=== PATIENT | female | born 1955 | race Caucasian/White ===

== ENCOUNTER 2023-08-09 21:08 | Observation (INO) | payer OTHER ==
--- OUTSIDE RECORDS SUMMARY | 2023-08-09 21:21 | XMS REPORT | Continuity of Care Document ---
:1955 Author Organization [facility] t Address [address] [place] [address] [place] [id number] Care Team Providers Name Role Phone Christopher Bridges MD Primary Care Physician Naga Marcial Attending Clinician Unavailable Isael Brito Attending Clinician Unavailable Pob, Ad[facility] Lab Main Attending Clinician Unavailable Veda Chavez MD Attending Clinician VEDA CHAVEZ Attending Clinician Unavailable Christopher Bridges MD Attending Clinician CHRISTOPHER BRIDGES Attending Clinician Unavailable Doctor Unassigned, [place] Attending Clinician Unavailable Michelle Reed Attending Clinician Unavailable Lab, Ang - Db Attending Clinician Unavailable NATI ALVARADO Attending Clinician Unavailable Nati Alvarado MD Attending Clinician Steven KEITH, Dylan Attending Clinician SAMSON MARES Attending Clinician Unavailable Ebjong MARTINEZP, Samson Attending Clinician JAY JUDD Attending Clinician Unavailable Jay Jones Attending Clinician Therapy, Adc Covid Infusion Attending Clinician Unavailable Jamie Ahn MD Attending Clinician JAMIE AHN Attending Clinician Unavailable David MARTINEZP, Jony Attending Clinician PITO RENEE Attending Clinician Unavailable JONY GRIGGS Attending Clinician Unavailable Frantz Fuller DO Attending Clinician MARCELLE MCLEOD Attending Clinician Unavailable Lab, Adc Fam Pob I Attending Clinician Unavailable Harsha JOSE, Marcelle Doyle Attending Clinician Tariq Harman MD Attending Clinician Isela Alba MD Attending Clinician [phone] KNOW, DOES_NOT Admitting Clinician Unavailable Michelle Reed Admitting Clinician Unavailable Physician, No Primary or Family Admitting Clinician Unavaila ble Payers Payer Name Policy Type Policy Number Effective Date Expiration Date Janis VERMA [id number] 2019 PLUS CHOICE 00:00:00 [employer] GOLD PLS [id number] 2021 HMO 00:00:00 [facility] SNP [id number] 2021 00:00:00 Problems Condition Condition Condition Status Onset Resolution Last Treating Co mments Source Name Details Category Date Date Treatment Clinician Date Cough, Cough, 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 7-15 it y of 00:00: [place] 00 Medical Branch Essential Essential Disease Active Uni vers hypertensi hypertensi 1-24 it y of on on 00:00: [place] 00 Medical Branch Gastroesop Gastroesop Disease Active 2016- U nivers hageal hageal 2-28 ity of reflux reflux 00:00: [place] disease disease 00 Medical without without Branch esophagiti esophagiti s s Arthritis Arthritis Disease Active 2014-11 Uni vers 1-18 ity of 00:00: [place] 00 [facility] Branch Chronic Chronic Disease Active 2014-11 Univers back pain back pain 1-18 ity of greater greater 00:00: [place] than 3 than 3 00 Medical months months Branch duration duration Allergies, Adverse Reactions, Alerts Allergy Allergy Status Severity Reaction(s) Onset Inactive Treating Comm ents Source Name Type Date Date Clinician No Known DA Active [facility] 7[facility] Clear s 00:[facility]: [place] [facility] No Known DA Active [facility] Allergie 8-21 Clear s 00:00: [place] 00 [facility] No Known DA Active [facility] Allergie 8-21 Clear s 00:00: [place] 00 [facility] NO KNOWN Drug Active Univers ALLERGIE Class ity of [facility] Social History Social Habit Start Date Stop Date Quantity Comments Source Gender identity [facility] y [facility] Sexual orientation Univer [facility] Alcohol intake 2023-07-06 2023-07-06 Current University of 00:00:00 00:00:00 non-drinker of [facility] alcohol Branch (finding) Exposure to 2023-04-03 2023-04-13 Not sure [facility] SARS-CoV-2 (event) 00:00:00 11:50:00 [facility] History of Social 2023-01-24 2023-01-24 Univers ity of function 00:00:00 00:00:00 [facility] Tobacco use and 2015-10-15 2015-10-15 Smokeless Universit y of exposure 00:00:00 00:00:00 tobacco non-user [facility] Sex [birth year] Universit y of 00:00:00 00:00:00 [facility] Smoking Status Start Date Stop Date Source Tobacco smoking consumption Univ [facility] Branch Never smoked tobacco [facility] Medications Ordered Filled Start Stop Current Ordering Indication Dosage Frequency Signature Comments Components Source Medication Medication Date Date Medication? Clinician (SIG) Name Name HYDROcodone Yes 2745 1{tbl} Take 1 Un sharda -acetaminop 8-23 tablet by ity of hen 10-325 00:00: mouth [place] mg tablet 00 every 6 Medical (six) Branch hours as needed for Pain (scale 7-10). Indication s: chronic pain HYDROcodone 2023-0 Yes [id number] 1{tbl} Take 1 Un sharda -acetaminop 8-23 tablet by ity of hen 10-325 00:00: mouth [place] mg tablet 00 every 6 Medical (six) Branch hours as needed for Pain (scale 7-10). Indication s: chronic pain HYDROcodone 2023-0 Yes [id number] 1{tbl} Take 1 Un sharda -acetaminop 8-23 tablet by ity of hen 10-325 00:00: mouth [place] mg tablet 00 every 6 Medical (six) Branch hours as needed for Pain (scale 7-10). Indication s: chronic pain HYDROcodone 2023-0 Yes 2745 1{tbl} Take 1 Un sharda -acetaminop 8-23 tablet by ity of hen 10-325 00:00: mouth [place] mg tablet 00 every 6 Medical (six) Branch hours as needed for Pain (scale 7-10). Indication s: chronic pain HYDROcodone 2023-0 Yes [id number] 1{tbl} Take 1 Un sharda -acetaminop 8-23 tablet by ity of hen 10-325 00:00: mouth [place] mg tablet 00 every 6 Medical (six) Branch hours as needed for Pain (scale 7-10). Indication s: chronic pain HYDROcodone 2023-0 Yes 2745 1{tbl} Take 1 Un sharda -acetaminop 8-23 tablet by ity of hen 10-325 00:00: mouth [place] mg tablet 00 every 6 Medical (six) Branch hours as needed for Pain (scale 7-10). Indication s: chronic pain tiZANidine 2023-0 Yes [id number] TAKE 1 U nivers 4 mg tablet 8-17 TABLET BY ity of 00:00: MOUTH [place] 00 THREE Medical TIMES Branch DAILY NEEDED FOR MUSCLE SPASMS tiZANidine 2023-0 Yes [id number] TAKE 1 U nivers 4 mg tablet 8-17 TABLET BY ity of 00:00: MOUTH [place] 00 THREE Medical TIMES Branch DAILY NEEDED FOR MUSCLE SPASMS tiZANidine 2023-0 Yes [id number] TAKE 1 U nivers 4 mg tablet 8-17 TABLET BY ity of 00:00: MOUTH [place] 00 THREE Medical TIMES Branch DAILY NEEDED FOR MUSCLE SPASMS tiZANidine 2023-0 Yes [id number] TAKE 1 U nivers 4 mg tablet 8-17 TABLET BY ity of 00:00: MOUTH [place] 00 THREE Medical TIMES Branch DAILY NEEDED FOR MUSCLE SPASMS tiZANidine 2023-0 Yes [id number] TAKE 1 U nivers 4 mg tablet 8-17 TABLET BY ity of 00:00: MOUTH [place] 00 THREE Medical TIMES Branch DAILY NEEDED FOR MUSCLE SPASMS tiZANidine 2023-0 Yes [id number] TAKE 1 U nivers 4 mg tablet 8-17 TABLET BY ity of 00:00: MOUTH [place] 00 THREE Medical TIMES Branch DAILY NEEDED FOR MUSCLE SPASMS tiZANidine 2023-0 Yes [id number] TAKE 1 U nivers 4 mg tablet 8-17 TABLET BY ity of 00:00: MOUTH [place] 00 THREE Medical TIMES Branch DAILY NEEDED FOR MUSCLE SPASMS HYDROcodone 2023-0 Yes [id number] 1{tbl} Take 1 Un sharda -acetaminop 7-24 tablet by ity of hen 10-325 00:00: mouth [place] mg tablet 00 every 6 Medical (six) Branch hours as needed for Pain (scale 7-10). Indication s: chronic pain ciprofloxac 2023-0 Yes [id number] 500mg Take 1 Univers in HCl 7-24 tablet by ity of (CIPRO) 500 00:00: mouth [place] mg tablet 00 every 12 Medica l (twelve) Branch hours. HYDROcodone 2023-0 Yes [id number] 1{tbl} Take 1 Un sharda -acetaminop 7-24 tablet by ity of hen 10-325 00:00: mouth [place] mg tablet 00 every 6 Medical (six) Branch hours as needed for Pain (scale 7-10). Indication s: chronic pain ciprofloxac 2023-0 Yes [id number] 500mg Take 1 Univers in HCl 7-24 tablet by ity of (CIPRO) 500 00:00: mouth [place] mg tablet 00 every 12 Medica l (twelve) Branch hours. HYDROcodone 2023-0 Yes [id number] 1{tbl} Take 1 Un sharda -acetaminop 7-24 tablet by ity of hen 10-325 00:00: mouth [place] mg tablet 00 every 6 Medical (six) Branch hours as needed for Pain (scale 7-10). Indication s: chronic pain ciprofloxac 2023-0 Yes [id number] 500mg Take 1 Univers in HCl 7-24 tablet by ity of (CIPRO) 500 00:00: mouth [place] mg tablet 00 every 12 Medica l (twelve) Branch hours. HYDROcodone 2023-0 Yes [id number] 1{tbl} Take 1 Un sharda -acetaminop 7-24 tablet by ity of hen 10-325 00:00: mouth [place] mg tablet 00 every 6 Medical (six) Branch hours as needed for Pain (scale 7-10). Indication s: chronic pain ciprofloxac 2023-0 Yes [id number] 500mg Take 1 Univers in HCl 7-24 tablet by ity of (CIPRO) 500 00:00: mouth [place] mg tablet 00 every 12 Medica l (twelve) Branch hours. HYDROcodone 2023-0 Yes [id number] 1{tbl} Take 1 Un sharda -acetaminop 7-24 tablet by ity of hen 10-325 00:00: mouth [place] mg tablet 00 every 6 Medical (six) Branch hours as needed for Pain (scale 7-10). Indication s: chronic pain ciprofloxac 2023-0 Yes [id number] 500mg Take 1 Univers in HCl 7-24 tablet by ity of (CIPRO) 500 00:00: mouth [place] mg tablet 00 every 12 Medica l (twelve) Branch hours. HYDROcodone 2023-0 Yes [id number] 1{tbl} Take 1 Un sharda -acetaminop 7-24 tablet by ity of hen 10-325 00:00: mouth [place] mg tablet 00 every 6 Medical (six) Branch hours as needed for Pain (scale 7-10). Indication s: chronic pain ciprofloxac 2023-0 Yes [id number] 500mg Take 1 Univers in HCl 7-24 tablet by ity of (CIPRO) 500 00:00: mouth [place] mg tablet 00 every 12 Medica l (twelve) Branch hours. ciprofloxac 2023-0 Yes [id number] 500mg Take 1 Univers in HCl 7-24 tablet by ity of (CIPRO) 500 00:00: mouth [place] mg tablet 00 every 12 Medica l (twelve) Branch hours. ciprofloxac 2023-0 Yes [id number] 500mg Take 1 Univers in HCl 7-24 tablet by ity of (CIPRO) 500 00:00: mouth [place] mg tablet 00 every 12 Medica l (twelve) Branch hours. ciprofloxac 2023-0 Yes [id number] 500mg Take 1 Univers in HCl 7-24 tablet by ity of (CIPRO) 500 00:00: mouth [place] mg tablet 00 every 12 Medica l (twelve) Branch hours. ciprofloxac 2023-0 Yes [id number] 500mg Take 1 Univers in HCl 7-24 tablet by ity of (CIPRO) 500 00:00: mouth [place] mg tablet 00 every 12 Medica l (twelve) Branch hours. ciprofloxac 2023-0 Yes [id number] 500mg Take 1 Univers in HCl 7-24 tablet by ity of (CIPRO) 500 00:00: mouth [place] mg tablet 00 every 12 Medica l (twelve) Branch hours. ciprofloxac 2023-0 Yes [id number] 500mg Take 1 Univers in HCl 7-24 tablet by ity of (CIPRO) 500 00:00: mouth [place] mg tablet 00 every 12 Medica l (twelve) Branch hours. HYDROcodone 2022-0 2022- No [id number] 1{tbl} Take 1 U nivers -acetaminop 7-24 08-23 tablet by it y of hen 10-325 00:00: 00:00 mouth [place] mg tablet 00 :00 every 6 Medical (six) Branch hours as needed for Pain (scale 7-10). Indication s: chronic pain HYDROcodone 2022-0 Yes [id number] 1{tbl} Take 1 Un sharda -acetaminop 6-25 tablet by ity of hen 10-325 00:00: mouth [place] mg tablet 00 every 6 Medical (six) Branch hours as needed for Pain (scale 7-10). Indication s: chronic pain HYDROcodone 2022-0 2022- No 2745 1{tbl} Take 1 U nivers -acetaminop 6-25 07-24 tablet by it y of hen 10-325 00:00: 00:00 mouth [place] mg tablet 00 :00 every 6 Medical (six) Branch hours as needed for Pain (scale 7-10). Indication s: chronic pain HYDROcodone 2022-0 2022- No 2745 1{tbl} Take 1 U nivers -acetaminop 6-25 07-24 tablet by it y of hen 10-325 00:00: 00:00 mouth [place] mg tablet 00 :00 every 6 Medical (six) Branch hours as needed for Pain (scale 7-10). Indication s: chronic pain HYDROcodone 2023-0 2023- No 2745 1{tbl} Take 1 U nivers -acetaminop 6-25 07-24 tablet by it y of hen 10-325 00:00: 00:00 mouth [place] mg tablet 00 :00 every 6 Medical (six) Branch hours as needed for Pain (scale 7-10). Indication s: chronic pain TIZANIDINE 2023-0 Yes [id number] TAKE 1 U nivers 4 mg tablet 6-16 TABLET BY ity of 00:00: MOUTH [place] 00 THREE Medical TIMES Branch DAILY NEEDED FOR MUSCLE SPASMS TIZANIDINE 2023-0 Yes [id number] TAKE 1 U nivers 4 mg tablet 6-16 TABLET BY ity of 00:00: MOUTH [place] 00 THREE Medical TIMES Branch DAILY NEEDED FOR MUSCLE SPASMS TIZANIDINE 2023-0 Yes [id number] TAKE 1 U nivers 4 mg tablet 6-16 TABLET BY ity of 00:00: MOUTH [place] 00 THREE Medical TIMES Branch DAILY NEEDED FOR MUSCLE SPASMS TIZANIDINE 2023-0 Yes [id number] TAKE 1 U nivers 4 mg tablet 6-16 TABLET BY ity of 00:00: MOUTH [place] 00 THREE Medical TIMES Branch DAILY NEEDED FOR MUSCLE SPASMS TIZANIDINE 2023-0 Yes [id number] TAKE 1 U nivers 4 mg tablet 6-16 TABLET BY ity of 00:00: MOUTH [place] 00 THREE Medical TIMES Branch DAILY NEEDED FOR MUSCLE SPASMS TIZANIDINE 2023-0 Yes [id number] TAKE 1 U nivers 4 mg tablet 6-16 TABLET BY ity of 00:00: MOUTH [place] 00 THREE Medical TIMES Branch DAILY NEEDED FOR MUSCLE SPASMS TIZANIDINE 2023-0 Yes [id number] TAKE 1 U nivers 4 mg tablet 6-16 TABLET BY ity of 00:00: MOUTH [place] 00 THREE Medical TIMES Branch DAILY NEEDED FOR MUSCLE SPASMS TIZANIDINE 2023-0 2023- No [id number] TAKE 1 Univers 4 mg tablet 6-16 08-17 TABLET BY it y of 00:00: 00:00 MOUTH [place] 00 :00 THREE Medical TIMES Branch DAILY NEEDED FOR MUSCLE SPASMS HYDROcodone 2023-0 Yes [id number] 1{tbl} Take 1 Un sharda -acetaminop 5-24 tablet by ity of hen 10-325 00:00: mouth [place] mg tablet 00 every 6 Medical (six) Branch hours as needed for Pain (scale 7-10). Indication s: chronic pain HYDROcodone 3-0 Yes 2745 1{tbl} Take 1 Un sharda -acetaminop 5-24 tablet by ity of hen 10-325 00:00: mouth [place] mg tablet 00 every 6 Medical (six) Branch hours as needed for Pain (scale 7-10). Indication s: chronic pain HYDROcodone 3-0 Yes [id number] 1{tbl} Take 1 Un sharda -acetaminop 5-24 tablet by ity of hen 10-325 00:00: mouth [place] mg tablet 00 every 6 Medical (six) Branch hours as needed for Pain (scale 7-10). Indication s: chronic pain HYDROcodone 2022-0 Yes 2745 1{tbl} Take 1 Un sharda -acetaminop 5-24 tablet by ity of hen 10-325 00:00: mouth [place] mg tablet 00 every 6 Medical (six) Branch hours as needed for Pain (scale 7-10). Indication s: chronic pain HYDROcodone 2022-0 Yes [id number] 1{tbl} Take 1 Un sharda -acetaminop 5-24 tablet by ity of hen 10-325 00:00: mouth [place] mg tablet 00 every 6 Medical (six) Branch hours as needed for Pain (scale 7-10). Indication s: chronic pain HYDROcodone 3-0 Yes 2745 1{tbl} Take 1 Un sharda -acetaminop 5-24 tablet by ity of hen 10-325 00:00: mouth [place] mg tablet 00 every 6 Medical (six) Branch hours as needed for Pain (scale 7-10). Indication s: chronic pain HYDROcodone 3-0 Yes 2745 1{tbl} Take 1 Un sharda -acetaminop 5-24 tablet by ity of hen 10-325 00:00: mouth [place] mg tablet 00 every 6 Medical (six) Branch hours as needed for Pain (scale 7-10). Indication s: chronic pain HYDROcodone 3-0 3- No 2745 1{tbl} Take 1 U nivers -acetaminop 5-24 06-25 tablet by it y of hen 10-325 00:00: 00:00 mouth [place] mg tablet 00 :00 every 6 Medical (six) Branch hours as needed for Pain (scale 7-10). Indication s: chronic pain iopamidol 0 2022- No [id number] 80mL 80 mL, Univers (ISOVUE - 05-17 Intravenou ity o f 370-500 mL) 20:00: 20:06 s, ONCE, 1 [place] injection 00 :00 dose, On Medica l 80 mL [facility] Branch 04/13/23 at 1515, Routine OMEPRAZOLE 2022-0 Yes Take by [facility] ers (PRILOSEC 5-17 mouth. ity of ORAL) 12:08: [address] OMEPRAZOLE 2022-0 Yes Take by [facility] ers (PRILOSEC 5-17 mouth. ity of ORAL) 12:08: [address] OMEPRAZOLE 2022-0 Yes Take by Univ ers (PRILOSEC 5-17 mouth. ity of ORAL) 12:08: [address] OMEPRAZOLE 3-0 Yes Take by [facility] ers (PRILOSEC 5-17 mouth. ity of ORAL) 12:08: [address] OMEPRAZOLE 3-0 Yes Take by [facility] ers (PRILOSEC 5-17 mouth. ity of ORAL) 12:08: [address] OMEPRAZOLE 3-0 Yes Take by Univ ers (PRILOSEC 5-17 mouth. ity of ORAL) 12:08: [address] OMEPRAZOLE 3-0 Yes Take by Univ ers (PRILOSEC 5-17 mouth. ity of ORAL) 12:08: [address] OMEPRAZOLE 3-0 Yes Take by Univ ers (PRILOSEC 5-17 mouth. ity of ORAL) 12:08: [address] OMEPRAZOLE 3-0 Yes Take by Univ ers (PRILOSEC 5-17 mouth. ity of ORAL) 12:08: [address] OMEPRAZOLE 3-0 Yes Take by Univ ers (PRILOSEC 5-17 mouth. ity of ORAL) 12:08: [address] OMEPRAZOLE 2023-0 Yes Take by Univ ers (PRILOSEC 5-17 mouth. ity of ORAL) 12:08: [address] OMEPRAZOLE 3-0 Yes Take by Univ ers (PRILOSEC 5-17 mouth. ity of ORAL) 12:08: [place] [address] Medical Branch OMEPRAZOLE 2023-0 Yes Take by Univ ers (PRILOSEC 5-17 mouth. ity of ORAL) 12:08: [place] [address] Medical Branch OMEPRAZOLE 2023-0 Yes Take by Univ ers (PRILOSEC 5-17 mouth. ity of ORAL) 12:08: [place] [address] Medical Branch OMEPRAZOLE 2023-0 Yes Take by Univ ers (PRILOSEC 5-17 mouth. ity of ORAL) 12:08: [place] [address] Medical Branch OMEPRAZOLE 2023-0 Yes Take by Univ ers (PRILOSEC 5-17 mouth. ity of ORAL) 12:08: [place] [address] Medical Branch OMEPRAZOLE 3-0 Yes Take by Univ ers (PRILOSEC 5-17 mouth. ity of ORAL) 12:08: [place] [address] Medical Branch OMEPRAZOLE 2023-0 Yes Take by Univ ers (PRILOSEC 5-17 mouth. ity of ORAL) 12:08: [place] [address] Medical Branch OMEPRAZOLE 3-0 Yes Take by Univ ers (PRILOSEC 5-17 mouth. ity of ORAL) 12:08: [place] [address] Medical Branch OMEPRAZOLE 3-0 Yes Take by Univ ers (PRILOSEC 5-17 mouth. ity of ORAL) 12:08: [place] [address] Medical Branch OMEPRAZOLE 3-0 Yes Take by Univ ers (PRILOSEC 5-17 mouth. ity of ORAL) 12:08: [place] [address] Medical Branch OMEPRAZOLE 2023-0 Yes Take by Univ ers (PRILOSEC 5-17 mouth. ity of ORAL) 12:08: [place] [address] Medical Branch OMEPRAZOLE 2023-0 Yes Take by Univ ers (PRILOSEC 5-17 mouth. ity of ORAL) 12:08: [place] [address] Medical Branch OMEPRAZOLE 2023-0 Yes Take by Univ ers (PRILOSEC 5-17 mouth. ity of ORAL) 12:08: [place] [address] Medical Branch OMEPRAZOLE 2023-0 Yes Take by Univ ers (PRILOSEC 5-17 mouth. ity of ORAL) 12:08: [place] [address] Medical Branch OMEPRAZOLE 2023-0 Yes Take by Univ ers (PRILOSEC 5-17 mouth. ity of ORAL) 12:08: [place] [address] Medical Branch OMEPRAZOLE 2023-0 Yes Take by Univ ers (PRILOSEC 5-17 mouth. ity of ORAL) 12:08: [address] OMEPRAZOLE 2023-0 Yes Take by [facility] ers (PRILOSEC 5-17 mouth. ity of ORAL) 12:08: [address] OMEPRAZOLE 2023-0 Yes Take by [facility] ers (PRILOSEC 5-17 mouth. ity of ORAL) 12:08: [address] OMEPRAZOLE 2023-0 Yes Take by [facility] ers (PRILOSEC 5-17 mouth. ity of ORAL) 12:08: [address] OMEPRAZOLE 2023-0 Yes Take by [facility] ers (PRILOSEC 5-17 mouth. ity of ORAL) 12:08: [address] ciprofloxac 2023-0 Yes 500mg Take 1 Uni vers in HCl 5-17 tablet by ity of (CIPRO) 500 00:00: mouth [place] mg tablet 00 every 12 Medica l (twelve) Branch hours. ciprofloxac 2023-0 Yes 500mg Take 1 Uni vers in HCl 5-17 tablet by ity of (CIPRO) 500 00:00: mouth [place] mg tablet 00 every 12 Medica l (twelve) Branch hours. ciprofloxac 2023-0 Yes 500mg Take 1 Uni vers in HCl 5-17 tablet by ity of (CIPRO) 500 00:00: mouth [place] mg tablet 00 every 12 Medica l (twelve) Branch hours. ciprofloxac 2023-0 Yes 500mg Take 1 Uni vers in HCl 5-17 tablet by ity of (CIPRO) 500 00:00: mouth [place] mg tablet 00 every 12 Medica l (twelve) Branch hours. ciprofloxac 2023-0 Yes 500mg Take 1 Uni vers in HCl 5-17 tablet by ity of (CIPRO) 500 00:00: mouth [place] mg tablet 00 every 12 Medica l (twelve) Branch hours. ciprofloxac 2023-0 Yes 500mg Take 1 Uni vers in HCl 5-17 tablet by ity of (CIPRO) 500 00:00: mouth [place] mg tablet 00 every 12 Medica l (twelve) Branch hours. ciprofloxac 2023-0 Yes 500mg Take 1 Uni vers in HCl 5-17 tablet by ity of (CIPRO) 500 00:00: mouth [place] mg tablet 00 every 12 Medica l (twelve) Branch hours. ciprofloxac 2023-0 Yes 500mg Take 1 Uni vers in HCl 5-17 tablet by ity of (CIPRO) 500 00:00: mouth [place] mg tablet 00 every 12 Medica l (twelve) Branch hours. ciprofloxac 2023-0 Yes 500mg Take 1 Uni vers in HCl 5-17 tablet by ity of (CIPRO) 500 00:00: mouth [place] mg tablet 00 every 12 Medica l (twelve) Branch hours. ciprofloxac 2023-0 Yes 500mg Take 1 Uni vers in HCl 5-17 tablet by ity of (CIPRO) 500 00:00: mouth [place] mg tablet 00 every 12 Medica l (twelve) Branch hours. ciprofloxac 2023-0 Yes 500mg Take 1 Uni vers in HCl 5-17 tablet by ity of (CIPRO) 500 00:00: mouth [place] mg tablet 00 every 12 Medica l (twelve) Branch hours. ciprofloxac 2023-0 Yes 500mg Take 1 Uni vers in HCl 5-17 tablet by ity of (CIPRO) 500 00:00: mouth [place] mg tablet 00 every 12 Medica l (twelve) Branch hours. ciprofloxac 2023-0 Yes 500mg Take 1 Uni vers in HCl 5-17 tablet by ity of (CIPRO) 500 00:00: mouth [place] mg tablet 00 every 12 Medica l (twelve) Branch hours. ciprofloxac 2023-0 Yes 500mg Take 1 Uni vers in HCl 5-17 tablet by ity of (CIPRO) 500 00:00: mouth [place] mg tablet 00 every 12 Medica l (twelve) Branch hours. ciprofloxac 2023-0 2023- No 500mg Take 1 Un sharda in HCl 5-17 07-24 tablet by ity of (CIPRO) 500 00:00: 00:00 [place] tablet 00 :00 every 12 Medica l (twelve) Branch hours. ciprofloxac 2023-0 2023- No 500mg Take 1 Un [place] in HCl 5-17 07-24 tablet by ity of (CIPRO) 500 00:00: 00:00 [place] tablet 00 :00 every 12 Medica l (twelve) Branch hours. ciprofloxac 2022-0 2022- No 500mg Take 1 Un [facility]arda in HCl 5-17 07-24 tablet by ity of (CIPRO) 500 00:00: 00:00 [place] tablet 00 :00 every 12 Medica l (twelve) Branch hours. lisinopriL- 3-0 Yes [id number] 1{tbl} Take 1 Univers hydrochloro 5-08 tablet by ity of thiazide 00:00: mouth in [place] 20-12.5 mg 00 the Medical per tablet morning. [facility] h lisinopriL- 3-0 Yes [id number] 1{tbl} Take 1 Univers hydrochloro 5-08 tablet by ity of thiazide 00:00: mouth in [place] 20-12.5 mg 00 the Medical per tablet morning. Bran h lisinopriL- 3-0 Yes [id number] 1{tbl} Take 1 Univers hydrochloro 5-08 tablet by ity of thiazide 00:00: mouth in [place] 20-12.5 mg 00 the Medical per tablet morning. [facility] h lisinopriL- 3-0 Yes [id number] 1{tbl} Take 1 Univers hydrochloro 5-08 tablet by ity of thiazide 00:00: mouth in [place] 20-12.5 mg 00 the Medical per tablet morning. [facility] lisinopriL- 3-0 Yes [id number] 1{tbl} Take 1 Univers hydrochloro 5-08 tablet by ity of thiazide 00:00: mouth in [place] 20-12.5 mg 00 the Medical per tablet morning. [facility] lisinopriL- 3-0 Yes [id number] 1{tbl} Take 1 Univers hydrochloro 5-08 tablet by ity of thiazide 00:00: mouth in [place] 20-12.5 mg 00 the Medical per tablet morning. [facility] h lisinopriL- 2023-0 Yes [id number] 1{tbl} Take 1 Univers hydrochloro 5-08 tablet by ity of thiazide 00:00: mouth in [place] 20-12.5 mg 00 the Medical per tablet morning. Bran h lisinopriL- 3-0 Yes [id number] 1{tbl} Take 1 Univers hydrochloro 5-08 tablet by ity of thiazide 00:00: mouth in [place] 20-12.5 mg 00 the Medical per tablet morning. Bran h lisinopriL- 2023-0 Yes [id number] 1{tbl} Take 1 Univers hydrochloro 5-08 tablet by ity of thiazide 00:00: mouth in [place] 20-12.5 mg 00 the Medical per tablet morning. Branc h lisinopriL- 2023-0 Yes [id number] 1{tbl} Take 1 Univers hydrochloro 5-08 tablet by ity of thiazide 00:00: mouth in [place] 20-12.5 mg 00 the Medical per tablet morning. Branc h lisinopriL- 3-0 Yes [id number] 1{tbl} Take 1 Univers hydrochloro 5-08 tablet by ity of thiazide 00:00: mouth in [place] 20-12.5 mg 00 the Medical per tablet morning. Branc h lisinopriL- 3-0 Yes [id number] 1{tbl} Take 1 Univers hydrochloro 5-08 tablet by ity of thiazide 00:00: mouth in [place] 20-12.5 mg 00 the Medical per tablet morning. Bran h lisinopriL- 3-0 Yes [id number] 1{tbl} Take 1 Univers hydrochloro 5-08 tablet by ity of thiazide 00:00: mouth in [place] 20-12.5 mg 00 the Medical per tablet morning. Bran h lisinopriL- 3-0 Yes [id number] 1{tbl} Take 1 Univers hydrochloro 5-08 tablet by ity of thiazide 00:00: mouth in [place] 20-12.5 mg 00 the Medical per tablet morning. Bran h lisinopriL- 3-0 Yes [id number] 1{tbl} Take 1 Univers hydrochloro 5-08 tablet by ity of thiazide 00:00: mouth in [place] 20-12.5 mg 00 the Medical per tablet morning. Branc h lisinopriL- 2023-0 Yes [id number] 1{tbl} Take 1 Univers hydrochloro 5-08 tablet by ity of thiazide 00:00: mouth in [place] 20-12.5 mg 00 the Medical per tablet morning. Branc h lisinopriL- 2023-0 Yes [id number] 1{tbl} Take 1 [facility] hydrochloro 5-08 tablet by ity of thiazide 00:00: mouth in [place] 20-12.5 mg 00 the Medical per tablet morning. Bran h lisinopriL- 2023-0 Yes [id number] 1{tbl} Take 1 [facility] hydrochloro 5-08 tablet by ity of thiazide 00:00: mouth in [place] 20-12.5 mg 00 the Medical per tablet morning. Branc h lisinopriL- 2023-0 Yes [id number] 1{tbl} Take 1 [facility] hydrochloro 5-08 tablet by ity of thiazide 00:00: mouth in [place] 20-12.5 mg 00 the Medical per tablet morning. Branc h lisinopriL- 2023-0 Yes [id number] 1{tbl} Take 1 [facility] hydrochloro 5-08 tablet by ity of thiazide 00:00: mouth in [place] 20-12.5 mg 00 the Medical per tablet morning. Branc h lisinopriL- 3-0 Yes [id number] 1{tbl} Take 1 [facility] hydrochloro 5-08 tablet by ity of thiazide 00:00: mouth in [place] 20-12.5 mg 00 the Medical per tablet morning. Bran h lisinopriL- 3-0 Yes [id number] 1{tbl} Take 1 [facility] hydrochloro 5-08 tablet by ity of thiazide 00:00: mouth in [place] 20-12.5 mg 00 the Medical per tablet morning. Bran h lisinopriL- 3-0 Yes [id number] 1{tbl} Take 1 [facility] hydrochloro 5-08 tablet by ity of thiazide 00:00: mouth in [place] 20-12.5 mg 00 the Medical per tablet morning. Bran h lisinopriL- 2023-0 Yes [id number] 1{tbl} Take 1 [facility] hydrochloro 5-08 tablet by ity of thiazide 00:00: mouth in [place] 20-12.5 mg 00 the Medical per tablet morning. Branc h lisinopriL- 2023-0 Yes [id number] 1{tbl} Take 1 [facility] hydrochloro 5-08 tablet by ity of thiazide 00:00: mouth in [place] 20-12.5 mg 00 the Medical per tablet morning. Branc h lisinopriL- 2023-0 Yes [id number] 1{tbl} Take 1 [facility] hydrochloro 5-08 tablet by ity of thiazide 00:00: mouth in [place] 20-12.5 mg 00 the Medical per tablet morning. [facility] lisinopriL- 2022-0 Yes [id number] 1{tbl} Take 1 [facility] hydrochloro 5-08 tablet by ity of thiazide 00:00: mouth in [place] 20-12.5 mg 00 the Medical per tablet morning. [facility] lisinopriL- 2022-0 Yes [id number] 1{tbl} Take 1 [facility] hydrochloro 5-08 tablet by ity of thiazide 00:00: mouth in [place] 20-12.5 mg 00 the Medical per tablet morning. [facility] lisinopriL- 2022-0 Yes [id number] 1{tbl} Take 1 [facility] hydrochloro 5-08 tablet by ity of thiazide 00:00: mouth in [place] 20-12.5 mg 00 the Medical per tablet morning. [facility] lisinopriL- 2022-0 Yes [id number] 1{tbl} Take 1 [facility] hydrochloro 5-08 tablet by ity of thiazide 00:00: mouth in [place] 20-12.5 mg 00 the Medical per tablet morning. [facility] lisinopriL- 2022-0 Yes [id number] 1{tbl} Take 1 [facility] hydrochloro 5-08 tablet by ity of thiazide 00:00: mouth in [place] 20-12.5 mg 00 the Medical per tablet morning. [facility] lisinopriL- 2022-0 Yes [id number] 1{tbl} Take 1 [facility] hydrochloro 5-08 tablet by ity of thiazide 00:00: mouth in [place] 20-12.5 mg 00 the Medical per tablet morning. [facility] lisinopriL- 2022-0 Yes [id number] 1{tbl} Take 1 [facility] hydrochloro 5-08 tablet by ity of thiazide 00:00: mouth in [place] 20-12.5 mg 00 the Medical per tablet morning. [facility] h cyanocobala 2022- No [id number] 1000ug Univers min (DODEX) 03-24 ity of injection 21:15: 20:17 [place] 1,000 mcg 00 :00 Medical Branch cyanocobala 2022- No [id number] 1000ug 1,000 mcg, [facility] min (DODEX) 03-24 Intramuscu i ty of injection 21:15: 20:17 [place], [place]CE, [place] 1,000 mcg 00 :00 1 dose, On [facility] 03/24/23 at 1615, Routine cyanocobala 2022- No [id number] 1000ug Univers min (DODEX) 03-24 ity of injection 21:15: 20:17 [place] 1,000 mcg 00 :00 Medical Branch cyanocobala 2022- No [id number] 1000ug 1,000 mcg, [facility] min (DODEX) 03-24 Intramuscu i ty of injection 21:15: 20:17 [place], [place]CE, [place] 1,000 mcg 00 :00 1 dose, On [facility] 03/24/23 at 1615, Routine HYDROcodone Yes [id number] 1{tbl} Take 1 Un sharda -acetaminop 4-27 tablet by ity of hen 10-325 00:00: mouth [place] mg tablet 00 every 6 Medical (six) Branch hours as needed for Pain (scale 7-10). Indication s: chronic pain escitalopra Yes [id number] 20mg Take 1 [facility] m oxalate 4-27 tablet by ity o f 20 mg 00:00: mouth in [place] tablet 00 the Medical morning. Branch lisinopriL- Yes [id number] 1{tbl} Take 1 [facility] hydrochloro 4-27 tablet by ity of thiazide 00:00: mouth in [place] 20-12.5 mg 00 the Medical per tablet morning. Bran h HYDROcodone 2022-0 Yes [id number] 1{tbl} Take 1 Un sharda -acetaminop 4-27 tablet by ity of hen 10-325 00:00: mouth [place] mg tablet 00 every 6 Medical (six) Branch hours as needed for Pain (scale 7-10). Indication s: chronic pain escitalopra 2022-0 Yes [id number] 20mg Take 1 [facility] m oxalate 4-27 tablet by ity o f 20 mg 00:00: mouth in [place] tablet 00 the Medical morning. Branch lisinopriL- 2022-0 Yes [id number] 1{tbl} Take 1 [facility] hydrochloro 4-27 tablet by ity of thiazide 00:00: mouth in [place] 20-12.5 mg 00 the Medical per tablet morning. Branc h HYDROcodone 3-0 Yes [id number] 1{tbl} Take 1 Un sharda -acetaminop 4-27 tablet by ity of hen 10-325 00:00: mouth [place] mg tablet 00 every 6 Medical (six) Branch hours as needed for Pain (scale 7-10). Indication s: chronic pain escitalopra 3-0 Yes [id number] 20mg Take 1 [facility] m oxalate 4-27 tablet by ity o f 20 mg 00:00: mouth in [place] tablet 00 the Medical morning. Branch lisinopriL- 3-0 Yes [id number] 1{tbl} Take 1 [facility] hydrochloro 4-27 tablet by ity of thiazide 00:00: mouth in [place] 20-12.5 mg 00 the Medical per tablet morning. Branc h HYDROcodone 2022-0 Yes [id number] 1{tbl} Take 1 Un sharda -acetaminop 4-27 tablet by ity of hen 10-325 00:00: mouth [place] mg tablet 00 every 6 Medical (six) Branch hours as needed for Pain (scale 7-10). Indication s: chronic pain escitalopra 3-0 Yes [id number] 20mg Take 1 [facility] m oxalate 4-27 tablet by ity o f 20 mg 00:00: mouth in [place] tablet 00 the Medical morning. Branch lisinopriL- 3-0 Yes [id number] 1{tbl} Take 1 [facility] hydrochloro 4-27 tablet by ity of thiazide 00:00: mouth in [place] 20-12.5 mg 00 the Medical per tablet morning. Branc h HYDROcodone 3-0 Yes [id number] 1{tbl} Take 1 Un sharda -acetaminop 4-27 tablet by ity of hen 10-325 00:00: mouth [place] mg tablet 00 every 6 Medical (six) Branch hours as needed for Pain (scale 7-10). Indication s: chronic pain escitalopra 2023-0 Yes [id number] 20mg Take 1 [facility] m oxalate 4-27 tablet by ity o f 20 mg 00:00: mouth in [place] tablet 00 the Medical morning. Branch HYDROcodone 3-0 Yes [id number] 1{tbl} Take 1 Un sharda -acetaminop 4-27 tablet by ity of hen 10-325 00:00: mouth [place] mg tablet 00 every 6 Medical (six) Branch hours as needed for Pain (scale 7-10). Indication s: chronic pain escitalopra 2023-0 Yes [id number] 20mg Take 1 [facility] m oxalate 4-27 tablet by ity o f 20 mg 00:00: mouth in [place] tablet 00 the Medical morning. Branch HYDROcodone 2023-0 Yes [id number] 1{tbl} Take 1 Un sharda -acetaminop 4-27 tablet by ity of hen 10-325 00:00: mouth [place] mg tablet 00 every 6 Medical (six) Branch hours as needed for Pain (scale 7-10). Indication s: chronic pain escitalopra 2023-0 Yes [id number] 20mg Take 1 [facility] m oxalate 4-27 tablet by ity o f 20 mg 00:00: mouth in [place] tablet 00 the Medical morning. Branch HYDROcodone 2023-0 Yes [id number] 1{tbl} Take 1 Un sharda -acetaminop 4-27 tablet by ity of hen 10-325 00:00: mouth [place] mg tablet 00 every 6 Medical (six) Branch hours as needed for Pain (scale 7-10). Indication s: chronic pain escitalopra 2023-0 Yes [id number] 20mg Take 1 [facility] m oxalate 4-27 tablet by ity o f 20 mg 00:00: mouth in [place] tablet 00 the Medical morning. Branch HYDROcodone 2023-0 Yes [id number] 1{tbl} Take 1 Un sharda -acetaminop 4-27 tablet by ity of hen 10-325 00:00: mouth [place] mg tablet 00 every 6 Medical (six) Branch hours as needed for Pain (scale 7-10). Indication s: chronic pain escitalopra 2023-0 Yes [id number] 20mg Take 1 [facility] m oxalate 4-27 tablet by ity o f 20 mg 00:00: mouth in [place] tablet 00 the Medical morning. Branch HYDROcodone 2023-0 Yes [id number] 1{tbl} Take 1 Un sharda -acetaminop 4-27 tablet by ity of hen 10-325 00:00: mouth [place] mg tablet 00 every 6 Medical (six) Branch hours as needed for Pain (scale 7-10). Indication s: chronic pain escitalopra 2023-0 Yes [id number] 20mg Take 1 [facility] m oxalate 4-27 tablet by ity o f 20 mg 00:00: mouth in [place] tablet 00 the Medical morning. Branch HYDROcodone 3-0 Yes [id number] 1{tbl} Take 1 Un sharda -acetaminop 4-27 tablet by ity of hen 10-325 00:00: mouth [place] mg tablet 00 every 6 Medical (six) Branch hours as needed for Pain (scale 7-10). Indication s: chronic pain escitalopra 2022-0 Yes [id number] 20mg Take 1 [facility] m oxalate 4-27 tablet by ity o f 20 mg 00:00: mouth in [place] tablet 00 the Medical morning. Branch HYDROcodone 2022-0 Yes [id number] 1{tbl} Take 1 Un sharda -acetaminop 4-27 tablet by ity of hen 10-325 00:00: mouth [place] mg tablet 00 every 6 Medical (six) Branch hours as needed for Pain (scale 7-10). Indication s: chronic pain escitalopra 2022-0 Yes [id number] 20mg Take 1 [facility] m oxalate 4-27 tablet by ity o f 20 mg 00:00: mouth in [place] tablet 00 the Medical morning. Branch HYDROcodone 2022-0 Yes 2745 1{tbl} Take 1 Un sharda -acetaminop 4-27 tablet by ity of hen 10-325 00:00: mouth [place] mg tablet 00 every 6 Medical (six) Branch hours as needed for Pain (scale 7-10). Indication s: chronic pain escitalopra 3-0 Yes [id number] 20mg Take 1 [facility] m oxalate 4-27 tablet by ity o f 20 mg 00:00: mouth in [place] tablet 00 the Medical morning. Branch HYDROcodone 3-0 Yes [id number] 1{tbl} Take 1 Un sharda -acetaminop 4-27 tablet by ity of hen 10-325 00:00: mouth [place] mg tablet 00 every 6 Medical (six) Branch hours as needed for Pain (scale 7-10). Indication s: chronic pain escitalopra 3-0 Yes [id number] 20mg Take 1 [facility] m oxalate 4-27 tablet by ity o f 20 mg 00:00: mouth in [place] tablet 00 the Medical morning. Branch escitalopra 3-0 Yes [id number] 20mg Take 1 [facility] m oxalate 4-27 tablet by ity o f 20 mg 00:00: mouth in [place] tablet 00 the Medical morning. Branch escitalopra 2022-0 Yes [id number] 20mg Take 1 [facility] m oxalate 4-27 tablet by ity o f 20 mg 00:00: mouth in [place] tablet 00 the Medical morning. Branch escitalopra 2022-0 Yes [id number] 20mg Take 1 [facility] m oxalate 4-27 tablet by ity o f 20 mg 00:00: mouth in [place] tablet 00 the Medical morning. Branch escitalopra 2022-0 Yes [id number] 20mg Take 1 [facility] m oxalate 4-27 tablet by ity o f 20 mg 00:00: mouth in [place] tablet 00 the Medical morning. Branch escitalopra 2022-0 Yes [id number] 20mg Take 1 [facility] m oxalate 4-27 tablet by ity o f 20 mg 00:00: mouth in [place] tablet 00 the Medical morning. Branch escitalopra 2022-0 Yes [id number] 20mg Take 1 [facility] m oxalate 4-27 tablet by ity o f 20 mg 00:00: mouth in [place] tablet 00 the Medical morning. Branch escitalopra 2022-0 Yes [id number] 20mg Take 1 [facility] m oxalate 4-27 tablet by ity o f 20 mg 00:00: mouth in [place] tablet 00 the Medical morning. Branch escitalopra 2022-0 Yes [id number] 20mg Take 1 [facility] m oxalate 4-27 tablet by ity o f 20 mg 00:00: mouth in [place] tablet 00 the Medical morning. Branch escitalopra 2022-0 Yes [id number] 20mg Take 1 [facility] m oxalate 4-27 tablet by ity o f 20 mg 00:00: mouth in [place] tablet 00 the Medical morning. Branch escitalopra 2022-0 Yes [id number] 20mg Take 1 [facility] m oxalate 4-27 tablet by ity o f 20 mg 00:00: mouth in [place] tablet 00 the Medical morning. Branch escitalopra 2022-0 Yes [id number] 20mg Take 1 [facility] m oxalate 4-27 tablet by ity o f 20 mg 00:00: mouth in [place] tablet 00 the Medical morning. Branch escitalopra 2022-0 Yes [id number] 20mg Take 1 [facility] m oxalate 4-27 tablet by ity o f 20 mg 00:00: mouth in [place] tablet 00 the Medical morning. Branch escitalopra 2022-0 Yes [id number] 20mg Take 1 [facility] m oxalate 4-27 tablet by ity o f 20 mg 00:00: mouth in [place] tablet 00 the Medical morning. Branch escitalopra 2022-0 Yes [id number] 20mg Take 1 [facility] m oxalate 4-27 tablet by ity o f 20 mg 00:00: mouth in [place] tablet 00 the Medical morning. Branch escitalopra 2022-0 Yes [id number] 20mg Take 1 [facility] m oxalate 4-27 tablet by ity o f 20 mg 00:00: mouth in [place] tablet 00 the Medical morning. Branch escitalopra 2022-0 Yes [id number] 20mg Take 1 [facility] m oxalate 4-27 tablet by ity o f 20 mg 00:00: mouth in [place] tablet 00 the Medical morning. Branch escitalopra 2022-0 Yes [id number] 20mg Take 1 [facility] m oxalate 4-27 tablet by ity o f 20 mg 00:00: mouth in [place] tablet 00 the Medical morning. Branch escitalopra 2022-0 Yes [id number] 20mg Take 1 [facility] m oxalate 4-27 tablet by ity o f 20 mg 00:00: mouth in [place] tablet 00 the Medical morning. Branch escitalopra 2022-0 Yes [id number] 20mg Take 1 [facility] m oxalate 4-27 tablet by ity o f 20 mg 00:00: mouth in [place] tablet 00 the Medical morning. Branch escitalopra 0 Yes [id number] 20mg Take 1 [facility] m oxalate 4-27 tablet by ity o f 20 mg 00:00: mouth in [place] tablet 00 the Medical morning. Branch escitalopra 2022-0 Yes [id number] 20mg Take 1 [facility] m oxalate 4-27 tablet by ity o f 20 mg 00:00: mouth in [place] tablet 00 the Medical morning. Branch escitalopra 2022-0 Yes [id number] 20mg Take 1 [facility] m oxalate 4-27 tablet by ity o f 20 mg 00:00: mouth in [place] tablet 00 the Medical morning. Branch escitalopra 2022-0 Yes [id number] 20mg Take 1 [facility] m oxalate 4-27 tablet by ity o f 20 mg 00:00: mouth in [place] tablet 00 the Medical morning. Branch HYDROcodone 0 2022- No 2745 1{tbl} Take 1 U nivers -acetaminop 4-27 05-24 tablet by it y of hen 10-325 00:00: 00:00 mouth [place] mg tablet 00 :00 every 6 Medical (six) Branch hours as needed for Pain (scale 7-10). Indication s: chronic pain HYDROcodone 2022-2022- No 2745 1{tbl} Take 1 U nivers -acetaminop 4-27 05-24 tablet by it y of hen 10-325 00:00: 00:00 mouth [place] mg tablet 00 :00 every 6 Medical (six) Branch hours as needed for Pain (scale 7-10). Indication s: chronic pain HYDROcodone 2022-2022- No 2745 1{tbl} Take 1 U nivers -acetaminop 4-27 05-24 tablet by it y of hen 10-325 00:00: 00:00 mouth [place] mg tablet 00 :00 every 6 Medical (six) Branch hours as needed for Pain (scale 7-10). Indication s: chronic pain HYDROcodone 2022-2022- No 2745 1{tbl} Take 1 U nivers -acetaminop 4-27 05-24 tablet by it y of hen 10-325 00:00: 00:00 mouth [place] mg tablet 00 :00 every 6 Medical (six) Branch hours as needed for Pain (scale 7-10). Indication s: chronic pain lisinopriL- 2022- No [id number] 1{tbl} Take 1 [facility] hydrochloro 4-27 05-08 tablet by it y of thiazide 00:00: 00:00 [place] 20-12.5 mg 00 :00 the Medical per tablet morning. Bran h TIZANIDINE 2022-0 Yes [id number] TAKE 1 U nivers 4 mg tablet 4-17 TABLET BY ity of 00:00: MOUTH [place] 00 THREE Medical TIMES Branch DAILY NEEDED FOR MUSCLE SPASMS TIZANIDINE 2022-0 Yes [id number] TAKE 1 U nivers 4 mg tablet 4-17 TABLET BY ity of 00:00: MOUTH [place] 00 THREE Medical TIMES Branch DAILY NEEDED FOR MUSCLE SPASMS TIZANIDINE 2022-0 Yes [id number] TAKE 1 U nivers 4 mg tablet 4-17 TABLET BY ity of 00:00: MOUTH [place] 00 THREE Medical TIMES Branch DAILY NEEDED FOR MUSCLE SPASMS TIZANIDINE 2023-0 Yes [id number] TAKE 1 U nivers 4 mg tablet 4-17 TABLET BY ity of 00:00: MOUTH [place] THREE Medical TIMES Branch DAILY NEEDED FOR MUSCLE SPASMS TIZANIDINE 2023-0 Yes [id number] TAKE 1 U nivers 4 mg tablet 4-17 TABLET BY ity of 00:00: MOUTH [place] THREE Medical TIMES Branch DAILY NEEDED FOR MUSCLE SPASMS TIZANIDINE 2023-0 Yes [id number] TAKE 1 U nivers 4 mg tablet 4-17 TABLET BY ity of 00:00: MOUTH THREE Medical TIMES Branch DAILY NEEDED FOR MUSCLE SPASMS TIZANIDINE 2023-0 Yes [id number] TAKE 1 U nivers 4 mg tablet 4-17 TABLET BY ity of 00:00: [facility] THREE Medical TIMES Branch DAILY NEEDED FOR MUSCLE SPASMS TIZANIDINE 2023-0 Yes [id number] TAKE 1 U nivers 4 mg tablet 4-17 TABLET BY ity of 00:00: [facility] THREE Medical TIMES Branch DAILY NEEDED FOR MUSCLE SPASMS TIZANIDINE 2023-0 Yes [id number] TAKE 1 U nivers 4 mg tablet 4-17 TABLET BY ity of 00:00: [facility] THREE Medical TIMES Branch DAILY NEEDED FOR MUSCLE SPASMS TIZANIDINE 2023-0 Yes [id number] TAKE 1 U nivers 4 mg tablet 4-17 TABLET BY ity of 00:00: [facility] THREE Medical TIMES Branch DAILY NEEDED FOR MUSCLE SPASMS TIZANIDINE 2023-0 Yes [id number] TAKE 1 U nivers 4 mg tablet 4-17 TABLET BY ity of 00:00: [facility] THREE Medical TIMES Branch DAILY NEEDED FOR MUSCLE SPASMS TIZANIDINE 2023-0 Yes [id number] TAKE 1 U nivers 4 mg tablet 4-17 TABLET BY ity of 00:00: [facility] THREE Medical TIMES Branch DAILY NEEDED FOR MUSCLE SPASMS TIZANIDINE 2023-0 Yes [id number] TAKE 1 U nivers 4 mg tablet 4-17 TABLET BY ity of 00:00: [facility] THREE Medical TIMES Branch DAILY NEEDED FOR MUSCLE SPASMS TIZANIDINE 2023-0 Yes [id number] TAKE 1 U nivers 4 mg tablet 4-17 TABLET BY ity of 00:00: MOUTH THREE Medical TIMES Branch DAILY NEEDED FOR MUSCLE SPASMS TIZANIDINE 2023-0 Yes [id number] TAKE 1 U nivers 4 mg tablet 4-17 TABLET BY ity of 00:00: MOUTH THREE Medical TIMES Branch DAILY NEEDED FOR MUSCLE SPASMS TIZANIDINE 2023-0 Yes [id number] TAKE 1 U nivers 4 mg tablet 4-17 TABLET BY ity of 00:00: MOUTH THREE Medical TIMES Branch DAILY NEEDED FOR MUSCLE SPASMS TIZANIDINE 2023-0 Yes [id number] TAKE 1 U nivers 4 mg tablet 4-17 TABLET BY ity of 00:00: MOUTH [place] THREE Medical TIMES Branch DAILY NEEDED FOR MUSCLE SPASMS TIZANIDINE 2023-0 Yes [id number] TAKE 1 U nivers 4 mg tablet 4-17 TABLET BY ity of 00:00: [facility] THREE Medical TIMES Branch DAILY NEEDED FOR MUSCLE SPASMS TIZANIDINE 2023-0 Yes [id number] TAKE 1 U nivers 4 mg tablet 4-17 TABLET BY ity of 00:00: [facility] THREE Medical TIMES Branch DAILY NEEDED FOR MUSCLE SPASMS TIZANIDINE 2023-0 Yes [id number] TAKE 1 U nivers 4 mg tablet 4-17 TABLET BY ity of 00:00: [facility] THREE Medical TIMES Branch DAILY NEEDED FOR MUSCLE SPASMS TIZANIDINE 2023-0 Yes [id number] TAKE 1 U nivers 4 mg tablet 4-17 TABLET BY ity of 00:00: [facility] THREE Medical TIMES Branch DAILY NEEDED FOR MUSCLE SPASMS TIZANIDINE 2023-0 Yes [id number] TAKE 1 U nivers 4 mg tablet 4-17 TABLET BY ity of 00:00: [facility] THREE Medical TIMES Branch DAILY NEEDED FOR MUSCLE SPASMS TIZANIDINE 2023-0 Yes [id number] TAKE 1 U nivers 4 mg tablet 4-17 TABLET BY ity of 00:00: [facility] THREE Medical TIMES Branch DAILY NEEDED FOR MUSCLE SPASMS TIZANIDINE 2023-0 Yes [id number] TAKE 1 U nivers 4 mg tablet 4-17 TABLET BY ity of 00:00: [facility] THREE Medical TIMES Branch DAILY NEEDED FOR MUSCLE SPASMS TIZANIDINE 2023-0 2023- No [id number] TAKE 1 Univers 4 mg tablet 4-17 06-16 TABLET BY it y of 00:00: 00:00 MOUTH [place] 00 :00 THREE Medical TIMES Branch DAILY NEEDED FOR MUSCLE SPASMS LISINOPRIL 2022-0 Yes [id number] 10mg TAKE 1 U nivers 10 mg 4-14 TABLET BY ity of tablet 00:00: MOUTH IN [place] 00 THE Medical MORNING Branch LISINOPRIL 2022-0 Yes [id number] 10mg TAKE 1 U nivers 10 mg 4-14 TABLET BY ity of tablet 00:00: MOUTH IN [place] 00 THE Medical MORNING Branch LISINOPRIL 2022-0 2022- No [id number] 10mg TAKE 1 [facility] 10 mg 4-14 04-27 TABLET BY ity of tablet 00:00: 00:00 MOUTH IN [place] 00 :00 THE Medical MORNING Branch LISINOPRIL 2022-0 2022- No [id number] 10mg TAKE 1 [facility] 10 mg 4-14 04-27 TABLET BY ity of tablet 00:00: 00:00 MOUTH IN [place] 00 :00 THE Medical MORNING Branch HYDROcodone 2022-0 Yes 2745 1{tbl} Take 1 Un sharda -acetaminop 3-28 tablet by ity of hen 10-325 00:00: mouth [place] mg tablet 00 every 6 Medical (six) Branch hours as needed for Pain (scale 7-10). Indication s: chronic pain HYDROcodone 2022-0 Yes 2745 1{tbl} Take 1 Un sharda -acetaminop 3-28 tablet by ity of hen 10-325 00:00: mouth [place] mg tablet 00 every 6 Medical (six) Branch hours as needed for Pain (scale 7-10). Indication s: chronic pain HYDROcodone 2022-0 Yes 2745 1{tbl} Take 1 Un sharda -acetaminop 3-28 tablet by ity of hen 10-325 00:00: mouth [place] mg tablet 00 every 6 Medical (six) Branch hours as needed for Pain (scale 7-10). Indication s: chronic pain HYDROcodone 2022-0 2022- No 2745 1{tbl} Take 1 U nivers -acetaminop 3-28 04-27 tablet by it y of hen 10-325 00:00: 00:00 mouth [place] mg tablet 00 :00 every 6 Medical (six) Branch hours as needed for Pain (scale 7-10). Indication s: chronic pain HYDROcodone 2022- No 2745 1{tbl} Take 1 U nivers -acetaminop 3-28 03-24 tablet by it y of hen 10-325 00:00: 00:00 mouth [place] mg tablet 00 :00 every 6 Medical (six) Branch hours as needed for Pain (scale 7-10). Indication s: chronic pain triamcinolo 2022- No [id number] 80mg [facility] ne 01-24 ity of acetonide 23:00: 21:51 [place] (KENALOG) 00 :00 Medical injection Branch 80 mg triamcinolo 2022- No [id number] 80mg 80 mg, Univers ne 01-24 Intramuscu ity of acetonide 23:00: 21:51 [place], [place]CE, [place] (KENALOG) 00 :00 1 dose, On [facility] philip injection Mon Branch 80 mg 01/24/23 at 1700, Routine triamcinolo 2022- No [id number] 80mg Univers ne 01-24 ity of acetonide 23:00: 21:51 [place] (KENALOG) 00 :00 Medical injection Branch 80 mg triamcinolo 2022- No [id number] 80mg 80 mg, Univers ne 01-24 Intramuscu ity of acetonide 23:00: 21:51 [place], [place], [place] (KENALOG) 00 :00 1 dose, On [facility] hpilip injection Mon Branch 80 mg 01/24/23 at 1700, Routine cyanocobala 2022- No [id number] 1000ug 1,000 mcg, [facility] min (DODEX) 01-24 Intramuscu i ty of injection 22:00: 21:10 [place], [place]CE, [place] 1,000 mcg 00 :00 1 dose, On Medi philip Mon Branch 01/24/23 at 1600, Routine cyanocobala 2022- No [id number] 1000ug [facility] min (DODEX) 01-24 ity of injection 22:00: 21:10 [place] 1,000 mcg 00 :00 Medical Branch cyanocobala 2022- No [id number] 1000ug 1,000 mcg, [facility] min (DODEX) 01-24 Intramuscu i ty of injection 22:00: 21:10 [place], [place], [place] 1,000 mcg 00 :00 1 dose, On Medi [facility] Branch 01/24/23 at 1600, Routine cyanocobala 2022- No [id number] 1000ug Univers min (DODEX) 01-24 ity of injection 22:00: 21:10 [place] 1,000 mcg 00 :00 Medical Branch traMADoL 50 Yes [id number] 50mg Take 1 Univ ers mg tablet 2-27 tablet by ity o f 00:00: mouth [place] 00 every 6 Medical (six) Branch hours as needed for Pain (scale 4-6). Take 1 tablet by mouth every 6 (six) hours as needed for Pain (scale 4-6). Indication s: acute pain Indication s: chronic pain HYDROcodone Yes 2745 1{tbl} Take 1 Un sharda -acetaminop 2-27 tablet by ity of hen 10-325 00:00: mouth [place] mg tablet 00 every 6 Medical (six) Branch hours as needed for Pain (scale 7-10). Indication s: chronic pain traMADoL 50 0 Yes 2745 50mg Take 1 Univ ers mg tablet 2-27 tablet by ity o f 00:00: mouth [place] 00 every 6 Medical (six) Branch hours as needed for Pain (scale 4-6). Take 1 tablet by mouth every 6 (six) hours as needed for Pain (scale 4-6). Indication s: acute pain Indication s: chronic pain HYDROcodone 2022- Yes 2745 1{tbl} Take 1 Un sharda -acetaminop 2-27 tablet by ity of hen 10-325 00:00: mouth [place] mg tablet 00 every 6 Medical (six) Branch hours as needed for Pain (scale 7-10). Indication s: chronic pain traMADoL 50 2022-0 Yes 2745 50mg Take 1 Univ ers mg tablet 2-27 tablet by ity o f 00:00: mouth [place] 00 every 6 Medical (six) Branch hours as needed for Pain (scale 4-6). Take 1 tablet by mouth every 6 (six) hours as needed for Pain (scale 4-6). Indication s: acute pain Indication s: chronic pain HYDROcodone 2022-0 Yes 2745 1{tbl} Take 1 Un sharda -acetaminop 2-27 tablet by ity of hen 10-325 00:00: mouth [place] mg tablet 00 every 6 Medical (six) Branch hours as needed for Pain (scale 7-10). Indication s: chronic pain traMADoL 50 2022-0 Yes 2745 50mg Take 1 Univ ers mg tablet 2-27 tablet by ity o f 00:00: mouth [place] 00 every 6 Medical (six) Branch hours as needed for Pain (scale 4-6). Take 1 tablet by mouth every 6 (six) hours as needed for Pain (scale 4-6). Indication s: acute pain Indication s: chronic pain HYDROcodone 2022-0 Yes 2745 1{tbl} Take 1 Un sharda -acetaminop 2-27 tablet by ity of hen 10-325 00:00: mouth [place] mg tablet 00 every 6 Medical (six) Branch hours as needed for Pain (scale 7-10). Indication s: chronic pain traMADoL 50 2022-0 Yes 2745 50mg Take 1 Univ ers mg tablet 2-27 tablet by ity o f 00:00: mouth [place] 00 every 6 Medical (six) Branch hours as needed for Pain (scale 4-6). Take 1 tablet by mouth every 6 (six) hours as needed for Pain (scale 4-6). Indication s: acute pain Indication s: chronic pain traMADoL 50 2022-0 Yes 2745 50mg Take 1 [facility] tablet 2-27 tablet by [facility] f 00:00: mouth [place] 00 every 6 Medical (six) Branch hours as needed for Pain (scale 4-6). Take 1 tablet by mouth every 6 (six) hours as needed for Pain (scale 4-6). Indication s: acute pain Indication s: chronic pain traMADoL 50 3-0 Yes 2745 50mg Take 1 [facility] mg tablet 2-27 tablet by [facility] o f 00:00: mouth [place] 00 every 6 Medical (six) Branch hours as needed for Pain (scale 4-6). Take 1 tablet by mouth every 6 (six) hours as needed for Pain (scale 4-6). Indication s: acute pain Indication s: chronic pain traMADoL 50 3-0 Yes 2745 50mg Take 1 [facility] mg tablet 2-27 tablet by [facility] o f 00:00: mouth [place] 00 every 6 Medical (six) Branch hours as needed for Pain (scale 4-6). Take 1 tablet by mouth every 6 (six) hours as needed for Pain (scale 4-6). Indication s: acute pain Indication s: chronic pain traMADoL 50 2023-0 Yes 2745 50mg Take 1 [facility] mg tablet 2-27 tablet by [facility] o f 00:00: mouth [place] 00 every 6 Medical (six) Branch hours as needed for Pain (scale 4-6). Take 1 tablet by mouth every 6 (six) hours as needed for Pain (scale 4-6). Indication s: acute pain Indication s: chronic pain traMADoL 50 2023-0 Yes 2745 50mg Take 1 [facility] mg tablet 2-27 tablet by [facility] o f 00:00: mouth [place] 00 every 6 Medical (six) Branch hours as needed for Pain (scale 4-6). Take 1 tablet by mouth every 6 (six) hours as needed for Pain (scale 4-6). Indication s: acute pain Indication s: chronic pain traMADoL 50 3-0 Yes 2745 50mg Take 1 [facility] mg tablet 2-27 tablet by [facility] o f 00:00: mouth [place] 00 every 6 Medical (six) Branch hours as needed for Pain (scale 4-6). Take 1 tablet by mouth every 6 (six) hours as needed for Pain (scale 4-6). Indication s: acute pain Indication s: chronic pain traMADoL 50 2023-0 Yes 2745 50mg Take 1 [facility] mg tablet 2-27 tablet by [facility] o f 00:00: mouth [place] 00 every 6 Medical (six) Branch hours as needed for Pain (scale 4-6). Take 1 tablet by mouth every 6 (six) hours as needed for Pain (scale 4-6). Indication s: acute pain Indication s: chronic pain traMADoL 50 2023-0 Yes 2745 50mg Take 1 [facility] mg tablet 2-27 tablet by [facility] o f 00:00: mouth [place] 00 every 6 Medical (six) Branch hours as needed for Pain (scale 4-6). Take 1 tablet by mouth every 6 (six) hours as needed for Pain (scale 4-6). Indication s: acute pain Indication s: chronic pain traMADoL 50 2023-0 Yes 2745 50mg Take 1 [facility] mg tablet 2-27 tablet by [facility] o f 00:00: mouth [place] 00 every 6 Medical (six) Branch hours as needed for Pain (scale 4-6). Take 1 tablet by mouth every 6 (six) hours as needed for Pain (scale 4-6). Indication s: acute pain Indication s: chronic pain traMADoL 50 2023-0 Yes 2745 50mg Take 1 [facility] mg tablet 2-27 tablet by [facility] o f 00:00: mouth [place] 00 every 6 Medical (six) Branch hours as needed for Pain (scale 4-6). Take 1 tablet by mouth every 6 (six) hours as needed for Pain (scale 4-6). Indication s: acute pain Indication s: chronic pain traMADoL 50 2023-0 Yes 2745 50mg Take 1 [facility] mg tablet 2-27 tablet by [facility] o f 00:00: mouth [place] 00 every 6 Medical (six) Branch hours as needed for Pain (scale 4-6). Take 1 tablet by mouth every 6 (six) hours as needed for Pain (scale 4-6). Indication s: acute pain Indication s: chronic pain traMADoL 50 2023-0 Yes 2745 50mg Take 1 [facility] mg tablet 2-27 tablet by [facility] o f 00:00: mouth [place] 00 every 6 Medical (six) Branch hours as needed for Pain (scale 4-6). Take 1 tablet by mouth every 6 (six) hours as needed for Pain (scale 4-6). Indication s: acute pain Indication s: chronic pain traMADoL 50 2023-0 Yes 2745 50mg Take 1 [facility] mg tablet 2-27 tablet by [facility] o f 00:00: mouth [place] 00 every 6 Medical (six) Branch hours as needed for Pain (scale 4-6). Take 1 tablet by mouth every 6 (six) hours as needed for Pain (scale 4-6). Indication s: acute pain Indication s: chronic pain traMADoL 50 2023-0 Yes 2745 50mg Take 1 [facility] mg tablet 2-27 tablet by [facility] o f 00:00: mouth [place] 00 every 6 Medical (six) Branch hours as needed for Pain (scale 4-6). Take 1 tablet by mouth every 6 (six) hours as needed for Pain (scale 4-6). Indication s: acute pain Indication s: chronic pain traMADoL 50 2023-0 Yes 2745 50mg Take 1 [facility] mg tablet 2-27 tablet by [facility] o f 00:00: mouth [place] 00 every 6 Medical (six) Branch hours as needed for Pain (scale 4-6). Take 1 tablet by mouth every 6 (six) hours as needed for Pain (scale 4-6). Indication s: acute pain Indication s: chronic pain traMADoL 50 2023-0 Yes 2745 50mg Take 1 [facility] mg tablet 2-27 tablet by [facility] o f 00:00: mouth [place] 00 every 6 Medical (six) Branch hours as needed for Pain (scale 4-6). Take 1 tablet by mouth every 6 (six) hours as needed for Pain (scale 4-6). Indication s: acute pain Indication s: chronic pain traMADoL 50 3-0 2023- No 2745 50mg Take 1 [facility] tablet 2-27 05-24 tablet by [facility] of 00:00: 00:00 mouth [place] 00 :00 every 6 Medical (six) Branch hours as needed for Pain (scale 4-6). Take 1 tablet by mouth every 6 (six) hours as needed for Pain (scale 4-6). Indication s: acute pain Indication s: chronic pain traMADoL 50 3-0 2023- No 2745 50mg Take 1 [facility] mg tablet 2-27 05-24 tablet by [facility] of 00:00: 00:00 mouth [place] 00 :00 every 6 Medical (six) Branch hours as needed for Pain (scale 4-6). Take 1 tablet by mouth every 6 (six) hours as needed for Pain (scale 4-6). Indication s: acute pain Indication s: chronic pain traMADoL 50 3-0 2023- No 2745 50mg Take 1 [facility] mg tablet 2-27 05-24 tablet by [facility] of 00:00: 00:00 mouth [place] 00 :00 every 6 Medical (six) Branch hours as needed for Pain (scale 4-6). Take 1 tablet by mouth every 6 (six) hours as needed for Pain (scale 4-6). Indication s: acute pain Indication s: chronic pain traMADoL 50 2023-0 2023- No 2745 50mg Take 1 [facility] tablet 2-27 05-24 tablet by [facility] of 00:00: 00:00 mouth [place] 00 :00 every 6 Medical (six) Branch hours as needed for Pain (scale 4-6). Take 1 tablet by mouth every 6 (six) hours as needed for Pain (scale 4-6). Indication s: acute pain Indication s: chronic pain HYDROcodone 3-0 2022- No 2745 1{tbl} Take 1 [facility] -acetaminop 2-27 03-28 tablet by [facility] of hen 10-325 00:00: 00:00 mouth [place] mg tablet 00 :00 every 6 Medical (six) Branch hours as needed for Pain (scale 7-10). Indication s: chronic pain HYDROcodone 3-0 2022- No 2745 1{tbl} Take 1 [facility] -acetaminop 2-27 02-27 tablet by it y of hen 10-325 00:00: 00:00 mouth [place] mg tablet 00 :00 every 6 Medical (six) Branch hours as needed for Pain (scale 7-10). Indication s: chronic pain HYDROcodone 2022-0 2022- No 2745 1{tbl} Take 1 [facility] -acetaminop 2-27 -27 tablet by it y of hen 10-325 00:00: 00:00 mouth [place] mg tablet 00 :00 every 6 Medical (six) Branch hours as needed for Pain (scale 7-10). Indication s: chronic pain TIZANIDINE 2023-0 Yes [id number] TAKE 1 [facility] 4 mg tablet 2-16 TABLET BY [facility] of 00:00: MOUTH [place] 00 THREE Medical TIMES Branch DAILY NEEDED FOR MUSCLE SPASMS TIZANIDINE 2023-0 Yes [id number] TAKE 1 [facility] 4 mg tablet 2-16 TABLET BY [facility] of 00:00: MOUTH [place] 00 THREE Medical TIMES Branch DAILY NEEDED FOR MUSCLE SPASMS TIZANIDINE 2023-0 Yes [id number] TAKE 1 [facility] 4 mg tablet 2-16 TABLET BY [facility] of 00:00: MOUTH [place] 00 THREE Medical TIMES Branch DAILY NEEDED FOR MUSCLE SPASMS TIZANIDINE 2023-0 Yes [id number] TAKE 1 [facility] 4 mg tablet 2-16 TABLET BY [facility] of 00:00: MOUTH [place] 00 THREE Medical TIMES Branch DAILY NEEDED FOR MUSCLE SPASMS TIZANIDINE 2023-0 Yes [id number] TAKE 1 [facility] 4 mg tablet 2-16 TABLET BY [facility] of 00:00: MOUTH [place] 00 THREE Medical TIMES Branch DAILY NEEDED FOR MUSCLE SPASMS TIZANIDINE 2023-0 Yes [id number] TAKE 1 [facility] 4 mg tablet 2-16 TABLET BY [facility] of 00:00: MOUTH [place] 00 THREE Medical TIMES Branch DAILY NEEDED FOR MUSCLE SPASMS TIZANIDINE 2023-0 Yes [id number] TAKE 1 [facility] 4 mg tablet 2-16 TABLET BY [facility] of 00:00: MOUTH [place] 00 THREE Medical TIMES Branch DAILY NEEDED FOR MUSCLE SPASMS TIZANIDINE 2023-0 Yes [id number] TAKE 1 [facility] 4 mg tablet 2-16 TABLET BY [facility] of 00:00: MOUTH [place] 00 THREE Medical TIMES Branch DAILY NEEDED FOR MUSCLE SPASMS TIZANIDINE 2023-0 Yes [id number] TAKE 1 [facility] 4 mg tablet 2-16 TABLET BY [facility] of 00:00: MOUTH [place] 00 THREE Medical TIMES Branch DAILY NEEDED FOR MUSCLE SPASMS TIZANIDINE 2023-0 Yes [id number] TAKE 1 [facility] 4 mg tablet 2-16 TABLET BY [facility] of 00:00: MOUTH [place] 00 THREE Medical TIMES Branch DAILY NEEDED FOR MUSCLE SPASMS TIZANIDINE 2023-0 Yes [id number] TAKE 1 [facility] 4 mg tablet 2-16 TABLET BY [facility] of 00:00: MOUTH [place] 00 THREE Medical TIMES Branch DAILY NEEDED FOR MUSCLE SPASMS TIZANIDINE 2023-0 2023- No [id number] TAKE 1 [facility] mg tablet 2-16 04-17 TABLET BY it y of 00:00: 00:00 MOUTH [place] 00 :00 THREE Medical TIMES Branch DAILY NEEDED FOR MUSCLE SPASMS HYDROcodone 3-0 Yes 2745 1{tbl} Take 1 [facility] -acetaminop 1-30 tablet by [facility] hen 10-325 00:00: mouth [place] mg tablet 00 every 6 Medical (six) Branch hours as needed for Pain (scale 7-10). Indication s: chronic pain HYDROcodone 3-0 Yes 2745 1{tbl} Take 1 [facility] -acetaminop 1-30 tablet by [facility] hen 10-325 00:00: mouth [place] mg tablet 00 every 6 Medical (six) Branch hours as needed for Pain (scale 7-10). Indication s: chronic pain HYDROcodone 3-0 Yes 2745 1{tbl} Take 1 [facility] -acetaminop 1-30 tablet by [facility] of hen 10-325 00:00: mouth [place] mg tablet 00 every 6 Medical (six) Branch hours as needed for Pain (scale 7-10). Indication s: chronic pain HYDROcodone Yes 2745 1{tbl} Take 1 [facility] -acetaminop 1-30 tablet by [facility] of hen 10-325 00:00: mouth [place] mg tablet 00 every 6 Medical (six) Branch hours as needed for Pain (scale 7-10). Indication s: chronic pain HYDROcodone 2022- No 2745 1{tbl} Take 1 [facility] -acetaminop 1-30 02-27 tablet by it y of hen 10-325 00:00: 00:00 mouth [place] mg tablet 00 :00 every 6 Medical (six) Branch hours as needed for Pain (scale 7-10). Indication s: chronic pain HYDROcodone 2022- No 2745 1{tbl} Take 1 [facility] -acetaminop 1-30 02-27 tablet by it y of hen 10-325 00:00: 00:00 mouth [place] mg tablet 00 :00 every 6 Medical (six) Branch hours as needed for Pain (scale 7-10). Indication s: chronic pain HYDROcodone 2022- No 2745 1{tbl} Take 1 [facility] -acetaminop 1-30 02-27 tablet by it y of hen 10-325 00:00: 00:00 mouth [place] mg tablet 00 :00 every 6 Medical (six) Branch hours as needed for Pain (scale 7-10). Indication s: chronic pain traMADoL 50 2021-11 Yes 2745 50mg Take 1 [facility] mg tablet 2-27 tablet by [facility] o f 00:00: mouth [place] 00 every 6 Medical (six) Branch hours as needed for Pain (scale 4-6). Take 1 tablet by mouth every 6 (six) hours as needed for Pain (scale 4-6). Indication s: acute pain Indication s: chronic pain HYDROcodone 2021-11 Yes 2745 1{tbl} Take 1 [facility] -acetaminop 2-27 tablet by [facility] hen 10-325 00:00: mouth [place] mg tablet 00 every 6 Medical (six) Branch hours as needed for Pain (scale 7-10). Indication s: chronic pain traMADoL 50 2021-11 Yes 2745 50mg Take 1 [facility] mg tablet 2-27 tablet by it[facility] o f 00:00: mouth [place] 00 every 6 Medical (six) Branch hours as needed for Pain (scale 4-6). Take 1 tablet by mouth every 6 (six) hours as needed for Pain (scale 4-6). Indication s: acute pain Indication s: chronic pain HYDROcodone 2021-11 Yes 2745 1{tbl} Take 1 [facility] -acetaminop 2-27 tablet by [facility] hen 10-325 00:00: mouth [place] mg tablet 00 every 6 Medical (six) Branch hours as needed for Pain (scale 7-10). Indication s: chronic pain escitalopra 2021-11 Yes [id number] 20mg Take 1 [facility] oxalate 2-27 tablet by ity o f 20 mg 00:00: mouth in [place] tablet 00 the Medical morning. Branch escitalopra 2021-11 Yes [id number] 20mg Take 1 [facility] oxalate 2-27 tablet by ity o f 20 mg 00:00: mouth in [place] tablet 00 the Medical morning. Branch traMADoL 50 2021-11 Yes [id number] 50mg Take 1 [facility] mg tablet 2-27 tablet by it[facility] o f 00:00: mouth [place] 00 every 6 Medical (six) Branch hours as needed for Pain (scale 4-6). Take 1 tablet by mouth every 6 (six) hours as needed for Pain (scale 4-6). Indication s: acute pain Indication s: chronic pain escitalopra 2021-11 Yes [id number] 20mg Take 1 [facility] oxalate 2-27 tablet by ity o f 20 mg 00:00: mouth in [place] tablet 00 the Medical morning. Branch traMADoL 50 2021-11 Yes [id number] 50mg Take 1 [facility] mg tablet 2-27 tablet by ity o f 00:00: mouth [place] 00 every 6 Medical (six) Branch hours as needed for Pain (scale 4-6). Take 1 tablet by mouth every 6 (six) hours as needed for Pain (scale 4-6). Indication s: acute pain Indication s: chronic pain escitalopra 2021-11 Yes [id number] 20mg Take 1 [facility] oxalate 2-27 tablet by ity o f 20 mg 00:00: mouth in [place] tablet 00 the Medical morning. Branch traMADoL 50 2021-11 Yes [id number] 50mg Take 1 [facility] mg tablet 2-27 tablet by ity o f 00:00: mouth [place] 00 every 6 Medical (six) Branch hours as needed for Pain (scale 4-6). Take 1 tablet by mouth every 6 (six) hours as needed for Pain (scale 4-6). Indication s: acute pain Indication s: chronic pain escitalopra 2021-11 Yes [id number] 20mg Take 1 [facility] oxalate 2-27 tablet by ity o f 20 mg 00:00: mouth in [place] tablet 00 the Medical morning. [facility] traMADoL 50 2021-11 Yes [id number] 50mg Take 1 [facility] mg tablet 2-27 tablet by ity o f 00:00: mouth [place] 00 every 6 Medical (six) Branch hours as needed for Pain (scale 4-6). Take 1 tablet by mouth every 6 (six) hours as needed for Pain (scale 4-6). Indication s: acute pain Indication s: chronic pain escitalopra 2021-11 Yes [id number] 20mg Take 1 [facility] oxalate 2-27 tablet by ity o f 20 mg 00:00: mouth in [place] tablet 00 the Medical morning. [facility] escitalopra 2021-11 Yes [id number] 20mg Take 1 [facility] oxalate 2-27 tablet by ity o f 20 mg 00:00: mouth in [place] tablet 00 the Medical morning. [facility] escitalopra 2021-11 Yes [id number] 20mg Take 1 [facility] oxalate 2-27 tablet by ity o f 20 mg 00:00: mouth in [place] tablet 00 the Medical morning. [facility] escitalopra 2021-11 Yes [id number] 20mg Take 1 [facility] oxalate 2-27 tablet by ity o f 20 mg 00:00: mouth in [place] tablet 00 the Medical morning. [facility] escitalopra 2021-11 Yes [id number] 20mg Take 1 [facility] oxalate 2-27 tablet by ity o f 20 mg 00:00: mouth in [place] tablet 00 the Medical morning. [facility] escitalopra 2021-11 Yes [id number] 20mg Take 1 [facility] oxalate 2-27 tablet by ity o f 20 mg 00:00: mouth in [place] tablet 00 the Medical morning. [facility] escitalopra 2021-11 Yes [id number] 20mg Take 1 [facility] oxalate 2-27 tablet by ity o f 20 mg 00:00: mouth in [place] tablet 00 [facility] [id number] 20mg Take 1 [facility] oxalate 2-27 tablet by ity o f 20 mg 00:00: mouth in [place] tablet 00 the Medical morning. Branch escitalopra 2021-11 Yes [id number] 20mg Take 1 [facility] oxalate 2-27 tablet by ity o f 20 mg 00:00: mouth in [place] tablet 00 the Medical morning. Branch escitalopra 2021-11- No [id number] 20mg Take 1 [facility] oxalate 2-27 -27 tablet by [facility] of 20 mg 00:00: 00:00 mouth in [place] tablet 00 :00 the Medical morning. Branch escitalopra 2021-11- No [id number] 20mg Take 1 [facility] oxalate 2-27 -27 tablet by [facility] of 20 mg 00:00: 00:00 mouth in [place] tablet 00 :00 the Medical morning. [facility] traMADoL 50 2021-11- No [id number] 50mg Take 1 [facility] mg tablet 01-24- tablet by [facility] of 00:00: 00:00 mouth [place] 00 :00 every 6 Medical (six) Branch hours as needed for Pain (scale 4-6). Take 1 tablet by mouth every 6 (six) hours as needed for Pain (scale 4-6). Indication s: acute pain Indication s: chronic pain traMADoL 50 2021-11- No 2745 50mg Take 1 [facility] mg tablet 01-24 tablet by [facility] of 00:00: 00:00 mouth [place] 00 :00 every 6 Medical (six) Branch hours as needed for Pain (scale 4-6). Take 1 tablet by mouth every 6 (six) hours as needed for Pain (scale 4-6). Indication s: acute pain Indication s: chronic pain traMADoL 50 2021-11- No 2745 50mg Take 1 [facility] mg tablet 01-24- tablet by [facility] of 00:00: 00:00 mouth [place] 00 :00 every 6 Medical (six) Branch hours as needed for Pain (scale 4-6). Take 1 tablet by mouth every 6 (six) hours as needed for Pain (scale 4-6). Indication s: acute pain Indication s: chronic pain HYDROcodone 2021-11- No 2745 1{tbl} Take 1 [facility] -acetaminop 2-27 01-30 tablet by it y of hen 10-325 00:00: 00:00 mouth [place] mg tablet 00 :00 every 6 Medical (six) Branch hours as needed for Pain (scale 7-10). Indication s: chronic pain TIZANIDINE 2021-11 Yes [id number] TAKE 1 [facility] 4 mg tablet 2-19 TABLET BY [facility] of 00:00: MOUTH [place] 00 THREE Medical TIMES Branch DAILY NEEDED FOR MUSCLE SPASMS TIZANIDINE 2021-11 Yes [id number] TAKE 1 [facility] 4 mg tablet 2-19 TABLET BY [facility] of 00:00: MOUTH [place] 00 THREE Medical TIMES Branch DAILY NEEDED FOR MUSCLE SPASMS TIZANIDINE 2021-11 Yes [id number] TAKE 1 [facility] 4 mg tablet 2-19 TABLET BY [facility] of 00:00: MOUTH [place] 00 THREE Medical TIMES Branch DAILY NEEDED FOR MUSCLE SPASMS TIZANIDINE 2021-11 Yes [id number] TAKE 1 [facility] 4 mg tablet 2-19 TABLET BY [facility] of 00:00: MOUTH [place] 00 THREE Medical TIMES Branch DAILY NEEDED FOR MUSCLE SPASMS TIZANIDINE 2021-11 Yes [id number] TAKE 1 [facility] 4 mg tablet 2-19 TABLET BY [facility] of 00:00: MOUTH [place] 00 THREE Medical TIMES Branch DAILY NEEDED FOR MUSCLE SPASMS TIZANIDINE 2021-11 Yes [id number] TAKE 1 [facility] 4 mg tablet 2-19 TABLET BY [facility] of 00:00: MOUTH [place] 00 THREE Medical TIMES Branch DAILY NEEDED FOR MUSCLE SPASMS TIZANIDINE 2021-11- No [id number] TAKE 1 [facility] 4 mg tablet 2-19 02-16 TABLET BY it y of 00:00: 00:00 MOUTH [place] 00 :00 THREE Medical TIMES Branch DAILY NEEDED FOR MUSCLE SPASMS HYDROcodone 2021-11 Yes 2745 1{tbl} Take 1 [facility] -acetaminop 1-28 tablet by [facility] hen 10-325 00:00: mouth [place] mg tablet 00 every 6 Medical (six) Branch hours as needed for Pain (scale 7-10). Indication s: chronic pain HYDROcodone 2021-11 Yes 2745 1{tbl} Take 1 [facility] -acetaminop 1-28 tablet by [facility] hen 10-325 00:00: mouth [place] mg tablet 00 every 6 Medical (six) Branch hours as needed for Pain (scale 7-10). Indication s: chronic pain HYDROcodone 2021-11 Yes 2745 1{tbl} Take 1 [facility] -acetaminop 1-28 tablet by [facility] of hen 10-325 00:00: mouth [place] mg tablet 00 every 6 Medical (six) Branch hours as needed for Pain (scale 7-10). Indication s: chronic pain HYDROcodone 2021-11- No 2745 1{tbl} Take 1 [facility] -acetaminop 1-28 12-27 tablet by [facility] of hen 10-325 00:00: 00:00 mouth [place] mg tablet 00 :00 every 6 Medical (six) Branch hours as needed for Pain (scale 7-10). Indication s: chronic pain HYDROcodone 2021-11 No 2745 1{tbl} Take 1 [facility] -acetaminop 1-28 12-27 tablet by [facility] of hen 10-325 00:00: 00:00 mouth [place] mg tablet 00 :00 every 6 Medical (six) Branch hours as needed for Pain (scale 7-10). Indication s: chronic pain azithromyci 2021-11 Yes [id number] 250mg Take 1 [facility] 250 mg 1-15 tablet by [facility] of tablet 00:00: mouth in [place] 00 the Medical morning. Branch Take 500 mg day 1, then 250 mg days 2 to 5. azithromyci 2021-11 Yes [id number] 250mg Take 1 [facility] 250 mg 1-15 tablet by [facility] of tablet 00:00: mouth in [place] 00 the Medical morning. Branch Take 500 mg day 1, then 250 mg days 2 to 5. azithromyci 2021-11 Yes [id number] 250mg Take 1 [facility] 250 mg 1-15 tablet by [facility] of tablet 00:00: mouth in [place] 00 the Medical morning. Branch Take 500 mg day 1, then 250 mg days 2 to 5. azithromyci 2021-11 Yes [id number] 250mg Take 1 [facility] 250 mg 1-15 tablet by [facility] of tablet 00:00: mouth in [place] 00 the Medical morning. Branch Take 500 mg day 1, then 250 mg days 2 to 5. azithromyci 2021-11 Yes [id number] 250mg Take 1 [facility] 250 mg 1-15 tablet by [facility] of tablet 00:00: mouth in [place] 00 the Medical morning. Branch Take 500 mg day 1, then 250 mg days 2 to 5. azithromyci 2021- Yes [id number] 250mg Take 1 [facility] 250 mg 1-15 tablet by [facility] of tablet 00:00: mouth in [place] 00 the Medical morning. Branch Take 500 mg day 1, then 250 mg days 2 to 5. azithromyci 2021- Yes [id number] 250mg Take 1 [facility] 250 mg 1-15 tablet by [facility] of tablet 00:00: mouth in [place] 00 the Medical morning. Branch Take 500 mg day 1, then 250 mg days 2 to 5. azithromyci 2021- Yes [id number] 250mg Take 1 [facility] 250 mg 1-15 tablet by [facility] of tablet 00:00: mouth in [place] 00 the Medical morning. Branch Take 500 mg day 1, then 250 mg days 2 to 5. azithromyci 2021- Yes [id number] 250mg Take 1 [facility] 250 mg 1-15 tablet by [facility] of tablet 00:00: mouth in [place] the Medical morning. Branch Take 500 mg day 1, then 250 mg days 2 to 5. azithromyci 2021- Yes [id number] 250mg Take 1 [facility] 250 mg 1-15 tablet by [facility] of tablet 00:00: mouth in [place] 00 the Medical morning. Branch Take 500 mg day 1, then 250 mg days 2 to 5. azithromyci 2021- Yes [id number] 250mg Take 1 [facility] 250 mg 1-15 tablet by [facility] of tablet 00:00: mouth in [place] 00 the Medical morning. Branch Take 500 mg day 1, then 250 mg days 2 to 5. azithromyci 2021- Yes [id number] 250mg Take 1 [facility] 250 mg 1-15 tablet by [facility] of tablet 00:00: mouth in [place] 00 the Medical morning. Branch Take 500 mg day 1, then 250 mg days 2 to 5. azithromyci 2021- Yes [id number] 250mg Take 1 [facility] 250 mg 1-15 tablet by [facility] of tablet 00:00: mouth in [place] 00 the Medical morning. Branch Take 500 mg day 1, then 250 mg days 2 to 5. azithromyci 2021- Yes [id number] 250mg Take 1 [facility] 250 mg 1-15 tablet by [facility] of tablet 00:00: mouth in [place] 00 the Medical morning. Branch Take 500 mg day 1, then 250 mg days 2 to 5. azithromyci 2021- Yes [id number] 250mg Take 1 [facility] 250 mg 1-15 tablet by [facility] of tablet 00:00: mouth in [place] 00 the Medical morning. Branch Take 500 mg day 1, then 250 mg days 2 to 5. azithromyci 2021- Yes [id number] 250mg Take 1 [facility] 250 mg 1-15 tablet by [facility] of tablet 00:00: mouth in [place] 00 the Medical morning. Branch Take 500 mg day 1, then 250 mg days 2 to 5. azithromyci 2021- Yes [id number] 250mg Take 1 [facility] 250 mg 1-15 tablet by [facility] of tablet 00:00: mouth in [place] 00 the Medical morning. Branch Take 500 mg day 1, then 250 mg days 2 to 5. azithromyci 2021- Yes [id number] 250mg Take 1 [facility] 250 mg 1-15 tablet by [facility] of tablet 00:00: mouth in [place] 00 the Medical morning. Branch Take 500 mg day 1, then 250 mg days 2 to 5. azithromyci 2021- Yes [id number] 250mg Take 1 [facility] 250 mg 1-15 tablet by [facility] of tablet 00:00: mouth in [place] 00 the Medical morning. Branch Take 500 mg day 1, then 250 mg days 2 to 5. azithromyci 2021- Yes [id number] 250mg Take 1 [facility] 250 mg 1-15 tablet by [facility] of tablet 00:00: mouth in [place] 00 the Medical morning. Branch Take 500 mg day 1, then 250 mg days 2 to 5. azithromyci 2021- Yes [id number] 250mg Take 1 [facility] 250 mg 1-15 tablet by [facility] of tablet 00:00: mouth in [place] 00 the Medical morning. Branch Take 500 mg day 1, then 250 mg days 2 to 5. azithromyci 2021- Yes [id number] 250mg Take 1 [facility] 250 mg 1-15 tablet by [facility] of tablet 00:00: mouth in [place] 00 the Medical morning. Branch Take 500 mg day 1, then 250 mg days 2 to 5. azithromyci 2021-11 Yes [id number] 250mg Take 1 [facility] 250 mg 1-15 tablet by [facility] of tablet 00:00: mouth in [place] 00 the Medical morning. Branch Take 500 mg day 1, then 250 mg days 2 to 5. azithromyci 2021-11 Yes [id number] 250mg Take 1 [facility] 250 mg 1-15 tablet by [facility] of tablet 00:00: mouth in [place] 00 the Medical morning. Branch Take 500 mg day 1, then 250 mg days 2 to 5. azithromyci 2021-11 Yes [id number] 250mg Take 1 [facility] 250 mg 1-15 tablet by [facility] of tablet 00:00: mouth in [place] 00 the Medical morning. Branch Take 500 mg day 1, then 250 mg days 2 to 5. azithromyci 2021-11 Yes [id number] 250mg Take 1 [facility] 250 mg 1-15 tablet by [facility] of tablet 00:00: mouth in [place] 00 the Medical morning. Branch Take 500 mg day 1, then 250 mg days 2 to 5. azithromyci 2021-11 Yes [id number] 250mg Take 1 [facility] 250 mg 1-15 tablet by [facility] of tablet 00:00: mouth in [place] 00 the Medical morning. Branch Take 500 mg day 1, then 250 mg days 2 to 5. azithromyci 2021-11- No [id number] 250mg Take 1 [facility] 250 mg 1-15 05-17 tablet by [facility] o f tablet 00:00: 00:00 mouth in [place] 00 :00 the Medical morning. Branch Take 500 mg day 1, then 250 mg days 2 to 5. azithromyci 2021-11- No [id number] 250mg Take 1 [facility] 250 mg 1-15 05-17 tablet by ity o f tablet 00:00: 00:00 mouth in [place] 00 :00 the Medical morning. Branch Take 500 mg day 1, then 250 mg days 2 to 5. azithromyci 2021-11- No [id number] 250mg Take 1 [facility] n 250 mg 1-15 05-17 tablet by ity o f tablet 00:00: 00:00 mouth in [place] 00 :00 the Medical morning. Branch Take 500 mg day 1, then 250 mg days 2 to 5. azithromyci 2021-113- No [id number] 250mg Take 1 [facility] n 250 mg 1-15 05-17 tablet by ity o f tablet 00:00: 00:00 mouth in [place] 00 :00 the Medical morning. Branch Take 500 mg day 1, then 250 mg days 2 to 5. HYDROcodone 2021-11 Yes [id number] 1{tbl} Take 1 Un sharda -acetaminop 0-27 tablet by ity of hen 10-325 00:00: mouth [place] mg tablet 00 every 6 Medical (six) Branch hours as needed for Pain (scale 7-10). Indication s: chronic pain lisinopriL 2021-11 Yes [id number] 10mg Take 1 U nivers 10 mg 0-27 tablet by ity of tablet 00:00: mouth in [place] 00 the Medical morning. Branch HYDROcodone 2021-11 Yes [id number] 1{tbl} Take 1 Un sharda -acetaminop 0-27 tablet by ity of hen 10-325 00:00: mouth [place] mg tablet 00 every 6 Medical (six) Branch hours as needed for Pain (scale 7-10). Indication s: chronic pain lisinopriL 2021-11 Yes [id number] 10mg Take 1 U nivers 10 mg 0-27 tablet by ity of tablet 00:00: mouth in [place] 00 the Medical morning. Branch HYDROcodone 2021-11 Yes [id number] 1{tbl} Take 1 Un sharda -acetaminop 0-27 tablet by ity of hen 10-325 00:00: mouth [place] mg tablet 00 every 6 Medical (six) Branch hours as needed for Pain (scale 7-10). Indication s: chronic pain lisinopriL 2021-11 Yes [id number] 10mg Take 1 U nivers 10 mg 0-27 tablet by ity of tablet 00:00: mouth in [place] 00 the Medical morning. Branch HYDROcodone 2021-11 Yes [id number] 1{tbl} Take 1 Un sharda -acetaminop 0-27 tablet by ity of hen 10-325 00:00: mouth [place] mg tablet 00 every 6 Medical (six) Branch hours as needed for Pain (scale 7-10). Indication s: chronic pain lisinopriL 2021-11 Yes [id number] 10mg Take 1 U nivers 10 mg 0-27 tablet by ity of tablet 00:00: mouth in [place] 00 the Medical morning. Branch HYDROcodone 2021-11 Yes [id number] 1{tbl} Take 1 Un sharda -acetaminop 0-27 tablet by ity of hen 10-325 00:00: mouth [place] mg tablet 00 every 6 Medical (six) Branch hours as needed for Pain (scale 7-10). Indication s: chronic pain lisinopriL 2021-11 Yes [id number] 10mg Take 1 U nivers 10 mg 0-27 tablet by ity of tablet 00:00: mouth in [place] 00 the Medical morning. Branch HYDROcodone 2021-11 Yes 2745 1{tbl} Take 1 Un sharda -acetaminop 0-27 tablet by ity of hen 10-325 00:00: mouth [place] mg tablet 00 every 6 Medical (six) Branch hours as needed for Pain (scale 7-10). Indication s: chronic pain lisinopriL 2021-11 Yes [id number] 10mg Take 1 U nivers 10 mg 0-27 tablet by ity of tablet 00:00: mouth in [place] 00 the Medical morning. Branch HYDROcodone 2021- Yes [id number] 1{tbl} Take 1 Un sharda -acetaminop 0-27 tablet by ity of hen 10-325 00:00: mouth [place] mg tablet 00 every 6 Medical (six) Branch hours as needed for Pain (scale 7-10). Indication s: chronic pain lisinopriL 2021- Yes [id number] 10mg Take 1 U nivers 10 mg 0-27 tablet by ity of tablet 00:00: mouth in [place] 00 the Medical morning. Branch HYDROcodone 2021- Yes 2745 1{tbl} Take 1 Un sharda -acetaminop 0-27 tablet by ity of hen 10-325 00:00: mouth [place] mg tablet 00 every 6 Medical (six) Branch hours as needed for Pain (scale 7-10). Indication s: chronic pain lisinopriL 2021- Yes [id number] 10mg Take 1 U nivers 10 mg 0-27 tablet by ity of tablet 00:00: mouth in [place] 00 the Medical morning. Branch lisinopriL 2021- Yes [id number] 10mg Take 1 [facility] nivers 10 mg 0-27 tablet by ity of tablet 00:00: mouth in [place] 00 the Medical morning. Branch lisinopriL 2021-11 Yes [id number] 10mg Take 1 U nivers 10 mg 0-27 tablet by ity of tablet 00:00: mouth in [place] 00 the Medical morning. Branch lisinopriL 2021-11 Yes [id number] 10mg Take 1 U nivers 10 mg 0-27 tablet by ity of tablet 00:00: mouth in [place] 00 the Medical morning. Branch lisinopriL 2021-11 Yes [id number] 10mg Take 1 [facility] nivers 10 mg 0-27 tablet by ity of tablet 00:00: mouth in [place] 00 the Medical morning. Branch lisinopriL 2021-11 Yes [id number] 10mg Take 1 [facility] nivers 10 mg 0-27 tablet by ity of tablet 00:00: mouth in [place] 00 the Medical morning. Branch lisinopriL 2021-11 Yes [id number] 10mg Take 1 U nivers 10 mg 0-27 tablet by ity of tablet 00:00: mouth in [place] 00 the Medical morning. Branch lisinopriL 2021-11 Yes [id number] 10mg Take 1 U nivers 10 mg 0-27 tablet by ity of tablet 00:00: mouth in [place] 00 the Medical morning. Branch lisinopriL 2021-11 Yes [id number] 10mg Take 1 U nivers 10 mg 0-27 tablet by ity of tablet 00:00: mouth in [place] 00 the Medical morning. Branch lisinopriL 2021-11 Yes [id number] 10mg Take 1 U nivers 10 mg 0-27 tablet by ity of tablet 00:00: mouth in [place] 00 the Medical morning. Branch lisinopriL 2021-11 Yes [id number] 10mg Take 1 U nivers 10 mg 0-27 tablet by ity of tablet 00:00: mouth in [place] 00 the Medical morning. Branch lisinopriL 2021-11 Yes [id number] 10mg Take 1 U nivers 10 mg 0-27 tablet by ity of tablet 00:00: mouth in [place] 00 the Medical morning. Branch lisinopriL 2021-11 Yes [id number] 10mg Take 1 U nivers 10 mg 0-27 tablet by ity of tablet 00:00: mouth in [place] 00 the Medical morning. Branch lisinopriL 2021-11 Yes [id number] 10mg Take 1 U nivers 10 mg 0-27 tablet by ity of tablet 00:00: mouth in [place] 00 the Medical morning. Branch lisinopriL 2021-11 Yes [id number] 10mg Take 1 U nivers 10 mg 0-27 tablet by ity of tablet 00:00: mouth in [place] 00 the Medical morning. Branch lisinopriL 2021-11 Yes [id number] 10mg Take 1 U nivers 10 mg 0-27 tablet by ity of tablet 00:00: mouth in [place] 00 the Medical morning. Branch lisinopriL 2021-11 Yes [id number] 10mg Take 1 U nivers 10 mg 0-27 tablet by ity of tablet 00:00: mouth in [place] 00 the Medical morning. Branch lisinopriL 2021-11 Yes [id number] 10mg Take 1 U nivers 10 mg 0-27 tablet by ity of tablet 00:00: mouth in [place] 00 the Medical morning. Branch lisinopriL 2021-11- No [id number] 10mg Take 1 [facility] 10 mg 0-27 04-14 tablet by ity of tablet 00:00: 00:00 mouth in [place] 00 :00 the Medical morning. Branch HYDROcodone 2021-11- No [id number] 1{tbl} Take 1 U nivers -acetaminop 0-27 11-28 tablet by it y of hen 10-325 00:00: 00:00 mouth [place] mg tablet 00 :00 every 6 Medical (six) Branch hours as needed for Pain (scale 7-10). Indication s: chronic pain TIZANIDINE 2021-11 Yes [id number] TAKE 1 U nivers 4 mg tablet 0-24 TABLET BY ity of 00:00: MOUTH [place] 00 THREE Medical TIMES Branch DAILY NEEDED FOR MUSCLE SPASMS TIZANIDINE 2021-11 Yes [id number] TAKE 1 U nivers 4 mg tablet 0-24 TABLET BY ity of 00:00: MOUTH [place] 00 THREE Medical TIMES Branch DAILY NEEDED FOR MUSCLE SPASMS TIZANIDINE 2021-11 Yes [id number] TAKE 1 U nivers 4 mg tablet 0-24 TABLET BY ity of 00:00: MOUTH [place] 00 THREE Medical TIMES Branch DAILY NEEDED FOR MUSCLE SPASMS TIZANIDINE 2021-11 Yes [id number] TAKE 1 U nivers 4 mg tablet 0-24 TABLET BY ity of 00:00: MOUTH [place] 00 THREE Medical TIMES Branch DAILY NEEDED FOR MUSCLE SPASMS TIZANIDINE 2021- Yes [id number] TAKE 1 U nivers 4 mg tablet 0-24 TABLET BY ity of 00:00: [facility] THREE Medical TIMES Branch DAILY NEEDED FOR MUSCLE SPASMS TIZANIDINE 2021- Yes [id number] TAKE 1 U nivers 4 mg tablet 0-24 TABLET BY ity of 00:00: [facility] THREE Medical TIMES Branch DAILY NEEDED FOR MUSCLE SPASMS TIZANIDINE 2021- Yes [id number] TAKE 1 U nivers 4 mg tablet 0-24 TABLET BY ity of 00:00: [facility] THREE Medical TIMES Branch DAILY NEEDED FOR MUSCLE SPASMS omeprazole 2021-11 Yes 40mg Take 40 mg U nivers 40 mg 0-24 by mouth ity of capsule 00:00: in the [place] morning Medical and 40 mg Branch in the evening. TIZANIDINE 2021-11 Yes [id number] TAKE 1 U nivers 4 mg tablet 0-24 TABLET BY ity of 00:00: [facility] THREE Medical TIMES Branch DAILY NEEDED FOR MUSCLE SPASMS omeprazole 2021- Yes 40mg Take 40 mg U nivers 40 mg 0-24 by mouth ity of capsule 00:00: in the [place] morning Medical and 40 mg Branch in the evening. TIZANIDINE 2021- Yes [id number] TAKE 1 U nivers 4 mg tablet 0-24 TABLET BY ity of 00:00: [place] [address] THREE Medical TIMES Branch DAILY NEEDED FOR MUSCLE SPASMS TIZANIDINE 2021- Yes [id number] TAKE 1 U nivers 4 mg tablet 0-24 TABLET BY ity of 00:00: [facility] THREE Medical TIMES Branch DAILY NEEDED FOR MUSCLE SPASMS omeprazole 2021-1 Yes 40mg Take 40 mg U nivers 40 mg 0-24 by mouth ity of capsule 00:00: in the [place] morning Medical and 40 mg Branch in the evening. omeprazole 2-1 Yes 40mg Take 40 mg U nivers 40 mg 0-24 by mouth ity of capsule 00:00: in the [place] morning Medical and 40 mg Branch in the evening. omeprazole 2-1 Yes 40mg Take 40 mg U nivers 40 mg 0-24 by mouth ity of capsule 00:00: in the [place] morning Medical and 40 mg Branch in the evening. omeprazole 2022-1 Yes 40mg Take 40 mg U nivers 40 mg 0-24 by mouth ity of capsule 00:00: in the [place] 00 morning Medical and 40 mg Branch in the evening. omeprazole 2022-1 Yes 40mg Take 40 mg U nivers 40 mg 0-24 by mouth ity of capsule 00:00: in the [place] 00 morning Medical and 40 mg Branch in the evening. omeprazole 2022-1 Yes 40mg Take 40 mg U nivers 40 mg 0-24 by mouth ity of capsule 00:00: in the [place] 00 morning Medical and 40 mg Branch in the evening. omeprazole 2022-1 Yes 40mg Take 40 mg U nivers 40 mg 0-24 by mouth ity of capsule 00:00: in the [place] 00 morning Medical and 40 mg Branch in the evening. omeprazole 2022-1 Yes 40mg Take 40 mg U nivers 40 mg 0-24 by mouth ity of capsule 00:00: in the [place] morning Medical and 40 mg Branch in the evening. omeprazole 2-1 Yes 40mg Take 40 mg U nivers 40 mg 0-24 by mouth ity of capsule 00:00: in the [place] morning Medical and 40 mg Branch in the evening. omeprazole 2022-1 Yes 40mg Take 40 mg U nivers 40 mg 0-24 by mouth ity of capsule 00:00: in the [place] morning Medical and 40 mg Branch in the evening. omeprazole 2-1 Yes 40mg Take 1 Unive rs 40 mg 0-24 capsule by ity of capsule 00:00: mouth in [place] the Medical morning Branch and 1 capsule in the evening. omeprazole 2022-1 Yes 40mg Take 1 Unive rs 40 mg 0-24 capsule by ity of capsule 00:00: mouth in [place] [address] the Medical morning Branch and 1 capsule in the evening. omeprazole 2022-1 Yes 40mg Take 1 Unive rs 40 mg 0-24 capsule by ity of capsule 00:00: mouth in [place] [address] the Medical morning Branch and 1 capsule in the evening. omeprazole 2022-1 Yes 40mg Take 1 Unive rs 40 mg 0-24 capsule by ity of capsule 00:00: mouth in [place] 00 the Medical morning Branch and 1 capsule in the evening. omeprazole 2022-1 Yes 40mg Take 1 Unive rs 40 mg 0-24 capsule by ity of capsule 00:00: mouth in [place] 00 the Medical morning Branch and 1 capsule in the evening. omeprazole 2022-1 Yes 40mg Take 1 Unive rs 40 mg 0-24 capsule by ity of capsule 00:00: mouth in [place] [address] the Medical morning Branch and 1 capsule in the evening. omeprazole 2022-1 Yes 40mg Take 1 Unive rs 40 mg 0-24 capsule by ity of capsule 00:00: mouth in [place] [address] the Medical morning Branch and 1 capsule in the evening. omeprazole 2022-1 Yes 40mg Take 1 Unive rs 40 mg 0-24 capsule by ity of capsule 00:00: mouth in [place] [address] the Medical morning Branch and 1 capsule in the evening. omeprazole 2022-1 Yes 40mg Take 1 Unive rs 40 mg 0-24 capsule by ity of capsule 00:00: mouth in [place] [address] the Medical morning Branch and 1 capsule in the evening. omeprazole 2022-1 Yes 40mg Take 1 Unive rs 40 mg 0-24 capsule by ity of capsule 00:00: mouth in [place] [address] the Medical morning Branch and 1 capsule in the evening. omeprazole 2022-1 Yes 40mg Take 1 Unive rs 40 mg 0-24 capsule by ity of capsule 00:00: mouth in [place] [address] the Medical morning Branch and 1 capsule in the evening. omeprazole 2022-1 Yes 40mg Take 1 Unive rs 40 mg 0-24 capsule by ity of capsule 00:00: mouth in [place] [address] the Medical morning Branch and 1 capsule in the evening. omeprazole 2022-1 Yes 40mg Take 1 Unive rs 40 mg 0-24 capsule by ity of capsule 00:00: mouth in [place] [address] the Medical morning Branch and 1 capsule in the evening. omeprazole 2022-1 Yes 40mg Take 1 Unive rs 40 mg 0-24 capsule by ity of capsule 00:00: mouth in [place] [address] the Medical morning Branch and 1 capsule in the evening. omeprazole 2022-1 Yes 40mg Take 1 Unive rs 40 mg 0-24 capsule by ity of capsule 00:00: mouth in [place] [address] the Medical morning Branch and 1 capsule in the evening. omeprazole 2022-1 Yes 40mg Take 1 Unive rs 40 mg 0-24 capsule by ity of capsule 00:00: mouth in [place] 00 the Medical morning Branch and 1 capsule in the evening. omeprazole 2022-1 Yes 40mg Take 1 Unive rs 40 mg 0-24 capsule by ity of capsule 00:00: mouth in [place] [address] the Medical morning Branch and 1 capsule in the evening. omeprazole 2022-1 Yes 40mg Take 1 Unive rs 40 mg 0-24 capsule by ity of capsule 00:00: mouth in [place] [address] the Medical morning Branch and 1 capsule in the evening. omeprazole 2022-1 Yes 40mg Take 1 Unive rs 40 mg 0-24 capsule by ity of capsule 00:00: mouth in [place] [address] the Medical morning Branch and 1 capsule in the evening. omeprazole 2022-1 Yes 40mg Take 1 Unive rs 40 mg 0-24 capsule by ity of capsule 00:00: mouth in [place] [address] the Medical morning Branch and 1 capsule in the evening. omeprazole 2022-1 Yes 40mg Take 1 Unive rs 40 mg 0-24 capsule by ity of capsule 00:00: mouth in [place] [address] the Medical morning Branch and 1 capsule in the evening. omeprazole 2022-1 Yes 40mg Take 1 Unive rs 40 mg 0-24 capsule by ity of capsule 00:00: mouth in [place] [address] the Medical morning Branch and 1 capsule in the evening. omeprazole 2022-1 Yes 40mg Take 1 Unive rs 40 mg 0-24 capsule by ity of capsule 00:00: mouth in [place] [address] the Medical morning Branch and 1 capsule in the evening. omeprazole 2022-1 Yes 40mg Take 1 Unive rs 40 mg 0-24 capsule by ity of capsule 00:00: mouth in [place] [address] the Medical morning Branch and 1 capsule in the evening. omeprazole 2022-1 Yes 40mg Take 1 Unive rs 40 mg 0-24 capsule by ity of capsule 00:00: mouth in [place] [address] the Medical morning Branch and 1 capsule in the evening. omeprazole 2022-1 Yes 40mg Take 1 Unive rs 40 mg 0-24 capsule by ity of capsule 00:00: mouth in [place] [address] the Medical morning Branch and 1 capsule in the evening. omeprazole 2022-1 Yes 40mg Take 1 Unive rs 40 mg 0-24 capsule by ity of capsule 00:00: mouth in [place] [address] the Medical morning Branch and 1 capsule in the evening. omeprazole 2022-1 Yes 40mg Take 1 Unive rs 40 mg 0-24 capsule by ity of capsule 00:00: mouth in [place] 00 the Medical morning Branch and 1 capsule in the evening. omeprazole 2022-1 Yes 40mg Take 1 Unive rs 40 mg 0-24 capsule by ity of capsule 00:00: mouth in [place] 00 the Medical morning Branch and 1 capsule in the evening. omeprazole 2022-1 Yes 40mg Take 1 Unive rs 40 mg 0-24 capsule by ity of capsule 00:00: mouth in [place] 00 the Medical morning Branch and 1 capsule in the evening. omeprazole 2022-1 Yes 40mg Take 1 Unive rs 40 mg 0-24 capsule by ity of capsule 00:00: mouth in [place] 00 the Medical morning Branch and 1 capsule in the evening. omeprazole 2022-1 Yes 40mg Take 1 Unive rs 40 mg 0-24 capsule by ity of capsule 00:00: mouth in [place] [address] the Medical morning Branch and 1 capsule in the evening. omeprazole 2022-1 Yes 40mg Take 1 Unive rs 40 mg 0-24 capsule by ity of capsule 00:00: mouth in [place] [address] the Medical morning Branch and 1 capsule in the evening. omeprazole 2022-1 Yes 40mg Take 1 Unive rs 40 mg 0-24 capsule by ity of capsule 00:00: mouth in [place] [address] the Medical morning Branch and 1 capsule in the evening. omeprazole 2022-1 Yes 40mg Take 1 Unive rs 40 mg 0-24 capsule by ity of capsule 00:00: mouth in [place] [address] the Medical morning Branch and 1 capsule in the evening. omeprazole 2022-1 Yes 40mg Take 1 Unive rs 40 mg 0-24 capsule by ity of capsule 00:00: mouth in [place] [address] the Medical morning Branch and 1 capsule in the evening. omeprazole 2022-1 Yes 40mg Take 1 Unive rs 40 mg 0-24 capsule by ity of capsule 00:00: mouth in [place] [address] the Medical morning Branch and 1 capsule in the evening. omeprazole 2022-1 Yes 40mg Take 1 Unive rs 40 mg 0-24 capsule by ity of capsule 00:00: mouth in [place] [address] the Medical morning Branch and 1 capsule in the evening. omeprazole 2022-1 Yes 40mg Take 1 Unive rs 40 mg 0-24 capsule by ity of capsule 00:00: mouth in [place] [address] the [facility] morning [place] and 1 capsule in the evening. omeprazole 2021-11 Yes 40mg Take 1 Unive rs 40 mg 0-24 capsule by ity of capsule 00:00: mouth in [place] [address] the [facility] morning [place] and 1 capsule in the evening. omeprazole 2021-11 Yes 40mg Take 1 Unive rs 40 mg 0-24 capsule by ity of capsule 00:00: mouth in [place] [address] the [facility] morning [place] and 1 capsule in the evening. omeprazole 2021-11 Yes 40mg Take 1 Unive rs 40 mg 0-24 capsule by ity of capsule 00:00: mouth in [place] [address] the [facility] morning [place] and 1 capsule in the evening. omeprazole 2021-11 Yes 40mg Take 1 Unive rs 40 mg 0-24 capsule by ity of capsule 00:00: mouth in [place] [address] the [facility] and 1 capsule in the evening. omeprazole 2021-11 Yes 40mg Take 1 Unive rs 40 mg 0-24 capsule by ity of capsule 00:00: mouth in [address] and 1 capsule in the evening. omeprazole 2021-11 Yes 40mg Take 1 Unive rs 40 mg 0-24 capsule by ity of capsule 00:00: mouth in [place] [address] the [facility] morning [place] and 1 capsule in the evening. omeprazole 2021-11 Yes 40mg Take 1 Unive rs 40 mg 0-24 capsule by ity of capsule 00:00: mouth in [place] [address] the [facility] and 1 capsule in the evening. TIZANIDINE 2021-11- No [id number] TAKE 1 [facility] 4 mg tablet 0-24 12-19 TABLET BY it y of 00:00: 00:00 MOUTH [place] 00 :00 [facility] DAILY NEEDED FOR MUSCLE SPASMS diclofenac 2021-11 Yes [id number] 75mg Take 1 [facility] 75 mg EC 0-13 [id number] tablet by ity o f tablet 00:00: mouth in [address] and 1 tablet in the evening. Take with meals. diclofenac 2021-11 Yes [id number] 75mg Take 1 [facility] 75 mg EC 0-13 [id number] tablet by ity o f tablet 00:00: mouth in [address] morning [place] and 1 tablet in the evening. Take with meals. diclofenac 2021-11 Yes [id number] 75mg Take 1 [facility] 75 mg EC 0-13 [id number] tablet by ity o f tablet 00:00: mouth in [place] 00 the Medical morning Branch and 1 tablet in the evening. Take with meals. diclofenac 2021-11 Yes [id number] 75mg Take 1 [facility] 75 mg EC 0-13 [id number] tablet by ity o f tablet 00:00: mouth in [place] 00 the Medical morning Branch and 1 tablet in the evening. Take with meals. diclofenac 2021-11 Yes [id number] 75mg Take 1 [facility] 75 mg EC 0-13 [id number] tablet by ity o f tablet 00:00: mouth in [place] 00 the Medical morning Branch and 1 tablet in the evening. Take with meals. diclofenac 2021-11 Yes [id number] 75mg Take 1 [facility] 75 mg EC 0-13 [id number] tablet by ity o f tablet 00:00: mouth in [place] [address] the Medical morning [place] and 1 tablet in the evening. Take with meals. diclofenac 2021-11 Yes [id number] 75mg Take 1 [facility] 75 mg EC 0-13 [id number] tablet by ity o f tablet 00:00: mouth in [place] [address] the Medical morning [place] and 1 tablet in the evening. Take with meals. diclofenac 2021-11 Yes [id number] 75mg Take 1 [facility] 75 mg EC 0-13 [id number] tablet by ity o f tablet 00:00: mouth in [place] [address] the [facility] morning [place] and 1 tablet in the evening. Take with meals. diclofenac 2021-11 Yes [id number] 75mg Take 1 [facility] 75 mg EC 0-13 [id number] tablet by ity o f tablet 00:00: mouth in [place] 00 the Medical morning Branch and 1 tablet in the evening. Take with meals. diclofenac 2021-11 Yes [id number] 75mg Take 1 [facility] 75 mg EC 0-13 [id number] tablet by ity o f tablet 00:00: mouth in [place] [address] the Medical morning [place] and 1 tablet in the evening. Take with meals. diclofenac 2021-11 Yes [id number] 75mg Take 1 [facility] 75 mg EC 0-13 [id number] tablet by ity o f tablet 00:00: mouth in [place] [address] the Medical morning [place] and 1 tablet in the evening. Take with meals. diclofenac 2021-11 Yes [id number] 75mg Take 1 [facility] 75 mg EC 0-13 [id number] tablet by ity o f tablet 00:00: mouth in [place] [address] the Medical morning Branch and 1 tablet in the evening. Take with meals. diclofenac 2021-11 Yes [id number] 75mg Take 1 [facility] 75 mg EC 0-13 [id number] tablet by ity o f tablet 00:00: mouth in [place] [address] the [facility] morning [place] and 1 tablet in the evening. Take with meals. diclofenac 2021-11 Yes [id number] 75mg Take 1 [facility] 75 mg EC 0-13 [id number] tablet by ity o f tablet 00:00: mouth in [place] [address] the Medical morning [place] and 1 tablet in the evening. Take with meals. diclofenac 2021-11 Yes [id number] 75mg Take 1 [facility] 75 mg EC 0-13 [id number] tablet by ity o f tablet 00:00: mouth in [place] [address] the [facility] morning [place] and 1 tablet in the evening. Take with meals. diclofenac 2021-11 Yes [id number] 75mg Take 1 [facility] 75 mg EC 0-13 [id number] tablet by ity o f tablet 00:00: mouth in [place] [address] the [facility] morning [place] and 1 tablet in the evening. Take with meals. diclofenac 2021-11 Yes [id number] 75mg Take 1 [facility] 75 mg EC 0-13 [id number] tablet by ity o f tablet 00:00: mouth in [place] [address] the [facility] morning [place] and 1 tablet in the evening. Take with meals. diclofenac 2021-11 Yes [id number] 75mg Take 1 [facility] 75 mg EC 0-13 [id number] tablet by ity o f tablet 00:00: mouth in [place] [address] the [facility] morning [place] and 1 tablet in the evening. Take with meals. diclofenac 2021-11 Yes [id number] 75mg Take 1 [facility] 75 mg EC 0-13 [id number] tablet by ity o f tablet 00:00: mouth in [address] morning [place] and 1 tablet in the evening. Take with meals. diclofenac 2021-11 Yes [id number] 75mg Take 1 [facility] 75 mg EC 0-13 [id number] tablet by ity o f tablet 00:00: mouth in [address] morning [place] and 1 tablet in the evening. Take with meals. diclofenac 2021-11 Yes [id number] 75mg Take 1 [facility] 75 mg EC 0-13 [id number] tablet by ity o f tablet 00:00: mouth in [address] morning [place] and 1 tablet in the evening. Take with meals. diclofenac 2021-11 Yes [id number] 75mg Take 1 [facility] 75 mg EC 0-13 [id number] tablet by ity o f tablet 00:00: mouth in [place] 00 the Medical morning Branch and 1 tablet in the evening. Take with meals. diclofenac 2021-11 Yes [id number] 75mg Take 1 [facility] 75 mg EC 0-13 [id number] tablet by ity o f tablet 00:00: mouth in [place] [address] the Medical morning [place] and 1 tablet in the evening. Take with meals. diclofenac 2021-11 Yes [id number] 75mg Take 1 [facility] 75 mg EC 0-13 [id number] tablet by ity o f tablet 00:00: mouth in [place] 00 the Medical morning Branch and 1 tablet in the evening. Take with meals. diclofenac 2021-11 Yes [id number] 75mg Take 1 [facility] 75 mg EC 0-13 [id number] tablet by ity o f tablet 00:00: mouth in [place] [address] the Medical morning [place] and 1 tablet in the evening. Take with meals. diclofenac 2021-11 Yes [id number] 75mg Take 1 [facility] 75 mg EC 0-13 [id number] tablet by ity o f tablet 00:00: mouth in [place] [address] the [facility] morning [place] and 1 tablet in the evening. Take with meals. diclofenac 2021-11 Yes [id number] 75mg Take 1 [facility] 75 mg EC 0-13 [id number] tablet by ity o f tablet 00:00: mouth in [place] [address] the [facility] morning [place] and 1 tablet in the evening. Take with meals. diclofenac 2021-11 Yes [id number] 75mg Take 1 [facility] 75 mg EC 0-13 [id number] tablet by ity o f tablet 00:00: mouth in [place] [address] the [facility] morning [place] and 1 tablet in the evening. Take with meals. diclofenac 2021-11 Yes [id number] 75mg Take 1 [facility] 75 mg EC 0-13 [id number] tablet by ity o f tablet 00:00: mouth in [place] [address] the [facility] morning [place] and 1 tablet in the evening. Take with meals. diclofenac 2021-11 Yes [id number] 75mg Take 1 [facility] 75 mg EC 0-13 [id number] tablet by ity o f tablet 00:00: mouth in [place] [address] the [facility] morning [place] and 1 tablet in the evening. Take with meals. diclofenac 2021-11 Yes [id number] 75mg Take 1 [facility] 75 mg EC 0-13 [id number] tablet by ity o f tablet 00:00: mouth in [place] [address] the Medical morning Branch and 1 tablet in the evening. Take with meals. diclofenac 2021-11 Yes [id number] 75mg Take 1 [facility] 75 mg EC 0-13 [id number] tablet by ity o f tablet 00:00: mouth in [place] [address] the Medical morning [place] and 1 tablet in the evening. Take with meals. diclofenac 2021-11 Yes [id number] 75mg Take 1 [facility] 75 mg EC 0-13 [id number] tablet by ity o f tablet 00:00: mouth in [place] [address] the [facility] morning [place] and 1 tablet in the evening. Take with meals. diclofenac 2021-11 Yes [id number] 75mg Take 1 [facility] 75 mg EC 0-13 [id number] tablet by ity o f tablet 00:00: mouth in [place] [address] the [facility] morning [place] and 1 tablet in the evening. Take with meals. diclofenac 2021-11 Yes [id number] 75mg Take 1 [facility] 75 mg EC 0-13 09523 tablet by ity o f tablet 00:00: mouth in [place] [address] the [facility] morning [place] and 1 tablet in the evening. Take with meals. diclofenac 2021-11 Yes [id number] 75mg Take 1 [facility] 75 mg EC 0-13 [id number] tablet by ity o f tablet 00:00: mouth in [place] [address] the [facility] morning [place] and 1 tablet in the evening. Take with meals. diclofenac 2021-11 Yes [id number] 75mg Take 1 [facility] 75 mg EC 0-13 13099 tablet by ity o f tablet 00:00: mouth in [place] [address] the [facility] morning [place] and 1 tablet in the evening. Take with meals. diclofenac 2021-11 Yes [id number] 75mg Take 1 [facility] 75 mg EC 0-13 [id number] tablet by ity o f tablet 00:00: mouth in [place] [address] the [facility] morning [place] and 1 tablet in the evening. Take with meals. diclofenac 2021-11 Yes [id number] 75mg Take 1 [facility] 75 mg EC 0-13 [id number] tablet by ity o f tablet 00:00: mouth in [place] [address] the [facility] morning [place] and 1 tablet in the evening. Take with meals. diclofenac 2021-11 Yes [id number] 75mg Take 1 [facility] 75 mg EC 0-13 [id number] tablet by ity o f tablet 00:00: mouth in [place] 00 the Medical morning Branch and 1 tablet in the evening. Take with meals. diclofenac 2021-11 Yes [id number] 75mg Take 1 [facility] 75 mg EC 0-13 [id number] tablet by ity o f tablet 00:00: mouth in [place] 00 the Medical morning Branch and 1 tablet in the evening. Take with meals. diclofenac 2021-11 Yes [id number] 75mg Take 1 [facility] 75 mg EC 0-13 [id number] tablet by ity o f tablet 00:00: mouth in [place] 00 the Medical morning Branch and 1 tablet in the evening. Take with meals. diclofenac 2021-11 Yes [id number] 75mg Take 1 [facility] 75 mg EC 0-13 87530 tablet by ity o f tablet 00:00: mouth in [place] 00 the Medical morning Branch and 1 tablet in the evening. Take with meals. diclofenac 2021-11 Yes [id number] 75mg Take 1 [facility] 75 mg EC 0-13 [id number] tablet by ity o f tablet 00:00: mouth in [place] 00 the [facility] morning [place] and 1 tablet in the evening. Take with meals. diclofenac 2021-11 Yes [id number] 75mg Take 1 [facility] 75 mg EC 0-13 [id number] tablet by ity o f tablet 00:00: mouth in [place] 00 the Medical morning [place] and 1 tablet in the evening. Take with meals. diclofenac 2021-11 Yes [id number] 75mg Take 1 [facility] 75 mg EC 0-13 [id number] tablet by ity o f tablet 00:00: mouth in [place] 00 the [facility] morning [place] and 1 tablet in the evening. Take with meals. diclofenac 2021-11 Yes [id number] 75mg Take 1 [facility] 75 mg EC 0-13 [id number] tablet by ity o f tablet 00:00: mouth in [place] 00 the [facility] morning [place] and 1 tablet in the evening. Take with meals. diclofenac 2021-11 Yes [id number] 75mg Take 1 [facility] 75 mg EC 0-13 [id number] tablet by ity o f tablet 00:00: mouth in [place] 00 the [facility] morning [place] and 1 tablet in the evening. Take with meals. diclofenac 2021-11- No [id number] 75mg Take 1 [facility] 75 mg EC 0-13 05-24 83300 tablet by ity of tablet 00:00: 00:00 mouth in [place] 00 :00 the [facility] morning [place] and 1 tablet in the evening. Take with meals. diclofenac 2021-11- No [id number] 75mg Take 1 [facility] 75 mg EC 0-04-2006 tablet by ity of tablet 00:00: 00:00 mouth in [place] 00 :00 the Medical morning Branch and 1 tablet in the evening. Take with meals. diclofenac 2021-11- No [id number] 75mg Take 1 [facility] 75 mg EC 0-04-20 [id number] tablet by ity of tablet 00:00: 00:00 mouth in [place] 00 :00 the Medical morning Branch and 1 tablet in the evening. Take with meals. diclofenac 2021-11- No [id number] 75mg Take 1 [facility] 75 mg EC 004-20 tablet by ity of tablet 00:00: 00:00 mouth in [place] 00 :00 the Medical morning Branch and 1 tablet in the evening. Take with meals. HYDROcodone Yes 2745 1{tbl} Take 1 Un sharda -acetaminop 9-29 tablet by ity of hen 10-325 00:00: mouth [place] mg tablet 00 every 6 Medical (six) Branch hours as needed for Pain (scale 7-10). Indication s: chronic pain HYDROcodone 2021- Yes 2745 1{tbl} Take 1 Un sharda -acetaminop 9-29 tablet by ity of hen 10-325 00:00: mouth [place] mg tablet 00 every 6 Medical (six) Branch hours as needed for Pain (scale 7-10). Indication s: chronic pain HYDROcodone 2021- Yes 2745 1{tbl} Take 1 Un sharda -acetaminop 9-29 tablet by ity of hen 10-325 00:00: mouth [place] mg tablet 00 every 6 Medical (six) Branch hours as needed for Pain (scale 7-10). Indication s: chronic pain HYDROcodone 2021- Yes 2745 1{tbl} Take 1 Un sharda -acetaminop 9-29 tablet by ity of hen 10-325 00:00: mouth [place] mg tablet 00 every 6 Medical (six) Branch hours as needed for Pain (scale 7-10). Indication s: chronic pain HYDROcodone 2021- Yes 2745 1{tbl} Take 1 Un sharda -acetaminop 9-29 tablet by ity of hen 10-325 00:00: mouth [place] mg tablet 00 every 6 Medical (six) Branch hours as needed for Pain (scale 7-10). Indication s: chronic pain HYDROcodone 2021- Yes 2745 1{tbl} Take 1 Un sharda -acetaminop 9-29 tablet by ity of hen 10-325 00:00: mouth [place] mg tablet 00 every 6 Medical (six) Branch hours as needed for Pain (scale 7-10). Indication s: chronic pain HYDROcodone 2021- Yes 2745 1{tbl} Take 1 Un sharda -acetaminop 9-29 tablet by ity of hen 10-325 00:00: mouth [place] mg tablet 00 every 6 Medical (six) Branch hours as needed for Pain (scale 7-10). Indication s: chronic pain HYDROcodone 2021- No 2745 1{tbl} Take 1 U nivers -acetaminop 9-29 10-27 tablet by it y of hen 10-325 00:00: 00:00 mouth [place] mg tablet 00 :00 every 6 Medical (six) Branch hours as needed for Pain (scale 7-10). Indication s: chronic pain HYDROcodone 2021- No 2745 1{tbl} Take 1 U nivers -acetaminop 9-29 10-27 tablet by it y of hen 10-325 00:00: 00:00 mouth [place] mg tablet 00 :00 every 6 Medical (six) Branch hours as needed for Pain (scale 7-10). Indication s: chronic pain HYDROcodone 2021- No 2745 1{tbl} Take 1 U nivers -acetaminop 9-29 10-27 tablet by it y of hen 10-325 00:00: 00:00 mouth [place] mg tablet 00 :00 every 6 Medical (six) Branch hours as needed for Pain (scale 7-10). Indication s: chronic pain triamcinolo 2021-2021- No [id number] 80mg [facility] wa 07-29 ity of acetonide 14:45: 13:33 [place] (KENALOG) 00 :00 Medical injection Branch 80 mg triamcinolo 2021- No [id number] 80mg 80 mg, [facility] 07-29 Intra-ambrocio ity of acetonide 14:45: 13:33 Michelle peterson (KENALOG) 00 :00 ONCE, 1 Medical injection dose, On Branch 80 mg [place] 07/29/22 at 0945, Routine triamcinolo 2021- No [id number] 80mg [facility] ne 07-29 ity of acetonide 14:45: 13:33 [place] (KENALOG) 00 :00 Medical injection Branch 80 mg triamcinolo 2021- No [id number] 80mg 80 mg, [facility] ne 07-29 Intra-ambrocio ity of acetonide 14:45: 13:33 nicholas, [place] (KENALOG) 00 :00 ONCE, 1 Medical injection dose, On Branch 80 mg [place] 07/29/22 at 0945, Routine cyanocobala 2021- No [id number] 1000ug [facility] min (DODEX) 830 08-30 ity of injection 13:30: 12:21 [place] 1,000 mcg 00 :00 Medical Branch cyanocobala 2021- No [id number] 1000ug 1,000 mcg, [facility] min (DODEX) 07-27 0830 Intramuscu i ty of injection 13:30: 12:21 [place], ONCE, [place] 1,000 mcg 00 :00 1 dose, On Medi philip Tue Branch 07/27/22 at 0830, Routine HYDROcodone Yes 2745 1{tbl} Take 1 Un sharda -acetaminop 8-30 tablet by ity of hen 10-325 00:00: mouth [place] mg tablet 00 every 6 Medical (six) Branch hours as needed for Pain (scale 7-10). Indication s: chronic pain traMADoL 50 Yes 2745 50mg Take 1 Univ ers mg tablet 8-30 tablet by ity o f 00:00: mouth [place] 00 every 6 Medical (six) Branch hours as needed for Pain (scale 4-6). Take 1 tablet by mouth every 6 (six) hours as needed for Pain (scale 4-6). Indication s: acute pain Indication s: chronic pain HYDROcodone Yes 2745 1{tbl} Take 1 Un sharda -acetaminop 8-30 tablet by ity of hen 10-325 00:00: mouth [place] mg tablet 00 every 6 Medical (six) Branch hours as needed for Pain (scale 7-10). Indication s: chronic pain traMADoL 50 2021-0 Yes 2745 50mg Take 1 Univ ers mg tablet 8-30 tablet by ity o f 00:00: mouth [place] 00 every 6 Medical (six) Branch hours as needed for Pain (scale 4-6). Take 1 tablet by mouth every 6 (six) hours as needed for Pain (scale 4-6). Indication s: acute pain Indication s: chronic pain HYDROcodone 2021-0 Yes 2745 1{tbl} Take 1 Un sharda -acetaminop 8-30 tablet by ity of hen 10-325 00:00: mouth [place] mg tablet 00 every 6 Medical (six) Branch hours as needed for Pain (scale 7-10). Indication s: chronic pain traMADoL 50 2021-0 Yes 2745 50mg Take 1 Univ ers mg tablet 8-30 tablet by ity o f 00:00: mouth [place] 00 every 6 Medical (six) Branch hours as needed for Pain (scale 4-6). Take 1 tablet by mouth every 6 (six) hours as needed for Pain (scale 4-6). Indication s: acute pain Indication s: chronic pain traMADoL 50 2021-0 Yes 2745 50mg Take 1 Univ ers mg tablet 8-30 tablet by ity o f 00:00: mouth [place] 00 every 6 Medical (six) Branch hours as needed for Pain (scale 4-6). Take 1 tablet by mouth every 6 (six) hours as needed for Pain (scale 4-6). Indication s: acute pain Indication s: chronic pain traMADoL 50 2021-0 Yes 2745 50mg Take 1 Univ ers mg tablet 8-30 tablet by ity o f 00:00: mouth [place] 00 every 6 Medical (six) Branch hours as needed for Pain (scale 4-6). Take 1 tablet by mouth every 6 (six) hours as needed for Pain (scale 4-6). Indication s: acute pain Indication s: chronic pain traMADoL 50 2021-0 Yes 2745 50mg Take 1 [facility] ers mg tablet 8-30 tablet by ity o f 00:00: mouth [place] 00 every 6 Medical (six) Branch hours as needed for Pain (scale 4-6). Take 1 tablet by mouth every 6 (six) hours as needed for Pain (scale 4-6). Indication s: acute pain Indication s: chronic pain traMADoL 50 2022-0 Yes 2745 50mg Take 1 Univ ers mg tablet 8-30 tablet by ity o f 00:00: mouth [place] 00 every 6 Medical (six) Branch hours as needed for Pain (scale 4-6). Take 1 tablet by mouth every 6 (six) hours as needed for Pain (scale 4-6). Indication s: acute pain Indication s: chronic pain traMADoL 50 2022-0 Yes 2745 50mg Take 1 Univ ers mg tablet 8-30 tablet by ity o f 00:00: mouth [place] 00 every 6 Medical (six) Branch hours as needed for Pain (scale 4-6). Take 1 tablet by mouth every 6 (six) hours as needed for Pain (scale 4-6). Indication s: acute pain Indication s: chronic pain traMADoL 50 2022-0 Yes 2745 50mg Take 1 Univ ers mg tablet 8-30 tablet by ity o f 00:00: mouth [place] 00 every 6 Medical (six) Branch hours as needed for Pain (scale 4-6). Take 1 tablet by mouth every 6 (six) hours as needed for Pain (scale 4-6). Indication s: acute pain Indication s: chronic pain traMADoL 50 2022-0 Yes 2745 50mg Take 1 Univ ers mg tablet 8-30 tablet by ity o f 00:00: mouth [place] 00 every 6 Medical (six) Branch hours as needed for Pain (scale 4-6). Take 1 tablet by mouth every 6 (six) hours as needed for Pain (scale 4-6). Indication s: acute pain Indication s: chronic pain traMADoL 50 2022-0 Yes 2745 50mg Take 1 Univ ers mg tablet 8-30 tablet by ity o f 00:00: mouth [place] 00 every 6 Medical (six) Branch hours as needed for Pain (scale 4-6). Take 1 tablet by mouth every 6 (six) hours as needed for Pain (scale 4-6). Indication s: acute pain Indication s: chronic pain traMADoL 50 2022-0 Yes 2745 50mg Take 1 Univ ers mg tablet 8-30 tablet by ity o f 00:00: mouth [place] 00 every 6 Medical (six) Branch hours as needed for Pain (scale 4-6). Take 1 tablet by mouth every 6 (six) hours as needed for Pain (scale 4-6). Indication s: acute pain Indication s: chronic pain traMADoL 50 2022-0 Yes 2745 50mg Take 1 Univ ers mg tablet 8-30 tablet by ity o f 00:00: mouth [place] 00 every 6 Medical (six) Branch hours as needed for Pain (scale 4-6). Take 1 tablet by mouth every 6 (six) hours as needed for Pain (scale 4-6). Indication s: acute pain Indication s: chronic pain traMADoL 50 2022-0 Yes 2745 50mg Take 1 Univ ers mg tablet 8-30 tablet by ity o f 00:00: mouth [place] 00 every 6 Medical (six) Branch hours as needed for Pain (scale 4-6). Take 1 tablet by mouth every 6 (six) hours as needed for Pain (scale 4-6). Indication s: acute pain Indication s: chronic pain traMADoL 50 2022-0 Yes 2745 50mg Take 1 Univ ers mg tablet 8-30 tablet by ity o f 00:00: mouth [place] 00 every 6 Medical (six) Branch hours as needed for Pain (scale 4-6). Take 1 tablet by mouth every 6 (six) hours as needed for Pain (scale 4-6). Indication s: acute pain Indication s: chronic pain traMADoL 50 2022-0 Yes 2745 50mg Take 1 Univ ers mg tablet 8-30 tablet by ity o f 00:00: mouth [place] 00 every 6 Medical (six) Branch hours as needed for Pain (scale 4-6). Take 1 tablet by mouth every 6 (six) hours as needed for Pain (scale 4-6). Indication s: acute pain Indication s: chronic pain traMADoL 50 2022-0 Yes 2745 50mg Take 1 Univ ers mg tablet 8-30 tablet by ity o f 00:00: mouth [place] 00 every 6 Medical (six) Branch hours as needed for Pain (scale 4-6). Take 1 tablet by mouth every 6 (six) hours as needed for Pain (scale 4-6). Indication s: acute pain Indication s: chronic pain traMADoL 50 2022-0 Yes 2745 50mg Take 1 Univ ers mg tablet 8-30 tablet by ity o f 00:00: mouth [place] 00 every 6 Medical (six) Branch hours as needed for Pain (scale 4-6). Take 1 tablet by mouth every 6 (six) hours as needed for Pain (scale 4-6). Indication s: acute pain Indication s: chronic pain traMADoL 50 2022-0 Yes 2745 50mg Take 1 Univ ers mg tablet 8-30 tablet by ity o f 00:00: mouth [place] 00 every 6 Medical (six) Branch hours as needed for Pain (scale 4-6). Take 1 tablet by mouth every 6 (six) hours as needed for Pain (scale 4-6). Indication s: acute pain Indication s: chronic pain traMADoL 50 2022-0 Yes 2745 50mg Take 1 Univ ers mg tablet 8-30 tablet by ity o f 00:00: mouth [place] 00 every 6 Medical (six) Branch hours as needed for Pain (scale 4-6). Take 1 tablet by mouth every 6 (six) hours as needed for Pain (scale 4-6). Indication s: acute pain Indication s: chronic pain traMADoL 50 2-0 Yes 2745 50mg Take 1 Univ ers mg tablet 8-30 tablet by ity o f 00:00: mouth [place] 00 every 6 Medical (six) Branch hours as needed for Pain (scale 4-6). Take 1 tablet by mouth every 6 (six) hours as needed for Pain (scale 4-6). Indication s: acute pain Indication s: chronic pain traMADoL 50 2-0 Yes 2745 50mg Take 1 Univ ers mg tablet 8-30 tablet by ity o f 00:00: mouth [place] 00 every 6 Medical (six) Branch hours as needed for Pain (scale 4-6). Take 1 tablet by mouth every 6 (six) hours as needed for Pain (scale 4-6). Indication s: acute pain Indication s: chronic pain traMADoL 50 2022-0 2022- No 2745 50mg Take 1 Uni vers mg tablet 8-30 12-27 tablet by ity of 00:00: 00:00 mouth [place] 00 :00 every 6 Medical (six) Branch hours as needed for Pain (scale 4-6). Take 1 tablet by mouth every 6 (six) hours as needed for Pain (scale 4-6). Indication s: acute pain Indication s: chronic pain traMADoL 50 2022-0 2022- No 2745 50mg Take 1 Uni vers mg tablet 8-30 12-27 tablet by ity of 00:00: 00:00 mouth [place] 00 :00 every 6 Medical (six) Branch hours as needed for Pain (scale 4-6). Take 1 tablet by mouth every 6 (six) hours as needed for Pain (scale 4-6). Indication s: acute pain Indication s: chronic pain HYDROcodone 2021-0 2021- No 2745 1{tbl} Take 1 U nivers -acetaminop 8-30 09-29 tablet by it y of hen 10-325 00:00: 00:00 mouth [place] mg tablet 00 :00 every 6 Medical (six) Branch hours as needed for Pain (scale 7-10). Indication s: chronic pain TIZANIDINE 2021-0 Yes [id number] TAKE 1 U nivers 4 mg tablet 8-19 TABLET BY ity of 00:00: MOUTH [place] 00 THREE Medical TIMES Branch DAILY NEEDED FOR MUSCLE SPASMS TIZANIDINE 2-0 Yes [id number] TAKE 1 U nivers 4 mg tablet 8-19 TABLET BY ity of 00:00: MOUTH [place] 00 THREE Medical TIMES Branch DAILY NEEDED FOR MUSCLE SPASMS TIZANIDINE 2-0 Yes [id number] TAKE 1 U nivers 4 mg tablet 8-19 TABLET BY ity of 00:00: MOUTH [place] 00 THREE Medical TIMES Branch DAILY NEEDED FOR MUSCLE SPASMS TIZANIDINE 2022-0 Yes [id number] TAKE 1 U nivers 4 mg tablet 8-19 TABLET BY ity of 00:00: MOUTH [place] 00 THREE Medical TIMES Branch DAILY NEEDED FOR MUSCLE SPASMS TIZANIDINE 2022-0 Yes [id number] TAKE 1 U nivers 4 mg tablet 8-19 TABLET BY ity of 00:00: MOUTH [place] 00 THREE Medical TIMES Branch DAILY NEEDED FOR MUSCLE SPASMS TIZANIDINE 2022-0 Yes [id number] TAKE 1 U nivers 4 mg tablet 8-19 TABLET BY ity of 00:00: MOUTH [place] 00 THREE Medical TIMES Branch DAILY NEEDED FOR MUSCLE SPASMS TIZANIDINE 2022-0 Yes [id number] TAKE 1 U nivers 4 mg tablet 8-19 TABLET BY ity of 00:00: MOUTH [place] 00 THREE Medical TIMES Branch DAILY NEEDED FOR MUSCLE SPASMS TIZANIDINE 2022-0 Yes [id number] TAKE 1 U nivers 4 mg tablet 8-19 TABLET BY ity of 00:00: MOUTH [place] 00 THREE Medical TIMES Branch DAILY NEEDED FOR MUSCLE SPASMS TIZANIDINE 2022-0 Yes [id number] TAKE 1 U nivers 4 mg tablet 8-19 TABLET BY ity of 00:00: MOUTH [place] 00 THREE Medical TIMES Branch DAILY NEEDED FOR MUSCLE SPASMS TIZANIDINE 2021- No [id number] TAKE 1 [facility] 4 mg tablet 8-19 10-24 TABLET BY it y of 00:00: 00:00 MOUTH [place] 00 :00 THREE Medical TIMES Branch DAILY NEEDED FOR MUSCLE SPASMS HYDROcodone 2021- No 2745 1{tbl} Take 1 U nivers -acetaminop 7-28 08-30 tablet by it y of hen 10-325 00:00: 00:00 mouth [place] mg tablet 00 :00 every 6 Medical (six) Branch hours as needed for Pain (scale 7-10). Indication s: chronic pain nirmatrelvi Yes [id number] 3{tbl} Take 3 [facility] r-ritonavir 6-29 tablets by it y of (PAXLOVID, 00:00: mouth [place] EUA,) 150 00 (two) Medical mg x 2- 100 times Branch mg tablet daily. nirmatrelvi Yes [id number] 3{tbl} Take 3 [facility] r-ritonavir 6-29 tablets by it y of (PAXLOVID, 00:00: mouth [place] EUA,) 150 00 (two) Medical mg x 2- 100 times Branch mg tablet daily. nirmatrelvi Yes [id number] 3{tbl} Take 3 [facility] r-ritonavir 6-29 tablets by it y of (PAXLOVID, 00:00: mouth [place] EUA,) 150 00 (two) Medical mg x 2- 100 times Branch mg tablet daily. nirmatrelvi 2021- No [id number] 3{tbl} Take 3 [facility] r-ritonavir 6-29 09-29 tablets by i ty of (PAXLOVID, 00:00: 00:00 mouth 2 [place] EUA,) 150 00 :00 (two) Medical mg x 2- 100 times Branch mg tablet daily. ESCITALOPRA Yes [id number] 20mg TAKE 1 [facility] M OXALATE 6-28 TABLET BY ity o f 20 mg 00:00: MOUTH [place] tablet 00 DAILY Medical Branch ESCITALOPRA Yes [id number] 20mg TAKE 1 [facility] M OXALATE 6-28 TABLET BY ity o f 20 mg 00:00: MOUTH [place] tablet DAILY Medical Branch ESCITALOPRA Yes [id number] 20mg TAKE 1 [facility] M OXALATE 6-28 TABLET BY ity o f 20 mg 00:00: MOUTH [place] tablet DAILY Medical Branch ESCITALOPRA Yes [id number] 20mg TAKE 1 [facility] M OXALATE 6-28 TABLET BY ity o f 20 mg 00:00: MOUTH [place] tablet 00 DAILY Medical Branch ESCITALOPRA Yes [id number] 20mg TAKE 1 [facility] M OXALATE 6-28 TABLET BY ity o f 20 mg 00:00: MOUTH [place] tablet DAILY Medical Branch ESCITALOPRA Yes [id number] 20mg TAKE 1 [facility] M OXALATE 6-28 TABLET BY ity o f 20 mg 00:00: MOUTH [place] tablet DAILY Medical Branch ESCITALOPRA Yes [id number] 20mg TAKE 1 [facility] M OXALATE 6-28 TABLET BY ity o f 20 mg 00:00: MOUTH [place] tablet DAILY Medical Branch ESCITALOPRA Yes [id number] 20mg TAKE 1 [facility] M OXALATE 6-28 TABLET BY ity o f 20 mg 00:00: MOUTH [place] tablet DAILY Medical Branch ESCITALOPRA Yes [id number] 20mg TAKE 1 [facility] M OXALATE 6-28 TABLET BY ity o f 20 mg 00:00: MOUTH [place] tablet DAILY Medical Branch ESCITALOPRA Yes [id number] 20mg TAKE 1 [facility] M OXALATE 6-28 TABLET BY ity o f 20 mg 00:00: MOUTH [place] tablet DAILY Medical Branch ESCITALOPRA Yes [id number] 20mg TAKE 1 [facility] M OXALATE 6-28 TABLET BY ity o f 20 mg 00:00: MOUTH [place] tablet DAILY Medical Branch ESCITALOPRA Yes [id number] 20mg TAKE 1 [facility] M OXALATE 6-28 TABLET BY ity o f 20 mg 00:00: MOUTH [place] tablet DAILY Medical Branch ESCITALOPRA Yes [id number] 20mg TAKE 1 [facility] M OXALATE 6-28 TABLET BY ity o f 20 mg 00:00: MOUTH [place] tablet 00 DAILY Medical Branch ESCITALOPRA Yes [id number] 20mg TAKE 1 [facility] M OXALATE 6-28 TABLET BY ity o f 20 mg 00:00: MOUTH [place] tablet 00 DAILY Medical Branch ESCITALOPRA Yes [id number] 20mg TAKE 1 [facility] M OXALATE 6-28 TABLET BY ity o f 20 mg 00:00: MOUTH [place] tablet DAILY Medical Branch ESCITALOPRA Yes [id number] 20mg TAKE 1 [facility] M OXALATE 6-28 TABLET BY ity o f 20 mg 00:00: MOUTH [place] tablet 00 DAILY Medical Branch ESCITALOPRA Yes [id number] 20mg TAKE 1 [facility] M OXALATE 6-28 TABLET BY ity o f 20 mg 00:00: MOUTH [place] tablet DAILY Medical Branch ESCITALOPRA Yes [id number] 20mg TAKE 1 [facility] M OXALATE 6-28 TABLET BY ity o f 20 mg 00:00: MOUTH [place] tablet DAILY Medical Branch ESCITALOPRA Yes [id number] 20mg TAKE 1 [facility] M OXALATE 6-28 TABLET BY ity o f 20 mg 00:00: MOUTH [place] tablet DAILY Medical Branch ESCITALOPRA Yes [id number] 20mg TAKE 1 [facility] M OXALATE 6-28 TABLET BY ity o f 20 mg 00:00: MOUTH [place] tablet DAILY Medical Branch ESCITALOPRA Yes [id number] 20mg TAKE 1 [facility] M OXALATE 6-28 TABLET BY ity o f 20 mg 00:00: MOUTH [place] tablet DAILY Medical Branch ESCITALOPRA Yes [id number] 20mg TAKE 1 [facility] M OXALATE 6-28 TABLET BY ity o f 20 mg 00:00: MOUTH [place] tablet DAILY Medical Branch ESCITALOPRA Yes [id number] 20mg TAKE 1 [facility] M OXALATE 6-28 TABLET BY ity o f 20 mg 00:00: MOUTH [place] tablet DAILY Medical Branch ESCITALOPRA Yes [id number] 20mg TAKE 1 [facility] M OXALATE 6-28 TABLET BY ity o f 20 mg 00:00: MOUTH [place] tablet DAILY Medical Branch ESCITALOPRA 2021- No [id number] 20mg TAKE 1 [facility] M OXALATE 6-28 12-27 TABLET BY ity of 20 mg 00:00: 00:00 MOUTH [place] tablet 00 :00 DAILY Medical Branch lisinopriL 2021-0 Yes [id number] 10mg Take 1 U nivers 10 mg 5-31 tablet by ity of tablet 00:00: mouth [place] 00 daily. Medical Branch lisinopriL 2021-0 Yes [id number] 10mg Take 1 U nivers 10 mg 5-31 tablet by ity of tablet 00:00: mouth [place] 00 daily. Medical Branch lisinopriL 2021-0 Yes [id number] 10mg Take 1 U nivers 10 mg 5-31 tablet by ity of tablet 00:00: mouth [place] 00 daily. Medical Branch lisinopriL 0 Yes [id number] 10mg Take 1 U nivers 10 mg 5-31 tablet by ity of tablet 00:00: mouth [place] 00 daily. Medical Branch lisinopriL 0 Yes [id number] 10mg Take 1 U nivers 10 mg 5-31 tablet by ity of tablet 00:00: mouth [place] 00 daily. Medical Branch lisinopriL 2021-0 Yes [id number] 10mg Take 1 U nivers 10 mg 5-31 tablet by ity of tablet 00:00: mouth [place] 00 daily. Medical Branch lisinopriL 0 Yes [id number] 10mg Take 1 U nivers 10 mg 5-31 tablet by ity of tablet 00:00: mouth [place] 00 daily. Medical Branch lisinopriL 0 Yes [id number] 10mg Take 1 U nivers 10 mg 5-31 tablet by ity of tablet 00:00: mouth [place] 00 daily. Medical Branch lisinopriL 2021-0 Yes [id number] 10mg Take 1 U nivers 10 mg 5-31 tablet by ity of tablet 00:00: mouth [place] 00 daily. Medical Branch lisinopriL 2021-0 Yes [id number] 10mg Take 1 U nivers 10 mg 5-31 tablet by ity of tablet 00:00: mouth [place] 00 daily. Medical Branch lisinopriL 2021-0 2021- No [id number] 10mg Take 1 Univers 10 mg 5-31 10-27 tablet by ity of tablet 00:00: 00:00 mouth [place] 00 :00 daily. [facility] lisinopriL 2021-0 2021- No [id number] 10mg Take 1 [facility] 10 mg 5-31 10-27 tablet by ity of tablet 00:00: 00:00 mouth [place] 00 :00 daily. [facility] lisinopriL 2022-0 2022- No [id number] 10mg Take 1 [facility] 10 mg 5-31 10-27 tablet by ity of tablet 00:00: 00:00 mouth [place] 00 :00 daily. [facility] GABAPENTIN 2022-0 Yes [id number] TAKE 1 [facility] [place] 300 mg 4-05 CAPSULE BY ity of capsule 00:00: MOUTH [place] 00 TWICE Medical DAILY Branch GABAPENTIN 2022-0 Yes [id number] TAKE 1 [facility] [place] 300 mg 4-05 CAPSULE BY ity of capsule 00:00: MOUTH [place] 00 TWICE Medical DAILY Branch GABAPENTIN 2022-0 Yes [id number] TAKE 1 [facility] [place] 300 mg 4-05 CAPSULE BY ity of capsule 00:00: MOUTH [place] 00 TWICE Medical DAILY Branch GABAPENTIN 2022-0 Yes [id number] TAKE 1 [place] 300 mg 4-05 CAPSULE BY ity of capsule 00:00: MOUTH [place] 00 TWICE Medical DAILY Branch GABAPENTIN 2022-0 Yes [id number] TAKE 1 [facility] [place] 300 mg 4-05 CAPSULE BY ity of capsule 00:00: MOUTH [place] 00 TWICE Medical DAILY Branch GABAPENTIN 2022-0 Yes [id number] TAKE 1 [facility] [place] 300 mg 4-05 CAPSULE BY ity of capsule 00:00: MOUTH [place] 00 TWICE Medical DAILY Branch GABAPENTIN 2022-0 Yes [id number] TAKE 1 [place] 300 mg 4-05 CAPSULE BY ity of capsule 00:00: MOUTH [place] 00 TWICE Medical DAILY Branch GABAPENTIN 2022-0 Yes [id number] TAKE 1 [facility] [place] 300 mg 4-05 CAPSULE BY ity of capsule 00:00: MOUTH [place] 00 TWICE Medical DAILY Branch GABAPENTIN 2022-0 Yes [id number] TAKE 1 [facility] [place] 300 mg 4-05 CAPSULE BY ity of capsule 00:00: MOUTH [place] 00 TWICE Medical DAILY Branch GABAPENTIN 2022-0 Yes [id number] TAKE 1 [facility] [place] 300 mg 4-05 CAPSULE BY ity of capsule 00:00: MOUTH [place] 00 TWICE Medical DAILY Branch GABAPENTIN 2022-0 2022- No [id number] TAKE 1 [facility] 300 mg 4-05 10-27 CAPSULE BY ity of capsule 00:00: 00:00 MOUTH [place] 00 :00 TWICE Medical DAILY Branch GABAPENTIN 2022-0 2022- No [id number] TAKE 1 [facility] 300 mg 4-05 10-27 CAPSULE BY ity of capsule 00:00: 00:00 MOUTH [place] 00 :00 TWICE Medical DAILY Branch GABAPENTIN 0 2021- No [id number] TAKE 1 [facility] 300 mg -09-23 CAPSULE BY ity of capsule 00:00: 00:00 MOUTH [place] 00 :00 TWICE Medical DAILY Branch traMADoL 50 2019-11- No [id number] 50mg Take 1 [facility] vers mg tablet 16 08-30 tablet by ity of 00:00: 00:00 mouth [place] 00 :00 every 6 Medical (six) Branch hours as needed for Pain (scale 4-6). Indication s: acute pain OMEPRAZOLE 2019-11 Yes Take by [employer] ers (PRILOSEC 0-15 mouth. ity of ORAL) 13:49: [address] OMEPRAZOLE 2019- Yes Take by [employer] ers (PRILOSEC 0-15 mouth. ity of ORAL) 13:49: [address] OMEPRAZOLE 2019- Yes Take by [employer] ers (PRILOSEC 0-15 mouth. ity of ORAL) 13:49: [address] OMEPRAZOLE 2019- Yes Take by [employer] ers (PRILOSEC 0-15 mouth. ity of ORAL) 13:49: [address] OMEPRAZOLE 2019- Yes Take by [employer] ers (PRILOSEC 0-15 mouth. ity of ORAL) 13:49: [address] OMEPRAZOLE 2019- Yes Take by [employer] ers (PRILOSEC 0-15 mouth. ity of ORAL) 13:49: [address] OMEPRAZOLE 2019- Yes Take by [employer] ers (PRILOSEC 0-15 mouth. ity of ORAL) 13:49: [address] OMEPRAZOLE 2020- Yes Take by [employer] [facility] (PRILOSEC 0-15 mouth. ity of ORAL) 13:49: [address] OMEPRAZOLE 2019- Yes Take by [employer] [facility] (PRILOSEC 0-15 mouth. ity of ORAL) 13:49: [address] OMEPRAZOLE 2020- Yes Take by [employer] [facility] (PRILOSEC 0-15 mouth. ity of ORAL) 13:49: [address] OMEPRAZOLE 2019- Yes Take by [employer] [facility] (PRILOSEC 0-15 mouth. ity of ORAL) 13:49: [place] [facility] OMEPRAZOLE 2020-1 Yes Take by [facility] ers (PRILOSEC 0-15 mouth. ity of ORAL) 13:49: [place] [id number] Medical Branch OMEPRAZOLE 2020- Yes Take by [facility] ers (PRILOSEC 0-15 mouth. ity of ORAL) 13:49: [place] [id number] Medical Branch OMEPRAZOLE 2020- Yes Take by [facility] ers (PRILOSEC 0-15 mouth. ity of ORAL) 13:49: [place] [id number] Medical Branch OMEPRAZOLE 2020- Yes Take by [facility] ers (PRILOSEC 0-15 mouth. ity of ORAL) 13:49: [place] [id number] Medical Branch OMEPRAZOLE 2020- Yes Take by [facility] ers (PRILOSEC 0-15 mouth. ity of ORAL) 13:49: [place] [id number] Medical Branch OMEPRAZOLE 2020- Yes Take by [facility] ers (PRILOSEC 0-15 mouth. ity of ORAL) 13:49: [address] Branch OMEPRAZOLE 2020- Yes Take by [facility] ers (PRILOSEC 0-15 mouth. ity of ORAL) 13:49: [address] Branch OMEPRAZOLE 2020- Yes Take by [facility] ers (PRILOSEC 0-15 mouth. ity of ORAL) 13:49: [address] Branch OMEPRAZOLE 2020- Yes Take by [facility] ers (PRILOSEC 0-15 mouth. ity of ORAL) 13:49: [address] Branch OMEPRAZOLE 2020- Yes Take by [facility] ers (PRILOSEC 0-15 mouth. ity of ORAL) 13:49: [address] Branch OMEPRAZOLE 2020- Yes Take by [facility] ers (PRILOSEC 0-15 mouth. ity of ORAL) 13:49: [place] [id number] Medical Branch OMEPRAZOLE 2020-1 Yes Take by [facility] ers (PRILOSEC 0-15 mouth. ity of ORAL) 13:49: [place] [id number] Medical Branch OMEPRAZOLE 2020-1 Yes Take by [facility] ers (PRILOSEC 0-15 mouth. ity of ORAL) 13:49: [address] Branch OMEPRAZOLE 2020-1 Yes Take by [facility] ers (PRILOSEC 0-15 mouth. ity of ORAL) 13:49: [address] Branch OMEPRAZOLE 2020-1 Yes Take by [facility] ers (PRILOSEC 0-15 mouth. ity of ORAL) 13:49: [place] [id number] Medical Branch OMEPRAZOLE 2020-1 Yes Take by [facility] ers (PRILOSEC 0-15 mouth. ity of ORAL) 13:49: [address] OMEPRAZOLE 2020- Yes Take by [facility] ers (PRILOSEC 0-15 mouth. ity of ORAL) 13:49: [address] OMEPRAZOLE 2020- Yes Take by [facility] ers (PRILOSEC 0-15 mouth. ity of ORAL) 13:49: [address] OMEPRAZOLE 2020- Yes Take by Univ ers (PRILOSEC 0-15 mouth. ity of ORAL) 13:49: [address] OMEPRAZOLE 2020- Yes Take by [facility] ers (PRILOSEC 0-15 mouth. ity of ORAL) 13:49: [address] OMEPRAZOLE 2020- Yes Take by [facility] ers (PRILOSEC 0-15 mouth. ity of ORAL) 13:49: [address] OMEPRAZOLE 2020- Yes Take by [facility] ers (PRILOSEC 0-15 mouth. ity of ORAL) 13:49: [address] OMEPRAZOLE 2020- Yes Take by [facility] ers (PRILOSEC 0-15 mouth. ity of ORAL) 13:49: [address] OMEPRAZOLE 2020- Yes Take by [facility] ers (PRILOSEC 0-15 mouth. ity of ORAL) 13:49: [address] OMEPRAZOLE 2020- Yes Take by [facility] ers (PRILOSEC 0-15 mouth. ity of ORAL) 13:49: [address] OMEPRAZOLE 2020- Yes Take by [facility] ers (PRILOSEC 0-15 mouth. ity of ORAL) 13:49: [address] OMEPRAZOLE 2020- Yes Take by [facility] ers (PRILOSEC 0-15 mouth. ity of ORAL) 13:49: [address] OMEPRAZOLE 2020- Yes Take by [facility] ers (PRILOSEC 0-15 mouth. ity of ORAL) 13:49: [address] OMEPRAZOLE 2020- Yes Take by [facility] ers (PRILOSEC 0-15 mouth. ity of ORAL) 13:49: [address] OMEPRAZOLE 2020- Yes Take by [facility] ers (PRILOSEC 0-15 mouth. ity of ORAL) 13:49: [address] OMEPRAZOLE 2020- Yes Take by [facility] vers (PRILOSEC 0-15 mouth. ity of ORAL) 13:49: [address] OMEPRAZOLE 2019-11 Yes Take by [facility] ers (PRILOSEC 0-15 mouth. ity of ORAL) 13:49: [address] OMEPRAZOLE 2019-11 Yes Take by [facility] ers (PRILOSEC 0-15 mouth. ity of ORAL) 13:49: [address] albuterol Yes [id number] 2{puff} Inhale 2 [facility] 90 6-26 Puffs ity of mcg/actuati 00:00: every 6 [place] on inhaler 00 (six) Medical hours as Branch needed for Wheezing. albuterol Yes [id number] 2{puff} Inhale 2 [facility] 90 6-26 Puffs ity of mcg/actuati 00:00: every 6 [place] on inhaler 00 (six) Medical hours as Branch needed for Wheezing. albuterol Yes [id number] 2{puff} Inhale 2 [facility] 90 6-26 Puffs ity of mcg/actuati 00:00: every 6 [place] on inhaler 00 (six) Medical hours as Branch needed for Wheezing. albuterol Yes [id number] 2{puff} Inhale 2 [facility] 90 6-26 Puffs ity of mcg/actuati 00:00: every 6 [place] on inhaler 00 (six) Medical hours as Branch needed for Wheezing. albuterol Yes [id number] 2{puff} Inhale 2 [facility] 90 6-26 Puffs ity of mcg/actuati 00:00: every 6 [place] on inhaler 00 (six) Medical hours as Branch needed for Wheezing. albuterol Yes [id number] 2{puff} Inhale 2 [facility] 90 6-26 Puffs ity of mcg/actuati 00:00: every 6 [place] on inhaler 00 (six) Medical hours as Branch needed for Wheezing. albuterol Yes [id number] 2{puff} Inhale 2 [facility] 90 6-26 Puffs ity of mcg/actuati 00:00: every 6 [place] on inhaler 00 (six) Medical hours as Branch needed for Wheezing. albuterol Yes [id number] 2{puff} Inhale 2 [facility] 90 6-26 Puffs ity of mcg/actuati 00:00: every 6 [place] on inhaler 00 (six) Medical hours as Branch needed for Wheezing. albuterol Yes [id number] 2{puff} Inhale 2 [facility] 90 6-26 Puffs ity of mcg/actuati 00:00: every 6 [place] on inhaler 00 (six) Medical hours as Branch needed for Wheezing. albuterol Yes [id number] 2{puff} Inhale 2 [facility] 90 6-26 Puffs ity of mcg/actuati 00:00: every 6 [place] on inhaler 00 (six) Medical hours as Branch needed for Wheezing. albuterol Yes [id number] 2{puff} Inhale 2 [facility] 90 6-26 Puffs ity of mcg/actuati 00:00: every 6 [place] on inhaler 00 (six) Medical hours as Branch needed for Wheezing. albuterol Yes [id number] 2{puff} Inhale 2 [facility] 90 6-26 Puffs ity of mcg/actuati 00:00: every 6 [place] on inhaler 00 (six) Medical hours as Branch needed for Wheezing. albuterol Yes [id number] 2{puff} Inhale 2 [facility] 90 6-26 Puffs ity of mcg/actuati 00:00: every 6 [place] on inhaler 00 (six) Medical hours as Branch needed for Wheezing. albuterol Yes [id number] 2{puff} Inhale 2 [facility] 90 6-26 Puffs ity of mcg/actuati 00:00: every 6 [place] on inhaler 00 (six) Medical hours as Branch needed for Wheezing. albuterol Yes [id number] 2{puff} Inhale 2 [facility] 90 6-26 Puffs ity of mcg/actuati 00:00: every 6 [place] on inhaler 00 (six) Medical hours as Branch needed for Wheezing. albuterol Yes [id number] 2{puff} Inhale 2 [facility] 90 6-26 Puffs ity of mcg/actuati 00:00: every 6 [place] on inhaler 00 (six) Medical hours as Branch needed for Wheezing. albuterol Yes [id number] 2{puff} Inhale 2 [facility] 90 6-26 Puffs ity of mcg/actuati 00:00: every 6 [place] on inhaler 00 (six) Medical hours as Branch needed for Wheezing. albuterol Yes [id number] 2{puff} Inhale 2 [facility] 90 6-26 Puffs ity of mcg/actuati 00:00: every 6 [place] on inhaler 00 (six) Medical hours as Branch needed for Wheezing. albuterol Yes [id number] 2{puff} Inhale 2 [facility] 90 6-26 Puffs ity of mcg/actuati 00:00: every 6 [place] on inhaler 00 (six) Medical hours as Branch needed for Wheezing. albuterol Yes [id number] 2{puff} Inhale 2 [facility] 90 6-26 Puffs ity of mcg/actuati 00:00: every 6 [place] on inhaler 00 (six) Medical hours as Branch needed for Wheezing. albuterol Yes [id number] 2{puff} Inhale 2 [facility] 90 6-26 Puffs ity of mcg/actuati 00:00: every 6 [place] on inhaler 00 (six) Medical hours as Branch needed for Wheezing. albuterol Yes [id number] 2{puff} Inhale 2 [facility] 90 6-26 Puffs ity of mcg/actuati 00:00: every 6 [place] on inhaler 00 (six) Medical hours as Branch needed for Wheezing. albuterol Yes [id number] 2{puff} Inhale 2 [facility] 90 6-26 Puffs ity of mcg/actuati 00:00: every 6 [place] on inhaler 00 (six) Medical hours as Branch needed for Wheezing. albuterol Yes [id number] 2{puff} Inhale 2 [facility] 90 6-26 Puffs ity of mcg/actuati 00:00: every 6 [place] on inhaler 00 (six) Medical hours as Branch needed for Wheezing. albuterol Yes [id number] 2{puff} Inhale 2 [facility] 90 6-26 Puffs ity of mcg/actuati 00:00: every 6 [place] on inhaler 00 (six) Medical hours as Branch needed for Wheezing. albuterol Yes [id number] 2{puff} Inhale 2 [facility] 90 6-26 Puffs ity of mcg/actuati 00:00: every 6 [place] on inhaler 00 (six) Medical hours as Branch needed for Wheezing. albuterol Yes [id number] 2{puff} Inhale 2 [facility] 90 6-26 Puffs ity of mcg/actuati 00:00: every 6 [place] on inhaler 00 (six) Medical hours as Branch needed for Wheezing. albuterol Yes [id number] 2{puff} Inhale 2 [facility] 90 6-26 Puffs ity of mcg/actuati 00:00: every 6 [place] on inhaler 00 (six) Medical hours as Branch needed for Wheezing. albuterol Yes [id number] 2{puff} Inhale 2 [facility] 90 6-26 Puffs ity of mcg/actuati 00:00: every 6 [place] on inhaler 00 (six) Medical hours as Branch needed for Wheezing. albuterol Yes [id number] 2{puff} Inhale 2 [facility] 90 6-26 Puffs ity of mcg/actuati 00:00: every 6 [place] on inhaler 00 (six) Medical hours as Branch needed for Wheezing. albuterol Yes [id number] 2{puff} Inhale 2 [facility] 90 6-26 Puffs ity of mcg/actuati 00:00: every 6 [place] on inhaler 00 (six) Medical hours as Branch needed for Wheezing. albuterol Yes [id number] 2{puff} Inhale 2 [facility] 90 6-26 Puffs ity of mcg/actuati 00:00: every 6 [place] on inhaler 00 (six) Medical hours as Branch needed for Wheezing. albuterol Yes [id number] 2{puff} Inhale 2 [facility] 90 6-26 Puffs ity of mcg/actuati 00:00: every 6 [place] on inhaler 00 (six) Medical hours as Branch needed for Wheezing. albuterol Yes [id number] 2{puff} Inhale 2 [facility] 90 6-26 Puffs ity of mcg/actuati 00:00: every 6 [place] on inhaler 00 (six) Medical hours as Branch needed for Wheezing. albuterol Yes [id number] 2{puff} Inhale 2 [facility] 90 6-26 Puffs ity of mcg/actuati 00:00: every 6 [place] on inhaler 00 (six) Medical hours as Branch needed for Wheezing. albuterol Yes [id number] 2{puff} Inhale 2 [facility] 90 6-26 Puffs ity of mcg/actuati 00:00: every 6 [place] on inhaler 00 (six) Medical hours as Branch needed for Wheezing. albuterol Yes [id number] 2{puff} Inhale 2 [facility] 90 6-26 Puffs ity of mcg/actuati 00:00: every 6 [place] on inhaler 00 (six) Medical hours as Branch needed for Wheezing. albuterol Yes [id number] 2{puff} Inhale 2 [facility] 90 6-26 Puffs ity of mcg/actuati 00:00: every 6 [place] on inhaler 00 (six) Medical hours as Branch needed for Wheezing. albuterol Yes [id number] 2{puff} Inhale 2 [facility] 90 6-26 Puffs ity of mcg/actuati 00:00: every 6 [place] on inhaler 00 (six) Medical hours as Branch needed for Wheezing. albuterol Yes [id number] 2{puff} Inhale 2 [facility] 90 6-26 Puffs ity of mcg/actuati 00:00: every 6 [place] on inhaler 00 (six) Medical hours as Branch needed for Wheezing. albuterol Yes [id number] 2{puff} Inhale 2 [facility] 90 6-26 Puffs ity of mcg/actuati 00:00: every 6 [place] on inhaler 00 (six) Medical hours as Branch needed for Wheezing. albuterol Yes [id number] 2{puff} Inhale 2 [facility] 90 6-26 Puffs ity of mcg/actuati 00:00: every 6 [place] on inhaler 00 (six) Medical hours as Branch needed for Wheezing. albuterol Yes [id number] 2{puff} Inhale 2 [facility] 90 6-26 Puffs ity of mcg/actuati 00:00: every 6 [place] on inhaler 00 (six) Medical hours as Branch needed for Wheezing. albuterol Yes [id number] 2{puff} Inhale 2 [facility] 90 6-26 Puffs ity of mcg/actuati 00:00: every 6 [place] on inhaler 00 (six) Medical hours as Branch needed for Wheezing. albuterol Yes [id number] 2{puff} Inhale 2 [facility] 90 6-26 Puffs ity of mcg/actuati 00:00: every 6 [place] on inhaler 00 (six) Medical hours as Branch needed for Wheezing. albuterol Yes [id number] 2{puff} Inhale 2 [facility] 90 6-26 Puffs ity of mcg/actuati 00:00: every 6 [place] on inhaler 00 (six) Medical hours as Branch needed for Wheezing. albuterol Yes [id number] 2{puff} Inhale 2 [facility] 90 6-26 Puffs ity of mcg/actuati 00:00: every 6 [place] on inhaler 00 (six) Medical hours as Branch needed for Wheezing. albuterol Yes [id number] 2{puff} Inhale 2 [facility] 90 6-26 Puffs ity of mcg/actuati 00:00: every 6 [place] on inhaler 00 (six) Medical hours as Branch needed for Wheezing. albuterol Yes [id number] 2{puff} Inhale 2 [facility] 90 6-26 Puffs ity of mcg/actuati 00:00: every 6 [place] on inhaler 00 (six) Medical hours as Branch needed for Wheezing. albuterol Yes [id number] 2{puff} Inhale 2 [facility] 90 6-26 Puffs ity of mcg/actuati 00:00: every 6 [place] on inhaler 00 (six) Medical hours as Branch needed for Wheezing. albuterol Yes [id number] 2{puff} Inhale 2 [facility] 90 6-26 Puffs ity of mcg/actuati 00:00: every 6 [place] on inhaler 00 (six) Medical hours as Branch needed for Wheezing. albuterol Yes [id number] 2{puff} Inhale 2 [facility] 90 6-26 Puffs ity of mcg/actuati 00:00: every 6 [place] on inhaler 00 (six) Medical hours as Branch needed for Wheezing. albuterol 3- No [id number] 2{puff} Inhale 2 [facility] 90 6-26 05-24 Puffs ity of mcg/actuati 00:00: 00:00 every 6 [place] on inhaler 00 :00 (six) Medical hours as Branch needed for Wheezing. albuterol 2022- No [id number] 2{puff} Inhale 2 [facility] 90 6-26 05-24 Puffs ity of mcg/actuati 00:00: 00:00 every 6 [place] on inhaler 00 :00 (six) Medical hours as Branch needed for Wheezing. albuterol 2022- No [id number] 2{puff} Inhale 2 [facility] 90 6-26 05-24 Puffs ity of mcg/actuati 00:00: 00:00 every 6 [place] on inhaler 00 :00 (six) Medical hours as Branch needed for Wheezing. albuterol 2022- No [id number] 2{puff} Inhale 2 [facility] 90 6-26 05-24 Puffs ity of mcg/actuati 00:00: 00:00 every 6 [place] on inhaler 00 :00 (six) Medical hours as Branch needed for Wheezing. Immunizations Ordered Filled Immunization Date Status Comments [facility] e Immunization Name Name TDAP 2023-01-24 Completed University of 00:00:00 [facility] TDAP 2023-01-24 Completed University of 00:00:00 [place] [facility] TDAP 2023-01-24 Completed University of 00:00:00 [place] [facility] TDAP 2023-01-24 Completed University of 00:00:00 [place] [facility] TDAP 2023-01-24 Completed University of 00:00:00 [facility] TDAP 2023-01-24 Completed University of 00:00:00 [facility] TDAP 2023-01-24 Completed University of 00:00:00 [place] [facility] TDAP 2023-01-24 Completed University of 00:00:00 [place] [facility] TDAP 2023-01-24 Completed University of 00:00:00 [place] [facility] TDAP 2023-01-24 Completed University of 00:00:00 [place] [facility] TDAP 2023-01-24 Completed University of 00:00:00 [place] [facility] TDAP 2023-01-24 Completed University of 00:00:00 [facility] TDAP 2023-01-24 Completed University of 00:00:00 [facility] TDAP 2023-01-24 Completed University of 00:00:00 [facility] TDAP 2023-01-24 Completed University of 00:00:00 [place] [facility] TDAP 2023-01-24 Completed University of 00:00:00 [place] [facility] TDAP 2023-01-24 Completed University of 00:00:00 [place] [facility] TDAP 2023-01-24 Completed University of 00:00:00 [place] [facility] TDAP 2023-01-24 Completed University of 00:00:00 [facility] TDAP 2023-01-24 Completed University of 00:00:00 [place] [facility] TDAP 2023-01-24 Completed University of 00:00:00 [place] [facility] TDAP 2023-01-24 Completed University of 00:00:00 [place] [facility] TDAP 2023-01-24 Completed University of 00:00:00 [place] [facility] TDAP 2023-01-24 Completed University of 00:00:00 [place] [facility] TDAP 2023-01-24 Completed University of 00:00:00 [facility] TDAP 2023-01-24 Completed University of 00:00:00 [facility] TDAP 2023-01-24 Completed University of 00:00:00 [place] [facility] TDAP 2023-01-24 Completed University of 00:00:00 [facility] Branch TDAP 2023-01-24 Completed University of 00:00:00 [facility] TDAP 2023-01-24 Completed University of 00:00:00 [facility] Branch TDAP 2023-01-24 Completed University of 00:00:00 [facility] TDAP 2023-01-24 Completed University of 00:00:00 [facility] TDAP 2023-01-24 Completed University of 00:00:00 [place] [facility] TDAP 2023-01-24 Completed University of 00:00:00 [place] [facility] TDAP 2023-01-24 Completed University of 00:00:00 [place] [facility] TDAP 2023-01-24 Completed University of 00:00:00 [place] [facility] TDAP 2023-01-24 Completed University of 00:00:00 [place] [facility] TDAP 2023-01-24 Completed University of 00:00:00 [place] [facility] TDAP 2023-01-24 Completed University of 00:00:00 [facility] TDAP 2023-01-24 Completed University of 00:00:00 [place] [facility] TDAP 2023-01-24 Completed University of 00:00:00 [facility] TDAP 2023-01-24 Completed University of 00:00:00 [facility] TDAP 2023-01-24 Completed University of 00:00:00 [facility] TDAP 2023-01-24 Completed University of 00:00:00 [facility] TDAP 2023-01-24 Completed University of 00:00:00 [facility] Zoster Vaccine 2022-06-26 Completed University of Recombinant 00:00:00 [facility] Zoster Vaccine 2022-06-26 Completed University of Recombinant 00:00:00 [facility] Zoster Vaccine 2022-06-26 Completed University of Recombinant 00:00:00 [facility] Zoster Vaccine 2022-06-26 Completed University of Recombinant 00:00:00 [facility] Zoster Vaccine 2022-06-26 Completed University of Recombinant 00:00:00 [facility] Zoster Vaccine 2022-06-26 Completed University of Recombinant 00:00:00 [facility] Zoster Vaccine 2022-06-26 Completed University of Recombinant 00:00:00 [facility] Zoster Vaccine 2022-06-26 Completed University of Recombinant 00:00:00 [facility] Zoster Vaccine 2022-06-26 Completed University of Recombinant 00:00:00 [facility] Zoster Vaccine 2022-06-26 Completed University of Recombinant 00:00:00 [facility] Zoster Vaccine 2022-06-26 Completed University of Recombinant 00:00:00 [facility] Zoster Vaccine 2022-06-26 Completed University of Recombinant 00:00:00 [facility] Zoster Vaccine 2022-06-26 Completed University of Recombinant 00:00:00 [facility] Zoster Vaccine 2022-06-26 Completed University of Recombinant 00:00:00 [facility] Zoster Vaccine 2022-06-26 Completed University of Recombinant 00:00:00 [facility] Zoster Vaccine 2022-06-26 Completed University of Recombinant 00:00:00 [facility] Zoster Vaccine 2022-06-26 Completed University of Recombinant 00:00:00 [facility] Zoster Vaccine 2022-06-26 Completed University of Recombinant 00:00:00 [facility] Zoster Vaccine 2022-06-26 Completed University of Recombinant 00:00:00 [facility] Zoster Vaccine 2022-06-26 Completed University of Recombinant 00:00:00 [facility] Zoster Vaccine 2022-06-26 Completed University of Recombinant 00:00:00 [facility] Zoster Vaccine 2022-06-26 Completed University of Recombinant 00:00:00 [facility] Zoster Vaccine 2022-06-26 Completed University of Recombinant 00:00:00 [facility] Zoster Vaccine 2022-06-26 Completed University of Recombinant 00:00:00 [facility] Zoster Vaccine 2022-06-26 Completed University of Recombinant 00:00:00 [facility] Zoster Vaccine 2022-06-26 Completed University of Recombinant 00:00:00 [facility] Zoster Vaccine 2022-06-26 Completed University of Recombinant 00:00:00 [facility] Zoster Vaccine 2022-06-26 Completed University of Recombinant 00:00:00 [facility] Zoster Vaccine 2022-06-26 Completed University of Recombinant 00:00:00 [facility] Zoster Vaccine 2022-06-26 Completed University of Recombinant 00:00:00 [facility] Zoster Vaccine 2022-06-26 Completed University of Recombinant 00:00:00 [facility] Zoster Vaccine 2022-06-26 Completed University of Recombinant 00:00:00 [facility] Zoster Vaccine 2022-06-26 Completed University of Recombinant 00:00:00 [facility] Zoster Vaccine 2022-06-26 Completed University of Recombinant 00:00:00 [facility] Zoster Vaccine 2022-06-26 Completed [facility]combinant 00:00:00 [facility] [facility]ine 2022-06-26 Completed [facility] Recombinant 00:00:00 [facility] Zoster Vaccine 2022-06-26 Completed [facility] Recombinant 00:00:00 [facility] Zoster Vaccine 2022-06-26 Completed [facility] Recombinant 00:00:00 [facility] Zoster Vaccine 2022-06-26 Completed [facility] Recombinant 00:00:00 [facility] Zoster Vaccine 2022-06-26 Completed [facility] Recombinant 00:00:00 [facility] Zoster Vaccine 2022-06-26 Completed [facility] Recombinant 00:00:00 [facility] Zoster Vaccine 2022-06-26 Completed [facility] Recombinant 00:00:00 [facility] Zoster Vaccine 2022-06-26 Completed [facility] Recombinant 00:00:00 [facility] Zoster Vaccine 2022-06-26 Completed [facility] Recombinant 00:00:00 [facility] Zoster Vaccine 2022-06-26 Completed [facility] Recombinant 00:00:00 [facility] Zoster Vaccine 2022-06-26 Completed [facility] Recombinant 00:00:00 [facility] Zoster Vaccine 2022-06-26 Completed [facility] Recombinant 00:00:00 [facility] Zoster Vaccine 2022-06-26 Completed [facility] Recombinant 00:00:00 [facility] Zoster Vaccine 2022-06-26 Completed [facility] Recombinant 00:00:00 [facility] Zoster Vaccine 2022-06-26 Completed [facility] Recombinant 00:00:00 [facility] Zoster Vaccine 2022-06-26 Completed [facility] Recombinant 00:00:00 [facility] Zoster Vaccine 2022-06-26 Completed [facility] Recombinant 00:00:00 [facility] Zoster Vaccine 2022-06-26 Completed [facility] Recombinant 00:00:00 [facility] Pneumococcal 20 2022-03-12 Completed Universit y of Conjugate, PCV20 00:00:00 [facility] dical (Prevnar 20) Branch Influenza High Dose 2022-03-12 Completed Unive rsity of 00:00:00 [facility] SARS-COV-2 COVID-19 2022-03-12 Completed Unive rsity of PFIZER VACCINE 00:00:00 [facility] Pneumococcal 20 2022-03-12 Completed Universit y of Conjugate, PCV20 00:00:00 [facility] dical (Prevnar 20) Branch Influenza High Dose 2022-03-12 Completed Unive rsity of 00:00:00 [facility] SARS-COV-2 COVID-19 2022-03-12 Completed Unive rsity of PFIZER VACCINE 00:00:00 [facility] Pneumococcal 20 2022-03-12 Completed Universit y of Conjugate, PCV20 00:00:00 [facility] dical (Prevnar 20) Branch Influenza High Dose 2022-03-12 Completed Unive rsity of 00:00:00 [facility] SARS-COV-2 COVID-19 2022-03-12 Completed Unive rsity of PFIZER VACCINE 00:00:00 [facility] Pneumococcal 20 2022-03-12 Completed Universit y of Conjugate, PCV20 00:00:00 [facility] dical (Prevnar 20) Branch Influenza High Dose 2022-03-12 Completed Unive rsity of 00:00:00 [facility] SARS-COV-2 COVID-19 2022-03-12 Completed Unive rsity of PFIZER VACCINE 00:00:00 [facility] Pneumococcal 20 2022-03-12 Completed Universit y of Conjugate, PCV20 00:00:00 [facility] dical (Prevnar 20) Branch Influenza High Dose 2022-03-12 Completed Unive rsity of 00:00:00 [facility] SARS-COV-2 COVID-19 2022-03-12 Completed Unive rsity of PFIZER VACCINE 00:00:00 [facility] Pneumococcal 20 2022-03-12 Completed Universit y of Conjugate, PCV20 00:00:00 [facility] dical (Prevnar 20) Branch Influenza High Dose 2022-03-12 Completed Unive rsity of 00:00:00 [facility] SARS-COV-2 COVID-19 2022-03-12 Completed Unive rsity of PFIZER VACCINE 00:00:00 [facility] Pneumococcal 20 2022-03-12 Completed Universit y of Conjugate, PCV20 00:00:00 [facility] dical (Prevnar 20) Branch Influenza High Dose 2022-03-12 Completed Unive rsity of 00:00:00 [facility] SARS-COV-2 COVID-19 2022-03-12 Completed Unive rsity of PFIZER VACCINE 00:00:00 [facility] Pneumococcal 20 2022-03-12 Completed Universit y of Conjugate, PCV20 00:00:00 [facility] dical (Prevnar 20) Branch Influenza High Dose 2022-03-12 Completed Unive rsity of 00:00:00 [facility] SARS-COV-2 COVID-19 2022-03-12 Completed Unive rsity of PFIZER VACCINE 00:00:00 [facility] Pneumococcal 20 2022-03-12 Completed Universit y of Conjugate, PCV20 00:00:00 [facility] dical (Prevnar 20) Branch Influenza High Dose 2022-03-12 Completed Unive rsity of 00:00:00 [facility] SARS-COV-2 COVID-19 2022-03-12 Completed Unive rsity of PFIZER VACCINE 00:00:00 [facility] Pneumococcal 20 2022-03-12 Completed [facility] y of Conjugate, PCV20 00:00:00 [place] [facility] (Prevnar 20) Branch Influenza High Dose 2022-03-12 Completed Unive rsity of 00:00:00 [facility] SARS-COV-2 COVID-19 2022-03-12 Completed Unive rsity of PFIZER VACCINE 00:00:00 [facility] Pneumococcal 20 2022-03-12 Completed [facility]it y of Conjugate, PCV20 00:00:00 [place] [facility] (Prevnar 20) Branch Influenza High Dose 2022-03-12 Completed Unive rsity of 00:00:00 [facility] SARS-COV-2 COVID-19 2022-03-12 Completed Unive rsity of PFIZER VACCINE 00:00:00 [facility] Pneumococcal 20 2022-03-12 Completed [facility]it y of Conjugate, PCV20 00:00:00 [place] [facility] (Prevnar 20) Branch Influenza High Dose 2022-03-12 Completed Unive rsity of 00:00:00 [facility] SARS-COV-2 COVID-19 2022-03-12 Completed Unive rsity of PFIZER VACCINE 00:00:00 [facility] Pneumococcal 20 2022-03-12 Completed [facility] y of Conjugate, PCV20 00:00:00 [place] [facility] (Prevnar 20) Branch Influenza High Dose 2022-03-12 Completed Unive rsity of 00:00:00 [facility] SARS-COV-2 COVID-19 2022-03-12 Completed Unive rsity of PFIZER VACCINE 00:00:00 [facility] Pneumococcal 20 2022-03-12 Completed Universit y of Conjugate, PCV20 00:00:00 [facility] dical (Prevnar 20) Branch Influenza High Dose 2022-03-12 Completed Unive rsity of 00:00:00 [facility] SARS-COV-2 COVID-19 2022-03-12 Completed Unive rsity of PFIZER VACCINE 00:00:00 [facility] Pneumococcal 20 2022-03-12 Completed [facility]it y of Conjugate, PCV20 00:00:00 [facility] dical (Prevnar 20) Branch Influenza High Dose 2022-03-12 Completed Unive rsity of 00:00:00 [facility] SARS-COV-2 COVID-19 2022-03-12 Completed Unive rsity of PFIZER VACCINE 00:00:00 [facility] Pneumococcal 20 2022-03-12 Completed [facility]it y of Conjugate, PCV20 00:00:00 [place] [facility] (Prevnar 20) Branch Influenza High Dose 2022-03-12 Completed Unive rsity of 00:00:00 [facility] SARS-COV-2 COVID-19 2022-03-12 Completed Unive rsity of PFIZER VACCINE 00:00:00 [facility] Pneumococcal 20 2022-03-12 Completed Universit y of Conjugate, PCV20 00:00:00 [facility] dical (Prevnar 20) Branch Influenza High Dose 2022-03-12 Completed Unive rsity of 00:00:00 [facility] SARS-COV-2 COVID-19 2022-03-12 Completed Unive rsity of PFIZER VACCINE 00:00:00 [facility] Pneumococcal 20 2022-03-12 Completed [facility]it y of Conjugate, PCV20 00:00:00 [facility] dical (Prevnar 20) Branch Influenza High Dose 2022-03-12 Completed Unive rsity of 00:00:00 [facility] SARS-COV-2 COVID-19 2022-03-12 Completed Unive rsity of PFIZER VACCINE 00:00:00 [facility] Pneumococcal 20 2022-03-12 Completed [facility]it y of Conjugate, PCV20 00:00:00 [facility] dical (Prevnar 20) Branch Influenza High Dose 2022-03-12 Completed Unive rsity of 00:00:00 [facility] SARS-COV-2 COVID-19 2022-03-12 Completed Unive rsity of PFIZER VACCINE 00:00:00 [facility] Pneumococcal 20 2022-03-12 Completed Universit y of Conjugate, PCV20 00:00:00 [facility] dical (Prevnar 20) Branch Influenza High Dose 2022-03-12 Completed Unive rsity of 00:00:00 [facility] SARS-COV-2 COVID-19 2022-03-12 Completed Unive rsity of PFIZER VACCINE 00:00:00 [facility] Pneumococcal 20 2022-03-12 Completed Universit y of Conjugate, PCV20 00:00:00 [facility] dical (Prevnar 20) Branch Influenza High Dose 2022-03-12 Completed Unive rsity of 00:00:00 [facility] SARS-COV-2 COVID-19 2022-03-12 Completed Unive rsity of PFIZER VACCINE 00:00:00 [facility] Pneumococcal 20 2022-03-12 Completed [facility]it y of Conjugate, PCV20 00:00:00 [facility] dical (Prevnar 20) Branch Influenza High Dose 2022-03-12 Completed Unive rsity of 00:00:00 [facility] SARS-COV-2 COVID-19 2022-03-12 Completed Unive rsity of PFIZER VACCINE 00:00:00 [facility] Pneumococcal 20 2022-03-12 Completed [facility]it y of Conjugate, PCV20 00:00:00 [place] [facility] (Prevnar 20) Branch Influenza High Dose 2022-03-12 Completed Unive rsity of 00:00:00 [facility] SARS-COV-2 COVID-19 2022-03-12 Completed Unive rsity of PFIZER VACCINE 00:00:00 [facility] Influenza Virus 2022-03-12 Completed [facility] y [facility] Vaccine,quad 00:00:00 [facility] 65+ SARS-COV-2 COVID-19 2022-03-12 Completed Unive rsity of PFIZER NIC-SUCROSE 00:00:00 [facility] VACCINE (BUTTS TOP) Branch Pneumococcal 20 2022-03-12 Completed [facility]it y of Conjugate, PCV20 00:00:00 [place] [facility] (Prevnar 20) Branch Influenza High Dose 2022-03-12 Completed Unive rsity of 00:00:00 [facility] SARS-COV-2 COVID-19 2022-03-12 Completed Unive rsity of PFIZER VACCINE 00:00:00 [facility] Influenza Virus 2022-03-12 Completed [facility] y of Vaccine,quad 00:00:00 [facility] 65+ SARS-COV-2 COVID-19 2022-03-12 Completed Unive rsity of PFIZER NIC-SUCROSE 00:00:00 [facility] VACCINE (BUTTS TOP) Branch Pneumococcal 20 2022-03-12 Completed [facility] y of Conjugate, PCV20 00:00:00 [place] [facility] (Prevnar 20) Branch Influenza High Dose 2022-03-12 Completed Unive rsity of 00:00:00 [facility] SARS-COV-2 COVID-19 2022-03-12 Completed Unive rsity of PFIZER VACCINE 00:00:00 [facility] Influenza Virus 2022-03-12 Completed [facility] y of Vaccine,quad 00:00:00 [facility] 65+ SARS-COV-2 COVID-19 2022-03-12 Completed Unive rsity of PFIZER NIC-SUCROSE 00:00:00 [facility] VACCINE (BUTTS TOP) Branch Pneumococcal 20 2022-03-12 Completed [facility] y of Conjugate, PCV20 00:00:00 [place] [facility] (Prevnar 20) Branch Influenza High Dose 2022-03-12 Completed Unive rsity of 00:00:00 [facility] SARS-COV-2 COVID-19 2022-03-12 Completed Unive rsity of PFIZER VACCINE 00:00:00 [facility] Influenza Virus 2022-03-12 Completed [facility] y of Vaccine,quad 00:00:00 [facility] 65+ SARS-COV-2 COVID-19 2022-03-12 Completed Unive rsity of PFIZER NIC-SUCROSE 00:00:00 [facility] VACCINE (BUTTS TOP) Branch Pneumococcal 20 2022-03-12 Completed [facility] y of Conjugate, PCV20 00:00:00 [facility] (Prevnar 20) Branch Influenza High Dose 2022-03-12 Completed Unive rsity of 00:00:00 [facility] SARS-COV-2 COVID-19 2022-03-12 Completed Unive rsity of PFIZER VACCINE 00:00:00 [facility] Influenza Virus 2022-03-12 Completed [facility] y of Vaccine,quad 00:00:00 [facility] 65+ SARS-COV-2 COVID-19 2022-03-12 Completed Unive rsity of PFIZER NIC-SUCROSE 00:00:00 [facility] VACCINE (BUTTS TOP) Branch Pneumococcal 20 2022-03-12 Completed [facility] y of Conjugate, PCV20 00:00:00 [place] [facility] (Prevnar 20) Branch Influenza High Dose 2022-03-12 Completed Unive rsity of 00:00:00 [facility] SARS-COV-2 COVID-19 2022-03-12 Completed Unive rsity of PFIZER VACCINE 00:00:00 [facility] Influenza Virus 2022-03-12 Completed [facility] y of Vaccine,quad 00:00:00 [facility] 65+ SARS-COV-2 COVID-19 2022-03-12 Completed Unive rsity of PFIZER NIC-SUCROSE 00:00:00 [facility] VACCINE (BUTTS TOP) Branch Pneumococcal 20 2022-03-12 Completed [facility] y of Conjugate, PCV20 00:00:00 [place] [facility] (Prevnar 20) Branch Influenza High Dose 2022-03-12 Completed Unive rsity of 00:00:00 [facility] SARS-COV-2 COVID-19 2022-03-12 Completed Unive rsity of PFIZER VACCINE 00:00:00 [facility] Influenza Virus 2022-03-12 Completed [facility] y of Vaccine,quad 00:00:00 [facility] 65+ SARS-COV-2 COVID-19 2022-03-12 Completed Unive rsity of PFIZER NIC-SUCROSE 00:00:00 [facility] VACCINE (BUTTS TOP) Branch Pneumococcal 20 2022-03-12 Completed [facility] y of Conjugate, PCV20 00:00:00 [facility] (Prevnar 20) Branch Influenza High Dose 2022-03-12 Completed Unive rsity of 00:00:00 [facility] SARS-COV-2 COVID-19 2022-03-12 Completed Unive rsity of PFIZER VACCINE 00:00:00 [facility] Influenza Virus 2022-03-12 Completed [facility] y of Vaccine,quad 00:00:00 [facility] 65+ SARS-COV-2 COVID-19 2022-03-12 Completed Unive rsity of PFIZER NIC-SUCROSE 00:00:00 [facility] VACCINE (BUTTS TOP) Branch Pneumococcal 20 2022-03-12 Completed Univers[facility] y of Conjugate, PCV20 00:00:00 [facility] (Prevnar 20) Branch Influenza High Dose 2022-03-12 Completed Unive rsity of 00:00:00 [facility] SARS-COV-2 COVID-19 2022-03-12 Completed Unive rsity of PFIZER VACCINE 00:00:00 [facility] Influenza Virus 2022-03-12 Completed [facility] y of Vaccine,quad 00:00:00 [facility] 65+ SARS-COV-2 COVID-19 2022-03-12 Completed Unive rsity of PFIZER NIC-SUCROSE 00:00:00 [facility] VACCINE (BUTTS TOP) Branch Pneumococcal 20 2022-03-12 Completed [facility] y of Conjugate, PCV20 00:00:00 [place] [facility] (Prevnar 20) Branch Influenza High Dose 2022-03-12 Completed Unive rsity of 00:00:00 [facility] SARS-COV-2 COVID-19 2022-03-12 Completed Unive rsity of PFIZER VACCINE 00:00:00 [facility] Influenza Virus 2022-03-12 Completed [facility] y of Vaccine,quad 00:00:00 [facility] 65+ SARS-COV-2 COVID-19 2022-03-12 Completed Unive rsity of PFIZER NIC-SUCROSE 00:00:00 [facility] VACCINE (BUTTS TOP) Branch Pneumococcal 20 2022-03-12 Completed [facility] y of Conjugate, PCV20 00:00:00 [place] [facility] (Prevnar 20) Branch Influenza High Dose 2022-03-12 Completed Unive rsity of 00:00:00 [facility] SARS-COV-2 COVID-19 2022-03-12 Completed Unive rsity of PFIZER VACCINE 00:00:00 [facility] Influenza Virus 2022-03-12 Completed [facility] y of Vaccine,quad 00:00:00 [facility] 65+ SARS-COV-2 COVID-19 2022-03-12 Completed Unive rsity of PFIZER NIC-SUCROSE 00:00:00 [facility] VACCINE (BUTTS TOP) Branch Pneumococcal 20 2022-03-12 Completed [facility] y of Conjugate, PCV20 00:00:00 [place] [facility] (Prevnar 20) Branch Influenza High Dose 2022-03-12 Completed Unive rsity of 00:00:00 [facility] SARS-COV-2 COVID-19 2022-03-12 Completed Unive rsity of PFIZER VACCINE 00:00:00 [facility] Influenza Virus 2022-03-12 Completed [facility] y of Vaccine,quad 00:00:00 [facility] 65+ SARS-COV-2 COVID-19 2022-03-12 Completed Unive rsity of PFIZER NIC-SUCROSE 00:00:00 [facility] VACCINE (BUTTS TOP) Branch Pneumococcal 20 2022-03-12 Completed [facility] y of Conjugate, PCV20 00:00:00 [facility] (Prevnar 20) Branch Influenza High Dose 2022-03-12 Completed Unive rsity of 00:00:00 [facility] SARS-COV-2 COVID-19 2022-03-12 Completed Unive rsity of PFIZER VACCINE 00:00:00 [facility] Influenza Virus 2022-03-12 Completed [facility] y of Vaccine,quad 00:00:00 [facility] 65+ SARS-COV-2 COVID-19 2022-03-12 Completed Unive rsity of PFIZER NIC-SUCROSE 00:00:00 [facility] VACCINE (BUTTS TOP) Branch Pneumococcal 20 2022-03-12 Completed [facility] y of Conjugate, PCV20 00:00:00 [facility] (Prevnar 20) Branch Influenza High Dose 2022-03-12 Completed Unive rsity of 00:00:00 [facility] SARS-COV-2 COVID-19 2022-03-12 Completed Unive rsity of PFIZER VACCINE 00:00:00 [facility] Influenza Virus 2022-03-12 Completed [facility] y of Vaccine,quad 00:00:00 [facility] 65+ SARS-COV-2 COVID-19 2022-03-12 Completed Unive rsity of PFIZER NIC-SUCROSE 00:00:00 [facility] VACCINE (BUTTS TOP) Branch Pneumococcal 20 2022-03-12 Completed Univers[facility] y of Conjugate, PCV20 00:00:00 [place] [facility] (Prevnar 20) Branch Influenza High Dose 2022-03-12 Completed Unive rsity of 00:00:00 [facility] SARS-COV-2 COVID-19 2022-03-12 Completed Unive rsity of PFIZER VACCINE 00:00:00 [facility] Influenza Virus 2022-03-12 Completed [facility] y of Vaccine,quad 00:00:00 [facility] 65+ SARS-COV-2 COVID-19 2022-03-12 Completed Unive rsity of PFIZER NIC-SUCROSE 00:00:00 [facility] VACCINE (BUTTS TOP) Branch Pneumococcal 20 2022-03-12 Completed [facility] y of Conjugate, PCV20 00:00:00 [place] [facility] (Prevnar 20) Branch Influenza High Dose 2022-03-12 Completed Unive rsity of 00:00:00 [facility] SARS-COV-2 COVID-19 2022-03-12 Completed Unive rsity of PFIZER VACCINE 00:00:00 [facility] Influenza Virus 2022-03-12 Completed [facility] y of Vaccine,quad 00:00:00 [facility] 65+ SARS-COV-2 COVID-19 2022-03-12 Completed Unive rsity of PFIZER NIC-SUCROSE 00:00:00 [facility] VACCINE (BUTTS TOP) Branch Pneumococcal 20 2022-03-12 Completed [facility] of Conjugate, PCV20 00:00:00 [place] [facility] (Prevnar 20) Branch Influenza High Dose 2022-03-12 Completed Unive rsity of 00:00:00 [facility] SARS-COV-2 COVID-19 2022-03-12 Completed Unive rsity of PFIZER VACCINE 00:00:00 [facility] Influenza Virus 2022-03-12 Completed [facility] y of Vaccine,quad 00:00:00 [facility] 65+ SARS-COV-2 COVID-19 2022-03-12 Completed Unive rsity of PFIZER NIC-SUCROSE 00:00:00 [facility] VACCINE (BUTTS TOP) Branch Pneumococcal 20 2022-03-12 Completed [facility] y of Conjugate, PCV20 00:00:00 [place] [facility] (Prevnar 20) Branch Influenza High Dose 2022-03-12 Completed Unive rsity of 00:00:00 [facility] SARS-COV-2 COVID-19 2022-03-12 Completed Unive rsity of PFIZER VACCINE 00:00:00 [facility] Influenza Virus 2022-03-12 Completed [facility] y of Vaccine,quad 00:00:00 [facility] 65+ SARS-COV-2 COVID-19 2022-03-12 Completed Unive rsity of PFIZER NIC-SUCROSE 00:00:00 [facility] VACCINE (BUTTS TOP) Branch Pneumococcal 20 2022-03-12 Completed [facility] y of Conjugate, PCV20 00:00:00 [place] [facility] (Prevnar 20) Branch Influenza High Dose 2022-03-12 Completed Unive rsity of 00:00:00 [facility] SARS-COV-2 COVID-19 2022-03-12 Completed Unive rsity of PFIZER VACCINE 00:00:00 [facility] Influenza Virus 2022-03-12 Completed [facility] y of Vaccine,quad 00:00:00 [facility] 65+ SARS-COV-2 COVID-19 2022-03-12 Completed Unive rsity of PFIZER NIC-SUCROSE 00:00:00 [facility] VACCINE (BUTTS TOP) Branch Pneumococcal 20 2022-03-12 Completed [facility] of Conjugate, PCV20 00:00:00 [place] [facility] (Prevnar 20) Branch Influenza High Dose 2022-03-12 Completed Unive rsity of 00:00:00 [facility] SARS-COV-2 COVID-19 2022-03-12 Completed Unive rsity of PFIZER VACCINE 00:00:00 [facility] Influenza Virus 2022-03-12 Completed [facility] y of Vaccine,quad 00:00:00 [facility] 65+ SARS-COV-2 COVID-19 2022-03-12 Completed Unive rsity of PFIZER NIC-SUCROSE 00:00:00 [facility] VACCINE (BUTTS TOP) Branch Pneumococcal 20 2022-03-12 Completed [facility] of Conjugate, PCV20 00:00:00 [place] [facility] (Prevnar 20) Branch Influenza High Dose 2022-03-12 Completed Unive rsity of 00:00:00 [facility] SARS-COV-2 COVID-19 2022-03-12 Completed Unive rsity of PFIZER VACCINE 00:00:00 [facility] Influenza Virus 2022-03-12 Completed [facility] of Vaccine,quad 00:00:00 [facility] 65+ SARS-COV-2 COVID-19 2022-03-12 Completed Unive rsity of PFIZER NIC-SUCROSE 00:00:00 [facility] VACCINE (BUTTS TOP) Branch Pneumococcal 20 2022-03-12 Completed [facility] of Conjugate, PCV20 00:00:00 [place] [facility] (Prevnar 20) Branch Influenza High Dose 2022-03-12 Completed Unive rsity of 00:00:00 [facility] SARS-COV-2 COVID-19 2022-03-12 Completed Unive rsity of PFIZER VACCINE 00:00:00 [facility] Influenza Virus 2022-03-12 Completed [facility] of Vaccine,quad 00:00:00 [facility] 65+ SARS-COV-2 COVID-19 2022-03-12 Completed [facility]ive rsity of PFIZER NIC-SUCROSE 00:00:00 [facility] VACCINE (BUTTS TOP) Branch Pneumococcal 20 2022-03-12 Completed [facility] of Conjugate, PCV20 00:00:00 [place] [facility] (Prevnar 20) Branch Influenza High Dose 2022-03-12 Completed [facility] rsity of 00:00:00 [facility] SARS-COV-2 COVID-19 2022-03-12 Completed Unive rsity of PFIZER VACCINE 00:00:00 [facility] Influenza Virus 2022-03-12 Completed [facility] of Vaccine,quad 00:00:00 [facility] 65+ SARS-COV-2 COVID-19 2022-03-12 Completed Unive rsity of PFIZER NIC-SUCROSE 00:00:00 [facility] VACCINE (BUTTS TOP) Branch Pneumococcal 20 2022-03-12 Completed [facility] y of Conjugate, PCV20 00:00:00 [facility] dical (Prevnar 20) Branch Influenza High Dose 2022-03-12 Completed Unive rsity of 00:00:00 [facility] SARS-COV-2 COVID-19 2022-03-12 Completed Unive rsity of PFIZER VACCINE 00:00:00 [facility] Influenza Virus 2022-03-12 Completed [facility] of Vaccine,quad 00:00:00 [facility] 65+ SARS-COV-2 COVID-19 2022-03-12 Completed Unive rsity of PFIZER NIC-SUCROSE 00:00:00 [facility] VACCINE (BUTTS TOP) Branch Pneumococcal 20 2022-03-12 Completed [facility] y of Conjugate, PCV20 00:00:00 [facility] dical (Prevnar 20) Branch Influenza High Dose 2022-03-12 Completed Unive rsity of 00:00:00 [facility] SARS-COV-2 COVID-19 2022-03-12 Completed Unive rsity of PFIZER VACCINE 00:00:00 [facility] Influenza Virus 2022-03-12 Completed [facility] of Vaccine,quad 00:00:00 [facility] 65+ SARS-COV-2 COVID-19 2022-03-12 Completed Unive rsity of PFIZER NIC-SUCROSE 00:00:00 [facility] VACCINE (BUTTS TOP) Branch Pneumococcal 20 2022-03-12 Completed [facility] Conjugate, PCV20 00:00:00 [facility] (Prevnar 20) Branch Influenza High Dose 2022-03-12 Completed [facility] of 00:00:00 [facility] SARS-COV-2 COVID-19 2022-03-12 Completed [facility] of PFIZER VACCINE 00:00:00 [facility] Influenza Virus 2022-03-12 Completed [facility] Vaccine,quad 00:00:00 [facility] 65+ SARS-COV-2 COVID-19 2022-03-12 Completed [facility] of PFIZER NIC-SUCROSE 00:00:00 [facility]ACCINE (BUTTS TOP) Branch Pneumococcal 20 2022-03-12 Completed [facility] Conjugate, PCV20 00:00:00 [facility] (Prevnar 20) Branch Influenza High Dose 2022-03-12 Completed [facility] 00:00:00 [facility] SARS-COV-2 COVID-19 2022-03-12 Completed [facility] of PFIZER VACCINE 00:00:00 [facility] Influenza Virus 2022-03-12 Completed [facility] Vaccine,quad 00:00:00 [facility] 65+ SARS-COV-2 COVID-19 2022-03-12 Completed [facility] of PFIZER NIC-SUCROSE 00:00:00 [facility] VACCINE (BUTTS TOP) Branch Pneumococcal 20 2022-03-12 Completed [facility] Conjugate, PCV20 00:00:00 [facility] (Prevnar 20) Branch Influenza High Dose 2022-03-12 Completed [facility] 00:00:00 [facility] SARS-COV-2 COVID-19 2022-03-12 Completed [facility] of PFIZER VACCINE 00:00:00 [facility] Influenza Virus 2022-03-12 Completed [facility] Vaccine,quad 00:00:00 [facility] 65+ SARS-COV-2 COVID-19 2022-03-12 Completed [facility] of PFIZER NIC-SUCROSE 00:00:00 [facility] VACCINE (BUTTS TOP) Branch Pneumococcal 20 2022-03-12 Completed [facility] Conjugate, PCV20 00:00:00 [facility] (Prevnar 20) Branch Influenza High Dose 2022-03-12 Completed [facility] 00:00:00 [facility] SARS-COV-2 COVID-19 2022-03-12 Completed [facility] of PFIZER VACCINE 00:00:00 [facility] Influenza Virus 2022-03-12 Completed [facility] Vaccine,quad 00:00:00 [facility] 65+ SARS-COV-2 COVID-19 2022-03-12 Completed [facility] of PFIZER NIC-SUCROSE 00:00:00 [facility]ACCINE (BUTTS TOP) Branch Pneumococcal 20 2022-03-12 Completed [facility] Conjugate, PCV20 00:00:00 [facility] (Prevnar 20) Branch Influenza High Dose 2022-03-12 Completed [facility] 00:00:00 [facility] SARS-COV-2 COVID-19 2022-03-12 Completed [facility] of PFIZER VACCINE 00:00:00 [facility] Influenza Virus 2022-03-12 Completed [facility] Vaccine,quad 00:00:00 [facility] 65+ SARS-COV-2 COVID-19 2022-03-12 Completed [facility] of PFIZER NIC-SUCROSE 00:00:00 [facility] VACCINE (BUTTS TOP) Branch Pneumococcal 20 2022-03-12 Completed [facility] of Conjugate, PCV20 00:00:00 [facility] (Prevnar 20) Branch Influenza High Dose 2022-03-12 Completed [facility] 00:00:00 [facility] SARS-COV-2 COVID-19 2022-03-12 Completed [facility] of PFIZER VACCINE 00:00:00 [facility] Influenza Virus 2022-03-12 Completed [facility] Vaccine,quad 00:00:00 [facility] 65+ SARS-COV-2 COVID-19 2022-03-12 Completed [facility] of PFIZER NIC-SUCROSE 00:00:00 [facility] VACCINE (BUTTS TOP) Branch Pneumococcal 20 2022-03-12 Completed [facility] Conjugate, PCV20 00:00:00 [facility] (Prevnar 20) Branch Influenza High Dose 2022-03-12 Completed [facility] of 00:00:00 [facility] SARS-COV-2 COVID-19 2022-03-12 Completed [facility] of PFIZER VACCINE 00:00:00 [facility] Influenza Virus 2022-03-12 Completed [facility] Vaccine,quad 00:00:00 [facility] 65+ SARS-COV-2 COVID-19 2022-03-12 Completed [facility] of PFIZER NIC-SUCROSE 00:00:00 [facility] VACCINE (BUTTS TOP) Branch Pneumococcal 20 2022-03-12 Completed [facility] Conjugate, PCV20 00:00:00 [facility] (Prevnar 20) Branch Influenza High Dose 2022-03-12 Completed [facility] of 00:00:00 [facility] SARS-COV-2 COVID-19 2022-03-12 Completed [facility] of PFIZER VACCINE 00:00:00 [facility] Influenza Virus 2022-03-12 Completed [facility] Vaccine,quad 00:00:00 [facility] 65+ SARS-COV-2 COVID-19 2022-03-12 Completed [facility] of PFIZER NIC-SUCROSE 00:00:00 [facility] VACCINE (BUTTS TOP) Branch Pneumococcal 20 2022-03-12 Completed [facility] Conjugate, PCV20 00:00:00 [facility] (Prevnar 20) Branch Influenza High Dose 2022-03-12 Completed [facility] of 00:00:00 [facility] SARS-COV-2 COVID-19 2022-03-12 Completed [facility] of PFIZER VACCINE 00:00:00 [facility] Influenza Virus 2022-03-12 Completed [facility] Vaccine,quad 00:00:00 [facility] 65+ SARS-COV-2 COVID-19 2022-03-12 Completed [facility] of PFIZER NIC-SUCROSE 00:00:00 [facility] VACCINE (BUTTS TOP) Branch Pneumococcal 20 2022-03-12 Completed [facility] Conjugate, PCV20 00:00:00 [facility] (Prevnar 20) Branch Influenza High Dose 2022-03-12 Completed [facility] of 00:00:00 [facility] SARS-COV-2 COVID-19 2022-03-12 Completed [facility] of PFIZER VACCINE 00:00:00 [facility] Influenza Virus 2022-03-12 Completed [facility] Vaccine,quad 00:00:00 [facility] 65+ SARS-COV-2 COVID-19 2022-03-12 Completed [facility] of PFIZER NIC-SUCROSE 00:00:00 [facility] VACCINE (BUTTS TOP) Branch Pneumococcal 20 2022-03-12 Completed [facility] Conjugate, PCV20 00:00:00 [facility] (Prevnar 20) Branch Influenza High Dose 2022-03-12 Completed [facility] 00:00:00 [facility] SARS-COV-2 COVID-19 2022-03-12 Completed [facility] of PFIZER VACCINE 00:00:00 [facility] Influenza Virus 2022-03-12 Completed [facility] Vaccine,quad 00:00:00 [facility] 65+ SARS-COV-2 COVID-19 2022-03-12 Completed [facility] of PFIZER NIC-SUCROSE 00:00:00 [facility] VACCINE (BUTTS TOP) Branch Pneumococcal 20 2022-03-12 Completed [facility] Conjugate, PCV20 00:00:00 [facility] (Prevnar 20) Branch Influenza High Dose 2022-03-12 Completed [facility] of 00:00:00 [facility] SARS-COV-2 COVID-19 2022-03-12 Completed [facility] of PFIZER VACCINE 00:00:00 [facility] Influenza Virus 2022-03-12 Completed [facility] Vaccine,quad 00:00:00 [facility] 65+ SARS-COV-2 COVID-19 2022-03-12 Completed [facility] of PFIZER NIC-SUCROSE 00:00:00 [facility] VACCINE (BUTTS TOP) Branch Pneumococcal 20 2022-03-12 Completed [facility] Conjugate, PCV20 00:00:00 [facility] (Prevnar 20) Branch Influenza High Dose 2022-03-12 Completed [facility] of 00:00:00 [facility] SARS-COV-2 COVID-19 2022-03-12 Completed [facility] of PFIZER VACCINE 00:00:00 [facility] Influenza Virus 2022-03-12 Completed [facility] Vaccine,quad 00:00:00 [facility] 65+ SARS-COV-2 COVID-19 2022-03-12 Completed [facility] of PFIZER NIC-SUCROSE 00:00:00 [facility] VACCINE (BUTTS TOP) Branch Pneumococcal 20 2022-03-12 Completed [facility] of Conjugate, PCV20 00:00:00 [facility] (Prevnar 20) Branch Influenza High Dose 2022-03-12 Completed [facility] of 00:00:00 [facility] SARS-COV-2 COVID-19 2022-03-12 Completed [facility] of PFIZER VACCINE 00:00:00 [facility] Influenza Virus 2022-03-12 Completed [facility] Vaccine,quad 00:00:00 [facility] 65+ SARS-COV-2 COVID-19 2022-03-12 Completed [facility] of PFIZER NIC-SUCROSE 00:00:00 [facility] VACCINE (BUTTS TOP) Branch Pneumococcal 20 2022-03-12 Completed [facility] of Conjugate, PCV20 00:00:00 [facility] (Prevnar 20) Branch Influenza High Dose 2022-03-12 Completed [facility] of 00:00:00 [facility] SARS-COV-2 COVID-19 2022-03-12 Completed [facility] of PFIZER VACCINE 00:00:00 [facility] Influenza Virus 2022-03-12 Completed [facility] Vaccine,quad 00:00:00 [facility] 65+ SARS-COV-2 COVID-19 2022-03-12 Completed [facility] of PFIZER NIC-SUCROSE 00:00:00 [facility] VACCINE (BUTTS TOP) Branch Pneumococcal 20 2022-03-12 Completed [facility] of Conjugate, PCV20 00:00:00 [facility] (Prevnar 20) Branch Influenza High Dose 2022-03-12 Completed [facility] 00:00:00 [facility] SARS-COV-2 COVID-19 2022-03-12 Completed [facility] of PFIZER VACCINE 00:00:00 [facility] Influenza Virus 2022-03-12 Completed [facility] Vaccine,quad 00:00:00 [facility] 65+ SARS-COV-2 COVID-19 2022-03-12 Completed [facility] of PFIZER NIC-SUCROSE 00:00:00 [facility] VACCINE (BUTTS TOP) Branch Pneumococcal 20 2022-03-12 Completed [facility] of Conjugate, PCV20 00:00:00 [facility] (Prevnar 20) Branch Influenza High Dose 2022-03-12 Completed [facility] 00:00:00 [facility] SARS-COV-2 COVID-19 2022-03-12 Completed [facility] of PFIZER VACCINE 00:00:00 [facility] Influenza Virus 2022-03-12 Completed [facility] Vaccine,quad 00:00:00 [facility] 65+ SARS-COV-2 COVID-19 2022-03-12 Completed [facility] of PFIZER NIC-SUCROSE 00:00:00 [facility] VACCINE (BUTTS TOP) Branch Pneumococcal 20 2022-03-12 Completed [facility] of Conjugate, PCV20 00:00:00 [facility] (Prevnar 20) Branch Influenza High Dose 2022-03-12 Completed [facility] of 00:00:00 [facility] SARS-COV-2 COVID-19 2022-03-12 Completed [facility] of PFIZER VACCINE 00:00:00 [facility] Influenza Virus 2022-03-12 Completed [facility] Vaccine,quad 00:00:00 [facility] 65+ SARS-COV-2 COVID-19 2022-03-12 Completed [facility] of PFIZER NIC-SUCROSE 00:00:00 [facility] VACCINE (BUTTS TOP) Branch Pneumococcal 20 2022-03-12 Completed [facility] of Conjugate, PCV20 00:00:00 [facility] (Prevnar 20) Branch Influenza High Dose 2022-03-12 Completed [facility] 00:00:00 [facility] SARS-COV-2 COVID-19 2022-03-12 Completed [facility] of PFIZER VACCINE 00:00:00 [facility] Influenza Virus 2022-03-12 Completed [facility] Vaccine,quad 00:00:00 [facility] 65+ SARS-COV-2 COVID-19 2022-03-12 Completed [facility] of PFIZER NIC-SUCROSE 00:00:00 [facility] VACCINE (BUTTS TOP) Branch Pneumococcal 20 2022-03-12 Completed [facility] Conjugate, PCV20 00:00:00 [facility] (Prevnar 20) Branch Influenza High Dose 2022-03-12 Completed [facility] 00:00:00 [facility] SARS-COV-2 COVID-19 2022-03-12 Completed [facility] of PFIZER VACCINE 00:00:00 [facility] Influenza Virus 2022-03-12 Completed [facility] Vaccine,quad 00:00:00 [facility] 65+ SARS-COV-2 COVID-19 2022-03-12 Completed [facility] of PFIZER NIC-SUCROSE 00:00:00 [facility] VACCINE (BUTTS TOP) Branch Pneumococcal 20 2022-03-12 Completed [facility] of Conjugate, PCV20 00:00:00 [facility] (Prevnar 20) Branch Influenza High Dose 2022-03-12 Completed [facility] of 00:00:00 [facility] SARS-COV-2 COVID-19 2022-03-12 Completed [facility] of PFIZER VACCINE 00:00:00 [facility] Influenza Virus 2022-03-12 Completed [facility] Vaccine,quad 00:00:00 [facility] 65+ SARS-COV-2 COVID-19 2022-03-12 Completed [facility] of PFIZER NIC-SUCROSE 00:00:00 [facility] VACCINE (BUTTS TOP) Branch Pneumococcal 20 2022-03-12 Completed [facility] of Conjugate, PCV20 00:00:00 [facility] (Prevnar 20) Branch Influenza High Dose 2022-03-12 Completed [facility] 00:00:00 [facility] SARS-COV-2 COVID-19 2022-03-12 Completed [facility] of PFIZER VACCINE 00:00:00 [facility] Influenza Virus 2022-03-12 Completed [facility] Vaccine,quad 00:00:00 [facility] 65+ SARS-COV-2 COVID-19 2022-03-12 Completed [facility] of PFIZER NIC-SUCROSE 00:00:00 [facility] VACCINE (BUTTS TOP) Branch Pneumococcal 20 2022-03-12 Completed [facility] of Conjugate, PCV20 00:00:00 [facility] (Prevnar 20) Branch Influenza High Dose 2022-03-12 Completed [facility] of 00:00:00 [facility] SARS-COV-2 COVID-19 2022-03-12 Completed [facility] of PFIZER VACCINE 00:00:00 [facility] Influenza Virus 2022-03-12 Completed [facility] Vaccine,quad 00:00:00 [facility] 65+ SARS-COV-2 COVID-19 2022-03-12 Completed [facility] of PFIZER NIC-SUCROSE 00:00:00 [facility] VACCINE (BUTTS TOP) Branch Pneumococcal 20 2022-03-12 Completed [facility] of Conjugate, PCV20 00:00:00 [facility] (Prevnar 20) Branch Influenza High Dose 2022-03-12 Completed [facility] 00:00:00 [facility] SARS-COV-2 COVID-19 2022-03-12 Completed [facility] of PFIZER VACCINE 00:00:00 [facility] Influenza Virus 2022-03-12 Completed [facility] Vaccine,quad 00:00:00 [facility] 65+ SARS-COV-2 COVID-19 2022-03-12 Completed [facility] of PFIZER NIC-SUCROSE 00:00:00 [facility] VACCINE (BUTTS TOP) Branch Pneumococcal 20 2022-03-12 Completed [facility] of Conjugate, PCV20 00:00:00 [facility] (Prevnar 20) Branch Influenza High Dose 2022-03-12 Completed [facility] of 00:00:00 [facility] SARS-COV-2 COVID-19 2022-03-12 Completed [facility] of PFIZER VACCINE 00:00:00 [facility] Influenza Virus 2022-03-12 Completed [facility] Vaccine,quad 00:00:00 [facility] 65+ SARS-COV-2 COVID-19 2022-03-12 Completed [facility] of PFIZER NIC-SUCROSE 00:00:00 [facility] VACCINE (BUTTS TOP) Branch Pneumococcal 20 2022-03-12 Completed [facility] of Conjugate, PCV20 00:00:00 [facility] (Prevnar 20) Branch Influenza High Dose 2022-03-12 Completed [facility] 00:00:00 [facility] SARS-COV-2 COVID-19 2022-03-12 Completed [facility] of PFIZER VACCINE 00:00:00 [facility] Influenza Virus 2022-03-12 Completed [facility] Vaccine,quad 00:00:00 [facility] 65+ SARS-COV-2 COVID-19 2022-03-12 Completed [facility] of PFIZER NIC-SUCROSE 00:00:00 [facility] VACCINE (BUTTS TOP) Branch Pneumococcal 20 2022-03-12 Completed [facility] of Conjugate, PCV20 00:00:00 [facility] (Prevnar 20) Branch Influenza High Dose 2022-03-12 Completed [facility] of 00:00:00 [facility] SARS-COV-2 COVID-19 2022-03-12 Completed [facility] of PFIZER VACCINE 00:00:00 [facility] Influenza Virus 2022-03-12 Completed [facility] Vaccine,quad 00:00:00 [facility] 65+ (FLUAD) SARS-COV-2 COVID-19 2022-03-12 Completed [facility] of PFIZER NIC-SUCROSE 00:00:00 [facility] VACCINE (BUTTS TOP) Branch Pneumococcal 20 2022-03-12 Completed [facility] of Conjugate, PCV20 00:00:00 [facility] (Prevnar 20) Branch Influenza High Dose 2022-03-12 Completed [facility] of 00:00:00 [facility] SARS-COV-2 COVID-19 2022-03-12 Completed [facility] of PFIZER VACCINE 00:00:00 [facility] Influenza Virus 2022-03-12 Completed [facility] Vaccine,quad 00:00:00 [facility] 65+ (FLUAD) SARS-COV-2 COVID-19 2022-03-12 Completed [facility] of PFIZER NIC-SUCROSE 00:00:00 [facility] VACCINE (BUTTS TOP) Branch Zoster Vaccine 2021-12-17 Completed [facility] of Recombinant 00:00:00 [facility] Zoster Vaccine 2021-12-17 Completed [facility] of Recombinant 00:00:00 [facility] Zoster Vaccine 2021-12-17 Completed [facility] of Recombinant 00:00:00 [facility] Zoster Vaccine 2021-12-17 Completed [facility] of Recombinant 00:00:00 [facility] Zoster Vaccine 2021-12-17 Completed [facility] of Recombinant 00:00:00 [facility] Zoster Vaccine 2021-12-17 Completed [facility] of Recombinant 00:00:00 [facility] Zoster Vaccine 2021-12-17 Completed [facility] of Recombinant 00:00:00 [facility] Zoster Vaccine 2021-12-17 Completed [facility] of Recombinant 00:00:00 [facility] Zoster Vaccine 2021-12-17 Completed [facility] of Recombinant 00:00:00 [facility] Zoster Vaccine 2021-12-17 Completed [facility] of Recombinant 00:00:00 [facility] Zoster Vaccine 2021-12-17 Completed [facility] of Recombinant 00:00:00 [facility] Zoster Vaccine 2021-12-17 Completed [facility] of Recombinant 00:00:00 [facility] Zoster Vaccine 2021-12-17 Completed [facility] of Recombinant 00:00:00 [facility] Zoster Vaccine 2021-12-17 Completed [facility] of Recombinant 00:00:00 [facility] Zoster Vaccine 2021-12-17 Completed [facility] of Recombinant 00:00:00 [facility] Zoster Vaccine 2021-12-17 Completed [facility] of Recombinant 00:00:00 [facility] Zoster Vaccine 2021-12-17 Completed [facility] of Recombinant 00:00:00 [facility] Zoster Vaccine 2021-12-17 Completed [facility] of Recombinant 00:00:00 [facility] Zoster Vaccine 2021-12-17 Completed [facility] of Recombinant 00:00:00 [facility] Zoster Vaccine 2021-12-17 Completed [facility] of Recombinant 00:00:00 [facility] Zoster Vaccine 2021-12-17 Completed [facility] of Recombinant 00:00:00 [facility] Zoster Vaccine 2021-12-17 Completed [facility] of Recombinant 00:00:00 [facility] Zoster Vaccine 2021-12-17 Completed [facility] of Recombinant 00:00:00 [facility] Zoster Vaccine 2021-12-17 Completed [facility] of Recombinant 00:00:00 [facility] Zoster Vaccine 2021-12-17 Completed [facility] of Recombinant 00:00:00 [facility] Zoster Vaccine 2021-12-17 Completed [facility] of Recombinant 00:00:00 [facility] Zoster Vaccine 2021-12-17 Completed [facility] of Recombinant 00:00:00 [facility] Zoster Vaccine 2021-12-17 Completed [facility] of Recombinant 00:00:00 [facility] Zoster Vaccine 2021-12-17 Completed [facility] of Recombinant 00:00:00 [facility] Zoster Vaccine 2021-12-17 Completed [facility] of Recombinant 00:00:00 [facility] Zoster Vaccine 2021-12-17 Completed [facility] of Recombinant 00:00:00 [facility] Zoster Vaccine 2021-12-17 Completed [facility] of Recombinant 00:00:00 [facility] Zoster Vaccine 2021-12-17 Completed [facility] of Recombinant 00:00:00 [facility] Zoster Vaccine 2021-12-17 Completed [facility] of Recombinant 00:00:00 [facility] Zoster Vaccine 2021-12-17 Completed [facility] of Recombinant 00:00:00 [facility] Zoster Vaccine 2021-12-17 Completed [facility] of Recombinant 00:00:00 [facility] Zoster Vaccine 2021-12-17 Completed [facility] of Recombinant 00:00:00 [facility] Zoster Vaccine 2021-12-17 Completed [facility] Recombinant 00:00:00 [facility] Zoster Vaccine 2021-12-17 Completed [facility] Recombinant 00:00:00 [facility] Zoster Vaccine 2021-12-17 Completed [facility] Recombinant 00:00:00 [facility] Zoster Vaccine 2021-12-17 Completed [facility] Recombinant 00:00:00 [facility] Zoster Vaccine 2021-12-17 Completed [facility] Recombinant 00:00:00 [facility] Zoster Vaccine 2021-12-17 Completed [facility] Recombinant 00:00:00 [facility] Zoster Vaccine 2021-12-17 Completed [facility] of Recombinant 00:00:00 [facility] Zoster Vaccine 2021-12-17 Completed [facility] Recombinant 00:00:00 [facility] Zoster Vaccine 2021-12-17 Completed [facility] Recombinant 00:00:00 [facility] Zoster Vaccine 2021-12-17 Completed [facility] Recombinant 00:00:00 [facility] Zoster Vaccine 2021-12-17 Completed [facility] Recombinant 00:00:00 [facility] Zoster Vaccine 2021-12-17 Completed [facility] Recombinant 00:00:00 [facility] Zoster Vaccine 2021-12-17 Completed [facility] Recombinant 00:00:00 [facility] Zoster Vaccine 2021-12-17 Completed [facility] of Recombinant 00:00:00 [facility] Zoster Vaccine 2021-12-17 Completed [facility] Recombinant 00:00:00 [facility] Zoster Vaccine 2021-12-17 Completed [facility] Recombinant 00:00:00 [facility] Zoster Vaccine 2021-11-28 Completed [facility] Recombinant 00:00:00 [facility] Zoster Vaccine 2021-11-28 Completed [facility] Recombinant 00:00:00 [facility] Zoster Vaccine 2021-11-28 Completed [facility] Recombinant 00:00:00 [facility] Zoster Vaccine 2021-11-28 Completed [facility] Recombinant 00:00:00 [facility] Zoster Vaccine 2021-11-28 Completed [facility] Recombinant 00:00:00 [facility] Zoster Vaccine 2021-11-28 Completed [facility] Recombinant 00:00:00 [facility] Zoster Vaccine 2021-11-28 Completed [facility] Recombinant 00:00:00 [facility] Zoster Vaccine 2021-11-28 Completed [facility] Recombinant 00:00:00 [facility] Zoster Vaccine 2021-11-28 Completed [facility] Recombinant 00:00:00 [facility] Zoster Vaccine 2021-11-28 Completed [facility] Recombinant 00:00:00 [facility] Zoster Vaccine 2021-11-28 Completed [facility] Recombinant 00:00:00 [facility] Zoster Vaccine 2021-11-28 Completed [facility] Recombinant 00:00:00 [facility] Zoster Vaccine 2021-11-28 Completed [facility] Recombinant 00:00:00 [facility] Zoster Vaccine 2021-11-28 Completed [facility] Recombinant 00:00:00 [facility] Zoster Vaccine 2021-11-28 Completed [facility] Recombinant 00:00:00 [facility] Zoster Vaccine 2021-11-28 Completed [facility] Recombinant 00:00:00 [facility] Zoster Vaccine 2021-11-28 Completed [facility] Recombinant 00:00:00 [facility] Zoster Vaccine 2021-11-28 Completed [facility] Recombinant 00:00:00 [facility] Zoster Vaccine 2021-11-28 Completed [facility] Recombinant 00:00:00 [facility] Zoster Vaccine 2021-11-28 Completed [facility] Recombinant 00:00:00 [facility] Zoster Vaccine 2021-11-28 Completed [facility] Recombinant 00:00:00 [facility] Zoster Vaccine 2021-11-28 Completed [facility] Recombinant 00:00:00 [facility]oster Vaccine 2021-11-28 Completed [facility] Recombinant 00:00:00 [facility] Zoster Vaccine 2021-11-28 Completed [facility] Recombinant 00:00:00 [facility] Zoster Vaccine 2021-11-28 Completed [facility] Recombinant 00:00:00 [facility] Zoster Vaccine 2021-11-28 Completed [facility] Recombinant 00:00:00 [facility] Zoster Vaccine 2021-11-28 Completed [facility] Recombinant 00:00:00 [facility] Zoster Vaccine 2021-11-28 Completed [facility] Recombinant 00:00:00 [facility] Zoster Vaccine 2021-11-28 Completed [facility] Recombinant 00:00:00 [facility] Zoster Vaccine 2021-11-28 Completed [facility] Recombinant 00:00:00 [facility] Zoster Vaccine 2021-11-28 Completed [facility] Recombinant 00:00:00 [facility] Zoster Vaccine 2021-11-28 Completed [facility] Recombinant 00:00:00 [facility] Zoster Vaccine 2021-11-28 Completed [facility] Recombinant 00:00:00 [facility] Zoster Vaccine 2021-11-28 Completed [facility] Recombinant 00:00:00 [facility] Zoster Vaccine 2021-11-28 Completed [facility] Recombinant 00:00:00 [facility] Zoster Vaccine 2021-11-28 Completed [facility] Recombinant 00:00:00 [facility] Zoster Vaccine 2021-11-28 Completed [facility] Recombinant 00:00:00 [facility] Zoster Vaccine 2021-11-28 Completed [facility] Recombinant 00:00:00 [facility] Zoster Vaccine 2021-11-28 Completed [facility] Recombinant 00:00:00 [facility] Zoster Vaccine 2021-11-28 Completed [facility] Recombinant 00:00:00 [facility] Zoster Vaccine 2021-11-28 Completed [facility] Recombinant 00:00:00 [facility] Zoster Vaccine 2021-11-28 Completed [facility] Recombinant 00:00:00 [facility] Zoster Vaccine 2021-11-28 Completed [facility] Recombinant 00:00:00 [facility] Zoster Vaccine 2021-11-28 Completed [facility] Recombinant 00:00:00 [facility] Zoster Vaccine 2021-11-28 Completed [facility] Recombinant 00:00:00 [facility] Zoster Vaccine 2021-11-28 Completed [facility] Recombinant 00:00:00 [facility] Zoster Vaccine 2021-11-28 Completed [facility] Recombinant 00:00:00 [facility] Zoster Vaccine 2021-11-28 Completed [facility] Recombinant 00:00:00 [facility] Zoster Vaccine 2021-11-28 Completed [facility] Recombinant 00:00:00 [facility] Zoster Vaccine 2021-11-28 Completed [facility] Recombinant 00:00:00 [facility] Zoster Vaccine 2021-11-28 Completed [facility] Recombinant 00:00:00 [facility] Zoster Vaccine 2021-11-28 Completed [facility] Recombinant 00:00:00 [facility] Zoster Vaccine 2021-11-28 Completed [facility] Recombinant 00:00:00 [facility] Zoster Vaccine 2021-11-28 Completed [facility] Recombinant 00:00:00 [facility] Zoster Vaccine 2021-11-28 Completed [facility] Recombinant 00:00:00 [facility] Zoster Vaccine 2021-11-28 Completed [facility] Recombinant 00:00:00 [facility] Zoster Vaccine 2021-11-28 Completed [facility] Recombinant 00:00:00 [facility] Zoster Vaccine 2021-11-28 Completed [facility] Recombinant 00:00:00 [facility] Zoster Vaccine 2021-11-28 Completed [facility] Recombinant 00:00:00 [facility] Zoster Vaccine 2021-11-28 Completed [facility] Recombinant 00:00:00 [facility] Zoster Vaccine 2021-11-28 Completed [facility] Recombinant 00:00:00 [facility] Zoster Vaccine 2021-11-28 Completed [facility] Recombinant 00:00:00 [facility] Zoster Vaccine 2021-11-28 Completed [facility] Recombinant 00:00:00 [facility] Zoster Vaccine 2021-11-28 Completed [facility] Recombinant 00:00:00 [facility] Zoster Vaccine 2021-11-28 Completed [facility] Recombinant 00:00:00 [facility] Zoster Vaccine 2021-11-28 Completed [facility] Recombinant 00:00:00 [facility] Zoster Vaccine 2021-11-28 Completed [facility] Recombinant 00:00:00 [facility] Zoster Vaccine 2021-11-28 Completed [facility] Recombinant 00:00:00 [facility] Zoster Vaccine 2021-11-28 Completed [facility] Recombinant 00:00:00 [facility] Zoster Vaccine 2021-11-28 Completed [facility] Recombinant 00:00:00 [facility] Zoster Vaccine 2021-11-28 Completed [facility] Recombinant 00:00:00 [facility] Zoster Vaccine 2021-11-28 Completed [facility] Recombinant 00:00:00 [facility] Zoster Vaccine 2021-11-28 Completed [facility] Recombinant 00:00:00 [facility] Zoster Vaccine 2021-11-28 Completed [facility] Recombinant 00:00:00 [facility] Zoster Vaccine 2021-11-28 Completed [facility] Recombinant 00:00:00 [facility] SARS-COV-2 COVID-19 2021-09-25 Completed [facility] rs[facility] of MODERNA VACCINE 00:00:00 [facility] SARS-COV-2 COVID-19 2021-09-25 Completed [facility] rs[facility] of MODERNA 12+ YRS 00:00:00 [place] [facility] SARS-COV-2 COVID-19 2021-09-25 Completed [facility] rsity of MODERNA 12+ YRS 00:00:00 [place] [facility] SARS-COV-2 COVID-19 2021-09-25 Completed [facility] of MODERNA 12+ YRS 00:00:00 [place] [facility] SARS-COV-2 COVID-19 2021-09-25 Completed [facility] rs[facility] of MODERNA 12+ YRS 00:00:00 [place] [facility] SARS-COV-2 COVID-19 2021-09-25 Completed [facility] rs[facility] of MODERNA 12+ YRS 00:00:00 [place] [facility] SARS-COV-2 COVID-19 2021-09-25 Completed [facility] rs[facility] of MODERNA 12+ YRS 00:00:00 [place] [facility] SARS-COV-2 COVID-19 2021-09-25 Completed [facility] of MODERNA 12+ YRS 00:00:00 [place] [facility] SARS-COV-2 COVID-19 2021-09-25 Completed [facility] of MODERNA 12+ YRS 00:00:00 [place] [facility] SARS-COV-2 COVID-19 2021-09-25 Completed [facility] of MODERNA 12+ YRS 00:00:00 [place] [facility] SARS-COV-2 COVID-19 2021-09-25 Completed [facility] of MODERNA 12+ YRS 00:00:00 [place] [facility] SARS-COV-2 COVID-19 2021-09-25 Completed [facility] of MODERNA 12+ YRS 00:00:00 [place] [facility] SARS-COV-2 COVID-19 2021-09-25 Completed [facility] of MODERNA 12+ YRS 00:00:00 [place] [facility] SARS-COV-2 COVID-19 2021-09-25 Completed [facility] of MODERNA 12+ YRS 00:00:00 [place] [facility] SARS-COV-2 COVID-19 2021-09-25 Completed [facility] of MODERNA 12+ YRS 00:00:00 [place] [facility] SARS-COV-2 COVID-19 2021-09-25 Completed [facility] of MODERNA 12+ YRS 00:00:00 [place] [facility] SARS-COV-2 COVID-19 2021-09-25 Completed [facility] of MODERNA 12+ YRS 00:00:00 [place] [facility] SARS-COV-2 COVID-19 2021-09-25 Completed [facility] of MODERNA 12+ YRS 00:00:00 [place] [facility] SARS-COV-2 COVID-19 2021-09-25 Completed [facility] of MODERNA 12+ YRS 00:00:00 [place] [facility] SARS-COV-2 COVID-19 2021-09-25 Completed [facility] of MODERNA 12+ YRS 00:00:00 [place] [facility] SARS-COV-2 COVID-19 2021-09-25 Completed [facility] of MODERNA 12+ YRS 00:00:00 [place] [facility] SARS-COV-2 COVID-19 2021-09-25 Completed [facility] of MODERNA 12+ YRS 00:00:00 [place] [facility] SARS-COV-2 COVID-19 2021-09-25 Completed [facility] of MODERNA 12+ YRS 00:00:00 [place] [facility] SARS-COV-2 COVID-19 2021-09-25 Completed [facility] of MODERNA 12+ YRS 00:00:00 [place] [facility] SARS-COV-2 COVID-19 2021-09-25 Completed [facility] of MODERNA 12+ YRS 00:00:00 [place] [facility] SARS-COV-2 COVID-19 2021-09-25 Completed [facility] of MODERNA 12+ YRS 00:00:00 [place] [facility] SARS-COV-2 COVID-19 2021-09-25 Completed [facility] of MODERNA 12+ YRS 00:00:00 [place] [facility] SARS-COV-2 COVID-19 2021-09-25 Completed [facility] of MODERNA 12+ YRS 00:00:00 [place] [facility] SARS-COV-2 COVID-19 2021-09-25 Completed [facility] of MODERNA 12+ YRS 00:00:00 [place] [facility] SARS-COV-2 COVID-19 2021-09-25 Completed [facility] of MODERNA 12+ YRS 00:00:00 [place] [facility] SARS-COV-2 COVID-19 2021-09-25 Completed [facility] of MODERNA 12+ YRS 00:00:00 [place] [facility] SARS-COV-2 COVID-19 2021-09-25 Completed [facility] of MODERNA 12+ YRS 00:00:00 [place] [facility] SARS-COV-2 COVID-19 2021-09-25 Completed [facility] of MODERNA 12+ YRS 00:00:00 [place] [facility] SARS-COV-2 COVID-19 2021-09-25 Completed [facility] of MODERNA 12+ YRS 00:00:00 [place] [facility] SARS-COV-2 COVID-19 2021-09-25 Completed [facility] of MODERNA 12+ YRS 00:00:00 [place] [facility] SARS-COV-2 COVID-19 2021-09-25 Completed [facility] of MODERNA 12+ YRS 00:00:00 [place] [facility] SARS-COV-2 COVID-19 2021-09-25 Completed [facility] of MODERNA 12+ YRS 00:00:00 [place] [facility] SARS-COV-2 COVID-19 2021-09-25 Completed [facility] of MODERNA 12+ YRS 00:00:00 [place] [facility] SARS-COV-2 COVID-19 2021-09-25 Completed [facility] of MODERNA 12+ YRS 00:00:00 [place] [facility] SARS-COV-2 COVID-19 2021-09-25 Completed [facility] of MODERNA 12+ YRS 00:00:00 [place] [facility] SARS-COV-2 COVID-19 2021-09-25 Completed [facility] of MODERNA 12+ YRS 00:00:00 [place] [facility] SARS-COV-2 COVID-19 2021-09-25 Completed [facility] of MODERNA 12+ YRS 00:00:00 [place] [facility] SARS-COV-2 COVID-19 2021-09-25 Completed [facility] of MODERNA 12+ YRS 00:00:00 [place] [facility] SARS-COV-2 COVID-19 2021-09-25 Completed [facility] of MODERNA 12+ YRS 00:00:00 [place] [facility] SARS-COV-2 COVID-19 2021-09-25 Completed [facility] of MODERNA 12+ YRS 00:00:00 [place] [facility] SARS-COV-2 COVID-19 2021-09-25 Completed [facility] of MODERNA 12+ YRS 00:00:00 [place] [facility] SARS-COV-2 COVID-19 2021-09-25 Completed [facility] of MODERNA 12+ YRS 00:00:00 [place] [facility] SARS-COV-2 COVID-19 2021-09-25 Completed [facility] of MODERNA 12+ YRS 00:00:00 [place] [facility] SARS-COV-2 COVID-19 2021-09-25 Completed [facility] of MODERNA 12+ YRS 00:00:00 [place] [facility] SARS-COV-2 COVID-19 2021-09-25 Completed [facility] of MODERNA 12+ YRS 00:00:00 [place] [facility] SARS-COV-2 COVID-19 2021-09-25 Completed [facility] of MODERNA 12+ YRS 00:00:00 [place] [facility] SARS-COV-2 COVID-19 2021-09-25 Completed [facility] of MODERNA 12+ YRS 00:00:00 [place] [facility] SARS-COV-2 COVID-19 2021-09-25 Completed [facility] of MODERNA 12+ YRS 00:00:00 [place] [facility] SARS-COV-2 COVID-19 2021-09-25 Completed [facility] of MODERNA 12+ YRS 00:00:00 [place] [facility] SARS-COV-2 COVID-19 2021-09-25 Completed [facility] of MODERNA 12+ YRS 00:00:00 [place] [facility] SARS-COV-2 COVID-19 2021-09-25 Completed [facility] of MODERNA 12+ YRS 00:00:00 [place] [facility] SARS-COV-2 COVID-19 2021-09-25 Completed [facility] of MODERNA 12+ YRS 00:00:00 [place] [facility] SARS-COV-2 COVID-19 2021-09-25 Completed [facility] of MODERNA 12+ YRS 00:00:00 [place] [facility] SARS-COV-2 COVID-19 2021-09-25 Completed [facility] of MODERNA 12+ YRS 00:00:00 [place] [facility] SARS-COV-2 COVID-19 2021-09-25 Completed [facility] rs[facility] of MODERNA 12+ YRS 00:00:00 [place] [facility] SARS-COV-2 COVID-19 2021-09-25 Completed [facility] rs[facility] of MODERNA 12+ YRS 00:00:00 [place] [facility] SARS-COV-2 COVID-19 2021-09-25 Completed [facility] of MODERNA 12+ YRS 00:00:00 [place] [facility] SARS-COV-2 COVID-19 2021-09-25 Completed [facility] rs[facility] of MODERNA 12+ YRS 00:00:00 [place] [facility] SARS-COV-2 COVID-19 2021-09-25 Completed [facility] of MODERNA 12+ YRS 00:00:00 [place] [facility] SARS-COV-2 COVID-19 2021-09-25 Completed [facility] of MODERNA 12+ YRS 00:00:00 [place] [facility] SARS-COV-2 COVID-19 2021-09-25 Completed [facility] of MODERNA 12+ YRS 00:00:00 [place] [facility] SARS-COV-2 COVID-19 2021-09-25 Completed [facility] of MODERNA 12+ YRS 00:00:00 [place] [facility] SARS-COV-2 COVID-19 2021-09-25 Completed [facility] of MODERNA 12+ YRS 00:00:00 [place] [facility] SARS-COV-2 COVID-19 2021-09-25 Completed [facility] of MODERNA 12+ YRS 00:00:00 [place] [facility] SARS-COV-2 COVID-19 2021-09-25 Completed [facility] of MODERNA 12+ YRS 00:00:00 [place] [facility] SARS-COV-2 COVID-19 2021-09-25 Completed [facility] of MODERNA 12+ YRS 00:00:00 [place] [facility] SARS-COV-2 COVID-19 2021-09-25 Completed [facility] of MODERNA 12+ YRS 00:00:00 [place] [facility] SARS-COV-2 COVID-19 2021-09-25 Completed [facility] of MODERNA 12+ YRS 00:00:00 [place] [facility] SARS-COV-2 COVID-19 2021-09-25 Completed [facility] of MODERNA 12+ YRS 00:00:00 [place] [facility] SARS-COV-2 COVID-19 2021-09-25 Completed [facility] of MODERNA 12+ YRS 00:00:00 [place] [facility] Influenza Virus 2021-09-03 Completed [facility] Vaccine,quad 00:00:[facility] [place] [facility] 65+ Influenza Virus 2021-09-03 Completed [facility] Vaccine,quad 00:00:00 [place] [facility] 65+ Influenza Virus 2021-09-03 Completed [facility] Vaccine,quad 00:00:00 [place] [facility] 65+ Influenza Virus 2021-09-03 Completed [facility] Vaccine,quad 00:00:00 [place] [facility] 65+ Influenza Virus 2021-09-03 Completed [facility] Vaccine,quad 00:00:00 [place] [facility] 65+ Influenza Virus 2021-09-03 Completed [facility] Vaccine,quad 00:00:00 [place] [facility] 65+ Influenza Virus 2021-09-03 Completed [facility] Vaccine,quad 00:00:00 [place] [facility] 65+ Influenza Virus 2021-09-03 Completed [facility] Vaccine,quad 00:00:00 [place] [facility] 65+ Influenza Virus 2021-09-03 Completed [facility] Vaccine,quad 00:00:00 [place] [facility] 65+ Influenza Virus 2021-09-03 Completed [facility] Vaccine,quad 00:00:00 [place] [facility] 65+ Influenza Virus 2021-09-03 Completed [facility] Vaccine,quad 00:00:00 [place] [facility] 65+ Influenza Virus 2021-09-03 Completed [facility] Vaccine,quad 00:00:00 [place] [facility] 65+ Influenza Virus 2021-09-03 Completed [facility] Vaccine,quad 00:00:00 [place] [facility] 65+ Influenza Virus 2021-09-03 Completed [facility] Vaccine,quad 00:00:00 [place] [facility] 65+ Influenza Virus 2021-09-03 Completed [facility] Vaccine,quad 00:00:00 [place] [facility] 65+ Influenza Virus 2021-09-03 Completed [facility] Vaccine,quad 00:00:00 [place] [facility] 65+ Influenza Virus 2021-09-03 Completed [facility] Vaccine,quad 00:00:00 [place] [facility] 65+ Influenza Virus 2021-09-03 Completed [facility] Vaccine,quad 00:00:00 [place] [facility] 65+ Influenza Virus 2021-09-03 Completed [facility] Vaccine,quad 00:00:00 [place] [facility] 65+ Influenza Virus 2021-09-03 Completed [facility] Vaccine,quad 00:00:00 [place] [facility] 65+ Influenza Virus 2021-09-03 Completed [facility] Vaccine,quad 00:00:00 [place] [facility] 65+ Influenza Virus 2021-09-03 Completed [facility] Vaccine,quad 00:00:00 [place] [facility] 65+ Influenza Virus 2021-09-03 Completed [facility] Vaccine,quad 00:00:00 [place] [facility] 65+ Influenza Virus 2021-09-03 Completed [facility] Vaccine,quad 00:00:00 [place] [facility] 65+ Influenza Virus 2021-09-03 Completed [facility] Vaccine,quad 00:00:00 [place] [facility] 65+ Influenza Virus 2021-09-03 Completed [facility] Vaccine,quad 00:00:00 [place] [facility] 65+ Influenza Virus 2021-09-03 Completed [facility] Vaccine,quad 00:00:00 [place] [facility] 65+ Influenza Virus 2021-09-03 Completed [facility] Vaccine,quad 00:00:00 [place] [facility] 65+ Influenza Virus 2021-09-03 Completed [facility] Vaccine,quad 00:00:00 [place] [facility] 65+ Influenza Virus 2021-09-03 Completed [facility] Vaccine,quad 00:00:00 [place] [facility] 65+ Influenza Virus 2021-09-03 Completed [facility] Vaccine,quad 00:00:00 [place] [facility] 65+ Influenza Virus 2021-09-03 Completed [facility] Vaccine,quad 00:00:00 [place] [facility] 65+ Influenza Virus 2021-09-03 Completed [facility] Vaccine,quad 00:00:00 [place] [facility] 65+ Influenza Virus 2021-09-03 Completed [facility] Vaccine,quad 00:00:00 [place] [facility] 65+ Influenza Virus 2021-09-03 Completed [facility] Vaccine,quad 00:00:00 [place] [facility] 65+ Influenza Virus 2021-09-03 Completed [facility] Vaccine,quad 00:00:00 [place] [facility] 65+ Influenza Virus 2021-09-03 Completed [facility] Vaccine,quad 00:00:00 [place] [facility] 65+ Influenza Virus 2021-09-03 Completed [facility] Vaccine,quad 00:00:00 [place] [facility] 65+ Influenza Virus 2021-09-03 Completed [facility] Vaccine,quad 00:00:00 [place] [facility] 65+ Influenza Virus 2021-09-03 Completed [facility] Vaccine,quad 00:00:00 [place] [facility] 65+ Influenza Virus 2021-09-03 Completed [facility] Vaccine,quad 00:00:00 [place] [facility] 65+ Influenza Virus 2021-09-03 Completed [facility] Vaccine,quad 00:00:00 [place] [facility] 65+ Influenza Virus 2021-09-03 Completed [facility] Vaccine,quad 00:00:00 [place] [facility] 65+ Influenza Virus 2021-09-03 Completed [facility] Vaccine,quad 00:00:00 [place] [facility] 65+ Influenza Virus 2021-09-03 Completed [facility] Vaccine,quad 00:00:00 [place] [facility] 65+ Influenza Virus 2021-09-03 Completed [facility] Vaccine,quad 00:00:00 [place] [facility] 65+ Influenza Virus 2021-09-03 Completed [facility] Vaccine,quad 00:00:00 [place] [facility] 65+ Influenza Virus 2021-09-03 Completed [facility] Vaccine,quad 00:00:00 [place] [facility] 65+ Influenza Virus 2021-09-03 Completed [facility] Vaccine,quad 00:00:00 [place] [facility] 65+ Influenza Virus 2021-09-03 Completed [facility] Vaccine,quad 00:00:00 [place] [facility] 65+ Influenza Virus 2021-09-03 Completed [facility] Vaccine,quad 00:00:00 [place] [facility] 65+ Influenza Virus 2021-09-03 Completed [facility] Vaccine,quad 00:00:00 [place] [facility] 65+ Influenza Virus 2021-09-03 Completed [facility] Vaccine,quad 00:00:00 [place] [facility] 65+ Influenza Virus 2021-09-03 Completed [facility] Vaccine,quad 00:00:00 [place] [facility] 65+ Influenza Virus 2021-09-03 Completed [facility] Vaccine,quad 00:00:00 [place] [facility] 65+ Influenza Virus 2021-09-03 Completed [facility] Vaccine,quad 00:00:00 [place] [facility] 65+ Influenza Virus 2021-09-03 Completed [facility] Vaccine,quad 00:00:00 [place] [facility] 65+ Influenza Virus 2021-09-03 Completed [facility] Vaccine,quad 00:00:00 [place] [facility] 65+ Influenza Virus 2021-09-03 Completed [facility] Vaccine,quad 00:00:00 [place] [facility] 65+ Influenza Virus 2021-09-03 Completed [facility] Vaccine,quad 00:00:00 [place] [facility] 65+ Influenza Virus 2021-09-03 Completed [facility] Vaccine,quad 00:00:00 [place] [facility] 65+ Influenza Virus 2021-09-03 Completed [facility] Vaccine,quad 00:00:00 [place] [facility] 65+ Influenza Virus 2021-09-03 Completed [facility] Vaccine,quad 00:00:00 [place] [facility] 65+ Influenza Virus 2021-09-03 Completed [facility] Vaccine,quad 00:00:00 [place] [facility] 65+ Influenza Virus 2021-09-03 Completed [facility] Vaccine,quad 00:00:00 [place] [facility] 65+ Influenza Virus 2021-09-03 Completed [facility] Vaccine,quad 00:00:00 [place] [facility] 65+ Influenza Virus 2021-09-03 Completed [facility] Vaccine,quad 00:00:00 [place] [facility] 65+ Influenza Virus 2021-09-03 Completed [facility] Vaccine,quad 00:00:00 [place] [facility] 65+ Influenza Virus 2021-09-03 Completed [facility] Vaccine,quad 00:00:00 [place] [facility] 65+ Influenza Virus 2021-09-03 Completed [facility] Vaccine,quad 00:00:00 [place] [facility] 65+ Influenza Virus 2021-09-03 Completed [facility] Vaccine,quad 00:00:00 [place] [facility] 65+ Influenza Virus 2021-09-03 Completed [facility] Vaccine,quad 00:00:00 [place] [facility] 65+ Influenza Virus 2021-09-03 Completed [facility] Vaccine,quad 00:00:00 [place] [facility] 65+ Influenza Virus 2021-09-03 Completed [facility] Vaccine,quad 00:00:00 [place] [facility] 65+ (FLUAD) Influenza Virus 2021-09-03 Completed [facility] Vaccine,quad 00:00:00 [place] [facility] 65+ (FLUAD) SARS-COV-2 COVID-19 2021-02-07 Completed [facility] VACCINE - (MODERNA) 00:00:00 [facility] SARS-COV-2 COVID-19 2021-02-07 Completed [facility] of VACCINE - (MODERNA) 00:00:00 [facility] SARS-COV-2 COVID-19 2021-02-07 Completed [facility] of VACCINE - (MODERNA) 00:00:00 [facility] SARS-COV-2 COVID-19 2021-02-07 Completed [facility] of VACCINE - (MODERNA) 00:00:00 [facility] SARS-COV-2 COVID-19 2021-02-07 Completed [facility] of VACCINE - (MODERNA) 00:00:00 [facility] SARS-COV-2 COVID-19 2021-02-07 Completed [facility] of VACCINE - (MODERNA) 00:00:00 [facility] SARS-COV-2 COVID-19 2021-02-07 Completed [facility] of VACCINE - (MODERNA) 00:00:00 [facility] SARS-COV-2 COVID-19 2021-02-07 Completed [facility] of VACCINE - (MODERNA) 00:00:00 [facility] SARS-COV-2 COVID-19 2021-02-07 Completed [facility] of VACCINE - (MODERNA) 00:00:00 [facility] SARS-COV-2 COVID-19 2021-02-07 Completed [facility] of VACCINE - (MODERNA) 00:00:00 [facility] SARS-COV-2 COVID-19 2021-02-07 Completed [facility] of VACCINE - (MODERNA) 00:00:00 [facility] SARS-COV-2 COVID-19 2021-02-07 Completed [facility] of VACCINE - (MODERNA) 00:00:00 [facility] SARS-COV-2 COVID-19 2021-02-07 Completed [facility] VACCINE - (MODERNA) 00:00:00 [facility] SARS-COV-2 COVID-19 2021-02-07 Completed [facility] VACCINE - (MODERNA) 00:00:00 [facility] SARS-COV-2 COVID-19 2021-02-07 Completed [facility] VACCINE - (MODERNA) 00:00:00 [facility] SARS-COV-2 COVID-19 2021-02-07 Completed [facility] VACCINE - (MODERNA) 00:00:00 [facility] SARS-COV-2 COVID-19 2021-02-07 Completed [facility] VACCINE - (MODERNA) 00:00:00 [facility] SARS-COV-2 COVID-19 2021-02-07 Completed [facility] VACCINE - (MODERNA) 00:00:00 [facility] SARS-COV-2 COVID-19 2021-02-07 Completed [facility] VACCINE - (MODERNA) 00:00:00 [facility] SARS-COV-2 COVID-19 2021-02-07 Completed [facility] VACCINE - (MODERNA) 00:00:00 [facility] SARS-COV-2 COVID-19 2021-02-07 Completed [facility] VACCINE - (MODERNA) 00:00:00 [facility] SARS-COV-2 COVID-19 2021-02-07 Completed [facility] VACCINE - (MODERNA) 00:00:00 [facility] SARS-COV-2 COVID-19 2021-02-07 Completed [facility] VACCINE - (MODERNA) 00:00:00 [facility] SARS-COV-2 COVID-19 2021-02-07 Completed [facility] VACCINE - (MODERNA) 00:00:00 [facility] SARS-COV-2 COVID-19 2021-02-07 Completed [facility] VACCINE - (MODERNA) 00:00:00 [facility] SARS-COV-2 COVID-19 2021-02-07 Completed [facility] VACCINE - (MODERNA) 00:00:00 [facility] SARS-COV-2 COVID-19 2021-02-07 Completed [facility] VACCINE - (MODERNA) 00:00:00 [facility] SARS-COV-2 COVID-19 2021-02-07 Completed [facility] VACCINE - (MODERNA) 00:00:00 [facility] SARS-COV-2 COVID-19 2021-02-07 Completed [facility] VACCINE - (MODERNA) 00:00:00 [facility] SARS-COV-2 COVID-19 2021-02-07 Completed [facility] VACCINE - (MODERNA) 00:00:00 [facility] SARS-COV-2 COVID-19 2021-02-07 Completed [facility] VACCINE - (MODERNA) 00:00:00 [facility] SARS-COV-2 COVID-19 2021-02-07 Completed [facility] VACCINE - (MODERNA) 00:00:00 [facility] SARS-COV-2 COVID-19 2021-02-07 Completed [facility] VACCINE - (MODERNA) 00:00:00 [facility] SARS-COV-2 COVID-19 2021-02-07 Completed [facility] VACCINE - (MODERNA) 00:00:00 [facility] SARS-COV-2 COVID-19 2021-02-07 Completed [facility] VACCINE - (MODERNA) 00:00:00 [facility] SARS-COV-2 COVID-19 2021-02-07 Completed [facility] VACCINE - (MODERNA) 00:00:00 [facility] SARS-COV-2 COVID-19 2021-02-07 Completed [facility] VACCINE - (MODERNA) 00:00:00 [facility] SARS-COV-2 COVID-19 2021-02-07 Completed [facility] VACCINE - (MODERNA) 00:00:00 [facility] SARS-COV-2 COVID-19 2021-02-07 Completed [facility] VACCINE - (MODERNA) 00:00:00 [facility] SARS-COV-2 COVID-19 2021-02-07 Completed [facility] VACCINE - (MODERNA) 00:00:00 [facility] SARS-COV-2 COVID-19 2021-02-07 Completed [facility] VACCINE - (MODERNA) 00:00:00 [facility] SARS-COV-2 COVID-19 2021-02-07 Completed [facility] VACCINE - (MODERNA) 00:00:00 [facility] SARS-COV-2 COVID-19 2021-02-07 Completed [facility] VACCINE - (MODERNA) 00:00:00 [facility] SARS-COV-2 COVID-19 2021-02-07 Completed [facility] VACCINE - (MODERNA) 00:00:00 [facility] SARS-COV-2 COVID-19 2021-02-07 Completed [facility] VACCINE - (MODERNA) 00:00:00 [facility] SARS-COV-2 COVID-19 2021-02-07 Completed [facility] VACCINE - (MODERNA) 00:00:00 [facility] SARS-COV-2 COVID-19 2021-02-07 Completed [facility] VACCINE - (MODERNA) 00:00:00 [facility] SARS-COV-2 COVID-19 2021-02-07 Completed [facility] VACCINE - (MODERNA) 00:00:00 [facility] SARS-COV-2 COVID-19 2021-02-07 Completed [facility] VACCINE - (MODERNA) 00:00:00 [facility] SARS-COV-2 COVID-19 2021-02-07 Completed [facility] VACCINE - (MODERNA) 00:00:00 [facility] SARS-COV-2 COVID-19 2021-02-07 Completed [facility] VACCINE - (MODERNA) 00:00:00 [facility] SARS-COV-2 COVID-19 2021-02-07 Completed [facility] VACCINE - (MODERNA) 00:00:00 [facility] SARS-COV-2 COVID-19 2021-02-07 Completed [facility] VACCINE - (MODERNA) 00:00:00 [facility] SARS-COV-2 COVID-19 2021-02-06 Completed [facility] MODERNA VACCINE 00:00:00 [facility] SARS-COV-2 COVID-19 2021-02-06 Completed [facility] MODERNA 12+ YRS 00:00:00 [facility] SARS-COV-2 COVID-19 2021-02-06 Completed [facility] MODERNA 12+ YRS 00:00:00 [facility] SARS-COV-2 COVID-19 2021-02-06 Completed [facility] MODERNA 12+ YRS 00:00:00 [facility] SARS-COV-2 COVID-19 2021-02-06 Completed [facility] MODERNA 12+ YRS 00:00:00 [facility] SARS-COV-2 COVID-19 2021-02-06 Completed [facility] MODERNA 12+ YRS 00:00:00 [facility] SARS-COV-2 COVID-19 2021-02-06 Completed [facility] MODERNA 12+ YRS 00:00:00 [facility] SARS-COV-2 COVID-19 2021-02-06 Completed [facility] MODERNA 12+ YRS 00:00:00 [facility] SARS-COV-2 COVID-19 2021-02-06 Completed [facility] MODERNA 12+ YRS 00:00:00 [facility] SARS-COV-2 COVID-19 2021-02-06 Completed [facility] MODERNA 12+ YRS 00:00:00 [facility] SARS-COV-2 COVID-19 2021-02-06 Completed [facility] MODERNA 12+ YRS 00:00:00 [facility] SARS-COV-2 COVID-19 2021-02-06 Completed [facility] MODERNA 12+ YRS 00:00:00 [facility] SARS-COV-2 COVID-19 2021-02-06 Completed [facility] MODERNA 12+ YRS 00:00:00 [facility] SARS-COV-2 COVID-19 2021-02-06 Completed [facility] MODERNA 12+ YRS 00:00:00 [facility] SARS-COV-2 COVID-19 2021-02-06 Completed [facility] MODERNA 12+ YRS 00:00:00 [facility] SARS-COV-2 COVID-19 2021-02-06 Completed [facility] MODERNA 12+ YRS 00:00:00 [facility] SARS-COV-2 COVID-19 2021-02-06 Completed [facility] MODERNA 12+ YRS 00:00:00 [facility] SARS-COV-2 COVID-19 2021-02-06 Completed [facility] MODERNA 12+ YRS 00:00:00 [facility] SARS-COV-2 COVID-19 2021-02-06 Completed [facility] MODERNA 12+ YRS 00:00:00 [facility] SARS-COV-2 COVID-19 2021-02-06 Completed [facility] MODERNA 12+ YRS 00:00:00 [facility] SARS-COV-2 COVID-19 2021-02-06 Completed [facility] MODERNA 12+ YRS 00:00:00 [facility] SARS-COV-2 COVID-19 2021-02-06 Completed [facility] MODERNA 12+ YRS 00:00:00 [facility] SARS-COV-2 COVID-19 2021-02-06 Completed [facility] MODERNA 12+ YRS 00:00:00 [facility] SARS-COV-2 COVID-19 2021-02-06 Completed [facility] MODERNA 12+ YRS 00:00:00 [facility] SARS-COV-2 COVID-19 2021-02-06 Completed [facility] MODERNA 12+ YRS 00:00:00 [facility] SARS-COV-2 COVID-19 2021-02-06 Completed [facility] MODERNA 12+ YRS 00:00:00 [facility] SARS-COV-2 COVID-19 2021-02-06 Completed [facility] MODERNA 12+ YRS 00:00:00 [facility] SARS-COV-2 COVID-19 2021-02-06 Completed [facility] MODERNA 12+ YRS 00:00:00 [facility] SARS-COV-2 COVID-19 2021-02-06 Completed [facility] MODERNA 12+ YRS 00:00:00 [facility] SARS-COV-2 COVID-19 2021-02-06 Completed [facility] MODERNA 12+ YRS 00:00:00 [facility] SARS-COV-2 COVID-19 2021-02-06 Completed [facility] MODERNA 12+ YRS 00:00:00 [facility] SARS-COV-2 COVID-19 2021-02-06 Completed [facility] MODERNA 12+ YRS 00:00:00 [facility] SARS-COV-2 COVID-19 2021-02-06 Completed [facility] MODERNA 12+ YRS 00:00:00 [facility] SARS-COV-2 COVID-19 2021-02-06 Completed [facility] MODERNA 12+ YRS 00:00:00 [facility] SARS-COV-2 COVID-19 2021-02-06 Completed [facility] MODERNA 12+ YRS 00:00:00 [facility] SARS-COV-2 COVID-19 2021-02-06 Completed [facility] MODERNA 12+ YRS 00:00:00 [facility] SARS-COV-2 COVID-19 2021-02-06 Completed [facility] MODERNA 12+ YRS 00:00:00 [facility] SARS-COV-2 COVID-19 2021-02-06 Completed [facility] MODERNA 12+ YRS 00:00:00 [facility] SARS-COV-2 COVID-19 2021-02-06 Completed [facility] MODERNA 12+ YRS 00:00:00 [facility] SARS-COV-2 COVID-19 2021-02-06 Completed [facility] MODERNA 12+ YRS 00:00:00 [facility] SARS-COV-2 COVID-19 2021-02-06 Completed [facility] MODERNA 12+ YRS 00:00:00 [facility] SARS-COV-2 COVID-19 2021-02-06 Completed [facility] MODERNA 12+ YRS 00:00:00 [facility] SARS-COV-2 COVID-19 2021-02-06 Completed [facility] MODERNA 12+ YRS 00:00:00 [facility] SARS-COV-2 COVID-19 2021-02-06 Completed [facility] MODERNA 12+ YRS 00:00:00 [facility] SARS-COV-2 COVID-19 2021-02-06 Completed [facility] MODERNA 12+ YRS 00:00:00 [facility] SARS-COV-2 COVID-19 2021-02-06 Completed [facility] MODERNA 12+ YRS 00:00:00 [facility] SARS-COV-2 COVID-19 2021-02-06 Completed [facility] MODERNA 12+ YRS 00:00:00 [facility] SARS-COV-2 COVID-19 2021-02-06 Completed [facility] MODERNA 12+ YRS 00:00:00 [facility] SARS-COV-2 COVID-19 2021-02-06 Completed [facility] MODERNA 12+ YRS 00:00:00 [facility] SARS-COV-2 COVID-19 2021-02-06 Completed [facility] MODERNA 12+ YRS 00:00:00 [facility] SARS-COV-2 COVID-19 2021-02-06 Completed [facility] MODERNA 12+ YRS 00:00:00 [facility] SARS-COV-2 COVID-19 2021-02-06 Completed [facility] MODERNA 12+ YRS 00:00:00 [facility] SARS-COV-2 COVID-19 2021-02-06 Completed [facility] MODERNA 12+ YRS 00:00:00 [facility] SARS-COV-2 COVID-19 2021-02-06 Completed [facility] MODERNA 12+ YRS 00:00:00 [facility] SARS-COV-2 COVID-19 2021-02-06 Completed [facility] MODERNA 12+ YRS 00:00:00 [facility] SARS-COV-2 COVID-19 2021-02-06 Completed [facility] MODERNA 12+ YRS 00:00:00 [facility] SARS-COV-2 COVID-19 2021-02-06 Completed [facility] MODERNA 12+ YRS 00:00:00 [facility] SARS-COV-2 COVID-19 2021-02-06 Completed [facility] MODERNA 12+ YRS 00:00:00 [facility] SARS-COV-2 COVID-19 2021-02-06 Completed [facility] MODERNA 12+ YRS 00:00:00 [facility] SARS-COV-2 COVID-19 2021-02-06 Completed [facility] MODERNA 12+ YRS 00:00:00 [facility] SARS-COV-2 COVID-19 2021-02-06 Completed [facility] MODERNA 12+ YRS 00:00:00 [facility] SARS-COV-2 COVID-19 2021-02-06 Completed [facility] MODERNA 12+ YRS 00:00:00 [facility] SARS-COV-2 COVID-19 2021-02-06 Completed [facility] MODERNA 12+ YRS 00:00:00 [facility] SARS-COV-2 COVID-19 2021-02-06 Completed [facility] MODERNA 12+ YRS 00:00:00 [facility] SARS-COV-2 COVID-19 2021-02-06 Completed [facility] MODERNA 12+ YRS 00:00:00 [facility] SARS-COV-2 COVID-19 2021-02-06 Completed [facility] MODERNA 12+ YRS 00:00:00 [facility] SARS-COV-2 COVID-19 2021-02-06 Completed [facility] MODERNA 12+ YRS 00:00:00 [facility] SARS-COV-2 COVID-19 2021-02-06 Completed [facility] MODERNA 12+ YRS 00:00:00 [facility] SARS-COV-2 COVID-19 2021-02-06 Completed [facility] MODERNA 12+ YRS 00:00:00 [facility] SARS-COV-2 COVID-19 2021-02-06 Completed [facility] MODERNA 12+ YRS 00:00:00 [facility] SARS-COV-2 COVID-19 2021-02-06 Completed [facility] MODERNA 12+ YRS 00:00:00 [facility] SARS-COV-2 COVID-19 2021-02-06 Completed [facility] MODERNA 12+ YRS 00:00:00 [facility] SARS-COV-2 COVID-19 2021-02-06 Completed [facility] MODERNA 12+ YRS 00:00:00 [facility] SARS-COV-2 COVID-19 2021-02-06 Completed [facility] MODERNA 12+ YRS 00:00:00 [facility] SARS-COV-2 COVID-19 2021-02-06 Completed [facility] MODERNA 12+ YRS 00:00:00 [facility] SARS-COV-2 COVID-19 2021-01-02 Completed [facility] MODERNA VACCINE 00:00:00 [facility] SARS-COV-2 COVID-19 2021-01-02 Completed [facility] MODERNA 12+ YRS 00:00:00 [facility] SARS-COV-2 COVID-19 2021-01-02 Completed [facility] MODERNA 12+ YRS 00:00:00 [facility] SARS-COV-2 COVID-19 2021-01-02 Completed [facility] MODERNA 12+ YRS 00:00:00 [facility] SARS-COV-2 COVID-19 2021-01-02 Completed [facility] MODERNA 12+ YRS 00:00:00 [facility] SARS-COV-2 COVID-19 2021-01-02 Completed [facility] MODERNA 12+ YRS 00:00:00 [facility] SARS-COV-2 COVID-19 2021-01-02 Completed [facility] MODERNA 12+ YRS 00:00:00 [facility] SARS-COV-2 COVID-19 2021-01-02 Completed [facility] MODERNA 12+ YRS 00:00:00 [facility] SARS-COV-2 COVID-19 2021-01-02 Completed [facility] MODERNA 12+ YRS 00:00:00 [facility] SARS-COV-2 COVID-19 2021-01-02 Completed [facility] MODERNA 12+ YRS 00:00:00 [facility] SARS-COV-2 COVID-19 2021-01-02 Completed [facility] MODERNA 12+ YRS 00:00:00 [facility] SARS-COV-2 COVID-19 2021-01-02 Completed [facility] MODERNA 12+ YRS 00:00:00 [facility] SARS-COV-2 COVID-19 2021-01-02 Completed [facility] MODERNA 12+ YRS 00:00:00 [facility] SARS-COV-2 COVID-19 2021-01-02 Completed [facility] MODERNA 12+ YRS 00:00:00 [facility] SARS-COV-2 COVID-19 2021-01-02 Completed [facility] MODERNA 12+ YRS 00:00:00 [facility] SARS-COV-2 COVID-19 2021-01-02 Completed [facility] MODERNA 12+ YRS 00:00:00 [facility] SARS-COV-2 COVID-19 2021-01-02 Completed [facility] MODERNA 12+ YRS 00:00:00 [facility] SARS-COV-2 COVID-19 2021-01-02 Completed [facility] MODERNA 12+ YRS 00:00:00 [facility] SARS-COV-2 COVID-19 2021-01-02 Completed [facility] MODERNA 12+ YRS 00:00:00 [facility] SARS-COV-2 COVID-19 2021-01-02 Completed [facility] MODERNA 12+ YRS 00:00:00 [facility] SARS-COV-2 COVID-19 2021-01-02 Completed [facility] MODERNA 12+ YRS 00:00:00 [facility] SARS-COV-2 COVID-19 2021-01-02 Completed [facility] MODERNA 12+ YRS 00:00:00 [facility] SARS-COV-2 COVID-19 2021-01-02 Completed [facility] MODERNA 12+ YRS 00:00:00 [facility] SARS-COV-2 COVID-19 2021-01-02 Completed [facility] MODERNA 12+ YRS 00:00:00 [facility] SARS-COV-2 COVID-19 2021-01-02 Completed [facility] MODERNA 12+ YRS 00:00:00 [facility] SARS-COV-2 COVID-19 2021-01-02 Completed [facility] MODERNA 12+ YRS 00:00:00 [facility] SARS-COV-2 COVID-19 2021-01-02 Completed [facility] MODERNA 12+ YRS 00:00:00 [facility] SARS-COV-2 COVID-19 2021-01-02 Completed [facility] MODERNA 12+ YRS 00:00:00 [facility] SARS-COV-2 COVID-19 2021-01-02 Completed [facility] MODERNA 12+ YRS 00:00:00 [facility] SARS-COV-2 COVID-19 2021-01-02 Completed [facility] MODERNA 12+ YRS 00:00:00 [facility] SARS-COV-2 COVID-19 2021-01-02 Completed [facility] MODERNA 12+ YRS 00:00:00 [facility] SARS-COV-2 COVID-19 2021-01-02 Completed [facility] MODERNA 12+ YRS 00:00:00 [facility] SARS-COV-2 COVID-19 2021-01-02 Completed [facility] MODERNA 12+ YRS 00:00:00 [facility] SARS-COV-2 COVID-19 2021-01-02 Completed [facility] MODERNA 12+ YRS 00:00:00 [facility] SARS-COV-2 COVID-19 2021-01-02 Completed [facility] MODERNA 12+ YRS 00:00:00 [facility] SARS-COV-2 COVID-19 2021-01-02 Completed [facility] MODERNA 12+ YRS 00:00:00 [facility] SARS-COV-2 COVID-19 2021-01-02 Completed [facility] MODERNA 12+ YRS 00:00:00 [facility] SARS-COV-2 COVID-19 2021-01-02 Completed [facility] MODERNA 12+ YRS 00:00:00 [facility] SARS-COV-2 COVID-19 2021-01-02 Completed [facility] MODERNA 12+ YRS 00:00:00 [facility] SARS-COV-2 COVID-19 2021-01-02 Completed [facility] MODERNA 12+ YRS 00:00:00 [facility] SARS-COV-2 COVID-19 2021-01-02 Completed [facility] MODERNA 12+ YRS 00:00:00 [facility] SARS-COV-2 COVID-19 2021-01-02 Completed [facility] MODERNA 12+ YRS 00:00:00 [facility] SARS-COV-2 COVID-19 2021-01-02 Completed [facility] MODERNA 12+ YRS 00:00:00 [place] [facility] SARS-COV-2 COVID-19 2021-01-02 Completed [facility] MODERNA 12+ YRS 00:00:00 [place] [facility] SARS-COV-2 COVID-19 2021-01-02 Completed [facility] MODERNA 12+ YRS 00:00:00 [place] [facility] SARS-COV-2 COVID-19 2021-01-02 Completed [facility] MODERNA 12+ YRS 00:00:00 [place] [facility] SARS-COV-2 COVID-19 2021-01-02 Completed [facility] MODERNA 12+ YRS 00:00:00 [place] [facility] SARS-COV-2 COVID-19 2021-01-02 Completed [facility] MODERNA 12+ YRS 00:00:00 [place] [facility] SARS-COV-2 COVID-19 2021-01-02 Completed [facility] MODERNA 12+ YRS 00:00:00 [place] [facility] SARS-COV-2 COVID-19 2021-01-02 Completed [facility] MODERNA 12+ YRS 00:00:00 [place] [facility] SARS-COV-2 COVID-19 2021-01-02 Completed [facility] MODERNA 12+ YRS 00:00:00 [place] [facility] SARS-COV-2 COVID-19 2021-01-02 Completed [facility] MODERNA 12+ YRS 00:00:00 [place] [facility] SARS-COV-2 COVID-19 2021-01-02 Completed [facility] MODERNA 12+ YRS 00:00:00 [place] [facility] SARS-COV-2 COVID-19 2021-01-02 Completed [facility] MODERNA 12+ YRS 00:00:00 [place] [facility] SARS-COV-2 COVID-19 2021-01-02 Completed [facility] MODERNA 12+ YRS 00:00:00 [place] [facility] SARS-COV-2 COVID-19 2021-01-02 Completed [facility] MODERNA 12+ YRS 00:00:00 [place] [facility] SARS-COV-2 COVID-19 2021-01-02 Completed [facility] MODERNA 12+ YRS 00:00:00 [place] [facility] SARS-COV-2 COVID-19 2021-01-02 Completed [facility] MODERNA 12+ YRS 00:00:00 [place] [facility] SARS-COV-2 COVID-19 2021-01-02 Completed [facility] MODERNA 12+ YRS 00:00:00 [facility] SARS-COV-2 COVID-19 2021-01-02 Completed [facility] MODERNA 12+ YRS 00:00:00 [facility] SARS-COV-2 COVID-19 2021-01-02 Completed [facility] MODERNA 12+ YRS 00:00:00 [place] [facility] SARS-COV-2 COVID-19 2021-01-02 Completed [facility] MODERNA 12+ YRS 00:00:00 [facility] SARS-COV-2 COVID-19 2021-01-02 Completed [facility] MODERNA 12+ YRS 00:00:00 [place] [facility] SARS-COV-2 COVID-19 2021-01-02 Completed [facility] MODERNA 12+ YRS 00:00:00 [place] [facility] SARS-COV-2 COVID-19 2021-01-02 Completed [facility] MODERNA 12+ YRS 00:00:00 [place] [facility] SARS-COV-2 COVID-19 2021-01-02 Completed [facility] MODERNA 12+ YRS 00:00:00 [place] [facility] SARS-COV-2 COVID-19 2021-01-02 Completed [facility] MODERNA 12+ YRS 00:00:00 [place] [facility] SARS-COV-2 COVID-19 2021-01-02 Completed [facility] MODERNA 12+ YRS 00:00:00 [place] [facility] SARS-COV-2 COVID-19 2021-01-02 Completed [facility] MODERNA 12+ YRS 00:00:00 [place] [facility] SARS-COV-2 COVID-19 2021-01-02 Completed [facility] MODERNA 12+ YRS 00:00:00 [place] [facility] SARS-COV-2 COVID-19 2021-01-02 Completed [facility] MODERNA 12+ YRS 00:00:00 [place] [facility] SARS-COV-2 COVID-19 2021-01-02 Completed [facility] MODERNA 12+ YRS 00:00:00 [place] [facility] SARS-COV-2 COVID-19 2021-01-02 Completed [facility] MODERNA 12+ YRS 00:00:00 [place] [facility] SARS-COV-2 COVID-19 2021-01-02 Completed [facility] MODERNA 12+ YRS 00:00:00 [place] [facility] SARS-COV-2 COVID-19 2021-01-02 Completed [facility] MODERNA 12+ YRS 00:00:00 [facility] Influenza High Dose 2020-09-03 Completed [facility] 00:00:00 [facility] Influenza High Dose 2020-09-03 Completed [facility] 00:00:00 [facility] Influenza High Dose 2020-09-03 Completed [facility] 00:00:00 [facility] Influenza High Dose 2020-09-03 Completed [facility] 00:00:00 [facility] Influenza High Dose 2020-09-03 Completed [facility] 00:00:00 [facility] Influenza High Dose 2020-09-03 Completed [facility] 00:00:00 [facility] Influenza High Dose 2020-09-03 Completed [facility] 00:00:00 [facility] Influenza High Dose 2020-09-03 Completed [facility] 00:00:00 [facility] Influenza High Dose 2020-09-03 Completed [facility] 00:00:00 [facility] Influenza High Dose 2020-09-03 Completed [facility] 00:00:00 [facility] Influenza High Dose 2020-09-03 Completed [facility] 00:00:00 [facility] Influenza High Dose 2020-09-03 Completed [facility] 00:00:00 [facility] Influenza High Dose 2020-09-03 Completed [facility] 00:00:00 [facility] Influenza High Dose 2020-09-03 Completed [facility] 00:00:00 [facility] Influenza High Dose 2020-09-03 Completed [facility] 00:00:00 [facility] Influenza High Dose 2020-09-03 Completed [facility] 00:00:00 [facility] Influenza High Dose 2020-09-03 Completed [facility] 00:00:00 [facility] Influenza High Dose 2020-09-03 Completed [facility] 00:00:00 [facility] Influenza High Dose 2020-09-03 Completed [facility] 00:00:00 [facility] Influenza High Dose 2020-09-03 Completed [facility] 00:00:00 [facility] Influenza High Dose 2020-09-03 Completed [facility] 00:00:00 [facility] Influenza High Dose 2020-09-03 Completed [facility] 00:00:00 [facility] [facility] Influenza High Dose 2020-09-03 Completed [facility] 00[facility]00:00 [facility] Influenza High Dose 2020-09-03 Completed [facility] 00[facility]00:00 [facility] Influenza High Dose 2020-09-03 Completed [facility] 00:00:00 [facility] Influenza High Dose 2020-09-03 Completed [facility] 00:00:00 [facility] Influenza High Dose 2020-09-03 Completed [facility] 00:00:00 [facility] Influenza High Dose 2020-09-03 Completed [facility] 00:00:00 [facility] Influenza High Dose 2020-09-03 Completed [facility] 00:00:00 [facility] Influenza High Dose 2020-09-03 Completed [facility] 00:00:00 [facility] Influenza High Dose 2020-09-03 Completed [facility] 00:00:00 [facility] Influenza High Dose 2020-09-03 Completed [facility] 00:00:00 [facility] Influenza High Dose 2020-09-03 Completed [facility] 00:00:00 [facility] Influenza High Dose 2020-09-03 Completed [facility] 00:00:00 [facility] Influenza High Dose 2020-09-03 Completed [facility] 00:00:00 [facility] Influenza High Dose 2020-09-03 Completed [facility] 00:00:00 [facility] Influenza High Dose 2020-09-03 Completed [facility] 00:00:00 [facility] Influenza High Dose 2020-09-03 Completed [facility] 00:00:00 [facility] Influenza High Dose 2020-09-03 Completed [facility] 00:00:00 [facility] Influenza High Dose 2020-09-03 Completed [facility] 00:00:00 [facility] Influenza High Dose 2020-09-03 Completed [facility] 00:00:00 [facility] Influenza High Dose 2020-09-03 Completed [facility] 00:00:00 [facility] Influenza High Dose 2020-09-03 Completed [facility] 00:00:00 [facility] Influenza High Dose 2020-09-03 Completed [facility] 00:00:00 [facility] Influenza High Dose 2020-09-03 Completed [facility] 00:00:00 [facility] Influenza High Dose 2020-09-03 Completed [facility] 00:00:00 [facility] Influenza High Dose 2020-09-03 Completed [facility] 00:00:00 [facility] Influenza High Dose 2020-09-03 Completed [facility] 00[facility]00:00 [facility] Influenza High Dose 2020-09-03 Completed [facility] 00:00:00 [facility] Influenza High Dose 2020-09-03 Completed [facility] 00:00:00 [facility] Influenza High Dose 2020-09-03 Completed [facility] 00:00:00 [facility] Influenza High Dose 2020-09-03 Completed [facility] 00:00:00 [facility] Influenza High Dose 2020-09-03 Completed [facility] 00:00:00 [facility] Influenza High Dose 2020-09-03 Completed [facility] 00:00:00 [facility] Influenza High Dose 2020-09-03 Completed [facility] 00:00:00 [facility] Influenza High Dose 2020-09-03 Completed [facility] 00:00:00 [facility] Influenza High Dose 2020-09-03 Completed [facility] 00:00:00 [facility] Influenza High Dose 2020-09-03 Completed [facility] 00:00:00 [facility] Influenza High Dose 2020-09-03 Completed [facility] 00:00:00 [facility] Influenza High Dose 2020-09-03 Completed [facility] 00:00:00 [facility] Influenza High Dose 2020-09-03 Completed [facility] 00:00:00 [facility] Influenza High Dose 2020-09-03 Completed [facility] 00:00:00 [facility] Influenza High Dose 2020-09-03 Completed [facility] 00:00:00 [facility] Influenza High Dose 2020-09-03 Completed [facility] 00:00:00 [facility] Influenza High Dose 2020-09-03 Completed [facility] 00:00:00 [facility] Influenza High Dose 2020-09-03 Completed [facility] 00:00:00 [facility] Influenza High Dose 2020-09-03 Completed [facility] 00:00:00 [facility] Influenza High Dose 2020-09-03 Completed [facility] 00:00:00 [facility] Influenza High Dose 2020-09-03 Completed [facility] 00:00:00 [facility] Influenza High Dose 2020-09-03 Completed [facility] 00:00:00 [facility] Influenza High Dose 2020-09-03 Completed [facility] 00:00:00 [facility] Influenza High Dose 2020-09-03 Completed [facility] 00:00:00 [facility] Influenza High Dose 2020-09-03 Completed [facility] 00:00:00 [facility] Influenza High Dose 2020-09-03 Completed [facility] 00:00:00 [facility] Influenza High Dose 2020-09-03 Completed [facility] 00:00:00 [facility] Influenza High Dose 2019-09-13 Completed [facility] 00:00:00 [facility] Influenza High Dose 2019-09-13 Completed [facility] 00:00:00 [facility] Influenza High Dose 2019-09-13 Completed [facility] 00:00:00 [facility] Influenza High Dose 2019-09-13 Completed [facility] 00:00:00 [facility] Influenza High Dose 2019-09-13 Completed [facility] 00:00:00 [facility] Influenza High Dose 2019-09-13 Completed [facility] 00:00:00 [facility] Influenza High Dose 2019-09-13 Completed [facility] 00:00:00 [facility] Influenza High Dose 2019-09-13 Completed [facility] 00:00:00 [facility] Influenza High Dose 2019-09-13 Completed [facility] 00:00:00 [facility] Influenza High Dose 2019-09-13 Completed [facility] 00:00:00 [facility] Influenza High Dose 2019-09-13 Completed [facility] 00:00:00 [facility] Influenza High Dose 2019-09-13 Completed [facility] 00:00:00 [facility] Influenza High Dose 2019-09-13 Completed [facility] 00:00:00 [facility] Influenza High Dose 2019-09-13 Completed [facility] 00:00:00 [facility] Influenza High Dose 2019-09-13 Completed [facility] 00:00:00 [facility] Influenza High Dose 2019-09-13 Completed [facility] 00:00:00 [facility] Influenza High Dose 2019-09-13 Completed [facility] 00:00:00 [facility] Influenza High Dose 2019-09-13 Completed [facility] 00:00:00 [facility] Influenza High Dose 2019-09-13 Completed [facility] 00:00:00 [facility] Influenza High Dose 2019-09-13 Completed [facility] 00:00:00 [facility] Influenza High Dose 2019-09-13 Completed [facility] 00:00:00 [facility] Influenza High Dose 2019-09-13 Completed [facility] 00:00:00 [facility] Influenza High Dose 2019-09-13 Completed [facility] 00:00:00 [facility] Influenza High Dose 2019-09-13 Completed [facility] 00:00:00 [facility] Influenza High Dose 2019-09-13 Completed [facility] 00:00:00 [facility] Influenza High Dose 2019-09-13 Completed [facility] 00:00:00 [facility] Influenza High Dose 2019-09-13 Completed [facility] 00:00:00 [facility] Influenza High Dose 2019-09-13 Completed [facility] 00:00:00 [facility] Influenza High Dose 2019-09-13 Completed [facility] 00:00:00 [facility] Influenza High Dose 2019-09-13 Completed [facility] 00:00:00 [facility] Influenza High Dose 2019-09-13 Completed [facility] 00:00:00 [facility] Influenza High Dose 2019-09-13 Completed [facility] 00:00:00 [facility] Influenza High Dose 2019-09-13 Completed [facility] 00:00:00 [facility] Influenza High Dose 2019-09-13 Completed [facility] 00:00:00 [facility] Influenza High Dose 2019-09-13 Completed [facility] 00:00:00 [facility] Influenza High Dose 2019-09-13 Completed [facility] 00:00:00 [facility] Influenza High Dose 2019-09-13 Completed [facility] 00:00:00 [facility] Influenza High Dose 2019-09-13 Completed [facility] 00:00:00 [facility] Influenza High Dose 2019-09-13 Completed [facility] 00:00:00 [facility] Influenza High Dose 2019-09-13 Completed [facility] 00:00:00 [facility] Influenza High Dose 2019-09-13 Completed [facility] 00:00:00 [facility] Influenza High Dose 2019-09-13 Completed [facility] 00:00:00 [facility] Influenza High Dose 2019-09-13 Completed [facility] 00:00:00 [facility] Influenza High Dose 2019-09-13 Completed [facility] 00:00:00 [facility] Influenza High Dose 2019-09-13 Completed [facility] 00:00:00 [facility] Influenza High Dose 2019-09-13 Completed [facility] 00:00:00 [facility] Influenza High Dose 2019-09-13 Completed [facility] 00:00:00 [facility] Influenza High Dose 2019-09-13 Completed [facility] 00:00:00 [facility] Influenza High Dose 2019-09-13 Completed [facility] 00:00:00 [facility] Influenza High Dose 2019-09-13 Completed [facility] 00:00:00 [facility] Influenza High Dose 2019-09-13 Completed [facility] 00:00:00 [facility] Influenza High Dose 2019-09-13 Completed [facility] 00:00:00 [facility] Influenza High Dose 2019-09-13 Completed [facility] 00:00:00 [facility] Influenza High Dose 2019-09-13 Completed [facility] 00:00:00 [facility] Influenza High Dose 2019-09-13 Completed [facility] 00:00:00 [facility] Influenza High Dose 2019-09-13 Completed [facility] 00:00:00 [facility] Influenza High Dose 2019-09-13 Completed [facility] 00:00:00 [facility] Influenza High Dose 2019-09-13 Completed [facility] 00:00:00 [facility] Influenza High Dose 2019-09-13 Completed [facility] 00:00:00 [facility] Influenza High Dose 2019-09-13 Completed [facility] 00:00:00 [facility] Influenza High Dose 2019-09-13 Completed [facility] 00:00:00 [facility] Influenza High Dose 2019-09-13 Completed [facility] 00:00:00 [facility] Influenza High Dose 2019-09-13 Completed [facility] 00:00:00 [facility] Influenza High Dose 2019-09-13 Completed [facility] 00:00:00 [facility] Influenza High Dose 2019-09-13 Completed [facility] 00:00:00 [facility] Influenza High Dose 2019-09-13 Completed [facility] 00:00:00 [facility] Influenza High Dose 2019-09-13 Completed [facility] 00:00:00 [facility] Influenza High Dose 2019-09-13 Completed [facility] 00:00:00 [facility] Influenza High Dose 2019-09-13 Completed [facility] 00:00:00 [facility] Influenza High Dose 2019-09-13 Completed [facility] 00:00:00 [facility] Influenza High Dose 2019-09-13 Completed [facility] 00:00:00 [facility] Influenza High Dose 2019-09-13 Completed [facility] 00:00:00 [facility] Influenza High Dose 2019-09-13 Completed [facility] 00:00:00 [facility] Influenza High Dose 2019-09-13 Completed [facility] 00:00:00 [facility] Influenza High Dose 2019-09-13 Completed [facility] 00:00:00 [facility] Influenza High Dose 2018-09-05 Completed [facility] 00:00:00 [facility] Influenza High Dose 2018-09-05 Completed [facility] 00:00:00 [facility] Influenza High Dose 2018-09-05 Completed [facility] 00:00:00 [facility] Influenza High Dose 2018-09-05 Completed [facility] 00:00:00 [facility] Influenza High Dose 2018-09-05 Completed [facility] 00:00:00 [facility] Influenza High Dose 2018-09-05 Completed [facility] 00:00:00 [facility] Influenza High Dose 2018-09-05 Completed [facility] 00:00:00 [facility] Influenza High Dose 2018-09-05 Completed [facility] 00:00:00 [facility] Influenza High Dose 2018-09-05 Completed [facility] 00:00:00 [facility] Influenza High Dose 2018-09-05 Completed [facility] 00:00:00 [facility] Influenza High Dose 2018-09-05 Completed [facility] 00:00:00 [facility] Influenza High Dose 2018-09-05 Completed [facility] 00:00:00 [facility] Influenza High Dose 2018-09-05 Completed [facility] 00:00:00 [facility] Influenza High Dose 2018-09-05 Completed [facility] 00:00:00 [facility] Influenza High Dose 2018-09-05 Completed [facility] 00:00:00 [facility] Influenza High Dose 2018-09-05 Completed [facility] 00:00:00 [facility] Influenza High Dose 2018-09-05 Completed [facility] 00[facility]00:00 [facility] Influenza High Dose 2018-09-05 Completed [facility] 00:00:00 [facility] Influenza High Dose 2018-09-05 Completed [facility] 00:00:00 [facility] Influenza High Dose 2018-09-05 Completed [facility] 00:00:00 [facility] Influenza High Dose 2018-09-05 Completed [facility] 00:00:00 [facility] Influenza High Dose 2018-09-05 Completed [facility] 00:00:00 [facility] Influenza High Dose 2018-09-05 Completed [facility] 00:00:00 [facility] Influenza High Dose 2018-09-05 Completed [facility] 00:00:00 [facility] Influenza High Dose 2018-09-05 Completed [facility] 00:00:00 [facility] Influenza High Dose 2018-09-05 Completed [facility] 00:00:00 [facility] Influenza High Dose 2018-09-05 Completed [facility] 00:00:00 [facility] Influenza High Dose 2018-09-05 Completed [facility] 00:00:00 [facility] Influenza High Dose 2018-09-05 Completed [facility] 00:00:00 [facility] Influenza High Dose 2018-09-05 Completed [facility] 00:00:00 [facility] Influenza High Dose 2018-09-05 Completed [facility] 00:00:00 [facility] Influenza High Dose 2018-09-05 Completed [facility] 00:00:00 [facility] Influenza High Dose 2018-09-05 Completed [facility] 00:00:00 [facility] Influenza High Dose 2018-09-05 Completed [facility] 00:00:00 [facility] Influenza High Dose 2018-09-05 Completed [facility] 00:00:00 [facility] Influenza High Dose 2018-09-05 Completed [facility] 00:00:00 [facility] Influenza High Dose 2018-09-05 Completed [facility] 00:00:00 [facility] Influenza High Dose 2018-09-05 Completed [facility] 00:00:00 [facility] Influenza High Dose 2018-09-05 Completed [facility] 00:00:00 [facility] Influenza High Dose 2018-09-05 Completed [facility] 00:00:00 [facility] Influenza High Dose 2018-09-05 Completed [facility] 00:00:00 [facility] Influenza High Dose 2018-09-05 Completed [facility] 00:00:00 [facility] Influenza High Dose 2018-09-05 Completed [facility] 00:00:00 [facility] Influenza High Dose 2018-09-05 Completed [facility] 00:00:00 [facility] Influenza High Dose 2018-09-05 Completed [facility] 00:00:00 [facility] Influenza High Dose 2018-09-05 Completed [facility] 00:00:00 [facility] Influenza High Dose 2018-09-05 Completed [facility] 00:00:00 [facility] Influenza High Dose 2018-09-05 Completed [facility] 00:00:00 [facility] Influenza High Dose 2018-09-05 Completed [facility] 00:00:00 [facility] Influenza High Dose 2018-09-05 Completed [facility] 00:00:00 [facility] Influenza High Dose 2018-09-05 Completed [facility] 00:00:00 [facility] Influenza High Dose 2018-09-05 Completed [facility] 00:00:00 [facility] Influenza High Dose 2018-09-05 Completed [facility] 00:00:00 [facility] Influenza High Dose 2018-09-05 Completed [facility] 00:00:00 [facility] Influenza High Dose 2018-09-05 Completed [facility] 00:00:00 [facility] Influenza High Dose 2018-09-05 Completed [facility] 00:00:00 [facility] Influenza High Dose 2018-09-05 Completed [facility] 00:00:00 [facility] Influenza High Dose 2018-09-05 Completed [facility] 00:00:00 [facility] Influenza High Dose 2018-09-05 Completed [facility] 00:00:00 [facility] Influenza High Dose 2018-09-05 Completed [facility] 00:00:00 [facility] Influenza High Dose 2018-09-05 Completed [facility] 00:00:00 [facility] Influenza High Dose 2018-09-05 Completed [facility] 00:00:00 [facility] Influenza High Dose 2018-09-05 Completed [facility] 00:00:00 [facility] Influenza High Dose 2018-09-05 Completed [facility] 00:00:00 [facility] Influenza High Dose 2018-09-05 Completed [facility] 00:00:00 [facility] Influenza High Dose 2018-09-05 Completed [facility] 00:00:00 [facility] Influenza High Dose 2018-09-05 Completed [facility] 00:00:00 [facility] Influenza High Dose 2018-09-05 Completed [facility] 00:00:00 [facility] Influenza High Dose 2018-09-05 Completed [facility] 00:00:00 [facility] Influenza High Dose 2018-09-05 Completed [facility] 00:00:00 [facility] Influenza High Dose 2018-09-05 Completed [facility] 00:00:00 [facility] Influenza High Dose 2018-09-05 Completed [facility] 00:00:00 [facility] Influenza High Dose 2018-09-05 Completed [facility] 00:00:00 [facility] Influenza High Dose 2018-09-05 Completed [facility] 00:00:00 [facility] Influenza High Dose 2018-09-05 Completed [facility] 00:00:00 [facility] TDAP 2009-11-28 Completed [facility] 00[facility]00:00 [facility] TDAP 2009-11-28 Completed [facility] 00:00:00 [facility] TDAP 2009-11-28 Completed [facility] 00:00:00 [facility] TDAP 2009-11-28 Completed [facility] 00:00:00 [facility] TDAP 2009-11-28 Completed [facility] 00:00:00 [facility] TDAP 2009-11-28 Completed [facility] 00:00:00 [facility] TDAP 2009-11-28 Completed [facility] 00:00:00 [facility] TDAP 2009-11-28 Completed [facility] 00:00:00 [facility] TDAP 2009-11-28 Completed [facility] 00:00:00 [facility] TDAP 2009-11-28 Completed [facility] 00:00:00 [facility] TDAP 2009-11-28 Completed [facility] 00:00:00 [facility] TDAP 2009-11-28 Completed [facility] 00:00:00 [facility] TDAP 2009-11-28 Completed [facility] 00:00:00 [facility] TDAP 2009-11-28 Completed [facility] 00:00:00 [facility] TDAP 2009-11-28 Completed [facility] 00:00:00 [facility] TDAP 2009-11-28 Completed [facility] 00:00:00 [facility] TDAP 2009-11-28 Completed [facility] 00:00:00 [facility] TDAP 2009-11-28 Completed [facility] 00:00:00 [facility] TDAP 2009-11-28 Completed [facility] 00:00:00 [facility] TDAP 2009-11-28 Completed [facility] 00:00:00 [facility] TDAP 2009-11-28 Completed [facility] 00:00:00 [facility] TDAP 2009-11-28 Completed [facility] 00:00:00 [facility] TDAP 2009-11-28 Completed [facility] 00:00:00 [facility] TDAP 2009-11-28 Completed [facility] 00:00:00 [facility] TDAP 2009-11-28 Completed [facility] 00:00:00 [facility] TDAP 2009-11-28 Completed [facility] 00:00:00 [facility] TDAP 2009-11-28 Completed [facility] 00:00:00 [facility] TDAP 2009-11-28 Completed [facility] 00:00:00 [facility] TDAP 2009-11-28 Completed [facility] 00:00:00 [facility] TDAP 2009-11-28 Completed [facility] 00:00:00 [facility] TDAP 2009-11-28 Completed [facility] 00:00:00 [facility] TDAP 2009-11-28 Completed [facility] 00:00:00 [facility] TDAP 2009-11-28 Completed [facility] 00:00:00 [facility] TDAP 2009-11-28 Completed [facility] 00:00:00 [facility] TDAP 2009-11-28 Completed [facility] 00:00:00 [facility] TDAP 2009-11-28 Completed [facility] 00:00:00 [facility] TDAP 2009-11-28 Completed [facility] 00:00:00 [facility] TDAP 2009-11-28 Completed [facility] 00:00:00 [facility] TDAP 2009-11-28 Completed [facility] 00:00:00 [facility] TDAP 2009-11-28 Completed [facility] 00:00:00 [facility] TDAP 2009-11-28 Completed [facility] 00:00:00 [facility] TDAP 2009-11-28 Completed [facility] 00:00:00 [facility] TDAP 2009-11-28 Completed University of 00:00:00 [facility] TDAP 2009-11-28 Completed University of 00:00:00 [facility] TDAP 2009-11-28 Completed University of 00:00:00 [facility] TDAP 2009-11-28 Completed University of 00:00:00 [facility] TDAP 2009-11-28 Completed University of 00:00:00 [facility] TDAP 2009-11-28 Completed University of 00:00:00 [facility] TDAP 2009-11-28 Completed University of 00:00:00 [facility] TDAP 2009-11-28 Completed University of 00:00:00 [facility] TDAP 2009-11-28 Completed University of 00:00:00 [facility] TDAP 2009-11-28 Completed University of 00:00:00 [facility] TDAP 2009-11-28 Completed University of 00:00:00 [facility] TDAP 2009-11-28 Completed University of 00:00:00 [facility] TDAP 2009-11-28 Completed University of 00:00:00 [facility] TDAP 2009-11-28 Completed University of 00:00:00 [facility] TDAP 2009-11-28 Completed University of 00:00:00 [facility] TDAP 2009-11-28 Completed University of 00:00:00 [facility] TDAP 2009-11-28 Completed University of 00:00:00 [facility] TDAP 2009-11-28 Completed University of 00:00:00 [facility] TDAP 2009-11-28 Completed University of 00:00:00 [facility] TDAP 2009-11-28 Completed University of 00:00:00 [facility] TDAP 2009-11-28 Completed University of 00:00:00 [facility] TDAP 2009-11-28 Completed University of 00:00:00 [facility] TDAP 2009-11-28 Completed University of 00:00:00 [facility] TDAP 2009-11-28 Completed University of 00:00:00 [facility] TDAP 2009-11-28 Completed University of 00:00:00 [facility] TDAP 2009-11-28 Completed University of 00:00:00 [facility] TDAP 2009-11-28 Completed University of 00:00:00 [facility] TDAP 2009-11-28 Completed University of 00:00:00 [facility] TDAP 2009-11-28 Completed University of 00:00:00 [facility] TDAP 2009-11-28 Completed University of 00:00:00 [facility] TDAP 2009-11-28 Completed University of 00:00:00 [facility] TDAP 2009-11-28 Completed University of 00:00:00 [facility] TDAP 2009-11-28 Completed University of 00:00:00 [facility] Vital Signs Vital Name Observation Time Observation Value Comments Source Systolic blood 2023-07-25 18:22:00 137 mm[Hg] Univer sity of pressure [facility] Diastolic blood 2023-07-25 18:22:00 65 mm[Hg] Unive rsity of pressure [facility] Heart rate 2023-07-25 18:21:00 87 /min [facility] Respiratory rate 2023-07-25 18:21:00 18 /min Univ ersity of [facility] Body height 2023-07-25 18:21:00 168.9 cm [facility] Body weight 2023-07-25 18:21:00 85.276 kg [facility] BMI 2023-07-25 18:21:00 29.89 kg/m2 [facility] Oxygen saturation in 2023-07-25 18:21:00 98 /min University of Arterial blood by [facility] Respiratory rate 2023-07-06 13:52:00 18 /min Univ ersity of [facility] Body height 2023-07-06 13:52:00 168.9 cm [facility] Body weight 2023-07-06 13:52:00 85.73 kg [facility] BMI 2023-07-06 13:52:00 30.05 kg/m2 [facility] Oxygen saturation in 2023-07-06 13:52:00 98 /min [facility] blood by [place] [facility] Systolic blood 2023-06-20 14:58:00 129 mm[Hg] Univer sity of pressure [facility] Diastolic blood 2023-06-20 14:58:00 77 mm[Hg] Unive rsity of pressure [facility] Heart rate 2023-06-20 14:58:00 108 /min [facility] Respiratory rate 2023-06-20 14:58:00 18 /min Univ ersity of [facility] Body height 2023-06-20 14:58:00 168.9 cm [facility] Body weight 2023-06-20 14:58:00 82.101 kg [facility] BMI 2023-06-20 14:58:00 28.78 kg/m2 [facility] Oxygen saturation in 2023-06-20 14:58:00 98 /min University of Arterial blood by [facility] philip [facility] Systolic blood 2023-04-13 16:59:00 138 mm[Hg] Univer sity of pressure [facility] Diastolic blood 2023-04-13 16:59:00 82 mm[Hg] Unive rsity of pressure [facility] Heart rate 2023-04-13 16:59:00 106 /min [facility] Body temperature 2023-04-13 16:59:00 37.28 Perla Univ ersity of [facility] Body height 2023-04-13 16:59:00 167.6 cm [facility] Body weight 2023-04-13 16:59:00 83.87 kg [facility] BMI 2023-04-13 16:59:00 29.84 kg/m2 [facility] Oxygen saturation in 2023-04-13 16:59:00 99 /min University of Arterial blood by [facility] P[facility] oxim[facility] Branch Systolic blood 2023-03-24 19:48:00 184 mm[Hg] Univer sity of pressure [facility] Diastolic blood 2023-03-24 19:48:00 95 mm[Hg] Unive rsity of pressure [facility] Heart rate 2023-03-24 19:48:00 84 /min [facility] Body height 2023-03-24 19:41:00 167.6 cm [facility] Body weight 2023-03-24 19:41:00 88.043 kg [facility] BMI 2023-03-24 19:41:00 31.33 kg/m2 [facility] Oxygen saturation in 2023-03-24 19:41:00 97 /min University of Arterial blood by [facility] Body height 2023-01-24 21:15:00 168.9 cm [facility] Body weight 2023-01-24 21:15:00 91.627 kg [facility] BMI 2023-01-24 21:15:00 32.12 kg/m2 [facility] Systolic blood 2023-01-24 20:29:00 151 mm[Hg] Univer sity of pressure [facility] Diastolic blood 2023-01-24 20:29:00 83 mm[Hg] Unive rsity of pressure [facility] Heart rate 2023-01-24 20:29:00 88 /min [facility] Oxygen saturation in 2023-01-24 20:29:00 100 /min University of Arterial blood by [facility] Body height 2023-01-24 20:28:00 168.9 cm [facility] Body weight 2023-01-24 20:28:00 91.989 kg [facility] BMI 2023-01-24 20:28:00 32.24 kg/m2 [facility] Systolic blood 2022-11-23 13:44:00 181 mm[Hg] Univer sity of pressure [facility] Diastolic blood 2022-11-23 13:44:00 84 mm[Hg] Unive rsity of pressure [facility] Heart rate 2022-11-23 13:43:00 82 /min [facility] Body height 2022-11-23 13:43:00 167.6 cm [facility] Body weight 2022-11-23 13:43:00 95.845 kg [facility] BMI 2022-11-23 13:43:00 34.10 kg/m2 [facility] Oxygen saturation in 2022-11-23 13:43:00 98 /min University of Arterial blood by [facility] Branch Systolic blood 2022-10-12 15:35:00 158 mm[Hg] Univer sity of pressure [facility] Diastolic blood 2022-10-12 15:35:00 83 mm[Hg] Unive rsity of pressure [facility] Body height 2022-10-12 15:34:00 167.6 cm [facility] Body weight 2022-10-12 15:34:00 96.389 kg [facility] BMI 2022-10-12 15:34:00 34.30 kg/m2 [facility] Oxygen saturation in 2022-10-12 15:34:00 98 /min University of Arterial blood by [facility] Branch Systolic blood 2022-09-23 19:28:00 180 mm[Hg] Univer sity of pressure [facility] Diastolic blood 2022-09-23 19:28:00 70 mm[Hg] Unive rsity of pressure [facility] Heart rate 2022-09-23 19:21:00 85 /min [facility] Body temperature 2022-09-23 19:21:00 37.11 Perla Univ ersity of [facility] Body height 2022-09-23 19:21:00 167.6 cm [facility] Body weight 2022-09-23 19:21:00 93.895 kg [facility] BMI 2022-09-23 19:21:00 33.41 kg/m2 [facility] Oxygen saturation in 2022-09-23 19:21:00 99 /min University of Arterial blood by [place] [employer] [facility] Systolic blood 2022-09-09 15:55:00 168 mm[Hg] Univer sity of pressure [facility] Diastolic blood 2022-09-09 15:55:00 82 mm[Hg] Unive rsity of pressure [facility] Body height 2022-09-09 15:55:00 167.6 cm [facility] Body weight 2022-09-09 15:55:00 95.709 kg [facility] BMI 2022-09-09 15:55:00 34.06 kg/m2 [facility] Oxygen saturation in 2022-09-09 15:55:00 98 /min University of Arterial blood by [place] [employer] [facility] Systolic blood 2022-07-29 12:57:00 123 mm[Hg] Univer sity of pressure [facility] Diastolic blood 2022-07-29 12:57:00 63 mm[Hg] Unive rsity of pressure [facility] Heart rate 2022-07-29 12:57:00 87 /min [facility] Body height 2022-07-29 12:57:00 168.9 cm [facility] Body weight 2022-07-29 12:57:00 94.802 kg [facility] BMI 2022-07-29 12:57:00 33.23 kg/m2 [facility] Systolic blood 2022-07-27 12:09:00 159 mm[Hg] Univer sity of pressure [facility] Diastolic blood 2022-07-27 12:09:00 83 mm[Hg] Unive rsity of pressure [facility] Heart rate 2022-07-27 12:04:00 84 /min [facility] Body weight 2022-07-27 12:04:00 94.802 kg [facility] BMI 2022-07-27 12:04:00 33.23 kg/m2 [facility] Oxygen saturation in 2022-07-27 12:04:00 98 /min [facility] by [place] [facility] Procedures Procedure Date / Time Performing Clinician Source Performed REFERRAL- 2023-07-20 05:01:00 [facility] REQUEST/RESPONSE Name Medical Branch EXTERNAL PROVIDER 2023-05-02 05:01:00 Doctor Unassigned, No Univ [facility] RECORDS Name Medical Branch CT ABDOMEN PELVIS W 2023-04-13 20:05:00 Christopher Bridges [facility] CBC WITH DIFF 2023-03-24 20:35:00 Christopher Bridges [place] o f [facility] TDAP VACCINE, >11 YRS, 2023-01-24 20:48:42 Christopher Bridges [facility] ASSIGNMENT OF BENEFITS 2023-01-24 20:16:39 Doctor Unassigned, No [facility] PHYSICIAN CERTIFICATION 2022-09-13 05:01:00 Doctor Unassigned, N o [facility] STATEMENT Name [facility] Encounters Start End Encounter Admission Attending Care Care Encounter Source Date/Time Date/Time Type Type Clinicians Facility Department ID 2021-09-26 Emergency [facility] [id number] [facility] 05:44:36 [facility] 2021-02-02 Inpatient Du, Naga [facility] [id number] [facility] 10:05:[address] [place] [address] 2020-07-23 Inpatient Brito, HCABM DAYS [id number] [facility] 12:00:00 Isael Matson [facility] 2023-08-05 2023-08-05 Talent Development Director Chapito, Verito Lab Main [facility] 1.2.8 40.114 [id number] Univers 13:15:00 13:30:00 Visit Veda Chavez 350.1.13.10 [facility] 4.2.7.2.686 Tutu CLEARY [id number] Nm dical [address] BUILDING 2023-08-05 2023-08-05 Outpatient R SCOTT [facility] [id number] Univers 13:15:00 13:15:[address] [facility] 2023-07-25 2023-07-25 Office Cyrus [facility] 1.2.840.114 [id number] Univers 13:45:00 14:15:00 Visit Christopher HEALTH 350.1.13.10 it y of [place] 4.2.7.2.686 [place] as CRISTO?BLEA [id number] [address] MEDICAL OFFICE BUILDING 2023-07-25 2023-07-25 Outpatient R CYRUS NCCIRO [facility] [id number] Univers 13:45:00 13:45:00 CHRISTOPHER ity of [facility] 2023-07-23 2023-07-23 Patient Doctor [facility] 1.2.840.114 [id number] Univers 00:00:00 00:00:00 Secure Msg Unassigned, HEALTH 350.1.13.10 ity [place] 4.2.7.2.686 [place] as CRISTO?BLEA [id number] [address] MEDICAL OFFICE [facility] 2023-07-20 2023-07-20 Telephone [facility] 1.2.566.122 [id number] Univers 00:00:00 00:00:00 [place] [facility] 350.1.13.10 it y of [place] 4.2.7.2.686 [place] as CRISTO?BLEA [id number] [address] MEDICAL OFFICE [facility] 2023-07-20 2023-07-20 Orders Doctor PERLA 1.2.840.114 [id number] Univers 00:00:00 00:00:00 Only Unassigned, JORGE 350.1.13.10 ity [place] [facility] 4.2.7.2.686 [place] as [id number] [address] 2023-07-14 2023-07-14 Refill [facility] 1.2.840.114 [id number] Univers 00:00:00 00:00:00 Christopher HEALTH 350.1.13.10 it y of [place] 4.2.7.2.686 [place] as CRISTO?BLEA [id number] [address] MEDICAL OFFICE [facility] 2023-07-06 2023-07-06 Office [facility] 1.2.840.114 [id number] Univers 09:00:00 09:30:00 Visit Christopher HEALTH 350.1.13.10 it y of [place] 4.2.7.2.686 [place] as CRISTO?BLEA [id number] [address] OFFICE [facility] 2023-07-06 2023-07-06 Outpatient Jamshid BRIDGES [facility] [id number] Univers 09:00:00 09:00:00 CHRISTOPHER rudd [facility] 2023-06-21 2023-06-22 Inpatient EM ALFA ReedPM INTE.02 [id number] [facility] 15:25:00 12:06:00 Nkoli 55 [facility] 2023-06-21 2023-06-21 Outpatient ALFA ReedCL LABO [id number] [facility] 00:01:00 00:01:00 Nkoli 22 [facility] 2023-06-20 2023-06-20 Outpatient Jamshid BRIDGES [facility] [id number] Univers 10:00:00 12:39:47 CHRISTOPHER rudd [facility] 2023-06-20 2023-06-20 Office [facility] 1.2.840.114 [id number] Univers 10:00:00 12:39:47 [place] [address]47.1.13.10 it y of [place] 4.2.7.2.686 [place] as CRISTO?BLEA [id number] [address] OFFICE [facility] 2023-05-19 2023-05-19 Refill [facility] 1.2.840.114 [id number] Univers 00:00:00 00:00:00 [facility] 350.1.13.10 it y of [place] 4.2.7.2.686 [place] as CRISTO?BLEA [id number] [address] OFFICE [facility] 2023-05-13 2023-05-13 Refill [facility] 1.2.840.114 [id number] Univers 00:00:00 00:00:00 [facility] 350.1.13.10 it y of [place] 4.2.7.2.686 [place] as CRISTO?BLEA [id number] [address] OFFICE [facility] 2023-05-10 2023-05-10 Patient Doctor [facility] 1.2.840.114 [id number] Univers 00:00:00 00:00:00 Secure Msg Unassigned, HEALTH 350.1.13.10 [place] 4.2.7.2.686 [place] as CRISTO?BLEA [id number] [address] MEDICAL OFFICE [facility] 2023-05-09 2023-05-09 Patient Doctor [facility] 1.2.840.114 [id number] Univers 00:00:00 00:00:00 Secure Msg Unassigned, HEALTH 350.1.13.10 [place] 4.2.7.2.686 [place] as CRISTO?BLEA [id number] [address] OFFICE [facility] 2023-05-09 2023-05-09 Telephone [facility] 1.2.247.448 [id number] Univers 00:00:00 00:00:00 [place] HEALTH 350.1.13.10 it y of [place] 4.2.7.2.686 [place] as CRISTO?BLEA [id number] [address] OFFICE [facility] 2023-05-02 2023-05-02 Orders Doctor PERLA 1.2.840.114 [id number] Univers 00:00:00 00:00:00 Only Unassigned, JORGE 350.1.13.10 ity [place] [facility] 4.2.7.2.686 [place] [id number] [address] 2023-04-20 2023-04-20 Refill [facility] 1.2.840.114 [id number] Univers 00:00:00 00:00:00 [place] HEALTH 350.1.13.10 it y of [place] 4.2.7.2.686 [place] as CRISTO?BLEA [id number] [address] OFFICE [facility] 2023-04-20 2023-04-20 Telephone [facility] 1.2.836.170 [id number] Univers 00:00:00 00:00:00 Christopher HEALTH 350.1.13.10 it y of [place] 4.2.7.2.686 [place] as CRISTO?BLEA [id number] Me yann CEDE[address] MEDICAL OFFICE [facility] 2023-04-18 2023-04-18 Telephone [facility] 1.2.170.826 [id number] Univers 00:00:00 00:00:00 Christopher HEALTH 350.1.13.10 it y of [place] 4.2.7.2.686 [place] as CRISTO?BLEA [id number] [address] MEDICAL OFFICE [facility] 2023-04-13 2023-04-13 Outpatient R CYRUS [facility] [id number] Univers 14:37:26 23:59:00 CHRISTOPHER ity of [facility] 2023-04-13 2023-04-13 [place] [facility] 1.2.840.114 [id number] Univers 14:37:26 23:59:00 Encounter Christopher ZAMBRANO 350.1.13.10 ity of [place] 4.2.7.2.686 [place] [id number] [address] 2023-04-13 2023-04-13 Office [facility] 1.2.840.114 [id number] Univers 12:00:00 12:15:00 Visit [facility] 350.1.13.10 it y of [place] 4.2.7.2.686 [place] as CRISTO?BLEA [id number] [address] MEDICAL OFFICE [facility] 2023-04-13 2023-04-13 Telephone [facility] 1.2.473.274 [id number] Univers 00:00:00 00:00:00 Christopher HEALTH 350.1.13.10 it y of [place] 4.2.7.2.686 [place] as CRISTO?BLEA [id number] [address] OFFICE [facility] 2023-04-13 2023-04-13 Telephone [facility] 1.2.055.678 [id number] Univers 00:00:00 00:00:00 Christopher HEALTH 350.1.13.10 it y of [place] 4.2.7.2.686 [place] as CRISTO?BLEA [id number] [address] MEDICAL OFFICE [facility] 2023-04-11 2023-04-11 Telephone Cyrus [facility] 1.2.970.990 [id number] Univers 00:00:00 00:00:00 [facility] 350.1.13.10 it y of [place] 4.2.7.2.686 [place] as CRISTO?BLEA [id number] Nm yann [facility] 0[address] [facility] OFFICE [facility] 2023-04-04 2023-04-04 Telephone [facility] 1.2.651.733 [id number] Univers 00:00:00 00:00:00 Christopher [facility] 350.1.13.10 it y of [place] 4.2.7.2.686 [place] as CRISTO?BLEA [id number] [address] OFFICE [facility] 2023-04-01 2023-04-01 Telephone [facility] 1.2.362.056 [id number] Univers 00:00:00 00:00:00 [facility] 350.1.13.10 it y of [place] 4.2.7.2.686 [place] CRISTO?BLEA [id number] [address] 2023-03-24 2023-03-24 Talent Development Director Lab, Ang - Db [facility] 1.2.840.1 14 [id number] Univers 16:00:00 16:15:00 Visit Christopher Bridges [facility] 350.1.13.10 [facility] 4.2.7.2.686 [place] CRISTO?BLEA [id number] [facility] [address] [facility] OFFICE [facility] 2023-03-24 2023-03-24 Outpatient R CYRUS [facility] [id number] Univers 14:30:00 15:30:[address] [facility] 2023-03-24 2023-03-24 Office [facility] 1..840.114 [id number] Univers 14:30:00 15:30:32 Visit [facility] 350.1.13.10 [facility] 4.2.7.2.686 [place] CRISTO?BLEA [id number] [address] OFFICE [facility] 2023-03-11 2023-03-11 Refill [facility] 1.2.840.114 [id number] Univers 00:00:00 00:00:00 [place] HEALTH 350.1.13.10 it y of [place] 4.2.7.2.686 [place] as CRISTO?BLEA [id number] Nm yann RIVERA 0[address] [facility] OFFICE [facility] 2023-03-11 2023-03-11 [facility] 1.2.840.114 [id number] Univers 00:00:00 00:00:00 Christopher HEALTH 350.1.13.10 it y of [place] 4.2.7.2.686 [place] as CRISTO?BLEA [id number] Nm yann RIVERA [address] [place] [address] OFFICE [facility] 2023-02-21 2023-02-21 [facility] 1.2.840.114 [id number] Univers 00:00:00 00:00:00 [facility] 350.1.13.10 it y of [place] 4.2.7.2.686 [place] as CRISTO?BLEA [id number] [employer] [address] OFFICE [facility] 2023-01-24 2023-01-24 [facility] [id number] Univers 15:45:00 17:09:24 NATI tobin [facility] 2023-01-24 2023-01-24 Office [facility] 1.2.964.094 [id number] Univers 15:45:00 17:09:24 Visit [facility] 350.1.13.10 it y of [place] 4.2.7.2.686 [place] as CRISTO?BLEA [id number] Nm yann RIVERA [address] [facility] OFFICE [facility] 2023-01-24 2023-01-24 Office [facility] 1.2.840.114 [id number] Univers 14:45:00 15:10:26 Visit [facility] 350.1.13.10 it y of [place] 4.2.7.2.686 [place] as CRISTO?BLEA [id number] Nm yann RIVERA [address] [place] [address] OFFICE [facility] 2023-01-24 2023-01-24 Orders Doctor DUNCAN 1.2.840.114 [id number] Univers 00:00:00 00:00:00 Only Unassigned, JORGE 350.1.13.10 ity [place] [facility] 4.2.7.2.686 [place] as [id number] [address] 2023-01-19 2023-01-19 Telephone [facility] 1.2.371.144 [id number] Univers 00:00:00 00:00:00 [place] HEALTH 350.1.13.10 it y of [place] 4.2.7.2.686 [place] as CRISTO?BLEA [id number] [address] MEDICAL OFFICE BUILDING 2023-01-13 2023-01-13 [facility] 1.2.840.114 [id number] Univers 00:00:00 00:00:00 [place] HEALTH 350.1.13.10 it y of [place] 4.2.7.2.686 [place] as CRISTO?BLEA [id number] [address] MEDICAL OFFICE [facility] 2023-01-13 2023-01-13 Telephone [facility] 1.2.292.143 [id number] Univers 00:00:00 00:00:00 [facility] 350.1.13.10 it y of [place] 4.2.7.2.686 [place] as CRISTO?BLEA [id number] [address] MEDICAL OFFICE [facility] 2022-12-22 2022-12-22 [facility] 1.2.840.114 [id number] Univers 00:00:00 00:00:00 Christopher HEALTH 350.1.13.10 it y of [place] 4.2.7.2.686 [place] as CRISTO?BLEA [id number] [address] MEDICAL OFFICE [facility] 2022-11-23 2022-11-23 Office [facility] 1.2.840.114 [id number] Univers 07:45:00 08:00:00 Visit [facility] 350.1.13.10 it y of [place] 4.2.7.2.686 [place]ard as RCISTO?BLEA [id number] [address] MEDICAL OFFICE [facility] 2022-11-23 2022-11-23 Outpatient R CYRUS [facility] [id number] Univers 07:45:00 07:45:00 CHRISTOPHER ity [facility] 2022-11-22 2022-11-22 Refdion [facility] 1.2.840.114 [id number] Univers 00:00:00 00:00:00 [facility] 350.1.13.10 it y of [place] 4.2.7.2.686 [place]ard as CRISTO?BLEA [id number] [address] OFFICE [facility] 2022-11-17 2022-11-17 [facility] 1.2.840.114 [id number] Univers 00:00:00 00:00:00 [facility] 350.1.13.10 it y of [place] 4.2.7.2.686 [place] as CRISTO?BLEA [id number] [address] OFFICE [facility] 2022-11-14 2022-11-14 [facility] 1.2.840.114 [id number] Univers 00:00:00 00:00:00 [facility] 350.1.13.10 it y of [place] 4.2.7.2.686 Willard as CRISTO?BLEA [id number] [address] OFFICE [facility] 2022-10-20 2022-10-20 [facility] 1.2.840.114 [id number] Univers 00:00:00 00:00:00 [facility] 350.1.13.10 it y of [place] 4.2.7.2.686 [place]ard as CRISTO?BLEA [id number] [address] OFFICE [facility] 2022-10-12 2022-10-12 Office [facility] 1.2.840.114 [id number] Univers 09:45:00 10:00:00 Visit [facility] 350.1.13.10 it y of [place] 4.2.7.2.686 [place] as CRISTO?BLEA [id number] [address] OFFICE [facility] 2022-10-12 2022-10-12 Outpatient Jamshid BRIDGES [facility] [id number] Univers 09:45:00 09:45:00 CHRISTOPHER rudd [facility] 2022-10-05 2022-10-05 Telephone [facility] 1.2.052.275 [id number] Univers 00:00:00 00:00:00 [facility] 350.1.13.10 it y of [place] 4.2.7.2.686 [place]ard as CRISTO?BLEA [phone] Nm dicramya RIVERA [address] MEDICAL OFFICE [facility] 2022-10-05 2022-10-05 Telephone [facility] 1.2.604.487 [id number] Univers 00:00:00 00:00:00 [facility] 350.1.13.10 it y of [place] 4.2.7.2.686 Willard as CRISTO?BLEA [phone] Nm dicramya RIVERA [address] [place] [address] OFFICE [facility] 2022-09-23 2022-09-23 Office [facility] 1.2.840.114 [id number] Univers 14:45:00 14:45:00 [facility] 350.1.13.10 [facility] y of [place] 4.2.7.2.686 Willard as CRISTO?BLEA [phone] Nm yann RIVERA [address] [place] [address] OFFICE [facility] 2022-09-23 2022-09-23 Outpatient R [facility] [id number] Univers 14:45:00 14:37:25 CHRISTOPHER rudd [facility] 2022-09-14 2022-09-14 Refill [facility] 1.2.840.114 [id number] Univers 00:00:00 00:00:00 [facility] 350.1.13.10 it y of [place] 4.2.7.2.686 [place]ard as CRISTO?BLEA [phone] Nm yann RIVERA 044 [facility] OFFICE [facility] 2022-09-13 2022-09-13 Telephone [facility] 1.2.840.114 [id number] Univers 00:00:00 00:00:00 [facility] HEALTH 350.1.13.10 it y of [place] 4.2.7.2.686 [place]ard as CRISTO?BLEA [phone] Nm dical NICOLE [address] MEDICAL OFFICE BUILDING 2022-09-13 2022-09-13 Orders Doctor PERLA 1.2.840.114 [id number] Univers 00:00:00 00:00:00 Only Unassigned, JORGE 350.1.13.10 [facility] 4.2.7.2.686 [place] as [phone] [address] 2022-09-09 2022-09-09 [facility] [id number] Univers 11:00:00 11:25:41 NATI rudd [facility] 2022-09-09 2022-09-09 Office [facility] 1.2.042.182 [id number] Univers 11:00:00 11:25:41 Visit [facility] 350.1.13.10 it y of [facility] 4.2.7.2.686 [place] as CRISTO?BLEA [id number] [address] OFFICE [facility] 2022-08-25 2022-08-25 Refill [facility] 1.2.840.114 [id number] Univers 00:00:00 00:00:00 [facility] 350.1.13.10 it y of [facility] 4.2.7.2.686 [place] as CRISTO?BLEA [phone] Nm yann [facility] 044 [facility] OFFICE [facility] 2022-07-29 2022-07-29 Outpatient [facility] [id number] Univers 08:15:00 08:47:33 NATI rudd [facility] 2022-07-29 2022-07-29 Office [facility] 1.2.912.130 [id number] Univers 08:15:00 08:47:33 Visit [facility] 350.1.13.10 it y of [facility] 4.2.7.2.686 [place] as CRISTO?BLEA [phone] Nm yann [facility] 198 [facility] OFFICE [facility] 2022-07-29 2022-07-29 Outpatient [facility] [id number] Univers 08:15:00 08:15:00 NATI rudd [facility] 2022-07-27 2022-07-27 Office [facility] 1.2.840.114 [id number] Univers 07:15:00 07:23:24 Visit [place] [facility] 350.1.13.10 it y of [place] 4.2.7.2.686 Willard as CRISTO?BLEA [id number] [address] MEDICAL OFFICE [facility] 2022-07-27 2022-07-27 Outpatient Jamshid BRIDGES [facility] [id number] Univers 07:15:00 07:23:24 CHRISTOPHER rudd [facility] 2022-07-27 2022-07-27 Outpatient Jamshid BRIDGES, [facility] [id number] Univers 07:15:00 07:15:00 CHRISTOPHER noam [facility] 2022-07-16 2022-07-16 Refdion [facility] 1.2.840.114 [id number] Univers 00:00:00 00:00:00 [place] [facility] 350.1.13.10 it y of [place] 4.2.7.2.686 Willard as CRISTO?BLEA [phone] [address] OFFICE [facility] 2022-06-23 2022-06-23 Refdion GilliamersSAN JUAN [facility] 1.2.840.114 [id number] Univers 00:00:00 00:00:00 [facility] 350.1.13.10 it y of [place] 4.2.7.2.686 [place]ard as CRISTO?BLEA [phone] [address] OFFICE [facility] 2022-06-02 2022-06-02 Office [facility] 1.2.840.114 [id number] Univers 07:30:00 07:45:00 Visit [place] [facility] 350.1.13.10 it y of [place] 4.2.7.2.686 [place]ard as CRISTO?BLEA [id number] [address] MEDICAL OFFICE [facility] 2022-06-02 2022-06-02 Outpatient Jamshid BRIDGES [facility] [id number] Univers 07:30:00 07:30:00 CHRISTOPHER rudd [facility] 2022-06-02 2022-06-02 Outpatient Jamshid BRIDGES [facility] [id number] Univers 07:30:00 07:30:00 CHRISTOPHER rudd [facility] 2022-06-02 2022-06-02 Letter [facility] 1.2.840.114 [id number] Univers 00:00:00 00:00:00 (Out) [facility] 350.1.13.10 it y of [place] 4.2.7.2.686 [place] as CRISTO?BLEA [id number] [address] OFFICE [facility] 2022-06-02 2022-06-02 [facility]phone [facility] 1.2.186.456 [id number] Univers 00:00:00 00:00:00 [facility] 350.1.13.10 it y of [place] 4.2.7.2.686 [place] as CRISTO?BLEA [id number] [address] 2022-05-26 2022-05-26 [facility] 1.2.840.114 [id number] Univers 00:00:00 00:00:00 [facility] 350.1.13.10 it y of [place] 4.2.7.2.686 [place] as CRISTO?BLEA [id number] [address] OFFICE [facility] 2022-05-26 2022-05-26 Telephone ChapinterezavishS[facility] 1.2.840.114 [id number] Univers 00:00:00 00:00:00 [facility] HEALTH 350.1.13.10 it y of [place] 4.2.7.2.686 [place] as CRISTO?BLEA [phone] [address] OFFICE [facility] 2022-05-25 2022-05-25 [facility] 1.2.840.114 [id number] Univers 00:00:00 00:00:00 [facility] 350.1.13.10 it y of [place] 4.2.7.2.686 [place] as CRISTO?BLEA [id number] [address] 2022-05-07 2022-05-07 [facility] 1.2.840.114 [id number] Univers 00:00:00 00:00:00 [facility] 350.1.13.10 it y of [place] 4.2.7.2.686 [place] as CRISTO?BLEA [id number] Nm yann RIVERA 044 [facility] OFFICE [facility] 2022-04-27 2022-04-27 Office [facility] 1.2.840.114 [id number] Univers 08:00:00 08:15:00 Visit Christopher [facility] 350.1.13.10 it y of [place] 4.2.7.2.686 Willard as CRISTO?BLEA [phone] Nm yann RIVERA 044 [facility] OFFICE [facility] 2022-04-27 2022-04-27 Outpatient R CYRUS [facility] [id number] Univers 08:00:00 08:00:00 CHRISTOPHER noam [facility] 2022-04-19 2022-04-19 Office [facility] 1.2.910.155 [id number] Univers 15:00:00 15:15:18 Visit [facility] 350.1.13.10 it y of [place] 4.2.7.2.686 Willard as CRISTO?BLEA [phone] Nm yann RIVERA 198 [facility] OFFICE [facility] 2022-04-19 2022-04-19 [facility] [id number] Univers 15:00:00 15:15:18 NATIJIMMY rudd [facility] 2022-04-19 2022-04-19 [facility] [id number] Univers 15:00:00 15:00:00 NATIJIMMY rudd [facility] 2022-04-16 2022-04-16 Outpatient R SUZAN [facility] [id number] Univers 10:39:33 23:59:00 [facility] 2022-04-16 2022-04-16 [facility] 1.2.717.589 [id number] Univers 10:39:33 23:59:00 Encounter [facility] 350.1.13.10 ity of [place] 4.2.7.2.686 [place]ard as CRISTO?BLEA [phone] Nm yann RIVERA 808 [facility] OFFICE [facility] 2022-04-16 2022-04-16 Urgent [facility] 1.2.840.114 [id number] Univers 10:45:00 11:05:26 Care [facility] 350.1.13.10 it y of [place] 4.2.7.2.686 [place] as CRISTO?BLEA [id number] Nm yann RIVERA [address] MEDICAL OFFICE [facility] 2022-04-07 2022-04-07 Refdion [facility] 1.2.840.114 [id number] Univers 00:00:00 00:00:00 [facility] 350.1.13.10 it y of [place] 4.2.7.2.686 [place] as CRISTO?BLEA [phone] Nm yann RIVERA 044 [facility] OFFICE [facility] 2022-03-30 2022-03-30 Outpatient Jamshid ALVARADO [facility] [id number] Univers 15:45:00 23:59:00 NATI [facility] 2022-03-30 2022-03-30 Outpatient Jamshid JUDD [facility] [id number] Univers 15:00:00 17:10:57 JAY [facility] 2022-03-30 2022-03-30 Office [facility] 1.2.840.114 [id number] Univers 15:00:00 17:10:57 Visit [facility] 350.1.13.10 it y of [place] 4.2.7.2.686 [place] as CRISTO?BLEA [phone] Nm yann RIVERA 198 [facility] OFFICE [facility] 2022-03-29 2022-03-29 Refdion [facility] 1.2.840.114 [id number] Univers 00:00:00 00:00:00 [facility] 350.1.13.10 it y of [place] 4.2.7.2.686 [place]ard as CRISTO?BLEA [id number] Nm yann RIVERA 044 [facility] OFFICE [facility] 2022-03-17 2022-03-17 Office [facility] 1.2.840.114 [id number] Univers 14:45:00 15:00:00 Visit [facility] 350.1.13.10 it y of [place] 4.2.7.2.686 [place]ard as CRISTO?BLEA [id number] Nm yann RIVERA 044 [facility] OFFICE [facility] 2022-03-17 2022-03-17 Outpatient R CYRUS [facility] [id number] Univers 14:45:00 14:45:00 CHRISTOPHER rudd [facility] 2022-03-08 2022-03-08 Refill [facility] 1.2.840.114 [id number] Univers 00:00:00 00:00:00 [facility] 350.1.13.10 it y of [place] 4.2.7.2.686 [place]ard as PROFESSIO [phone] Nm yann GOMEZ [address] [place] [address] OFFICE BUILDING ONE 2022-03-05 2022-03-05 Telephone [facility] 1.2.570.644 [id number] Univers 00:00:00 00:00:00 [facility] 350.1.13.10 it y of [place] 4.2.7.2.686 Willard as CRISTO?BLEA [phone] Nm yann RIVERA [address] [place] [address] OFFICE [facility] 2022-03-01 2022-03-01 Office [facility] 1.2.840.114 [id number] Univers 07:45:00 07:45:00 Visit [facility] 350.1.13.10 it y of [place] 4.2.7.2.686 Willard as CRISTO?BLEA [phone] Nm yann RIVERA 044 [facility] OFFICE [facility] 2022-03-01 2022-03-01 Talent Development Director Lab, Ang - Db [facility] 1.2.840.1 14 [id number] Univers 07:30:00 07:45:00 Visit Christopher Bridges [facility] 350.1.13.10 ity of [place] 4.2.7.2.686 Willard as CRISTO?BLEA [phone] Nm yann RIVERA 353 [facility] OFFICE [facility] 2022-03-01 2022-03-01 Outpatient R CYRUS [facility] [id number] Univers 07:45:00 07:32:27 CHRISTOPHER rudd [facility] 2022-03-01 2022-03-01 Orders Doctor DUNCAN 1.2.840.114 [id number] Univers 00:00:00 00:00:00 Only Unassigned, JORGE 350.1.13.10 [facility] 4.2.7.2.686 [place] as [phone] [address] 2022-02-27 2022-02-27 Refdion [facility] 1.2.840.114 [id number] Univers 00:00:00 00:00:00 [facility] 350.1.13.10 it y of [place] 4.2.7.2.686 Willadr as PROFESSIO [phone] [address] OFFICE [facility] ONE 2022-01-22 2022-01-22 Refdion [facility] 1.2.840.114 [id number] Univers 00:00:00 00:00:00 [facility] 350.1.13.10 it y of [place] 4.2.7.2.686 Willard as PROFESSIO [phone] [address] 2022-01-07 2022-01-07 [facility] 1.2.840.114 [id number] Univers 00:00:00 00:00:00 [facility] 350.1.13.10 it y of [place] 4.2.7.2.686 Willard as PROFESSIO [id number] [address] 2021-12-31 2021-12-31 Office [facility] 1.2.840.114 [id number] Univers 14:00:00 14:15:00 Visit [facility] 350.1.13.10 it y [facility] 4.2.7.2.686 [place]ard as CRISTO?BLEA [phone] [facility] NICOLE [address] [place] [address] 2021-12-31 2021-12-31 Outpatient Jamshid BRIDGES [facility] [id number] Univers 14:00:00 14:00:00 CHRISTOPHER rudd [facility] 2021-12-31 2021-12-31 Outpatient Jamshid BRIDGES [facility] [id number] Univers 14:00:00 13:57:36 CHRISTOPHER tobin [facility] 2021-12-31 2021-12-31 Orders Doctor DUNCAN 1.2.840.114 [id number] Univers 00:00:00 00:00:00 Only Unassigned, JORGE 350.1.13.10 [place]y [place] [facility] 4.2.7.2.686 Willard as [phone] [address] 2021-11-29 2021-11-29 [facility] 1.2.840.114 [id number] Univers 00:00:00 00:00:00 [facility] 350.1.13.10 it y of [place] 4.2.7.2.686 Willard as CRISTO?BLEA [id number] [address] MEDICAL OFFICE BUILDING 2021-11-13 2021-11-13 [facility] 1.2.840.114 [id number] Univers 00:00:00 00:00:00 [facility] 350.1.13.10 it y of [place] 4.2.7.2.686 Willard as PROFESSIO [id number] [address] OFFICE [facility] ONE 2021-10-28 2021-10-28 Outpatient R CYRUS [facility] [id number] Univers 14:00:00 14:00:00 [facility] 2021-10-28 2021-10-28 Outpatient Jamshid BRIDGES [facility] [id number] Univers 14:00:00 14:00:00 [facility] 2021-10-28 2021-10-28 Outpatient R CYRUS [facility] [id number] Univers 14:00:00 14:00:00 [facility] 2021-10-28 2021-10-28 Office [facility] 1.2.840.114 [id number] Univers 13:06:06 13:21:06 Visit [facility] 350.1.13.10 it y of [place] 4.2.7.2.686 Willard as CRISTO?BLEA [phone] [address] MEDICAL OFFICE BUILDING 2021-10-17 2021-10-17 [facility] 1.2.840.114 [id number] Univers 00:00:00 00:00:00 [facility] 350.1.13.10 it [facility] 4.2.7.2.686 [place] as PROFESSIO [phone] Nm yann GOMEZ [address] [place] [address] OFFICE [facility] ONE 2021-10-13 2021-10-13 Telephone Bridges [facility] 1.2.508.924 [id number] Univers 00:00:00 00:00:00 [facility] 350.1.13.10 it y of [place] 4.2.7.2.686 Willard as CRISTO?BLEA [phone] Nm yann RIVERA [address] [place] [address] OFFICE BUILDING 2021-09-30 2021-09-30 Refill [facility] 1.2.840.114 [id number] Univers 00:00:00 00:00:00 [facility] 350.1.13.10 it y of [place] 4.2.7.2.686 [place]ard as CRISTO?BLEA [phone] [facility] G[address] OFFICE [facility] 2021-09-03 2021-09-03 Office [facility] 1.2.840.114 [id number] Univers 11:43:03 12:18:47 Visit [facility] 350.1.13.10 it y of [place] 4.2.7.2.686 Willard as Cristo?Blea [id number] [address] Office [facility] 2021-09-03 2021-09-03 Outpatient R CYRUS [facility] [id number] Univers 12:00:00 12:00:00 CHRISTOPHER ity [facility] 2021-08-06 2021-08-06 Refdion [facility] 1.2.840.114 [id number] Univers 00:00:00 00:00:00 [facility] 350.1.13.10 it y of [place] 4.2.7.2.686 Willard as Professio [phone] [facility] baldev [address] [place] [address] One 2021-08-04 2021-08-04 Refdion [facility] 1.2.840.114 [id number] Univers 00:00:00 00:00:00 [facility] 350.1.13.10 it y of [place] 4.2.7.2.686 Willard as Professio [phone] [address] Office Building One 2021-07-08 2021-07-08 Office [facility] 1.2.840.114 [id number] Univers 13:17:14 13:41:13 Visit [facility] 350.1.13.10 it y of [place] 4.2.7.2.686 Willard as Professio [phone] [address] Office Building One 2021-07-08 2021-07-08 Outpatient R CYRUS [facility] [id number] Univers 13:30:00 13:30:00 CHRISTOPHER rudd [facility] 2021-06-18 2021-06-18 Nurse Therapy, Adc Covid Infusion [facility] 1.2.840.114 [id number] Univers 15:15:27 15:45:27 Visit Jamie Ahn [place] 350.1.13.10 ity of [place] 4.2.7.2.686 [place] [facility] [phone] [address] 2021-06-18 2021-06-18 Outpatient R ANABELLE [facility] [id number] Univers 15:30:00 15:30:00 JAMIE vasqueznoam [facility] 2021-06-18 2021-06-18 Orders Doctor EPRLA 1.2.840.114 [id number] Univers 00:00:00 00:00:00 Only Unassigned, JORGE 350.1.13.10 ity [place] [facility] 4.2.7.2.686 Willard as [phone] [address] 2021-06-17 2021-06-17 Telephone [facility] 1.2.967.512 [id number] Univers 00:00:00 00:00:00 [facility] 350.1.13.10 it y of [place] 4.2.7.2.686 [place]ard as Professio [phone] [address] Office Building One 2021-06-16 2021-06-16 Urgent David [facility] 1.2.840.114 [id number] Univers 14:48:53 15:08:53 Care [facility] 350.1.13.10 it y of [place] 4.2.7.2.686 [place]ard as Professio [phone] Nm dical nal [address] Office Building One 2021-06-16 2021-06-16 Outpatient R THELMA, [facility] [id number] Univers 15:00:00 15:00:00 WONDIFUL ity o f [facility] 2021-06-16 2021-06-16 Outpatient R DAVID [facility] [id number] Univers 15:00:00 15:00:00 JONY noam [facility] 2021-06-03 2021-06-03 Refill [facility] 1.2.840.114 [id number] Univers 00:00:00 00:00:00 [facility] 350.1.13.10 it y of [place] 4.2.7.2.686 [place]ard as Professio [phone] Nm dicms nal [address] [place] [address] Office [facility] One 2021-05-08 2021-05-08 Telephone [facility] 1.2.448.941 [id number] Univers 00:00:00 00:00:00 [facility] 350.1.13.10 it y of [place] 4.2.7.2.686 [place]ard as Professio [phone] Nm dical nal [address] [place] [address] Office Building One 2021-05-07 2021-05-07 Outpatient R BRIDGES [facility] [id number] Univers 15:15:00 15:15:00 CHRISTOPHER [facility] 2021-05-07 2021-05-07 Office [facility] 1.2.840.114 [id number] Univers 14:21:56 14:59:42 Visit [facility] 350.1.13.10 it y of [place] 4.2.7.2.686 [place]ard as Professio [phone] Nm dical nal [address] Office Building One 2021-05-01 2021-05-01 Refill [facility] 1.2.840.114 [id number] Univers 00:00:00 00:00:00 [facility] 350.1.13.10 it y of [place] 4.2.7.2.686 [place]ard as Professio [phone] Nm dical nal [address] [place] [address] Office Building One 2021-04-062021-04-06 [facility] 1.2.840.114 [id number] Univers 00:00:00 00:00:00 [facility] [id number] it y of [place] [id number] [place] as Professio [phone] [facility] 044 [facility] One 2021-04-06 2021-04-06 Orders Doctor PERLA 1.2.840.114 [id number] Univers 00:00:00 00:00:00 Only Unassigned, JOGRE [id number] ity of [place] [facility] 4.2.7.2.686 [place] as [phone] [address] 2021-03-23 2021-03-23 Telephone [facility] [id number] Univers 00:00:00 00:00:00 [facility] [id number] it y of [place] [id number] [place] as Professio [phone] [address] One 2021-03-17 2021-03-17 [facility] 1.2.840.114 [id number] Univers 13:27:08 23:59:00 Encounter Christopher Zambrano 350.1.13.10 ity of [place] 4.2.7.2.686 [facility] [phone] [facility] [address] 2021-03-17 2021-03-17 [facility] [id number] [employer] 00:00:00 00:00:00 CHRISTOPHER ity of [facility] 2021-03-17 2021-03-17 Orders Doctor PERLA 1.2.840.114 [id number] Univers 00:00:00 00:00:00 Only Unassigned, JORGE 350.1.13.10 ity of [place] [facility] 4.2.7.2.686 [place] as [phone] [address] 2021-03-12 2021-03-12 Telephone [facility] [id number] Univers 00:00:00 00:00:00 [facility] 350.1.13.10 it y of [place] 4.2.7.2.686 [place] as Professio [phone] Nm dical nal [address] 2021-03-09 2021-03-09 [facility] 1.2.840.114 [id number] Univers 14:29:50 23:59:00 Encounter Christopher Zambrano 350.1.13.10 ity of [place] [phone] [facility] [address] 2021-03-09 2021-03-09 Office [facility] 1.2.840.114 [id number] Univers 13:17:58 14:25:12 Visit Christopher [facility] 350.1.13.10 it y of [place] 4.2.7.2.686 [place] as Professio [phone] Nm dical nal [address] 2021-03-09 2021-03-09 [facility]patient [facility] [id number] Univers 12:15:00 12:15:00 CHRISTOPHER it of [facility] 2021-03-09 2021-03-09 Orders Doctor PERLA 1.2.840.114 [id number] Univers 00:00:00 00:00:00 Only Unassigned, JORGE 350.1.13.10 ity of [place] [facility] 4.2.7.2.686 [place] as [phone] [facility] [address] 2021-02-04 2021-02-04 Telephone [facility] 1.2.800.443 [id number] Univers 00:00:00 00:00:00 [facility] 350.1.13.10 it y of [place] 4.2.7.2.686 [place] as Professio [phone] Nm dical nal [address] 2021-01-27 2021-01-27 Patient Jonny [facility] 1.2.840.114 [id number] Univers 00:00:00 00:00:00 Outreach [facility] 350.1.13.10 i ty of [facility] [place].2.7.2.[place] [phone] Nm dical [address] 2021-01-082021-01-08 Office [facility] 1.2.840.114 [id number] 98 14:06:14 14:39:49 Visit [facility] 350.1.13.10 [place] 4.2.7.2.686 Professio [phone] [place] [address] [address] 2021-01-08 2021-01-08 Office [facility] 1.2.840.114 [id number] Univers 14:06:14 14:39:49 Visit [facility] 350.1.13.10 it y of [place] 4.2.7.2.686 [place] Professio [phone] [address] Office [address] 2021-01-08 2021-01-08 [facility] [id number] Univers 14:00:00 14:00:00 CHRISTOPHER rudd [facility] 2020-12-23 2020-12-23 Outpatient R HARSHA [facility] [id number] Univers 16:40:00 16:40:00 MARCELLE rudd o f [facility] 2020-12-23 2020-12-23 Laboratory Lab, Adc Fam Pob I [facility] 1.2. 840.114 [id number] Univers 16:16:11 16:36:[address] [facility] 350.1.13.10 ity of [place] 4.2.7.2.686 [place] as Professio [phone] [address] [facility] 2020-12-23 2020-12-23 Letter Doctor PERLA 1.2.840.114 [id number] Univers 00:00:00 00:00:00 (Out) Unassigned, JORGE 350.1.13.10 ity of [place] [facility] 4.2.7.2.686 [place] as [phone] [address] 2020-12-10 2020-12-10 Refill [facility] 1.2.840.114 [id number] Univers 00:00:00 00:00:00 [facility] 350.1.13.10 it y of [place] 4.2.7.2.686 [place] as Professio [phone] [address] Office [facility] One 2020-12-08 2020-12-08 [facility] 1.2.840.114 [id number] Univers 00:00:00 00:00:00 [facility] 350.1.13.10 it y of [place] 4.2.7.2.686 [place] as Professio [phone] [address] Office [facility] One 2020-12-07 2020-12-07 [facility] 1.2.840.114 [id number] Univers 00:00:00 00:00:00 Christopher [facility] 350.1.13.10 it y of [place] 4.2.7.2.686 [place] Professio [phone] [address] Office [facility] 2020-11-10 2020-11-10 Office [facility] 1.2.840.114 [id number] Univers 14:02:21 14:28:24 Visit [facility] 350.1.13.10 it y of [place] 4.2.7.2.686 [place] Professio [phone] [address] Office [facility] 2020-11-10 2020-11-10 Outpatient [facility] [id number] Univers 14:15:00 14:15:00 CHRISTOPHER rudd [facility] 2020-10-27 2020-10-27 [facility] 1.2.840.114 [id number] Univers 00:00:00 00:00:00 [facility] 350.1.13.10 it y of [place] 4.2.7.2.686 [place] Professio [phone] [address] Office [facility] One 2020-10-13 2020-10-13 Emergency [facility] 1.2.813.215 [id number] Univers 10:31:00 12:52:00 Tariq Zambrano 350.1.13.10 i [place] [phone] [address] 2020-10-13 2020-10-13 Orders Doctor PERLA 1.2.840.114 [id number] Univers 00:00:00 00:00:00 Only Unassigned, JORGE 350.1.13.10 ity [place] [facility] 4.2.7.2.686 [place] as [phone] [address] 2020-10-08 2020-10-08 [facility] 1.2.840.114 [id number] Univers 00:00:00 00:00:00 [facility] 350.1.13.10 it y of [place] 4.2.7.2.686 [place] as Professio [phone] [address] [facility] 2020-09-18 2020-09-18 Telephone [facility] 1.2.149.752 [id number] Univers 00:00:00 00:00:00 [facility] 350.1.13.10 it y of [place] 4.2.7.2.686 [place] Professio [phone] [address] Office [facility] 2020-09-11 2020-09-11 Office [facility] 1.2.840.114 [id number] Univers 13:14:55 14:04:31 Visit Christopher [facility] 350.1.13.10 it y of [place] 4.2.7.2.686 [place] Professio [phone] [address] Office [facility] 2020-09-11 2020-09-11 Outpatient [facility] [id number] Univers 14:00:00 14:00:00 CHRISTOPHER ity of [facility] 2020-08-26 2020-08-26 [facility] 1.2.840.114 [id number] Univers 00:00:00 00:00:00 [facility] 350.1.13.10 it y of [place] 4.2.7.2.686 [place] Professio [phone] [address] Office [facility] 2020-08-25 2020-08-25 Orders Doctor DUNCAN 1.2.840.114 [id number] Univers 00:00:00 00:00:00 Only Unassigned, JORGE 350.1.13.10 ity [place] [facility] 4.2.7.2.686 [place] as [phone] [address] 2020-08-11 2020-08-11 Refdion [facility] 1.2.840.114 [id number] Univers 00:00:00 00:00:00 [facility] 350.1.13.10 it y of [place] 4.2.7.2.686 [place] as Professio [phone] [address] 2020-07-18 2020-07-18 Outpatient EMMA Brito [id number] [facility] 16:48:00 16:48:00 Isael 22 [facility] 2020-07-14 2020-07-14 Office [facility] 1.2.840.114 [id number] Univers 14:40:36 15:10:44 Visit Christopher Zambrano 350.1.13.10 i [place] [phone] [address] 2020-07-14 2020-07-14 Outpatient [facility] [id number] Univers 15:00:00 15:00:00 CHRISTOPHER christinanoam [facility] 2020-06-30 2020-06-30 Refdion [facility] 1.2.840.114 [id number] Univers 00:00:00 00:00:00 Christopher Zambrano 350.1.13.10 i [place] [phone] [address] 2020-06-10 2020-06-10 [facility] 1.2.840.114 [id number] Univers 00:00:00 00:00:00 Christopher Sweet 350.1.13.10 it y of [place] 4.2.7.2.686 [place] Professio [phone] [address] 2020-05-14 2020-05-14 Outpatient Jamshid [facility] [id number] Univers 15:15:00 15:15:00 CHRISTOPHER christinanoam [facility] 2020-05-14 2020-05-14 Office [facility] 1.2.840.114 [id number] Univers 08:42:08 09:11:10 Visit Christopher Zambrano 350.1.13.10 i [place] [phone] Nm dical nal [address] [place] [address] 2020-05-08 2020-05-08 Outpatient Jam[facility]id [facility] [id number] Univers 08:15:00 08:15:00 CHRISTOPHER rudd [facility] 2020-05-03 2020-05-03 [facility] 1.2.840.114 [id number] Univers 00:00:00 00:00:00 [facility] 350.1.13.10 it y of [place] 4.2.7.2.686 [place] Professio [phone] [address] 2020-04-07 2020-04-07 Outpatient Jamshid [facility] [id number] Univers 14:00:00 14:00:00 CHRISTOPHER rudd [facility] 2020-04-07 2020-04-07 Outpatient Jamshid [facility] [id number] Univers 14:00:00 14:00:00 CHRISTOPHER ity [facility] 2020-04-07 2020-04-07 Telemedici [facility] 1.2.840.114 [id number] Univers 09:41:25 09:56:25 ne Visit Christohper Zambrano 350.1.13.10 ity of [place] [phone] Nm dicms nal [address] [place] [address] 2020-04-02 2020-04-02 Refdion [facility] 1.2.840.114 [id number] Univers 00:00:00 00:00:00 [facility] 350.1.13.10 it y of [place] 4.2.7.2.686 [place] as Professio [phone] Nm dic[address] 2020-04-01 2020-04-01 Telephone [facility] 1.2.057.204 [id number] Univers 00:00:00 00:00:00 Christopher Zambrano 350.1.13.10 i [place] [phone] Nm dical nal [address] [place] [address] 2020-03-11 2020-03-11 Telephone [facility] 1.2.042.739 [id number] Univers 00:00:00 00:00:00 [facility] 350.1.13.10 it y of [place] 4.2.7.2.686 [place] as Professio [phone] Nm dical nal [address] [place] [address] Office [facility] 2020-03-05 2020-03-05 Refill [facility] 1.2.840.114 [id number] Univers 00:00:00 00:00:00 [facility] 350.1.13.10 it y of [place] 4.2.7.2.686 [place] as Professio [phone] Nm dical nal [address] [place] [address] 2020-03-03 2020-03-03 [facility] 1.2.840.114 [id number] Univers 00:00:00 00:00:00 [facility] 350.1.13.10 it y of [place] 4.2.7.2.686 [place] as Professio [phone] [facility] nal [address] [place] [address] 2020-02-11 2020-02-11 Outpatient Jamshid [facility] [id number] Univers 13:00:00 13:00:00 [facility] 2020-02-06 2020-02-06 Office [facility] 1.2.840.114 [id number] Univers 06:47:59 08:00:21 Visit [facility] 350.1.13.10 it y of [place] 4.2.7.2.686 [place] as Professio [phone] [facility] nal [address] [place] [address] Office [facility] 2020-02-06 2020-02-06 Outpatient R CYRUS [facility] [id number] Univers 07:00:00 07:00:00 CHRISTOPHER itnoam [facility] 2020-02-06 2020-02-06 Letter [facility] 1.2.840.114 [id number] Univers 00:00:00 00:00:00 (Out) [facility] 350.1.13.10 it y of [place] 4.2.7.2.686 [place] as Professio [phone] [address] Office [facility] 2020-02-06 2020-02-06 Refdion Bridges NCCIRO 1.2.840.114 [id number] Univers 00:00:00 00:00:00 [facility] 350.1.13.10 it y of [place] 4.2.7.2.686 [place] as Professio [phone] [address] 2020-01-23 2020-01-23 Telephone [facility] 1.2.916.079 [id number] Univers 00:00:00 00:00:00 [facility] 350.1.13.10 it y of [place] 4.2.7.2.686 [place] Professio [phone] [address] 2020-01-23 2020-01-23 Orders Doctor PERLA 1.2.840.114 [id number] Univers 00:00:00 00:00:00 Only Unassigned, JORGE 350.1.13.10 ity [place] [facility] 4.2.7.2.686 [place] as [phone] [address] 2020-01-23 2020-01-23 Telephone [facility] 1.2.454.534 [id number] Univers 00:00:00 00:00:00 [facility] 350.1.13.10 it y of [place] 4.2.7.2.686 [place] Professio [phone] [address] 2020-01-09 2020-01-09 Telephone [facility] 1.2.337.256 [id number] Univers 00:00:00 00:00:00 [facility] 350.1.13.10 it y of [place] 4.2.7.2.686 [place] Professio [phone] [address] 2020-01-09 2020-01-09 Refdion [facility] 1.2.840.114 [id number] Univers 00:00:00 00:00:00 [facility] 350.1.13.10 it y of [place] 4.2.7.2.686 [place] as Professio [phone] [facility] [address] 2019-12-14 2019-12-14 Hospital Cyrus [facility] 1.2.840.114 [id number] Univers 13:40:00 23:59:00 Encounter Christopher [place] 350.1.13.10 ity of [place] 4.2.7.2.686 [place] [facility] [phone] [facility] [address] 2019-12-13 2019-12-13 Office Cyrus [facility] 1.2.840.114 [id number] Univers 13:17:51 13:40:51 Visit [facility] 350.1.13.10 it y of [place] 4.2.7.2.686 [place] Professio [phone] [address] Office [facility] 2019-12-13 2019-12-13 Orders Doctor PERLA 1.2.840.114 [id number] Univers 00:00:00 00:00:00 Only Unassigned, JORGE 350.1.13.10 ity [place] [facility] 4.2.7.2.686 [place]ard as [phone] [address] 2019-08-15 2019-08-15 Office Cyrus [facility] 1.2.840.114 [id number] Univers 12:41:09 13:10:41 Visit [facility] 350.1.13.10 it y of [place] 4.2.7.2.686 [place] as Professio [phone] [address] Office [facility] 2019-08-15 2019-08-15 Orders Doctor PERLA 1.2.840.114 [id number] Univers 00:00:00 00:00:00 Only Unassigned, JORGE 350.1.13.10 ity [place] [facility] 4.2.7.2.686 [place] as [phone] [address] 2019-08-06 2019-08-06 Nj Alba [facility] 1.2.840.114 [id number] Univers 00:00:00 00:00:00 [facility] 350.1.13.10 ity of [place] 4.2.7.2.686 [place] Professio [phone] [address] One 2019-07-12 2019-07-12 Nj Bridges [facility] 1.2.840.114 [id number] Univers 00:00:00 00:00:00 [facility] 350.1.13.10 it y of [place] 4.2.7.2.686 [place] as [place] [phone] [facility] 044 [facility] One 2018-02-24 2018-02-24 Orders Doctor PERLA 1.2.840.114 [id number] Univers 00:00:00 00:00:00 Only Unassigned, JORGE 350.1.13.10 ity of [place] [facility] 4.2.7.2.686 [place] as [phone] [address] Results Test Description Test Time Test Comments Results Result Comments Source BASIC METABOLIC PANEL 2023-06-22 04:54:00 Test Item Value Reference Range Interpretation Comme nts SODIUM (test code = NA) 145 mmol/L 134-147 N POTASSIUM (test code = 3.8 mmol/L 3.4-5.0 N K) CHLORIDE (test code = 114 mmol/L 100-108 H CL) CARBON DIOXIDE (test 26 mmol/L 21-32 N code = CO2) ANION GAP (test code = 5.0 GAP calc 4.0-15.0 N GAP) GLUCOSE (test code = 93 MG/DL 70-110 N GLU) BLOOD UREA NITROGEN 8 MG/DL 7-18 N (test code = BUN) GLOMERULAR FILTRATION >=60 max estimate >60 T he Glomerular Filtration RATE (test code = GFR) estGFR Rate is a calculated parameterbased on serum Creatinine, pat ient age and sex. GFR values less than 60 mL/min/1.73 squ are meters are indicative ofChronic Kidney Disease. Values less than 15 mL/min/ 1.73square meters indicate Kidney failure. The ca lculation forGFR is based on the CKD-EPI (2020) calculation. This formulais race indifferent and is the recommended for jennie for GFRby the [facility] Kidney Foundation for Adults.The GFR will not ca lculate if the sex is unkn own or if thepatient's ag e is <18 years. CREATININE (test code = 0.7 MG/DL 0.6-1.0 N CREAT) CALCIUM (test code = CA) 8.5 MG/DL 8.5-10.1 N CBC W/AUTO [id number] 04:34:00 Test Item Value Reference Range Interpretation Comments WHITE BLOOD CELL (test code = 6.1 K/mm3 3.5-11.0 N WBC) RED BLOOD CELL (test code = 3.77 M/mm3 4.70-6.10 L RBC) HEMOGLOBIN (test code = HGB) 10.0 G/DL 10.4-14.9 L HEMATOCRIT (test code = HCT) 31.5 % 31.5-44.1 N MEAN CELL VOLUME (test code = 83.6 Fl 84.5-98.6 L MCV) MEAN CELL HGB (test code = MCH) 26.5 pg 27.0-34.2 L MEAN CELL HGB CONCETRATION 31.7 G/DL 31.5-34.0 N (test code = MCHC) RED CELL DISTRIBUTION WIDTH 15.9 SD 11.5-14.5 H (test code = RDW) PLATELET COUNT (test code = 300 K/mm3 150-450 N PLT) MEAN PLATELET VOLUME (test code 11.20 fL 7.0-10.5 H = MPV) NEUTROPHIL % (test code = NT%) 39.3 % 40-76 L IMMATURE GRANULOCYTE % (test 0.0 % 0.0-5.0 N code = IG%) LYMPHOCYTE % (test code = LY%) 48.0 % 20.5-51.1 N MONOCYTE % (test code = MO%) 8.2 % 1.7-9.3 N EOSINOPHIL % (test code = EO%) 3.3 % 0.0-6.0 N BASOPHIL % (test code = BA%) 1.2 % 0.0-2.0 N NUCLEATED RBC % (test code = 0.0 /100WBC% 0.0-1.0 N NRBC%) NEUTROPHIL # (test code = NT#) 2.4 K/mm3 1.8-7.6 N IMMATURE GRANULOCYTE # (test 0.00 x10 3/uL 0.00-0.03 N code = IG#) LYMPHOCYTE # (test code = LY#) 2.9 K/mm3 0.6-3.2 N MONOCYTE # (test code = MO#) 0.5 K/mm3 0.3-1.1 N EOSINOPHIL # (test code = EO#) 0.2 K/mm3 0.0-0.4 N BASOPHIL # (test code = BA#) 0.1 K/mm3 0.0-0.1 N NUCLEATED RBC # (test code = 0.0 K/mm3 0.0-0.1 N NRBC#) MANUAL DIFF REQUIRED (test code NO DIFF/SCN CRITERIA = MDIFF) BASIC METABOLIC [id number] 06:19:00 Test Item Value Reference Range Interpretation Comments SODIUM (test code 142 mmol/L 134-147 N = NA) POTASSIUM (test 4.0 mmol/L 3.4-5.0 N code = K) CHLORIDE (test 112 mmol/L 100-108 H code = CL) CARBON DIOXIDE 24 mmol/L 21-32 N (test code = CO2) ANION GAP (test 6.0 GAP calc 4.0-15.0 N code = GAP) GLUCOSE (test code 87 MG/DL 70-110 N = GLU) BLOOD UREA 15 MG/DL 7-18 N NITROGEN (test code = BUN) GLOMERULAR >=60 max >60 The Glomerular FILTRATION RATE estimate estGFR Filtratio n Rate is a (test code = GFR) calculated parameterbased on serum Creatinin e, patient age and sex. GFR valuesless than 60 mL/min/1.73 square meters are sanjeev cative ofChronic Kidne y Disease. Values less than 15 mL/min/1.73squa re meters indicate Kidney failure. The calculation for GFR is based on the CK D-EPI (2020) calculat ion. This formulais race indifferent and is the recommended formula for GFR by the National Kidney Foundation for Adults.The GFR will not calculate i f the sex is unknown or if thepatient's ag e is <18 years. CREATININE (test 1.0 MG/DL 0.6-1.0 N code = CREAT) CALCIUM (test code 7.8 MG/DL 8.5-10.1 L = CA) [id number] 06:19:00 Test Item Value Reference Range Interpretation Comments MAGNESIUM (test code = MAG) 1.2 MG/DL 1.8-2.4 L CBC W/AUTO [id number] 06:04:00 Test Item Value Reference Range Interpretation Comments WHITE BLOOD CELL (test code = 9.4 K/mm3 3.5-11.0 N WBC) RED BLOOD CELL (test code = 3.58 M/mm3 4.70-6.10 L RBC) HEMOGLOBIN (test code = HGB) 9.4 G/DL 10.4-14.9 L HEMATOCRIT (test code = HCT) 30.1 % 31.5-44.1 L MEAN CELL VOLUME (test code = 84.1 Fl 84.5-98.6 L MCV) MEAN CELL HGB (test code = MCH) 26.3 pg 27.0-34.2 L MEAN CELL HGB CONCETRATION 31.2 G/DL 31.5-34.0 L (test code = MCHC) RED CELL DISTRIBUTION WIDTH 15.8 SD 11.5-14.5 H (test code = RDW) PLATELET COUNT (test code = 311 K/mm3 150-450 N PLT) MEAN PLATELET VOLUME (test code 10.70 fL 7.0-10.5 H = MPV) NEUTROPHIL % (test code = NT%) 48.8 % 40-76 N IMMATURE GRANULOCYTE % (test 0.3 % 0.0-5.0 N code = IG%) LYMPHOCYTE % (test code = LY%) 38.0 % 20.5-51.1 N MONOCYTE % (test code = MO%) 10.0 % 1.7-9.3 H EOSINOPHIL % (test code = EO%) 1.9 % 0.0-6.0 N BASOPHIL % (test code = BA%) 1.0 % 0.0-2.0 N NUCLEATED RBC % (test code = 0.0 /100WBC% 0.0-1.0 N NRBC%) NEUTROPHIL # (test code = NT#) 4.6 K/mm3 1.8-7.6 N IMMATURE GRANULOCYTE # (test 0.03 x10 3/uL 0.00-0.03 N code = IG#) LYMPHOCYTE # (test code = LY#) 3.6 K/mm3 0.6-3.2 H MONOCYTE # (test code = MO#) 0.9 K/mm3 0.3-1.1 N EOSINOPHIL # (test code = EO#) 0.2 K/mm3 0.0-0.4 N BASOPHIL # (test code = BA#) 0.1 K/mm3 0.0-0.1 N NUCLEATED RBC # (test code = 0.0 K/mm3 0.0-0.1 N NRBC#) MANUAL DIFF REQUIRED (test code NO DIFF/SCN CRITERIA = MDIFF) UA RFLX MICR CULT IF [id number] 21:46:00 Test Item Value Reference Range Interpretation Comments UA COLOR (test code = COLU) STRAW discript YEL/STRAW UA APPEARANCE (test code = CLEAR discript CLEAR APPU) UA GLUCOSE DIPSTICK (test NEGATIVE mg/dL NEG code = DGLUU) UA BILIRUBIN DIPSTICK (test NEGATIVE mg/dL NEG code = BILU) UA KETONE DIPSTICK (test NEGATIVE mg/dL NEG code = KETU) UA SPECIFIC GRAVITY (test <=1.005 SG 1.005-1.030 code = SGU) UA BLOOD DIPSTICK (test NEGATIVE mg/DL NEG code = ZEINA) UA PH DIPSTICK (test code = 5.5 pH UNITS 5.0-7.0 CHELSI) UA PROTEIN DIPSTICK (test NEGATIVE mg/dL NEG code = PROU) UA UROBILINIOGEN DIPSTICK 0.2 mg/dL <2.0 (test code = URO) UA NITRITE DIPSTICK (test NEGATIVE SCREEN NEG code = SHONA) UA LEUKOCYTE ESTERASE NEGATIVE Leuk/mcL NEGATIVE DIPSTICK (test code = LEUU) Indication for culture: Flank PainSOURCE OF URINE: CLEAN CATCH- CT ABD PELVIS [id number] 21:26:00 [facility]U [facility] : 1955 Sex: F Name:MATTHIEU MCKEON [facility] : 1955 Age/S: 67 / F [id number] [address] Unit #: [id number] Loc: [place] Lam [address] Phys: Fede Castrejon MD Acct: [id number] Dis Date: Status: REG ER PHONE #: [phone] Exam Date: 06/20/20232056 FAX #: Reason: HYPOTENSION WEKANESS EXAMS: CPT: [id number] CT ABD PELVIS W/CONT [id number] LOCATION: Q15 HISTORY: 67-year-old female presents with complaints of weaknessand hypotension. COMMENT: Axial imaging the patient's chest was obtained with IV contrast utilizing pulmonary embolism protocol. Soft tissue and lung window images were submitted in the axial plane. Coronal and sagittal MIP soft tissue reconstructions were included. The study was extended into the abdomen and pelvis with diaphragm to the pelvic floor with portal venous phase technique. Coronal and sagittal MPR reconstructions were provided. Unless otherwise specified, incidental findings do not require dedicated imaging follow-up. CONTRAST: 100 mL of Isovue 370 nonionic contrast was injected into th e right antecubital vein. Serum creatinine level was 1.2 and the estimated GFR was 49 mL/m. One or more of the following dose reduction techniques were used: Automated exposure control, adjustment of the mA and/or kV according to patient size, and/or utilization of iterative reconstruction technique. FINDINGS: Within the chest there are no suspicious filling defects seen in the pulmonary arteries. The thoracic aorta and upper abdominal aorta demonstrate no aneurysms or dissections. The great vesselsare unremarkable. The cardiac silhouette and pulmonary venous return are unremarkable. A large hiatal hernia seen with the gastric fundus and the body lying above the diaphragm. There is no adenopathy p resent and no pleural effusions present. The calcified the hilar and mediastinal lymph nodes are seen. A calcified granuloma is also seen in the right middle lobe. The lungs are clear. Within the abdomen the liver, spleen, pancreas, adrenal glands, and kidneys are unremarkable. The gallbladder is surgically absent. The PAGE 1 Signed Report (CONTINUED) Name: MATTHIEU MCKEON [facility] [place] : 1955 Age/S: 67 / F [id number] [address] Unit #: [id number] Loc: William Lam [address] Phys: Fede Castrejon MD Acct: [id number] Dis Date: Status: REG ER PHONE #: [phone] Exam Date: 06/20/20232056 FAX #:Reason: HYPOTENSION WEKANESS EXAMS: CPT: [id number] CT ABD PELVIS W/CONT 96892 (Continued) common bile duct is prominent measuring approximately 10 mm in diameter likely due to the postcholecystectomy state in the patient's age. The pancreas is largely fatty replaced. The upper intestinal tract and the small intestine are unremarkable. The appendix is unremarkable. The left hemicolon extending from the rectum proximally to the splenic flexure is mildly hyperemic, suggestive of colitis. The more proximal colon is unremarkable. There is no ascites or adenopathy present. Within the pelvis the urinary bladder is unremarkable. Uterus is not seen in the ovaries are not seen. The vascular anatomy and musculoskeletal anatomy are unremarkable. IMPRESSION: There are no acute findings seen in this patient's chest on this CT examination. There is no evidence for a pulmonary embolism. A large hiatal hernia is seen. Within the abdomen there are findings of the mild hyperemia of the left hemicolon as outlined above, raising concern for colitis. No acute findings are seen in the pelvis. at 2125 Reported and signed by: Jerardo Saez M.D. CC: Fede Castrejon MD Technologist:Jose Maria Johnson CTDI: DLP: Trnscb Date/Time: 06/20/2023 (2125) PatriciaR. [email or web address] Orig Print D/T: S: 06/20/2023 (2128) PAGE 2 Signed Report- CTA CHEST FOR PE 2023-06-20 21:26:00 [facility] : 1955 Sex: F Name:MATTHIEU MCKEON : 1955 Age/S: 67 / F [address] [address] Unit #: [id number] Loc: [place] [address] Phys: Fede Castrejon MD Acct: [id number] Dis Date: Status: REG ER PHONE #: [phone] Exam Date: 06/20/20232056 FAX #: Reason: HYPOTENSION WEKANESS EXAMS: CPT: [id number] [place] [address] LOCATION: Q15 HISTORY: 67-year-old female presents with complaints of weakness and hypotension. COMMENT: Axial imaging the patient's chest was obtained with IV contrast utilizing pulmonary embolism protocol. Soft tissue and lung window images were submitted in the axial plane. Coronaland sagittal MIP soft tissue reconstructions were included. The study was extended into the abdomen and pelvis with diaphragm to the pelvic floor with portal venous phase technique. Coronal and sagittal MPR reconstructions were provided. Unless otherwise specified, incidental findings do not require dedicated imaging follow-up. CONTRAST: 100 mL of Isovue 370 nonionic contrast was injected into the right antecubital vein. Serum creatinine level was 1.2 and the estimated GFR was 49 mL/m. One or more of the following dose reduction techniques were used: Automated exposure control, adjustment of the mAand/or kV according to patient size, and/or utilization of iterative reconstruction technique. FINDINGS: Within the chest there are no suspicious filling defects seen in the pulmonary arteries. The thoracic aorta and upper abdominal aorta demonstrate no aneurysms or dissections. The great vessels areunremarkable. The cardiac silhouette and pulmonary venous return are unremarkable. A large hiatal hernia seen with the gastric fundus and the body lying above the diaphragm. There is no adenopathy present and no pleural effusions present. The calcified the hilar and mediastinal lymph nodes are seen. Acalcified granuloma is also seen in the right middle lobe. The lungs are clear. Within the abdomen the liver, spleen, pancreas, adrenal glands, and kidneys are unremarkable. The gallbladder is surgically absent. The PAGE 1 Signed Report (CONTINUED) Name: MATTHIEU MCKEON : 1955 Age/S: 67 / F [address] [address] Unit #: [id number] Loc: [place] [address] Phys: Fede Castrejon MD Acct: [id number] Dis Date: Status: REG ER PHONE #: [phone] Exam Date: 06/20/20232056 FAX #: Reason: HYPOTENSION WEKANESS EXAMS: CPT: [id number] [place] [address] (Continued) common bile duct isprominent measuring approximately 10 mm in diameter likely due to the postcholecystectomy state in the patient's age. The pancreas is largely fatty replaced. The upper intestinal tract and the small int estine are unremarkable. The appendix is unremarkable. The left hemicolon extending from the rectum proximally to the splenic flexure is mildly hyperemic, suggestive of colitis. The more proximal colonis unremarkable. There is no ascites or adenopathy present. Within the pelvis the urinary bladder is unremarkable. Uterus is not seen in the ovaries are not seen. The vascular anatomy and musculoskeletal anatomy are unremarkable. IMPRESSION: There are no acute findings seen in this patient's chest onthis CT examination. There is no evidence for a pulmonary embolism. A large hiatal hernia is seen. Within the abdomen there are findings of the mild hyperemia of the left hemicolon as outlined above, raising concern for colitis. No acute findings are seen in the pelvis. at 2125 Reported and signed by: Jerardo Saez M.D. CC: Fede Castrejon MD Technologist:Jose Maria Johnson CTDI: DLP: Trnscb Date/Time: 06/20/2023 (2125) [email or web address] Orig Print D/T: S: 06/20/2023 (2128) PAGE 2 Signed ReportCBC W/AUTO [id number] 20:08:00 Test Item Value Reference Range Interpretation Comments WHITE BLOOD CELL (test code = 11.6 K/mm3 3.5-11.0 H WBC) RED BLOOD CELL (test code = 3.74 M/mm3 4.70-6.10 L RBC) HEMOGLOBIN (test code = HGB) 10.0 G/DL 10.4-14.9 L HEMATOCRIT (test code = HCT) 30.6 % 31.5-44.1 L MEAN CELL VOLUME (test code = 81.8 Fl 84.5-98.6 L MCV) MEAN CELL HGB (test code = MCH) 26.7 pg 27.0-34.2 L MEAN CELL HGB CONCETRATION 32.7 G/DL 31.5-34.0 N (test code = MCHC) RED CELL DISTRIBUTION WIDTH 15.5 SD 11.5-14.5 H (test code = RDW) PLATELET COUNT (test code = 377 K/mm3 150-450 N PLT) MEAN PLATELET VOLUME (test code 10.90 fL 7.0-10.5 H = MPV) NEUTROPHIL % (test code = NT%) 51.3 % 40-76 N IMMATURE GRANULOCYTE % (test 0.3 % 0.0-5.0 N code = IG%) LYMPHOCYTE % (test code = LY%) 38.9 % 20.5-51.1 N MONOCYTE % (test code = MO%) 7.9 % 1.7-9.3 N EOSINOPHIL % (test code = EO%) 1.1 % 0.0-6.0 N BASOPHIL % (test code = BA%) 0.5 % 0.0-2.0 N NUCLEATED RBC % (test code = 0.0 /100WBC% 0.0-1.0 N NRBC%) NEUTROPHIL # (test code = NT#) 6.0 K/mm3 1.8-7.6 N IMMATURE GRANULOCYTE # (test 0.03 x10 3/uL 0.00-0.03 N code = IG#) LYMPHOCYTE # (test code = LY#) 4.5 K/mm3 0.6-3.2 H MONOCYTE # (test code = MO#) 0.9 K/mm3 0.3-1.1 N EOSINOPHIL # (test code = EO#) 0.1 K/mm3 0.0-0.4 N BASOPHIL # (test code = BA#) 0.1 K/mm3 0.0-0.1 N NUCLEATED RBC # (test code = 0.0 K/mm3 0.0-0.1 N NRBC#) MANUAL DIFF REQUIRED (test code NO DIFF/SCN CRITERIA = MDIFF) - XR CHEST 1 [id number] 20:02:00 [facility] : 1955 Sex: F Name:MATTHIEU MCKEON [facility] : 1955 Age/S: 67 / F [address] [address] Unit #: [id number] Loc: [place] [address] Phys: Fede Castrejon MD Acct: [id number] Dis Date: Status: REG ER PHONE #: [phone] Exam Date: 06/20/20231933 FAX #: Reason: Code Sepsis EXAMS: CPT: [id number] XR CHEST 1 V 44865 Fluoro Time: DAP (Gy m2): Air Kerma (mGy): CHEST X-RAY 1 VIEW Dictation Location: N13 CLINICAL HISTORY: Code sepsis Technique: A single frontal view of the chest was obtained. FINDINGS: Bony structures are unremarkable. The aortic, hilar and cardiac outlines are normal. The lungs are clear of infiltrates or suspicious nodules. No pleural effusion or pneumothorax. There is left basilar platelike at electasis. IMPRESSION: Left basilar platelike atelectasis. at 2002 Reported and signed by: María Chávez M.D. CC: Fede Castrejon MD PAGE 1 Signed Report Name: MATHTIEU MCKEON [facility] : 1955 Age/S: 67 / F [address] [address] Unit #: [id number] Loc: [place] [address] Phys: Fede Castrejon MD Acct: [id number] Dis Date: Status: REG ER PHONE #: [phone] Exam Date: 06/20/20231933 FAX #: Reason: Code Sepsis EXAMS: CPT: [id number] XR CHEST 1 V 89642 Fluoro Time: DAP (Gy m2): Air Kerma (mGy): (Continued) Technologist: Bernadette Ferraro Trnscb Date/Time: 06/20/2023 (2001) Artur Orig Print D/T: S: 06/20/2023 (2004) PAGE 2 Signed ReportTHROMBOPLASTIN TIME [id number] 19:51:00 Test Item Value Reference Range Interpretation Comments THROMBOPLASTIN TIME PARTIAL 24.9 SECONDS 26-35 L (test code = PTT) BASIC METABOLIC [id number] 19:51:00 Test Item Value Reference Range Interpretation Comments SODIUM (test code = 138 mmol/L 134-147 N NA) POTASSIUM (test 3.4 mmol/L 3.4-5.0 N code = K) CHLORIDE (test code 105 mmol/L 100-108 N = CL) CARBON DIOXIDE 25 mmol/L 21-32 N (test code = CO2) ANION GAP (test 8.0 GAP calc 4.0-15.0 N code = GAP) GLUCOSE (test code 131 MG/DL 70-110 H = GLU) BLOOD UREA NITROGEN 16 MG/DL 7-18 N (test code = BUN) GLOMERULAR 49 estGFR >60 L The Glomerular FILTRATION RATE Filtration R ate is a (test code = GFR) calculated parameterbased on serum Creatinin e, patient age and sex. GFR valuesless than 60 mL/min/1.73 squ are meters are sanjeev cative ofChronic Kidne y Disease. Values less than 15 mL/min/1.73squa re meters indicate Kidney failure. The calculation for GFR is based on the CK D-EPI (2020) calculat ion. This formulais race indifferent and is the recommended for jennie for GFRby the N ational Kidney Foundati on for Adults.The GFR will not calculate i f the sex is unknown or if thepatient's ag e is <18 years. CREATININE (test 1.2 MG/DL 0.6-1.0 H code = CREAT) CALCIUM (test code 8.3 MG/DL 8.5-10.1 L = CA) HEPATIC FUNCTION [id number] 19:51:00 Test Item Value Reference Range Interpretation Comments TOTAL PROTEIN (test code = PROT) 6.6 G/DL 6.4-8.2 N ALBUMIN (test code = ALB) 2.9 G/DL 3.4-5.0 L BILIRUBIN TOTAL (test code = 0.30 MG/DL 0.2-1.2 N BILT) BILIRUBIN DIRECT (test code = < 0.10 MG/DL 0.00-0.30 N BILD) BILIRUBIN INDIRECT (test code = 0.20 MG/DL 0.2-1.2 N BILIND) SGOT/AST (test code = AST) 12 Unit/L 15-37 L SGPT/ALT (test code = ALT) 11 Unit/L 12-78 L ALKALINE PHOSPHATASE TOTAL (test 109 Unit/L 45-117 N code = ALKP) [id number] 19:51:00 Test Item Value Reference Range Interpretation Comments LIPASE (test code = LIP) 139 Unit/L 114-286 N TROP-I HIGH [id number] 19:51:00 Test Item Value Reference Range Interpretation Comments TROP-I HIGH 8.3 ng/L 0-54 N CAUTION: Units of the SENSITIVITY (test current te st methodology code = TROPIHS) (ng/L) diffe rfrom the prior test meth odology (ng/mL) by a fa ctor of 1000. 99t h Percentile Uppe r Reference Limit (URL):Fem ales: 54 ng/LMales: 79 n g/L In order to [facility]in [facility] acute elevations of h igh sensitivitytrop onin from other clinical conditions, the FourthUnive rsal Definition of M yocardial Infarction stressesclinica l assessment and the demonstration o f a rise and/orfall in s erial troponin result s above the URL. Results fr om different metho dologies should not be c omparedto one another as quantitative re sults and URLs may varyby method. LACTIC [id number] 19:51:00 Test Item Value Reference Range Interpretation Comments LACTIC ACID (test code = LACT) 1.6 mmol/L 0.4-2.0 N PROTHROMBIN [id number] 19:51:00 Test Item Value Reference Range Interpretation Comments PT PATIENT (test 11.9 SECONDS 9.3-12.9 N code = PTP) INTERNATIONAL NORMAL 1.07 INR Unit 0.8-1.2 N TARGE T INR BY RATIO (test code = INDICATIO N Indication INR) INR1. Prophylax is of venous thrombos is 2.0 - 3.0 (orthoped ic surgery), Proph ylaxis of venous throm bosis (other than hig h-risk surgery), Treat ment of Deep Vein Thrombosis/Pulm onary Embolism, Preve ntion of systemic emb olism - Tissue heart va lves, Acute Myocardia l Infarction (to prevent systemic emboli sm), Valvular heart disease, Acute Myocardial Infa rction (to prevent sys temic embolism), Valv ular heart disease, Atrial Fibrillation, Bileaflet mecha nical valve in aortic position.2. Mec hanical prosthetic valv es (high risk), 2. 5 - 3.5 Presence of Lup us Anticoagulant o r Antiphospholipi d Antibodies, Pre vention of systemic emb olism - Acute Myocardia l Infarction (to prevent recurrent infar ct). CBC WITH [id number] 03:43:28 Test Item Value Reference Range Interpretation Comments WBC (test code = 9.40 See_Comment [Automated 2583-2) message] The sy stem which generated this result transmitted reference range : 4.30 - 11.10 10*3/?L. The reference range was not used to interpret this result as normal/abnormal . RBC (test code = 4.86 See_Comment [Automated 418-8) message] The sy stem which generated this result transmitted reference range : 3.93 - 5.25 10*6/?L. The reference range was not used to interpret this result as normal/abnormal . HGB (test code = 12.5 g/dL 11.6-15.0 718-7) HCT (test code = 40.4 % 35.7-45.2 4544-3) MCV (test code = 83.1 fL 80.6-95.5 787-2) MCH (test code = 25.7 pg 25.9-32.8 L 785-6) MCHC (test code = 30.9 g/dL 31.6-35.1 L 786-4) RDW-SD (test code = 46.2 fL 39.0-49.9 49173-2) RDW-CV (test code = 15.4 % 12.0-15.5 788-0) PLT (test code = 396 See_Comment H [Automated 777-3) message] The sy stem which generated this result transmitted reference range : 166 - 358 10*3/ ?L. The reference r tiffany was not used to interpret this result as normal/abnormal . MPV (test code = 11.1 fL 9.5-12.9 44676-2) NRBC/100 WBC (test 0.0 See_Comment [Automat ed code = 7012028936) message] The system which generated this result transmitted reference range : 0.0 - 10.0 /100 WBCs. The refer ence range was not u sed to interpret th is result as normal/abnormal . NRBC x10^3 (test code See_Comment [Auto mated = 4468393093) message] The s ystem which generated this result transmitted reference range : 10*3/?L. The reference range was not used to interpret this result as normal/abnormal . GRAN MAT (NEUT) % 47.9 % (test code = 770-8) IMM GRAN % (test code 0.30 % = 6597994164) LYMPH % (test code = 39.0 % 736-9) MONO % (test code = 9.5 % 5905-5) EOS % (test code = 2.3 % 713-8) BASO % (test code = 1.0 % 706-2) GRAN MAT x10^3(ANC) 4.50 10*3/uL 1.88-7.09 (test code = 9678492295) IMM GRAN x10^3 (test 0.03 10*3/uL 0.00-0.06 code = 9635783682) LYMPH x10^3 (test code 3.67 10*3/uL 1.32-3.29 H = 731-0) MONO x10^3 (test code 0.89 10*3/uL 0.33-0.92 = 742-7) EOS x10^3 (test code = 0.22 10*3/uL 0.03-0.39 711-2) BASO x10^3 (test code 0.09 10*3/uL 0.01-0.07 H = 704-7) Lab Interpretation Abnormal (test code = 15506-2) [facility] WITH [id number] 03:43:28 Test Item Value Reference Range Interpretation Comments WBC (test code = 9.40 See_Comment [Automated 6690-2) message] The sy stem which generated this result transmitted reference range : 4.30 - 11.10 10*3/?L. The reference range was not used to interpret this result as normal/abnormal . RBC (test code = 4.86 See_Comment [Automated 789-8) message] The sy stem which generated this result transmitted reference range : 3.93 - 5.25 10*6/?L. The reference range was not used to interpret this result as normal/abnormal . HGB (test code = 12.5 g/dL 11.6-15.0 718-7) HCT (test code = 40.4 % 35.7-45.2 4544-3) MCV (test code = 83.1 fL 80.6-95.5 787-2) MCH (test code = 25.7 pg 25.9-32.8 L 785-6) MCHC (test code = 30.9 g/dL 31.6-35.1 L 786-4) RDW-SD (test code = 46.2 fL 39.0-49.9 30314-5) RDW-CV (test code = 15.4 % 12.0-15.5 788-0) PLT (test code = 396 See_Comment H [Automated 777-3) message] The sy stem which generated this result transmitted reference range : 166 - 358 10*3/ ?L. The reference r tiffany was not used to interpret this result as normal/abnormal . MPV (test code = 11.1 fL 9.5-12.9 03762-8) NRBC/100 WBC (test 0.0 See_Comment [Automat ed code = 8541789791) message] The system which generated this result transmitted reference range : 0.0 - 10.0 /100 WBCs. The refer ence range was not u sed to interpret th is result as normal/abnormal . NRBC x10^3 (test code See_Comment [Auto mated = 0022820918) message] The s ystem which generated this result transmitted reference range : 10*3/?L. The reference range was not used to interpret this result as normal/abnormal . GRAN MAT (NEUT) % 47.9 % (test code = 770-8) IMM GRAN % (test code 0.30 % = 8914483297) LYMPH % (test code = 39.0 % 736-9) MONO % (test code = 9.5 % 5905-5) EOS % (test code = 2.3 % 713-8) BASO % (test code = 1.0 % 706-2) GRAN MAT x10^3(ANC) 4.50 10*3/uL 1.88-7.09 (test code = 1074447774) IMM GRAN x10^3 (test 0.03 10*3/uL 0.00-0.06 code = 8666021472) LYMPH x10^3 (test code 3.67 10*3/uL 1.32-3.29 H = 731-0) MONO x10^3 (test code 0.89 10*3/uL 0.33-0.92 = 742-7) EOS x10^3 (test code = 0.22 10*3/uL 0.03-0.39 711-2) BASO x10^3 (test code 0.09 10*3/uL 0.01-0.07 H = 704-7) Lab Interpretation Abnormal (test code = 21375-7) [facility] [id number] 10:05:00 Test Item Value Reference Range Interpretation Comments SURGICAL PATH SPECIMENS (test code = SURG) RUN DATE: 01/30/21 [facility] *LIVE* PAGE 1 RUN TIME: 1005 Specimen Inquiry RUN USER: INTERFACE PATIENT: MATTHIEU MCKEON LOC: [facility] #: [id number] AGE/SX: 65/F ROOM: RE01/27/21REG DR: Naga Marcial MD : 51 BED: DIS: STATUS: [facility] TLOC: SPEC #: [id number] RECD: 01/28/21 STATUS: SOUGisela RE #: [id number] VENKATESH: 01/28/[address]: Naga Marcial MD ENTERED: 01/29/21 SP TYPE: SURG SPEC OTHR DR: No Primary or Family PhysicianORDERED: GROSS AND MICRO CODES: [id number] - STOMACH, NOS COPIES TO: No Primary or Family Physician Naga Marcial MD [address] [place] [address] [address] [place] [address] PROCEDURES: GROSS AND MICRO (Incomplete) TISSUES: 1. 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 GROSS AND MICROSCOPIC GROSS EXAMINATION: Received the specimen as designated above and it consists of multiple segments of gauze-like material measuring 4.5 x 2.6 x 1.7 cm. The specimen is for gross only. POST-OP DIAGNOSIS GERD PRE-OP DIAGNOSIS Dysphagia, nausea, vomiting, foreign body in stomach, gastric outlet obstruction --- Signed SIGNATURE ON FILE Yuko Venegas MD 01/30/21 1005 END OF REPORT COMPREHENSIVE METABOLIC [id number] 05:11:00 Test Item Value Reference Range Interpretation Comments SODIUM (test code = NA) 139 mEq/L 134-147 N POTASSIUM (test code = 4.2 mEq/L 3.4-5.0 N K) CHLORIDE (test code = 105 mEq/L 100-108 N CL) CARBON DIOXIDE (test 28 mEq/l 21-33 N code = CO2) ANION GAP (test code = 10 0-20 N GAP) GLUCOSE (test code = 124 mg/dL 70-110 H GLU) BLOOD UREA NITROGEN 19 mg/dL 7-18 H (test code = BUN) GLOMERULAR FILTRATION 71.5 80-90 L Units of measure = RATE (test code = GFR) ml/mi n/1.73 m2 CREATININE (test code = 0.8 mg/dL 0.6-1.3 N CREAT) TOTAL PROTEIN (test 6.5 g/dL 6.4-8.2 N code = PROT) ALBUMIN (test code = 3.50 g/dL 3.4-5.0 N ALB) CALCIUM (test code = 9.9 mg/dL 8.0-10.5 N CA) BILIRUBIN TOTAL (test 0.20 mg/dL 0.0-1.0 N code = BILT) SGOT/AST (test code = 18 IUnit/L 15-37 N AST) SGPT/ALT (test code = 17 IUnit/L 30-65 L ALT) ALKALINE PHOSPHATASE 126 IUnit/L 20-125 H TOTAL (test code = ALKP) Indication for Test: Malabsorption/MalnutritioSERUM [id number] 05:11:00 Test Item Value Reference Range Interpretation Comments SERUM IRON (test code = IRON) 50 mcg/dL 35-150 N Indication for Test: Malabsorption/MalnutritioVITAMIN [id number] 05:11:00 Test Item Value Reference Range Interpretation Comments VITAMIN B12 (test code = VITB12) 650 pg/mL 193-986 N Indication for Test: Malabsorption/MalnutritioTHYROID STIMULATING HORMONE 2021-01-29 05:11:00 Test Item Value Reference Range Interpretation Comments THYROID STIMULATING 1.67 0.42-5.47 N Results in HORMONE (test code = TSH) mi lli-International Units/mL Indication for Test: Malabsorption/MalnutritioVIT B1 WHOLE [id number] 05:11:00 Test Item Value Reference Range Interpretation Comments VIT B1 WHOLE BLOOD 117.9 nmol/L 66.5-200.0 Performed At: (test code = [id number]) [place], [place] [id number] marii Banks MD Ph:[phone] Indication for Test: Malabsorption/MalnutritioVITAMIN D 14-[id number] 05:11:00 Test Item Value Reference Range Interpretation Comments VITAMIN D 25-HYDROXY (test code = 46.7 ng/mL 30-100 N VITD25) Indication for Test: Malabsorption/MalnutritioHELICOBACTER PYLORI IGM AB 2021-01-26 15:10:00 Test Item Value Reference Interpretation Comments Range HELICOBACTER <9.0 units 0.0-8.9 Negative <9.0 Equivocal 9.0 PYLORI IGM AB - 11.0 Positi ve >11.0This (test code = test was develo ped and its HELIMAB) performance characteristics determined by [facility]. It has not been cleared orappro cherry by the Food and Drug Administration. Performed At: [facility] [address] [place] [id number] Banks MD Ph:[phone] AB HELICOBACTER [id number] 15:10:00 Test Item Value Reference Range Interpretation Comments AB HELICOBACTER IGG (test 0.24 0.00-0.79 IN FCE Result Units: code = HELIGAB) Index Value Negative <0.80 Equivocal 0.80 - 0.89 Positive >0.89Performed At: [address] [id number] michaela Dugan MD Ph:[phone] HELICOBACTER PYLORI IGM [id number] 11:09:00 Test Item Value Reference Range Interpretation Comments HELICOBACTER PYLORI IGM AB (test code = HELIMAB) AB HELICOBACTER [id number] 11:09:00 Test Item Value Reference Range Interpretation Comments AB HELICOBACTER IGG (test 0.24 0.00-0.79 IN FCE Result Units: code = HELIGAB) Index Value Negative <0.80 Equivocal 0.80 - 0.89 Positive >0.89Performed At: [address] [id number] michaela Dugan MD Ph:[phone] COVID 19 Asymptomatic IH [id number] 17:14:00 Test Item Value Reference Range Interpretation Comments COVID 19 Asymptomatic Negative Negative A nega tive result is IH AG (test code = presumpti ve and should COVNONPUIAG) be confirmedwit h an FDA authorized mole cular assay, if neces edith forpatient tacho gement.A positive result does not rule out co-inf ections withother patho gens.This test detects zakia th viable (live) and non-viable,SARS -CoV, and SARS-CoV-2. Shikha t performance dep ends on theamount of vi sherie (antigen) in th e sample.This shikha t has not been FDA cleare d or approved; the t est hasbeen authori zed by FDA under an Em ergency Use Authorizati on(EUA) for use by labo ratories certified under the CLIA thatmeet the requirements to perform moderate, high or waivedcomplexit y tests. COMMENTS: If not done this admission- XR CHEST 2 [id number] 16:03:00 [facility] 1955 Sex: FFAX: Naga Marcial MD [phone] [place]: St: PRE Name: MATTHIEU MCKEON [facility] : 1955 Age/S: 65/F [address] [place] [address] Unit #: [id number] Loc: [place] [address] Phys: Naga Marcial MD Acct: [id number] Dis Date: Status: PRE SDC PHONE #: [phone] Exam Date: 01/23/2021 1440 FAX #: [phone] Reason: PRE-OP REMOVE FOREIGN BODY FROM STOMACH EXAMS: CPT CODE: [id number] XR CHEST 2 V 24582 Clinical Indication: Gastric outlet obstruction. Preoperative chest radiograph. Comparison: None available. Impression: Chest, 2 views. No consolidation, pleural effusion, or pneumothorax. Cardiac silhouette is of normal size. Moderate hiatal hernia. No acute osseous abnormality. SL: [id number] at 1603 Reported and signed by: Isabelle Black M.D. CC: Naga Marcial MD Technologist: RT Nina(Jamshid) Trnscrd Date/Time/By: 01/23/2021(1603) : By: [email or web address] Orig Print D/T: S: 01/23/2021 (9571) PAGE 1 Signed Report COMPREHENSIVE METABOLIC [id number] 15:21:00 Test Item Value Reference Range Interpretation Comments SODIUM (test code = NA) 139 mEq/L 134-147 N POTASSIUM (test code = 4.2 mEq/L 3.4-5.0 N K) CHLORIDE (test code = 105 mEq/L 100-108 N CL) CARBON DIOXIDE (test 28 mEq/l 21-33 N code = CO2) ANION GAP (test code = 10 0-20 N GAP) GLUCOSE (test code = 124 mg/dL 70-110 H GLU) BLOOD UREA NITROGEN 19 mg/dL 7-18 H (test code = BUN) GLOMERULAR FILTRATION 71.5 80-90 L Units of measure = RATE (test code = GFR) ml/mi n/1.73 m2 CREATININE (test code = 0.8 mg/dL 0.6-1.3 N CREAT) TOTAL PROTEIN (test 6.5 g/dL 6.4-8.2 N code = PROT) ALBUMIN (test code = 3.50 g/dL 3.4-5.0 N ALB) CALCIUM (test code = 9.9 mg/dL 8.0-10.5 N CA) BILIRUBIN TOTAL (test 0.20 mg/dL 0.0-1.0 N code = BILT) SGOT/AST (test code = 18 IUnit/L 15-37 N AST) SGPT/ALT (test code = 17 IUnit/L 30-65 L ALT) ALKALINE PHOSPHATASE 126 IUnit/L 20-125 H TOTAL (test code = ALKP) Indication for Test: Malabsorption/MalnutritioSERUM [id number] 15:21:00 Test Item Value Reference Range Interpretation Comments SERUM IRON (test code = IRON) 50 mcg/dL 35-150 N Indication for Test: Malabsorption/MalnutritioVITAMIN [id number] 15:21:00 Test Item Value Reference Range Interpretation Comments VITAMIN B12 (test code = VITB12) 650 pg/mL 193-986 N Indication for Test: Malabsorption/MalnutritioTHYROID STIMULATING HORMONE 2021-01-23 15:21:00 Test Item Value Reference Range Interpretation Comments THYROID STIMULATING 1.67 0.42-5.47 N Results in HORMONE (test code = TSH) mi lli-International Units/mL Indication for Test: Malabsorption/MalnutritioVIT B1 WHOLE [id number] 15:21:00 Test Item Value Reference Range Interpretation Comments VIT B1 WHOLE BLOOD (test code = [id number]) Indication for Test: Malabsorption/MalnutritioVITAMIN D 14-[id number] 15:21:00 Test Item Value Reference Range Interpretation Comments VITAMIN D 25-HYDROXY (test code = 46.7 ng/mL 30-100 N VITD25) Indication for Test: Malabsorption/MalnutritioPROTHROMBIN [id number] 15:00:00 Test Item Value Reference Range Interpretation Comments PROTHROMBIN TIME 10.5 SECONDS 9.3-12.9 N PATIENT (test code = PTP) INTERNATIONAL NORMAL 1.0 0.8-1.2 N TARGET INR BY RATIO (test code = INDICATIO N Indication INR) INR1. Prophylax is of venous thrombos is 2.0 - 3.0 (orthoped ic surgery), Proph ylaxis of venous throm bosis (other than hig h-risk surgery), Treat ment of Deep Vein Thrombosis/Pulm onary Embolism, Preve ntion of systemic emb olism - Tissue heart va lves, Acute Myocardia l Infarction (to prevent systemic emboli sm), Valvular heart disease, Atrial Fibrillation, Bileaflet mecha nical valve in aortic position.2. Mec hanical prosthetic valv es (high risk), 2. 5 - 3.5 Presence of Lup us Anticoagulant o r Antiphospholipi d Antibodies, Pre vention of systemic emb olism - Acute Myocardia l Infarction (to prevent recurrent infar ct). THROMBOPLASTIN TIME [id number] 15:00:00 Test Item Value Reference Range Interpretation Comments THROMBOPLASTIN TIME 31.2 Seconds 25.0-39.5 N Therape utic Range: PARTIAL (test code = 50.4 - 88.3 Seconds PTT) Effective 03/13/2019 CBC W/AUTO [id number] 14:56:00 Test Item Value Reference Range Interpretation Comments WHITE BLOOD CELL (test code = 7.6 x10 3/uL 4.5-11.0 N WBC) RED BLOOD CELL (test code = 4.47 x10 6/uL 3.54-5.02 N RBC) HEMOGLOBIN (test code = HGB) 11.4 g/dL 11.0-15.0 N HEMATOCRIT (test code = HCT) 37.4 % 33.0-45.0 N MEAN CELL VOLUME (test code = 83.7 fL 81.0-99.0 N MCV) MEAN CELL HGB (test code = MCH) 25.5 pg 27.0-33.0 L MEAN CELL HGB CONCETRATION 30.5 g/dL 33.0-37.0 L (test code = MCHC) RED CELL DISTRIBUTION WIDTH CV 16.6 % 11.5-14.5 H (test code = RDW) RED CELL DISTRIBUTION WIDTH SD 50.7 fL 37.0-54.0 N (test code = RDW-SD) PLATELET COUNT (test code = 387 x10 3/uL 150-400 N PLT) MEAN PLATELET VOLUME (test code 10.8 fL 7.0-9.0 H = MPV) NEUTROPHIL % (test code = NT%) 49.9 % 56.0-77.0 L IMMATURE GRANULOCYTE % (test 0.4 % 0.0-2.0 N code = IG%) LYMPHOCYTE % (test code = LY%) 37.1 % 14.0-32.0 H MONOCYTE % (test code = MO%) 8.0 % 4.8-9.0 N EOSINOPHIL % (test code = EO%) 3.5 % 0.3-3.7 N BASOPHIL % (test code = BA%) 1.1 % 0.0-2.0 N NUCLEATED RBC % (test code = 0.0 % 0-0 N NRBC%) NEUTROPHIL # (test code = NT#) 3.80 x10 3/uL 2.0-7.6 N IMMATURE GRANULOCYTE # (test 0.03 x10 3/uL 0.00-0.03 N code = IG#) LYMPHOCYTE # (test code = LY#) 2.82 x10 3/uL 1.0-3.8 N MONOCYTE # (test code = MO#) 0.61 x10 3/uL 0.1-0.8 N EOSINOPHIL # (test code = EO#) 0.27 x10 3/uL 0.0-0.2 H BASOPHIL # (test code = BA#) 0.08 x10 3/uL 0.0-0.2 N NUCLEATED RBC # (test code = 0.00 x10 3/uL 0.0-0.1 N NRBC#) MANUAL DIFF REQUIRED (test code NO = MDIFF) CBC W/AUTO [id number] 14:54:00 Test Item Value Reference Range Interpretation Comments WHITE BLOOD CELL (test code = x10 3/uL 4.5-11.0 WBC) RED BLOOD CELL (test code = RBC) x10 6/uL 3.54-5.02 HEMOGLOBIN (test code = HGB) 11.4 g/dL 11.0-15.0 N HEMATOCRIT (test code = HCT) 37.4 % 33.0-45.0 N MEAN CELL VOLUME (test code = fL 81.0-99.0 MCV) MEAN CELL HGB (test code = MCH) pg 27.0-33.0 MEAN CELL HGB CONCETRATION (test g/dL 33.0-37.0 code = MCHC) RED CELL DISTRIBUTION WIDTH CV % 11.5-14.5 (test code = RDW) PLATELET COUNT (test code = PLT) 387 x10 3/uL 150-400 N NEUTROPHIL % (test code = NT%) % 56.0-77.0 LYMPHOCYTE % (test code = LY%) % 14.0-32.0 NEUTROPHIL # (test code = NT#) x10 3/uL 2.0-7.6 LYMPHOCYTE # (test code = LY#) x10 3/uL 1.0-3.8 MANUAL DIFF REQUIRED (test code = MDIFF) [id number] 16:48:00 RUN DATE: 07/28/20 [place] [facility] PAGE 1 RUN TIME: 1648 Specimen Inquiry RUN USER: INTERFACE RAFA ENT: MATHTIEU MCKEON LOC: ANNA U #: [id number] AGE/SX: 64/F ROOM: RE07/23/20REG DR: Isael Brito MD : 51 BED: DIS: STATUS: [facility] TLOC: SPEC #: [id number] RECD: 07/25/20 STATUS: STEFANO [facility] #: [id number] VENKATESH: 07/23/20- SUBM DR: Isael Brito MD ENTERED: 07/25/20 SP TYPE: STOMACHOTHR DR: DOES_NOT KNOW ORDERED: GROSS COPIES TO: DOES_NOT KNOW Isael Brito MD [address] [address] PROCEDURES: GROSS (07/28/20-1207) TISSUES: 1. DUODENUM, NOS - BX 2. STOMACH, NOS - BX 3. GASTRIC CORPUS - BX 4. ESOPHAGUS, NOS - LOWER BX CLINICAL HISTORY COLLECTION DATE:07/23/20 HEARTBURN; NAUSEA; VOMITING; RECTAL BLEEDING POST-OP DIAGNOSIS: HIATAL HERNIA; GASTRITIS; LAP BAND; DIVERTICULOSIS; SIGMOID STRICTURE; HEMORRHOID BANDING FINAL DIAGNOSIS Duodenum, biopsy: BENIGN DUODENAL MUCOSA WITH NO PATHOLOGIC ALTERATION Stomach, biopsy: BENIGN GASTRIC MUCOSA WITH NO PATHOLOGIC ALTERATION Gastric polyp, biopsy: BENIGN GASTRIC MUCOSA WITH NO DISCRETE POLYP FORMATION MINIMAL CHRONIC INFLAMMATION PRESENT MULTIPLE LEVELS EXAMINED Lower esophagus, biopsy: BENIGN GASTRIC-TYPEGLANDULAR EPITHELIUM WITH MINIMAL CHRONIC INFLAMMATION NO AREAS OF MUCOSAL EROSION/ULCERATION NO GOBLET CELL METAPLASIA PRESENT NO SQUAMOUS EPITHELIUM PRESENT CONTINUED ON NEXT PAGE R UN DATE: 07/28/20 [facility] PAGE 2 RUN TIME: 1648 Specimen Inquiry RUN USER: INTERFACE SPEC #: [id number] PATIENT: MATTHIEU MCKEON #[id number] (Continued) FINAL DIAGNOSIS (Continued) RRB/ D [id number] MACROSCOPIC Specimen (1) is received in formalin, labeled with the patient's name, identified as "duodenum", and consists of kaminski biopsy tissue measuring 0.35 cm in aggregate, submitted as (1). Specimen (2) is received in formalin, labeled with the patient's name, identified as "stomach bx", and consists of two light kaminski fragments of biopsy tissue measuring 0.3 cm in aggregate, submitted as (2). Specimen (3) is received in formalin, labeled with the patient's name, identified as "gastric polyp", and consists of a single kaminski-pink biopsy measuring 0.25 cm, submitted as (3). Specimen (4) is received in formalin, labeled with the patient's name, identified as "lower esophagus bx", and consists of kaminski biopsy tissue measuring 0.25 cm in aggregate, submitted as (4). GROSS PERFORMED AT [facility] [address] [place] [address] (p)[phone] MICROSCOPIC All of the stains, including any controls performed, stain appropriately. MICROSCOPIC PERFORMED AT [facility] [address] [place] [address] (p)[phone] PERFORMING SITE Processed at: [facility] [address] [place], [place] [address] CONTINUED ON NEXT PAGE RUN DATE: 07/28/20 [facility] PAGE 3 RUN TIME: 1648 Specimen Inquiry RUN USER: INTERFACE SPEC #: [id number] PATIENT: MATTHIEU MCKEON SOHA #[id number] (Continued) Signed SIGNATURE ON FILE Alexander Rosales MD 07/28/20 1648 END OF REPORT Novel Coronavirus 10:50:00 Test Item Value Reference Range Interpretation Comments Novel Coronavirus Negative Negative Positive r esults are 2019 Inhouse (test indicativ e of the presence code = [id number]) ofSARS-CoV -2 RNA, clinical correlation wit h patient historyand othe r diagnostic info rmation is necessary to determinepatien t infection status. Positiv e results do not rule out bacterial infection or co -infection with other viru ses. Negative result s do not preclude SARS-C oV-2 infection andsh ould not be used as the iza e basis for patient managementdecis ions. Negative result s must be combined with otherclinical observations, p atient history, and epidemiological information . Detection of SARS-CoV-2 RNA may be affe cted bysample collec tion methods, storag e conditions, and /or stageof infection. Francheska l RNA mutations, vacc inations, antiviraltherap eutics, antibiotics, chemotherapeuti c orimmunosuppres hardy drugs have not been e valuated for effectson d etection. Results are for the identification of SARS-CoV-2 RNA usingthe [employer] M2000 Sy stem under the FDA Emergen cy UseAuthorizatio n. The testing is perf ormed by kellee mccabe in the procedures for the Emery M2000 molecular diagnostic SARS-CoV-2 assa y in vitro. Novel Coronavirus 10:50:00 Test Item Value Reference Range Interpretation Comments Novel Coronavirus Negative Negative Positive r esults are 2019 Inhouse (test indicativ e of the presence code = [id number]) ofSARS-CoV -2 RNA, clinical correlation wit h patient historyand othe r diagnostic info rmation is necessary to determinepatien t infection status. Positiv e results do not rule out bacterial infection or co -infection with other viru ses. Negative result s do not preclude SARS-C oV-2 infection andsh ould not be used as the iza e basis for patient managementdecis ions. Negative result s must be combined with otherclinical observations, p atient history, and epidemiological information . Detection of SARS-CoV-2 RNA may be affe cted bysample collec tion methods, storag e conditions, and /or stageof infection. Francheska l RNA mutations, vacc inations, antiviraltherap eutics, antibiotics, chemotherapeuti c orimmunosuppres hardy drugs have not been e valuated for effectson d etection. Results are for the identification of SARS-CoV-2 RNA usingthe Emery M2000 Sy stem under the FDA Emergen cy UseAuthorizatio n. The testing is perf ormed by kellee d in the procedures for the Emery M2000 molecular diagnostic SARS-CoV-2 assa y in vitro. BASIC METABOLIC [id number] 18:01:00 Test Item Value Reference Range Interpretation Comments SODIUM (test code = 140 mmol/L 136-145 N NA) POTASSIUM (test code 3.7 mmol/L 3.5-5.1 N = K) CHLORIDE (test code = 104.0 mmol/L 98-107 N CL) CARBON DIOXIDE (test 25.0 mmol/L 21-32 N code = CO2) ANION GAP (test code 14.7 10-20 N = GAP) GLUCOSE (test code = 78 mg/dL 74-106 N GLU) BLOOD UREA NITROGEN 10 mg/dL 7-18 N (test code = BUN) GLOMERULAR FILTRATION > 60 mL/min >=60 Estima patricia GFR by RATE (test code = using [place] fied MDRD GFR) formula.Chronic kidney disease is defined as eith er kidney damageor GFR <60 mL/min/1.73 m2 for >3 months. CREATININE (test code 0.70 mg/dL 0.55-1.02 N Note change in = CREAT) reference range due to change in reagent. BUN/CREATININE RATIO 15.4 10-20 N (test code = BUN/CREA) CALCIUM (test code = 9.4 mg/dL 8.5-10.1 N CA) BASIC METABOLIC [id number] 17:55:00 Test Item Value Reference Range Interpretation Comments SODIUM (test code = NA) 140 mmol/L 136-145 N POTASSIUM (test code = K) 3.7 mmol/L 3.5-5.1 N CHLORIDE (test code = CL) 104.0 mmol/L 98-107 N CARBON DIOXIDE (test code = CO2) mmol/L 21-32 ANION GAP (test code = GAP) 10-20 GLUCOSE (test code = GLU) mg/dL 74-106 BLOOD UREA NITROGEN (test code = mg/dL 7-18 BUN) GLOMERULAR FILTRATION RATE (test mL/min >=60 code = GFR) CREATININE (test code = CREAT) mg/dL 0.55-1.02 BUN/CREATININE RATIO (test code 10-20 = BUN/CREA) CALCIUM (test code = CA) mg/dL 8.5-10.1 Notes Date/Time Note Provider Source 2023-08-05 Formatting of this note is different from the or iginal. [facility] 13:15:00-00:00 Patient presented with speci men for drop-off and was identified by and name. Collection information/ total volume were documented accordingly. The following specimens were sent to [facility] laboratories per lab order on : 24 hour urine Random urine Stool 1 Swab Other 2023-07-20 Formatting of this note is different from the or iginal. [facility] 10:00:49-00:00 HYDROcodone-acetaminophen 10 -325 mg tablet 120 tablet 0 06/20/2023 -- Sig: Take 1 tablet by mouth every 6 (six) hours as needed for Pain (scale 7- 10). Indications: chronic pain Sent to pharmacy as: HYDROcodone 10 mg-acetamino phen 325 mg tablet (NORCO) Class: eRX Earliest Fill Date: 06/20/2023 Route: Oral Order: [id number] Date/Time Signed: 06/20/2023 10:12 E-Prescribing Status: Receipt confirmed by pharm acy (06/20/2023 10:12 AM CDT Recent Visits Date Type Provider Dept 07/06/23 Office Visit Christopher Bridges MD [facility] 06/20/23 Office Visit Christopher Bridges MD [facility] 04/13/23 Office Visit Christopher Bridges MD [facility] 03/24/23 Office Visit Christopher Bridges MD [facility] 01/24/23 Office Visit Christopher Bridges MD [facility] 11/23/22 Office Visit Christopher Bridges MD [facility] 10/12/22 Office Visit Christopher Bridges MD [facility] 09/23/22 Office Visit Christopher Bridges MD [facility] 07/27/22 Office Visit Christopher Bridegs MD [facility] 06/02/22 Office Visit Christopher Bridges MD [facility] Showing recent visits within past 540 days with a meds authorizing provider and meeting all other requirements Future Appointments No visits were found meeting these conditions. Showing future appointments within next 150 days with a meds authorizing provider and meeting all other requirements 2023-07-20 Formatting of this note might be differe nt from the original. Shannon Potts [facility] 09:58:26-00:00 Pt calling for refill on HYDROcodone-acetaminophen 10-325 mg tablet [id number] [place], [place] [facility] [address] [facility] Electronically signed by Shannon Potts at 9:59 AM CDT 2023-07-14 Formatting of this note is different fro m the original. Allison Martin MA [facility] 15:30:20-00:00 Images from the original note were not included. Last Refilled: tiZANidine 4 mg tablet Sig: Take 1 tablet by mouth 3 (three) times les ly as needed. Disp: 90 tablet Refills: 1 Start: 07/14/2023 Class: eRX For: Muscle spasm Last ordered: 2 months ago (05/13/2023) by María Bridges MD Provider Review Required Failed 07/14/2023 12:5 7 PM Protocol Details This refill cannot be delegated Valid encounter within last 12 months To be filled at: [id number] - [place], [place] - [address] [facility] Notes: This refill cannot be delegated Recent Visits Date Type Provider Dept 07/06/23 Office Visit Christopher Bridges MD [facility] 06/20/23 Office Visit Christopher Bridges MD [facility] 04/13/23 Office Visit Christopher Bridges MD [facility] 03/24/23 Office Visit Christopher Bridges MD [facility] 01/24/23 Office Visit Christopher Bridges MD [facility] 11/23/22 Office Visit Christopher Bridges MD [facility] 10/12/22 Office Visit Christopher Bridges MD [facility] 09/23/22 Office Visit Christopher Bridges MD [facility] 07/27/22 Office Visit Christopher Bridges MD [facility] 06/02/22 Office Visit Christopher Bridges MD [facility] Showing recent visits within past 540 days with a meds authorizing provider and meeting all other requirements Future Appointments No visits were found meeting these conditions. Showing future appointments within next 150 days with a meds authorizing provider and meeting all other requirements 2023-07-14 [facility] 12:56:06-00:00 TIZANIDINE 4 mg tablet Electronically signed by Anna Colón at 06/28 12:57 PM CDT 2023-06-24 [id number] [facility] 16:59:00-00:00 [facility] [address] [place] [address] PATIENT NAME: MATTHIEU MCKEON ADMIT DATE: 3 ACCOUNT NO: [id number] ROOM NO: L.OBS2 AGE: 67 REPORT TYPE: 360 - QUERY RESPONSE DOCUMENT SEX: F ADMITTING PHYSICIAN: Michelle Reed MD ATTENDING PHYSICIAN: Michelle Reed MD Provider Query QUERY TEXT: Specificity General 360MD Query related questions should be directed to: Janis Joseph RN, BSN [email or web address] Please provide any known specificity for "Hypote nsion." documented in the Hospitalist History Physical by Michelle Reed at 06/21/2023 12:03 for example, or other viable diagnosis The patient's Clinical Indicators include: Hospitalist History Physical by Michelle Reed t 06/21/2023 12:03 "Hypotension." Hospitalist History Physical by Michelle Reed t 06/21/2023 12:03 "Norepinephrine/Dextrose (LEVOPHED 4 MG/250 ML) 250 ML ASDIR IV" MEDICATION ADMINISTRATION NOREPINEPHRINE BITARTR ATE/D5W 4 MG/250 ML ML - 06/21/2023 05:50 Dose: 250.0 MLS Ordered Route: IV BP - Systolic - 06/21/2023 05:10 - 80? BP - Diastolic - 06/21/2023 05:10 - 47 Options provided: -- shock -- hypovolemic shock -- septic shock -- cardiogenic shock -- Other - I will add my own diagnosis -- Dismiss - Not applicable / Not valid -- Dismiss - Clinically unable to determine / Un known -- Assign to another provider QUERY RESPONSE: the patient has hypovolemic shock. Query created by: Mireille Joseph on 06/22/2023 1 0:33 PM Electronically Signed by Michelle Reed MD on at [id number] PATIENT NAME: MATTHIEU MCKEON [id number] 2023-06-22 [facility] 12:52:00-00:00 [facility] ([facility]) Hospitalist Discharge Summary REPORT#:[id number] REPORT STATUS: Signed DATE:06/22/23 TIME:1252 PATIENT: MATTHIEU MCKEON UNIT #: [id number] ROOM[facility]BED: [facility] : 53 AGE: 67 SEX: F ATTEND: Lucian Reed MD ADM AUTHOR: Michelle Reed MD * ALL edits or amendments must be made on the [employer]/computer document * General Information Date of admission: Observation Start Date: 06/20/23 Date of admission: 06/21/23 Discharge date: 06/22/23 Admission diagnosis: #Severe sepsis present on admission secondary to colitis #Hypovolemia #Prerenal azotemia #Chronic anemia #Hypertension Discharge diagnosis: #Severe sepsis present on admission secondary to colitis #Hypovolemia #Prerenal azotemia #Chronic anemia #Hypertension Hospital course: Ms. Mckeon is 67-year-old female who pre sented to the hospital with dizziness, found to have a severe sepsis secondary to colit is with severe hypovolemia. Patient was initiated on IV hydration and sympto ms did improve. She was also treated with IV antibiotics and will follow-up w [facility] GI outpatient. She is currently tolerating oral intake. Patient remained hemodynamically stable to disch arge. Pt. condition on discharge: stable Med Rec Med Rec Discharge meds: Continue taking these medications: LISINOPRIL/HCTZ (ZESTORETIC 20/12.5 MG) 20 MG-12 .5 MG TAB 1 TABLET ORAL DAILY. CIPROFLOXACIN (CIPROFLOXACIN) 500 MG TAB 500 MILLIGRAM ORAL EVERY 12 HOURS. Start taking the following new medications: metroNIDAZOLE (FLAGYL) 500 MG TAB 500 MILLIGRAM ORAL THREE TIMES A DAY. Qty = 15 No Refills Objective VS/I O Last Documented: Result Date Time Pulse Ox 100 06/22 1144 B/P 133/66 06/22 1144 B/P Mean 88.5 06/22 1144 O2 Delivery Room air 06/22 1144 Temp 98.2 06/22 1144 Pulse 92 06/22 1144 Resp 14 06/22 1144 24 hour I O ending at 0700: 06/22 0700 06/21 1900 Intake Total 240 Output Total Balance 240 Intake, Oral 240 Head/Eyes: atraumatic, clear cornea, EOMI, александр l conjunctiva/sclera, normal eyelids/periorb., normocephalic, PERRL ENT: normal dentition, normal ear left, normal e ar right, normal nose, normal pharynx, normal sinus Neck: full range of motion, non-tender, normal thyroid, supple/no meningismus, no bruit/NL carotids, no JVD, no masses or swell ing Cardiovascular: normal capillary refill, normal heart sounds Respiratory: clear to auscultation, no distress Abdomen: tenderness, normal bowel sounds , soft, no distention, no guarding, no hernia, no mass/organomegaly, no rebound Extremities: moves all, normal capillary refill, normal range of motion, no edema Musculoskeletal: normal inspection, painless ran ge of motion 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: alert, oriented X 3 Skin: dry, intact Psychiatry: normal affect, n ormal judgment/insight, normal mood, not homicidal, not suicidal Results Findings/Data: Laboratory Tests: 06/22 06/22 0355 [id number] Chemistry Sodium (134 - 147 mmol/L) 145 Potassium (3.4 - 5.0 mmol/L) 3.8 Chloride (100 - 108 mmol/L) 114 H Carbon Dioxide (21 - 32 mmol/L) 26 Anion Gap (4.0 - 15.0 GAP calc) 5.0 BUN (7 - 18 MG/DL) 8 Creatinine (0.6 - 1.0 MG/DL) 0.7 Glomerular Filtr Rate (>60 estGFR) >=60 max est imate Glucose (70 - 110 MG/DL) 93 Calcium (8.5 - 10.1 MG/DL) 8.5 Hematology WBC (3.5 - 11.0 K/mm3) 6.1 RBC (4.70 - 6.10 M/mm3) 3.77 L Hgb (10.4 - 14.9 G/DL) 10.0 L Hct (31.5 - 44.1 %) 31.5 MCV (84.5 - 98.6 Fl) 83.6 L MCH (27.0 - 34.2 pg) 26.5 L MCHC (31.5 - 34.0 G/DL) 31.7 RDW (11.5 - 14.5 SD) 15.9 H Plt Count (150 - 450 K/mm3) 300 MPV (7.0 - 10.5 fL) 11.20 H Neut % (Auto) (40 - 76 %) 39.3 L Lymph % (Auto) (20.5 - 51.1 %) 48.0 Ford % (Auto) (1.7 - 9.3 %) 8.2 Eos % (Auto) (0.0 - 6.0 %) 3.3 Baso % (Auto) (0.0 - 2.0 %) 1.2 Neut # (Auto) (1.8 - 7.6 K/mm3) 2.4 Lymph # (Auto) (0.6 - 3.2 K/mm3) 2.9 Ford # (Auto) (0.3 - 1.1 K/mm3) 0.5 Eos # (Auto) (0.0 - 0.4 K/mm3) 0.2 Baso # (Auto) (0.0 - 0.1 K/mm3) 0.1 Abs Immat Gran (auto) (0.00 - 0.03 x10 3/uL) 0. 00 Add Manual Diff (CRITERIA DIFF/SCN) NO Immature Gran % (0.0 - 5.0 %) 0.0 Nucleated RBC % (0.0 - 1.0 /100WBC%) 0.0 Discharge Instructions PCP Discharge to: Home/Self Care Additional Discharge Routines: PCP Follow-Up Diet: Cardiac Activity: Resume Normal Activity Follow-up Appointments PCP follow-up: PCP: No Primary or Family Physician PCP follow up timeframe: In 1-2 weeks Electronically Signed by Michelle Reed MD on at 1000 RPT #: [id number] END OF REPORT 2023-06-21 [facility] 12:02:00-00:00 [facility] ([facility]) Hospitalist History Physical REPORT#:[id number] REPORT STATUS: Signed DATE:06/21/23 TIME:120 PATIENT: MATTHIEU MCKEON UNIT #: [id number] ROOM/BED: [address] : [address] AGE: 67 SEX: F ATTEND: Didier Reed MD ADM AUTHOR: Michelle Reed MD * ALL edits or amendments must be made on the [employer]/computer document * History of Present Illness HPI Chief complaint: Lightheadedness PCP: PCP: No Primary or Family Physician HPI: Ms. Mckeon is 67-year-old female with a history hypertension who presented to the hospital with lightheade dness. Patient reported feeling lightheaded at work and her blood pressure was checked at that time, noted to have significant hypotension with systolic 60-40. EMS was called and patient was brought to the hospital. She reported several days of diarrhea with associated right lower quadrant pain radiating to the right fla nk area. She was seen by PCP yesterday and was started on ciprofloxacin for presumptive UTI. Patient denies any urinary symptoms. She denied any bloody bowel mo vement. Informant/historian: patient, family/other at be dside History Past Medical Surgical Hx Additional medical history: Hypertension Social History Alcohol use: Denies EtOH use Drug use: Denies recreational drugs Smoking status for patients 13 years old or olde r: Never Smoker Medication/Allergy-Vaccine Hx Medications: Home Medications: LISINOPRIL/HCTZ (ZESTORETIC 20/12.5 MG) 1 TAB PO DAILY CIPROFLOXACIN 500 MG PO Q12H Allergies: Coded Allergies: No Known Allergies (06/20/23) Review of Systems Constitutional: Reports: malaise. GI: Reports: abdominal pain, diarrhea. All systems rev neg: except as noted OBJECTIVE VS/I O: Vital Signs Date Temp Pulse Resp B/P B/P Mean Pulse Ox FiO2 06/20-06/21 97.7-98.4 63-84 14-25 61-131/29-87 40-101 93-100 Last Documented: Result Date Time Pulse Ox 99 06/21 1101 B/P 116/64 06/21 1101 B/P Mean 81.5 06/21 1101 O2 Delivery Room air 06/21 110 Temp 98.2 06/21 1101 Pulse 67 06/21 1101 Resp 14 06/21 1101 24 hour I O ending at 0700: 06/21 0700 06/20 1900 Intake Total Output Total Balance Patient 89 kg 88.9 kg Weight Weight Bed scale Bed scale Measurement Method Patient Weight and BMI Weight (kg): 89.000 BMI: 31.2 Medications: Active Meds + DC'd Last 24 Hrs Ceftriaxone Sodium (ROCEPHIN) 1,000 MG Q24H IV Sterile Water (WATER FOR INJECTION) 10 ML Aspirin (ECOTRIN) 81 MG DAILY PO Acetaminophen (TYLENOL) 650 MG Q4H PRN PRN PO Enoxaparin Sodium (lovENOX) 40 MG Q24H SUBQ Hydralazine HCl (APRESOLINE) 10 MG Q6H PRN PRN I V Metronidazole/Sodium Chloride (metroNIDAZOLE 500 MG / 100 MLNS) 100 ML Q8H IV Ondansetron HCl (ZOFRAN) 4 MG Q4H PRN PRN IV Norepinephrine/Dextrose (LEVOPHED 4 MG/250 ML) 2 50 ML ASDIR IV Sodium Chloride (0.9% Sodium Chloride) 500 ML ON CE ONE IV (DC) Hydrocodone Bitart/Acetaminophen (NORCO 10/325) 1 TAB Q8H PRN PRN PO Sodium Chloride (0.9% Sodium Chloride) 500 ML ZAKIA JAYRO IV (DC) Sodium Chloride (0.9% Sodium Chloride) 1,000 ML .Q10H IV Sodium Chloride (SODIUM CHLORIDE 0.9%) 100 ML .S TK-MED ONE IV (DC) Diphenhydramine HCl (BENADRYL) 25 MG X1ED STA IV (DC) Iopamidol (ISOVUE-370) 0 .STK-MED ONE .ROUTE (DC ) Ceftriaxone Sodium (ROCEPHIN) 1,000 MG X1ED STA IV (DC) Sterile Water (WATER FOR INJECTION) 10 ML Ondansetron HCl (ZOFRAN) 4 MG X1ED STA IV (DC) Sodium Chloride (0.9% Sodium Chloride) 2,667 ML X1ED IV (DC) General appearance: alert, awake Head/Eyes: atraumatic, clear cornea, EOMI, александр l conjunctiva/sclera, normal eyelids/periorb., normocephalic, PERRL ENT: normal dentition, normal ear left, normal e ar right, normal nose, normal pharynx, normal sinus Neck: full range of motion, non-tender, normal thyroid, supple/no meningismus, no bruit/NL carotids, no JVD, no masses or swell ing Cardiovascular: normal capillary refill, normal heart sounds Respiratory: clear to auscultation, no distress Abdomen: tenderness, normal bowel sounds , soft, no distention, no guarding, no hernia, no mass/organomegaly, no rebound Extremities: moves all, normal capillary refill, normal range of motion, no edema Musculoskeletal: normal inspection, painless ran ge of motion 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: alert, oriented X 3 Skin: dry, intact Psychiatry: normal affect, n ormal judgment/insight, normal mood, not homicidal, not suicidal Results Findings/Data: Laboratory Tests: 06/21 06/20 0556 2119 Chemistry Sodium (134 - 147 mmol/L) 142 Potassium (3.4 - 5.0 mmol/L) 4.0 Chloride (100 - 108 mmol/L) 112 H Carbon Dioxide (21 - 32 mmol/L) 24 Anion Gap (4.0 - 15.0 GAP calc) 6.0 BUN (7 - 18 MG/DL) 15 Creatinine (0.6 - 1.0 MG/DL) 1.0 Glomerular Filtr Rate (>60 estGFR) >=60 max est imate Glucose (70 - 110 MG/DL) 87 Calcium (8.5 - 10.1 MG/DL) 7.8 L Magnesium (1.8 - 2.4 MG/DL) 1.2 L Hematology WBC (3.5 - 11.0 K/mm3) 9.4 RBC (4.70 - 6.10 M/mm3) 3.58 L Hgb (10.4 - 14.9 G/DL) 9.4 L Hct (31.5 - 44.1 %) 30.1 L MCV (84.5 - 98.6 Fl) 84.1 L MCH (27.0 - 34.2 pg) 26.3 L MCHC (31.5 - 34.0 G/DL) 31.2 L RDW (11.5 - 14.5 SD) 15.8 H Plt Count (150 - 450 K/mm3) 311 MPV (7.0 - 10.5 fL) 10.70 H Neut % (Auto) (40 - 76 %) 48.8 Lymph % (Auto) (20.5 - 51.1 %) 38.0 Ford % (Auto) (1.7 - 9.3 %) 10.0 H Eos % (Auto) (0.0 - 6.0 %) 1.9 Baso % (Auto) (0.0 - 2.0 %) 1.0 Neut # (Auto) (1.8 - 7.6 K/mm3) 4.6 Lymph # (Auto) (0.6 - 3.2 K/mm3) 3.6 H Ford # (Auto) (0.3 - 1.1 K/mm3) 0.9 Eos # (Auto) (0.0 - 0.4 K/mm3) 0.2 Baso # (Auto) (0.0 - 0.1 K/mm3) 0.1 Abs Immat Gran (auto) (0.00 - 0.03 x10 3/uL) 0 .03 Add Manual Diff (CRITERIA DIFF/SCN) NO Immature Gran % (0.0 - 5.0 %) 0.3 Nucleated RBC % (0.0 - 1.0 /100WBC%) 0.0 Urines Urine Color (YEL/STRAW discript) STRAW Urine Appearance (CLEAR discript) CLEAR Urine pH (5.0 - 7.0 pH UNITS) 5.5 Ur Specific [place] (1.005 - 1.030 SG) <=1.005 Urine Protein (NEG mg/dL) NEGATIVE Urine Glucose (UA) (NEG mg/dL) NEGATIVE Urine Ketones (NEG mg/dL) NEGATIVE Urine Blood (NEG mg/DL) NEGATIVE Urine Nitrite (NEG SCREEN) NEGATIVE Urine Bilirubin (NEG mg/dL) NEGATIVE Urine Urobilinogen (<2.0 mg/dL) 0.2 Ur Leukocyte Esterase (NEGATIVE Leuk/mcL) NEGA TIVE 06/20 Chemistry Sodium (134 - 147 mmol/L) 138 Potassium (3.4 - 5.0 mmol/L) 3.4 Chloride (100 - 108 mmol/L) 105 Carbon Dioxide (21 - 32 mmol/L) 25 Anion Gap (4.0 - 15.0 GAP calc) 8.0 BUN (7 - 18 MG/DL) 16 Creatinine (0.6 - 1.0 MG/DL) 1.2 H Glomerular Filtr Rate (>60 estGFR) 49 L Glucose (70 - 110 MG/DL) 131 H Lactic Acid (0.4 - 2.0 mmol/L) 1.6 Calcium (8.5 - 10.1 MG/DL) 8.3 L Total Bilirubin (0.2 - 1.2 MG/DL) 0.30 Direct Bilirubin (0.00 - 0.30 MG/DL) < 0.10 Indirect Bilirubin (0.2 - 1.2 MG/DL) 0.20 AST (15 - 37 Unit/L) 12 L ALT (12 - 78 Unit/L) 11 L Total Alk Phosphatase (45 - 117 Unit/L) 109 Troponin I High Sens (0 - 54 ng/L) 8.3 Total Protein (6.4 - 8.2 G/DL) 6.6 Albumin (3.4 - 5.0 G/DL) 2.9 L Lipase (114 - 286 Unit/L) 139 Coagulation INR (0.8 - 1.2 INR Unit) 1.07 PTT (Ellis) (26 - 35 SECONDS) 24.9 L PT Patient/Control Mix (9.3 - 12.9 SECONDS) 11. 9 Hematology WBC (3.5 - 11.0 K/mm3) 11.6 H RBC (4.70 - 6.10 M/mm3) 3.74 L Hgb (10.4 - 14.9 G/DL) 10.0 L Hct (31.5 - 44.1 %) 30.6 L MCV (84.5 - 98.6 Fl) 81.8 L MCH (27.0 - 34.2 pg) 26.7 L MCHC (31.5 - 34.0 G/DL) 32.7 RDW (11.5 - 14.5 SD) 15.5 H Plt Count (150 - 450 K/mm3) 377 MPV (7.0 - 10.5 fL) 10.90 H Neut % (Auto) (40 - 76 %) 51.3 Lymph % (Auto) (20.5 - 51.1 %) 38.9 Ford % (Auto) (1.7 - 9.3 %) 7.9 Eos % (Auto) (0.0 - 6.0 %) 1.1 Baso % (Auto) (0.0 - 2.0 %) 0.5 Neut # (Auto) (1.8 - 7.6 K/mm3) 6.0 Lymph # (Auto) (0.6 - 3.2 K/mm3) 4.5 H Ford # (Auto) (0.3 - 1.1 K/mm3) 0.9 Eos # (Auto) (0.0 - 0.4 K/mm3) 0.1 Baso # (Auto) (0.0 - 0.1 K/mm3) 0.1 Abs Immat Gran (auto) (0.00 - 0.03 x10 3/uL) 0. 03 Add Manual Diff (CRITERIA DIFF/SCN) NO Immature Gran % (0.0 - 5.0 %) 0.3 Nucleated RBC % (0.0 - 1.0 /100WBC%) 0.0 Laboratory Tests 06/21/23 0556: [Embedded Image Not Available] 06/20/237: [Embedded Image Not Available] Radiology data: Recent Impressions: RADIOLOGY - XR CHEST 1 V 06/20 1928 Report Impression - Status: SIGNED Entered: 06/20/20232004 IMPRESSION: Left basilar platelike atelectasis. Impression By: Artur Chávez M.D. CAT SCAN - CTA CHEST FOR PE 06/20 2048 Report Impression - Status: SIGNED Entered: 06/20/20232128 IMPRESSION: There are no acute findings seen in this patient 's chest on this CT examination. There is no evidence for a pulmonar y embolism. A large hiatal hernia is seen. Within the abdomen there are findings of the mil d hyperemia of the left hemicolon as outlined above, raising concer n for colitis. No acute findings are seen in the pelvis. Impression By: Zay - Jerardo Saez M.D . CAT SCAN - CT ABD PELVIS W/CONT 06/20 2048 Report Impression - Status: SIGNED Entered: 06/20/20232128 IMPRESSION: There are no acute findings seen in this patient 's chest on this CT examination. There is no evidence for a pulmonar y embolism. A large hiatal hernia is seen. Within the abdomen there are findings of the mil d hyperemia of the left hemicolon as outlined above, raising concer n for colitis. No acute findings are seen in the pelvis. Impression By: Lazara Mcekon Diagnosis, Assessment Plan Free Text A P: Ms. Mckeon is a 67-year-old female who presented to the hospital with Hypotension. #Severe sepsis present on admission secondary to colitis #Hypovolemia #Prerenal azotemia #Chronic anemia #Hypertension -CT abdomen and pelvis noted. We will check for C. difficile toxin. -Continue antibiotics. Clear liquid diet. Patien t's last colonoscopy was few years ago, had significant polyps per patient. -STACY has resolved. -Patient required multiple boluses overnight to maintain MAP greater than 65. Blood pressure is now stable. We will hold antih ypertensive for now. -Continue clear liquid diet and monitor closely. -Urinalysis unremarkable, no evidence of acute i nfection. -DVT prophylaxis-Lovenox Patient is full Plan discussed with: patient, daughter Resuscitation discussion: Discussed with: patient and family Code status: full code Electronically Signed by Michelle Reed MD on at 1246 RPT #: [id number] END OF REPORT 2023-06-20 [facility] 19:02:00-00:00 [facility] ([facility]) EMERGENCY PROVIDER REPORT REPORT#:[id number] REPORT STATUS: Signed DATE:06/20/23 TIME:1901 PATIENT: MATTHIEU MCKEON UNIT #: [id number] ROOM/BED: [place] [id number] : 53 AGE: 67 SEX: F PCP PHYS: No Primar y or Family Physician SERVICE AUTHOR: Fede Castrejon MD * ALL edits or amendments must be made on the [employer]/computer document * Fede Castrejon 06/20/231901: HPI-Dizziness/Weakness General Initial Greet Date/Time 06/20/23 185 Free Text HPI Notes Free Text HPI Notes 67-year-old female with history of hypertension on lisinopril gastric sleeve surgery with complication recurrent back pain currently on antibiotics for UTI presents to the ED with comp laints of dizziness while at work. All of a sudden. Patient was noted to be hypotensive in the low 40s to 50s systolic. EMS started IV fluids and gave 2 rounds of push dose epi. Patient states a little bit of cough congestion for the last several day s. No associated fever no changes in speech no history of blood clots or a neurysm. Risk-Dizziness/Weakness Risk Stratification NIH Stroke Scale NIH Stroke Scale Response Value NIHSS Applicable? No 0 Total 0 VAN Score VAN Score Negative , Negative Vi karen disturbance, Negative Aphasia, Negative Neglect Stroke Risk factors reviewed HEART for MACE HEART for MACE Response Value History Low index of suspicion 0 ECG Interpretation Nonspec repol disturb 1 Age Age 65 or over 2 Risk Factors for CAD 1-2 CAD risk factors 1 Troponin < or = to NL troponin 0 Total 4 HEART Score for MACE 4-7 (mod risk 12%-16.6%) HEART Score Reference Resource material only. Click 'Cancel' butto n and information will not be inserted into or become part of the medical eduarda rd Risk factors considered for determining a patien t's HEART Score include: hypercholesterolemia (hyperlipidemia), hypertens ion, diabetes mellitus, cigarette smoking, positive family history and o besity. Major Adverse Cardiac Events (MACE) include: acu te myocardial infarction, ischaemic stroke, coronary arterial occlusion an d . References: Marco A MORAES, Stephanie GOODWIN, et al. Chest pain in the emergency room: value of the HEART score. [facility], [facility] Heart J. 2008 Ju n:16(6):191-6. PubMed PMID: 16767949; PubMed Central PMCID: [id number]. Stephanie GOODWIN, Marco A MORAES, et al. A prospective validation of the HEART score for chest pain patients at the emergen cy department. Int J Cardiol. 2013 Aug 3:168(3):2154 -8. Doi: 10.1016/j.ijcard.2013.01.255. E pub 2012Feb 01. PubMed PMID: [id number]. Past Medical History - Adult Home Medications Reported Medications LISINOPRIL/HCTZ (ZESTORETIC 20/12.5 MG) 1 TAB PO DAILY CIPROFLOXACIN 500 MG PO Q12H Interpretation Diagnostics Lab Results Interpretation Considerations Independ review imaging, Reviewed prior records Lab Statement Laboratory studies reviewed and considered in e medical decision-making. Imaging Statement Radiographic studies reviewed and considered in the medical decision-making. Re-Evaluation MDM ED Course Medication(s) Ordered Medication(s) Ordered: Anti-Infective Agents Sig/Bravo Start time Last Medication Dose Route Stop Time Status Admin Ceftriaxone Sodium 1,000 MG X1ED STA 06/20 1900 AC 06/20 Sterile Water 10 ML IV 06/21 0459 1920 Antihistamine Drugs Sig/Bravo Start time Last Medication Dose Route Stop Time Status Admin Diphenhydramine HCl 25 MG X1ED STA 06/20 2002 D C 06/20 IV 06/20 Diagnostic Agents Sig/Bravo Start time Last Medication Dose Route Stop Time Status Admin Iopamidol 0 .STK-MED ONE 06/20 1954 DC 06/20 .ROUTE 2115 Electrolytic, Caloric, And Sara Sig/Bravo Start time Last Medication Dose Route Stop Time Status Admin Sodium Chloride 100 ML .STK-MED ONE 06/20 2116 DC 06/20 IV 06/20 Sodium Chloride 2,667 ML X1ED 06/20 1857 AC IV 06/20 2357 1915 Gastrointestinal Drugs Sig/Bravo Start time Last Medication Dose Route Stop Time Status Admin Ondansetron HCl 4 MG X1ED STA 06/20 1857 DC IV 06/20 1858 192 Patient Discharge Departure Discharge/Care Plan (Auto) Prescriptions Current Visit Scripts metroNIDAZOLE (FLAGYL) 500 MG PO TID metroNIDAZOLE (FLAGYL) 500 MG PO TID #15 TABS Quality Measures BP F/U for HTN Patient admitted 12-Lead ECG for CP Performed documented Gloria Landry 06/20/231945: HPI-Dizziness/Weakness Free Text HPI Notes Free Text HPI Notes 67-year-old female that was at work [employer] feeling dizziness lightheaded near syncope. Patient had a near collapse EMS was called, rafa ent was transported to ED. Patient reports URI symptoms cough, runny nose i n addition patient reports excessive diarrhea for past 3 days[address] In route pat ient was found to be hypotensive with blood pressure 60s over 40s. Patient has past medical history of hypertension and is curre ntly taking antibiotics. Patient denies chest pain, shortness of breath, nausea, vomiting, abdominal pain and chest pain currently. Patient is ANO x4 GCS of 15. Patient was started on epinephrine drip by EMS due to hypotension. General Confirmed Patient Yes Presentation Chief Complaint Dizzy, Near-fainting, low blood pressure Onset Occurred Sudden, Just prior to arrival Review of Systems ROS Statements All systems rev neg except as marked. Complete sys rev neg except as marked. Basic Review of Systems Basic ROS MS: No ext swelling/pain Focused Review of Systems Constitutional Reports: Fatigue. Denies: Fever, Letharg y, Malaise, Recent wt loss, Weakness - generalized. Eyes Denies: Blurred L, Discharge L, Eye pain R, Phot ophobia. Ears/Nose/Throat Denies: Ear drainage R, Ear ringing R, Ear ringi ng bilat, Hearing loss bilat. Respiratory Reports: Cough, non-productive. Denies: Cough, p roductive, Pleuritic pain, Shortness of breath, Wheezing. Cardiovascular Reports: Syncope (near). Denies: Chest p ain, Edema, Orthopnea, Parox nocturnal dyspnea. GI Reports: Diarrhea. Denies: Abdominal pain, Anore amor, Belching, Constipation, Hematemesis, Melena, Nausea, Rectal pain. Female Denies: Dysuria, Flank pain, Incontinence, Noctu yoni, Urinary frequency, Urination decreased. Hematologic Denies: Adenopathy, Bruising. Skin Denies: Abrasion, Contusion, Itching. Neurologic Reports: Syncope. Denies: Abnormal movement, Con fusion, Generalized weakness, Lightheaded. Psychiatric Reports: Homicidal ideation. Denies: Agitation, Confusion, Depression. Past Medical History - Adult Stated Complaint HYPOTENSION, dizziness Allergies Coded Allergies: No Known Allergies (06/20/23) Past Medical History: Reports: Hypertension. Alcohol Use Denies EtOH use Drug Use Denies recreational drugs Ambulatory Status Independent Physical Exam Vital Signs Vital Signs First Documented: Result Date Time Pulse Ox 100 06/20 1855 B/P 62/29 06/20 1855 B/P Mean 40 06/20 1855 O2 Delivery Room air 06/20 1855 Temp 36.8 06/20 1855 Pulse 64 06/20 1855 Resp 19 06/20 1855 Last Documented: Result Date Time Pulse Ox 100 06/20 2330 B/P 112/59 06/20 2330 B/P Mean 76 06/20 2330 O2 Delivery Room air 06/20 2330 Pulse 70 06/20 2330 Resp 20 06/20 2330 Temp 36.8 06/20 1855 Review of Vital Signs Reviewed Basic Physical Exam Basic PE HEAD: Atraumatic/NC, EYES: PERRL, conj clear, ENT: Membranes moist, NECK: Supple, ABD: Soft/non- tender, EXT: No gross abnormality, SKIN: No rashes, warm/dry, PSYCH: NL thought content Focused PE General/Const General/Const Awake, Alert, No acute di stress, Well appearing, Well developed , Cooperative, Not toxic appearing MS Head Head Atraumatic, Normocephalic Eyes Eyes Atraumatic, PERRL, EOMI Ears/Nose/Throat Ears/Nose/Throat Atraumatic, Airway patent, Mu cous membranes moist MS Neck Neck Atraumatic, Supple, No meningismus Resp/Chest Respiratory/Chest Atraumatic, Breath sounds NL, No respiratory distress Cardiovascular Cardiovascular Heart rate NL, Regular rhythm, H eart sounds NL Abdomen/GI Abdomen/GI Atraumatic, Soft, Non-tender MS Back Back Atraumatic, Inspection NL, Full range of m otion Lymphatic Lymphatic No gross adenopathy MS Lower Extrem Lower Ext/Pelvis/MS Atraumatic, Inspection NL, Full range of motion Skin Skin Atraumatic, Color NL, No rash, Warm, Intac t Neurologic Neurologic Oriented X3, Speech NL, No motor def icits, No sensory deficits, Memory NL Psychiatric Psychiatric Affect NL, Mood NL, Judgment/insigh t NL, Thought content NL Interpretation Diagnostics Lab Results Interpretation Results Laboratory Tests 06/20/231916: [Embedded Image Not Available] Laboratory Tests: 06/20 Chemistry Sodium (134 - 147 mmol/L) 138 Potassium (3.4 - 5.0 mmol/L) 3.4 Chloride (100 - 108 mmol/L) 105 Carbon Dioxide (21 - 32 mmol/L) 25 Anion Gap (4.0 - 15.0 GAP calc) 8.0 BUN (7 - 18 MG/DL) 16 Creatinine (0.6 - 1.0 MG/DL) 1.2 H Glomerular Filtr Rate (>60 estGFR) 49 L Glucose (70 - 110 MG/DL) 131 H Lactic Acid (0.4 - 2.0 mmol/L) 1.6 Calcium (8.5 - 10.1 MG/DL) 8.3 L Total Bilirubin (0.2 - 1.2 MG/DL) 0.30 Direct Bilirubin (0.00 - 0.30 MG/DL) < 0.10 Indirect Bilirubin (0.2 - 1.2 MG/DL) 0.20 AST (15 - 37 Unit/L) 12 L ALT (12 - 78 Unit/L) 11 L Total Alk Phosphatase (45 - 117 Unit/L) 109 Troponin I High Sens (0 - 54 ng/L) 8.3 Total Protein (6.4 - 8.2 G/DL) 6.6 Albumin (3.4 - 5.0 G/DL) 2.9 L Lipase (114 - 286 Unit/L) 139 Coagulation INR (0.8 - 1.2 INR Unit) 1.07 PTT (Ellis) (26 - 35 SECONDS) 24.9 L PT Patient/Control Mix (9.3 - 12.9 SECONDS) 11 .9 Hematology WBC (3.5 - 11.0 K/mm3) 11.6 H RBC (4.70 - 6.10 M/mm3) 3.74 L Hgb (10.4 - 14.9 G/DL) 10.0 L Hct (31.5 - 44.1 %) 30.6 L MCV (84.5 - 98.6 Fl) 81.8 L MCH (27.0 - 34.2 pg) 26.7 L MCHC (31.5 - 34.0 G/DL) 32.7 RDW (11.5 - 14.5 SD) 15.5 H Plt Count (150 - 450 K/mm3) 377 MPV (7.0 - 10.5 fL) 10.90 H Neut % (Auto) (40 - 76 %) 51.3 Lymph % (Auto) (20.5 - 51.1 %) 38.9 Ford % (Auto) (1.7 - 9.3 %) 7.9 Eos % (Auto) (0.0 - 6.0 %) 1.1 Baso % (Auto) (0.0 - 2.0 %) 0.5 Neut # (Auto) (1.8 - 7.6 K/mm3) 6.0 Lymph # (Auto) (0.6 - 3.2 K/mm3) 4.5 H Ford # (Auto) (0.3 - 1.1 K/mm3) 0.9 Eos # (Auto) (0.0 - 0.4 K/mm3) 0.1 Baso # (Auto) (0.0 - 0.1 K/mm3) 0.1 Abs Immat Gran (auto) (0.00 - 0.03 x10 3/uL) 0. 03 Add Manual Diff (CRITERIA DIFF/SCN) NO Immature Gran % (0.0 - 5.0 %) 0.3 Nucleated RBC % (0.0 - 1.0 /100WBC%) 0.0 Urines Urine Color (YEL/STRAW discript) STRAW Urine Appearance (CLEAR discript) CLEAR Urine pH (5.0 - 7.0 pH UNITS) 5.5 Ur Specific [place] (1.005 - 1.030 SG) <=1.005 Urine Protein (NEG mg/dL) NEGATIVE Urine Glucose (UA) (NEG mg/dL) NEGATIVE Urine Ketones (NEG mg/dL) NEGATIVE Urine Blood (NEG mg/DL) NEGATIVE Urine Nitrite (NEG SCREEN) NEGATIVE Urine Bilirubin (NEG mg/dL) NEGATIVE Urine Urobilinogen (<2.0 mg/dL) 0.2 Ur Leukocyte Esterase (NEGATIVE Leuk/mcL) NEGAT NELDA Microbiology: Date/Time Procedure - Status Source Growth 06/20 1917 Blood Culture - RES BLOOD 06/20 1917 Blood Culture - RES BLOOD Recent Impressions: RADIOLOGY - XR CHEST 1 V 06/20 1928 Report Impression - Status: SIGNED Entered: 06/20/20232004 IMPRESSION: Left basilar platelike atelectasis. Impression By: Artur Chávez M.D. CAT SCAN - CTA CHEST FOR PE 06/20 2048 Report Impression - Status: SIGNED Entered: 06/20/20232128 IMPRESSION: There are no acute findings seen in this patient 's chest on this CT examination. There is no evidence for a pulmonar y embolism. A large hiatal hernia is seen. Within the abdomen there are findings of the mil d hyperemia of the left hemicolon as outlined above, raising concer n for colitis. No acute findings are seen in the pelvis. Impression By: Zay Saez M.D . CAT SCAN - CT ABD PELVIS W/CONT 06/20 2048 Report Impression - Status: SIGNED Entered: 06/20/20232128 IMPRESSION: There are no acute findings seen in this patient 's chest on this CT examination. There is no evidence for a pulmonar y embolism. A large hiatal hernia is seen. Within the abdomen there are findings of the mil d hyperemia of the left hemicolon as outlined above, raising concer n for colitis. No acute findings are seen in the pelvis. Impression By: Lazara Mckeon Lab Imaging Statement Laboratory radiographic studies reviewed and con sidered in the medical decision-making. Point of Care Testing Pulse Oximetry Pulse Ox % 100 On: Room air ECG #1 Interpretation Date 06/20/23 Time 1858 Interpreted by ED physician NL ECG Interpretation Normal rate Rate 74 Re-Evaluation MDM Free Text MDM Notes Free Text MDM Notes 67-year-old female with lightheadedness dizzines s low blood pressure while at work. Onset of symptoms just prior to arrival. P atient reports previous URI UTI symptoms being treated with antibiotics curr ently. Patient also reports 3 days of diarrhea severe. Re-Evaluation/Progress #1 Time of Re-Eval 1911 Re-Eval Status Unchanged Eval Following Treatment Pt. feels better, Condi tion improved Pain Re-Evaluation Denies pain Dizziness/Weakness MDM Note The patient is resting comfortably and feels bet ter, is alert, talkative, interactive and in no distress. The repeat exami nation is unremarkable and benign. The patient is neurologically intact, xavier s a normal mental status. Re-Evaluation/Progress #2 Time of Eval 2048 Re-Eval Status Improved, repeat bp 136/76, after ivf resuscitation Eval Following Treatment Pt. feels better, Condi tion improved Pain Re-Evaluation Denies pain Differential Diagnosis )( Differential Diagnosis Acute coronary syndrom e, Dehydration, Electrolyte disorder, Heat exhaustion, Hypoglycemia, Hypothy roidism, Intracranial bleed, Labyrinthitis, Meniere's disease, Migraine disor monica, Myasthenia gravis, Myocardial infarction, Transient ischemic attack Patient Discharge Departure Vital Signs/Condition Vital Signs First Documented: Result Date Time Pulse Ox 100 06/20 1855 B/P 62/29 06/20 1855 B/P Mean 40 06/20 1855 O2 Delivery Room air 06/20 1855 Temp 36.8 06/20 1855 Pulse 64 06/20 1855 Resp 06/20 Last Documented: Result Date Time Pulse Ox 100 06/20 2330 B/P 112/59 06/20 2330 B/P Mean 76 06/20 2330 O2 Delivery Room air 06/20 2330 Pulse 70 06/20 2330 Resp 06/20 Temp 36.8 06/20 1855 All vital signs available at the time of this en try have been reviewed. 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 Total critical care time documented does not include time spent on separately billed proc edures or the services of residents, students, nurses or physician assista nts. I personally saw and examined the patient. I have reviewed all diagno stic interpretations and treatment plans as written. I was present for the pandya portions of any procedures performed and the inclusive time noted in any critical care statement. Critical care time includes patient m anagement by me, time spent at the patients bedside, time to review lab and imaging results, discussing patient care, documentation in the medical record, and time spent with the f amily or caregiver. Electronically Signed by Gloria Landry MD on 05/29 03/20 at 0880 Electronically Signed by Fede Castrejon MD on at 7375 [facility] #: [id number] END OF REPORT 2021-01-27 [id number] [facility] 18:23:00-00:[address] [place] [address] PATIENT NAME: MATTHIEU MCKEON ADMIT DATE: 01/18 ACCOUNT NO: [id number] ROOM NO: AGE: 65 REPORT TYPE: OPERATIVE REPORT SEX: F ADMITTING PHYSICIAN: ATTENDING PHYSICIAN:Naga Marcial MD OPERATION DATE: 01/27/2021 PREOPERATIVE DIAGNOSES: 1. Foreign body in the alimentary tract. 2. Gastric ulcer. POSTOPERTIVE DIAGNOSES: 1. Foreign body in the alimentary tract. 2. Gastric ulcer. PROCEDURES: 1. Laparoscopic converted to open removal of for eign body in the stomach. 2. Repair of a stomach ulcer secondary to the fo reign body. SURGEON: Naga Marcial MD ASSISTANTS: 1. MARGOT Johnson 2. RENNY Leiva ANESTHESIA: General. INTRAVENOUS FLUIDS: Crystalloid. ESTIMATED BLOOD LOSS: 100 mL. URINE OUTPUT: Not measured. BRIEF HISTORY: Pleasant elderly lady with a hist ory of a Bustamante band. On EGD, we found a band to be eroded into the stomach. A t this time, she had multiple symptoms including reflux and nausea and vomiting, gastric outlet obstruction. I recommended the above procedure. Risks and jaqui efits of procedure were discussed. Informed consent was obtained . The patient was preoped for surgery. PROCEDURE IN DETAIL: The pat ient was transferred to the operating room and laid in the supine position. The patient was sedated and intubated. Perioperative antibiotic, body warmer, and SCD were used. The patient was then prepped and draped in sterile surgical f ashion. I entered the abdomen using a 5-mm Optiview trocar technique. Pneumoperitoneum was establish ed. I then placed two more 5-mm trocars under direct visualization. I used the LigaSure and performed extensive lysis of adhesion. Once this was done, I then convert the case to open. I made a midline incision centered on the previous scar tissue. Wound retractors were then placed. At this junction, I then identified the previous PATIENT NAME: MATTHIEU MCKEON ACCOUNT #: [id number] Bustamante band on the outside. It eroded into the s tomach from the inside. At this junction, I started out by placing retractor in place. I then identified the foreign body and grabbed it and elevated it up. I then dissected out the capsule around the foreign body. After that, I t hen elevated up the foreign body and following up into the stomach. I made a gastrotomy and continued to dissect it deep into the stomach. After that, I then cut across the foreign body and removed it. Multipl e attempts were done to remove the anterior portion of the foreign body. It was very diffucult since it erode into stomach tissue. At this junction, I then proceeded to lo ok inside the stomach. Please note that the area where the Bustamante band foreign body was eroded into the lateral gastric wall. These were dissected o ut using combination of traction, countertraction, and Bovie cautery. After that, There is a hole in the lateral wall of the stomach once all the ban d has been remove. I then proceed to repairing the stomach. This also was repaired by using interrupted 3- 0 Vicryls to approximate that. On ce that was approximated, I then proceeded to irrigate the stomach multiple times. All fluid and blood clot was suctioned out. Anterior gastrotomy was then also approximated by using interrupted 3-0 Vicryls. After that, an EG D was done. No leak was identified. The lateral erodsion ulcer had been repaired. The anterior gastrotomy has also been repaired. There was no sign of stricture or gastric outlet obstruction. EGD is performed to confirm that repair is tight and no lean, no other abnormally. At this junction, irr igation was done. All fluid was suctioned out. The fascia was closed with a running looped PDS x2. Skin was closed with 3-0 Vicryl and 4- 0 Monocryl. De rmabond was applied. The patient tolerated the procedure well, was extuba patricia and transferred to recovery room for further care. Dictated By: Naga Marcial MD WT: OP:CATHLEEN/REEMA/MALATHI Conf#: [id number]/DID#: [id number] Authenticated and Edited by Naga Marcial MD On 08/18 5:42:25 PM Electronically Signed by Naga Marcial MD on at 1745 PATIENT NAME: MATTHIEU MCKEON ACCOUNT #: [id number] 2021-01-23 [id number] [facility] 14:37:00-00:[address] [place] [address] PATIENT NAME: MATTHIEU MCKEON ADMIT DATE: ACCOUNT NO: [id number] ROOM NO: AGE: 65 REPORT TYPE: eELECTROCARDIOGRAM REPORT SEX: F ADMITTING PHYSICIAN: ATTENDING PHYSICIAN:Naga Marcial MD Order: [id number] Test Reason : PRE OP Test Date/Time Stamp: TueJan 23 2021 14:37:45 Blood Pressure : / mmHG Vent. Rate : 082 BPM Atrial Rate : 082 BPM P-R Int : 150 ms QRS Dur : 084 ms QT Int : 390 ms P-R-T Axes : -03 006 041 degree s QTc Int : 455 ms Normal sinus rhythm Normal ECG When compared with ECG of 18-JUL-2020 14:59, Significant changes have occurred Confirmed by MILTON GARCIA MD ([id number]) on 01/23/20 7:02:37 PM Referred By: Naga Marcial Confirmed by:MILTON GARCIA MD at 1902 PATIENT NAME: MATTHIEU MCKEON ACCOUNT #: [id number] 2020-07-23 [id number] [facility] 11:10:00-00:00 PATIENT NAME: MATTHIEU MCKEON ADMIT DATE: ACCOUNT NO: [id number] ROOM NO: AGE: 64 REPORT TYPE: ENDOSCOPY REPORT SEX: F DATE OF : 51 ADMITTING PHYSICIAN: ATTENDING PHYSICIAN:Isael Brito MD Patient Name: Matthieu Mckeon Attending MD: Isael Brito MD Procedure Date: 07/23/2020 11:10 AM 48 Date of : [birth year] Procedure: Upper GI endoscopy Pre Procedure Diagnosis: Epigastric abdominal pa in Assistants: Isael Brito MD Referring MD: Isael Brito MD Anesthesia: Monitored Anesthesia Care Procedure: Pre-Anesthesia Assessment: - Prior to the procedure, a History and Physica l was performed, and patient medications and allergies were reviewed. The patient is compete nt. The risks and benefits of the procedure and the sedation options and risks were discussed with the patient. All questions were answered and inform ed consent was obtained. Patient identification a nd proposed procedure were verified by the physici an in the pre-procedure area. Mental Status Examination: alert and oriented. Airway Examination: normal oropharyngeal airway and ne ck mobility. Respiratory Examination: clear to auscultation. CV Examination: normal. Prophylac tic Antibiotics: The patient does not require prophylactic antibiotics. Prior Anticoagulants: The patient has taken no previous anticoagulant or antiplatelet agents. ASA Grade Assessment: III - A patient with severe systemic disease. After reviewing the risks and benefits, the patient w as deemed in satisfactory condition to undergo the procedure. [facility] Immediately prior to administration of medications, the patient was re-assessed for adequacy to receive sedatives. The heart rate, respiratory rate, oxygen saturation s, blood pressure, adequacy of pulmonary ventilati on, and response to care were monitored throughout the procedure. The physical status of the patient w as re-assessed after the procedure. The benefits, risks, and alternatives to the PATIENT NAME: MATTHIEU MCKEON ACCOUNT #: [id number] procedure were discussed and informed consent w as obtained from the patient. I've assesed the pat ient on this date and reviewed the medical history, drug history, and previous anesthesia experience. Af ter obtaining informed consent, the scope was passe d under direct vision. Throughout the procedure, the patient's blood pressure, pulse, and oxygen saturations were monitored continuously.s were monitored continuously. The Endoscope was introduced through the mouth, and advanced to t he second part of duodenum. The upper GI endoscopy was accomplished without difficulty. The patient tolerated the procedure well. Post Procedure Findings: A medium-sized hiatal h ernia was present. Diffuse moderate inflammation characterized by congestion (edema), erosions and erythema was f ound in the stomach. Biopsies were taken with a cold forceps for histology. Verification of patient identification for the specimen was done. Estim ated blood loss was minimal. The duodenal bulb, first portion of the duodenu m and second portion of the duodenum were normal . Biopsies were taken with a cold forceps for histology. Verification of patient identificati on for the specimen was done. Estimated blood loss was minimal. A previous surgery was seen at the lower third of the esophagus. Tight lap band was seen causing obstruction causing pseudo-achylasia. Dilation of eosphagus proximal to the lap band. Mild resis tance of EGD scope passing the lap band. Old food was persent proximal to the band. Complications: No immediate complications. Estimated Blood Loss: Estimated blood loss: none . Post Procedure Diagnosis: - Medium-sized hiatal hernia. - Gastritis. Biopsied. - Normal duodenal bulb, first portion of the duodenum and second portion of the duodenum. Biopsied. 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 Old food proximal to tight lap band Recommendation: - Surgical removal of lap band o r removal of saline from lap band - baritric surgery referral . - PPI BID - F/U Bx - Resume previous diet. - Continue present medications. - Await pathology results _ Proceed with colonscopy . Isael Brito MD PATIENT NAME: MATTHIEU MCKEON ACCOUNT #: [id number] 07/23/2020 11:47:08 AM This report has been signed electronically. Number of Addenda: 0 Note Initiated On: 07/23/2020 11:10 AM Procedure Code(s): --- Professional --- 94174, Esophagogastroduodenoscopy, flexible, transoral; with biopsy, single or multiple Diagnosis Code(s): --- Professional --- K44.9, Diaphragmatic hernia without obstruction or gangrene K29.70, Gastritis, unspecified, without bleedin g Z98.890, Other specified postprocedural states R10.13, Epigastric pain D62, Acute posthemorrhagic anemia CPT copyright 2018 [employer]. All rights reserved. The codes documented in this report are prelimin jean paul and upon pharmaceutical officer review may be revised to meet current compliance requiremen ts. Scope In: Scope Out: Provation {[id number]}.pdf ProVation FT PDF Electronically Signed by Isael Brito MD on 0 07/23/20 at 1241 PATIENT NAME: MATTHIEU MCKEON ACCOUNT #: [id number] 2020-07-23 [id number] [facility] 11:02:00-00:00 PATIENT NAME: MATTHIEU MCKEON ADMIT DATE: ACCOUNT NO: [id number] ROOM NO: AGE: 64 REPORT TYPE: ENDOSCOPY REPORT SEX: F DATE OF : 51 ADMITTING PHYSICIAN: ATTENDING PHYSICIAN:Isael Brito MD Patient Name: Chance Matthieu Goodman Attending MD: Isael Brito MD Procedure Date: 07/23/2020 11:02 AM 48 Date of : [birth year] Procedure: Colonoscopy Pre Procedure Diagnosis: Screening for colorecta l malignant neoplasm, Incidental - Heme positive stool, Incidental - Gastrointestinal occult blood loss, Incidental - Rectal bleeding, Last colonoscopy: 2008 Assistants: Isael Brito MD Referring MD: Isael Brito MD Anesthesia: Monitored Anesthesia Care Procedure: Pre-Anesthesia Assessment: - Prior to the procedure, a History and Physica l was performed, and patient medications and allergies were reviewed. The patient is compete nt. The risks and benefits of the procedure and the sedation options and risks were discussed with the patient. All questions were answered and inform ed consent was obtained. Patient identification a nd proposed procedure were verified by the physici an in the pre-procedure area. Mental Status Examination: alert and oriented. Airway Examination: normal oropharyngeal airway and ne ck mobility. Respiratory Examination: clear to auscultation. CV Examination: normal. Prophylac tic Antibiotics: The patient does not require prophylactic antibiotics. Prior Anticoagulants: The patient has taken no previous anticoagulant or antiplatelet agents. ASA Grade Assessment: III - A patient with severe systemic disease. After reviewing the risks and benefits, the patient w as deemed in satisfactory condition to undergo th e procedure. The anesthesia plan was to use [facility] care ([facility]). Immediately prior to administration of medications, the patient was re-assessed for adequacy to receive sedatives. The heart rate, respiratory rate, oxygen saturatio ns, blood pressure, adequacy of pulmonary ventilati on, and response to care were monitored throughout the PATIENT NAME: MATTHIEU MCKEON ACCOUNT #: [id number] procedure. The physical status of the patient w as re-assessed after the procedure. The benefits, risks, and alternatives to the procedure were discussed and informed consent w as obtained from the patient. I've assesed the pat ient on this date and reviewed the medical history, drug history, and previous anesthesia experience. Af ter obtaining informed consent, the scope was passe d under direct vision. Throughout the procedure, the patient's blood pressure, pulse, and oxygen saturations were monitored continuously. The Colonoscope was introduced through the anus and advanced to the cecum, identified by appendicea l orifice and ileocecal valve. The colonoscopy wa s performed without difficulty. The patient jung ated the procedure well. The quality of the bowel preparation was fair. Post Procedure Findings: Multiple small-mouthed diverticula were found in the sigmoid colon, descending colon and transve rse colon. There was no evidence of diverticular bleeding. A benign-appearing, intrinsic moderate stenosis measuring 2 cm (in length) x 9 mm (inner diamet er) was found in the sigmoid colon and was traverse d. Sigmoid Stenosis related to scarring and adhesi ons. EGD scope traversed area without resistance. Non-bleeding external and internal hemorrhoids were found during retroflexion. The hemorrhoids were moderate, large and Grade III (internal hemorrh oids that prolapse but require manual reduction). Banding was performed. 4 ligations bands were placed. Bleeding had stopped at the end of the procedure. Estimated blood loss was minimal. Complications: No immediate complications. Estimated Blood Loss: Estimated blood loss: none . Post Procedure Diagnosis: - Preparation of the c olon was fair. - Moderate diverticulosis in the sigmoid colon, in the descending colon and in the transverse colo n. There was no evidence of diverticular bleeding. - Stricture in the sigmoid colon related diverticualr scarring and adhesions. - Non-bleeding external and internal hemorrhoid s. 4 ligations bands - No specimens collected. Recommendation: - Repeat colonoscopy in 5 years for surveillance. - Return to GI office in 4 weeks - sitz baths - anusol BID - Fiber supplementation. Isael Brito MD 07/23/2020 11:52:36 AM This report has been signed electronically. PATIENT NAME: MATTHIEU MCKEON ACCOUNT #: [id number] Number of Addenda: 0 Note Initiated On: 07/23/2020 11:02 AM Procedure Code(s): --- Professional --- 74975, Colonoscopy, flexible; diagnostic, inclu ding collection of specimen(s) by brushing or washin g, when performed (separate procedure) Diagnosis Code(s): --- Professional --- Z12.11, Encounter for screening for malignant neoplasm of colon K64.2, Third degree hemorrhoids K56.699, Other intestinal obstruction unspecifi ed as to partial versus complete obstruction K57.30, Diverticulosis of large intestine witho ut perforation or abscess without bleeding CPT copyright 2018 [employer]. All rights reserved. The codes documented in this report are prelimin jean paul and upon pharmaceutical officer review may be revised to meet current compliance requiremen ts. Scope Withdrawal Time 0 hours 5 minutes 17 secon ds Scope In: 11:22:09 AM Scope Out: 11:38:20 AM Provation {[id number]}.pdf ProVation FT PDF Electronically Signed by Isael Brito MD on 0 07/23/20 at 1241 PATIENT NAME: MATTHIEU MCKEON ACCOUNT #: [id number]
[2023-08-09] MEDS ORDERED: NA CHLORIDE 0.9% 1,000 ML ONE (23:07)
[2023-08-09] MEDS ORDERED: ONDANSETRON 4 MG/2 ML VIAL ONE (23:07)
[2023-08-09 23:48] LABS: Absolute Lymphocytes (CBC) 2.5 K/uL (0.7-4.9); Hematocrit 37.4 % (36.0-45.0); Lymphocytes % 17.3 % (15.3-44.8); MCV 82.8 fL (80-100); Platelets 380 thou/uL (152-406); RBC Red Blood Cell Count 4.52 M/uL (3.86-4.86)
[2023-08-09 23:51] LABS: Albumin 3.7 g/dL (3.4-5.0); Bilirubin Total 0.2 mg/dL (0.2-1.0); C-Reactive Protein 9.35 mg/L (<3.00); Potassium 3.9 mEq/L (3.5-5.1); Protein, Total 8.1 g/dL (6.4-8.2)
[2023-08-10 01:33] LABS: Specific Gravity 1.014 (1.005-1.030); Urine Bacteria <20 /HPF (<20); Urine Bilirubin NEGATIVE (Negative); Urine Blood Negative (Negative); Urine Clarity Extremely Turbid (Clear); Urine Color Light-Yellow (Yellow); Urine Glucose NEGATIVE (Negative); Urine Mucus Slight /HPF (None Seen); Urine Protein NEGATIVE (Negative); Urine RBC <5 /HPF (None Seen); Urine Urobilinogen Normal (Normal)
--- NOTE | 2023-08-10 01:57 | ER ---
Nurse's Notes [facility] Name: Meme Fletcher Age: 67 yrs Sex: Female : 1955 Arrival Date: 08/09/2023 Time: 21:08 Bed 14 Private MD: Diagnosis: Enterocolitis due to Clostridium difficile;Acute diarrhea, nausea with vomiting, hypotensive episode, acute colitis Presentation: 08/09 22:03 Chief complaint: Patient states: dizzy, abdominal pain, nausea, vomiting. Coronavirus as6 screen: At this time, the client does not indicate any symptoms associated with coronavirus-19. Ebola Screen: No symptoms or risks identified at this time. Initial Sepsis Screen: Does the patient meet any 2 criteria? No. Patient's initial sepsis screen is negative. Does the patient have a suspected source of infection? No. Patient's initial sepsis screen is negative. Risk Assessment: Do you want to hurt yourself or someone else? Patient reports no desire to harm self or others. Onset of symptoms was August 09, 2023. 22:03 Method Of Arrival: Ambulatory as6 22:03 Acuity: BERNABE 3 as6 Triage Assessment: 22:10 General: Appears uncomfortable, Behavior is calm, cooperative, appropriate for age. bp Pain: Complains of pain in abdomen. Historical: - Allergies: 22:07 No Known Allergies; as6 - PMHx: 22:07 Hypertensive disorder; chronic pain; as6 - PSHx: 22:07 foot; Total abdominal hysterectomy; wrist; stomach band and unband; Cholecystectomy; as6 - Immunization history:: Client reports receiving the 2nd dose of the Covid vaccine, moderna pfizer. - Social history:: Smoking status: Patient denies any tobacco usage or history of. - Family history:: not pertinent. Screenin/13 00:00 [facility] ED Fall Risk Assessment (Adult) History of falling in the last 3 months, bp including since admission No falls in past 3 months (0 pts). Abuse screen: Denies threats or abuse. Denies injuries from another. Nutritional screening: No deficits noted. Tuberculosis screening: No symptoms or risk factors identified. Assessment: 08/09 22:10 General: SEE TRIAGE NOTE. bp 08/10 00:00 Reassessment: Patient appears in no apparent distress at this time. Patient is alert, bp oriented x 3, equal unlabored respirations, skin warm/dry/pink. Vital Signs: 08/09 22:03 BP 114 / 65; Pulse 74; Resp 18 S; Temp 96.8(TE); Pulse Ox 99% on R/A; as6 22:10 Weight 83.91 kg (R); Height 5 ft. 6 in. (R); Pain 0/10; as6 08/10 01:48 BP 135 / 59; Pulse 65; Resp 16; Pulse Ox 100% ; bp 02:28 BP 129 / 65; Pulse 64; Resp 16; Pulse Ox 99% ; bp 09/ 22:10 Body Mass Index 29.86 (83.91 kg, 167.64 cm) as6 22:10 Pain Scale: Adult as6 ED Course: 08/09 21:09 Patient arrived in ED. rg4 22:01 Quinn Ramos MD is Attending Physician. sp4 22:07 Triage completed. as6 22:07 Arm band placed on. as6 22:50 Aguila Diaz, ROBBIN is Primary Nurse. bp 23:13 Inserted saline lock: 20 gauge in right antecubital area, using aseptic technique. bp Blood collected. 08/10 00:00 Patient has correct armband on for positive identification. Bed in low position. Call bp light in reach. 00:40 Abdomen In Process Unspecified. EDMS 01:55 Sonu Ybarra MD is Hospitalizing Provider. sp4 02:27 No provider procedures requiring assistance completed. bp 02:28 Patient admitted, IV remains in place. bp Administered Medications: 08/09 23:11 Drug: NS 0.9% IV 1000 ml Route: IV; Rate: 1 bolus; Site: right antecubital; bp 08/10 02:35 Follow up: IV Status: Completed infusion; IV Intake: 1000ml bp 08/09 23:12 Drug: Ondansetron IVP 4 mg Route: IVP; Site: right antecubital; bp 08/10 02:35 Follow up: Response: No adverse reaction bp 08/09 23:17 Drug: NS 0.9% IV 1000 ml Route: IV; Rate: 125 ml/hr; Site: right antecubital; bp 08/10 02:34 Follow up: IV Status: Infusion continued upon admission bp 02:00 Drug: metroNIDAZOLE IVPB 500 mg Volume: 100 ml; Route: IVPB; Rate: 200 ml/hr; Infused bp Over: 30 mins; Site: right antecubital; 02:35 Follow up: IV Status: Completed infusion; IV Intake: 100ml bp Intake: 02:35 IV: 100ml; Total: 100ml. bp 02:35 IV: 1000ml; Total: 1100ml. bp Outcome: 01:56 Decision to Hospitalize by Provider. sp4 02:37 Admitted to Med/surg accompanied by tech, via wheelchair, room 223, with chart, Report bp called to HAILE SIEGEL 02:37 Condition: stable 02:37 Instructed on the need for admit. 03:07 Patient left the ED. bp Signatures: Dispatcher [employer] EDMS Clotilde Granados rg4 Aguila Diaz RN RN bp Prashanth Gutierrez RN RN as6 Quinn Ramos MD MD sp4 Corrections: (The following items were deleted from the chart) 02:28 02:15 Temp 102.1F; bp bp 02:28 02:27 Patient did not have IV access during this emergency room visit. bp bp 02:28 02:27 Discharged to home with family, bp bp 02:28 02:27 Condition: stable bp bp 02:28 02:27 Discharge instructions given to family, Instructed on discharge instructions, bp follow up and referral plans. Demonstrated understanding of instructions, follow-up care, bp
--- NOTE | 2023-08-10 01:57 | EDPHYS ---
Physician Documentation [facility] Name: Meme Fletcher Age: 67 yrs Sex: Female : 1955 Arrival Date: 08/09/2023 Time: 21:08 Bed 14 Private MD: ED Physician Quinn Ramos HPI: 08/09 22:01 This 67 yrs old Female presents to ER via Unassigned with complaints of Low sp4 BP. 08/10 01:44 67-year-old female with history of hypertension and chronic pain presents with report sp4 of nausea vomiting low blood pressure episode dizziness and diarrhea.. Today at work patient developed vomiting dizziness and her blood pressure was reportedly 60/40. Ambulance was called and they confirmed that patient was having low blood pressure. But patient decided to come here with private vehicle. Patient states that on June 20 she was admitted to [facility] with hypotension dizziness and diarrhea. She was diagnosed with clostridial colitis. After that she was referred to GI Dr. Mclain, who managed her with p.o. vancomycin 4 times a day for 10 days. Patient completed course of vancomycin last week. Today her primary concern is vomiting dizziness and hypotension. . Historical: - Allergies: 08/09 22:07 No Known Allergies; as6 - PMHx: 22:07 Hypertensive disorder; chronic pain; as6 - PSHx: 22:07 foot; Total abdominal hysterectomy; wrist; stomach band and unband; Cholecystectomy; as6 - Immunization history:: Client reports receiving the 2nd dose of the Covid vaccine, moderna pfizer. - Social history:: Smoking status: Patient denies any tobacco usage or history of. - Family history:: not pertinent. ROS: 08/10 01:47 Constitutional: Negative for fever, chills, and weight loss, positive for dizziness and sp4 feeling unwell overall Eyes: Negative for injury, pain, redness, and discharge, ENT: Negative for injury, pain, and discharge, Neck: Negative for injury, pain, and swelling, Cardiovascular: Negative for chest pain, palpitations, and edema, Respiratory: Negative for shortness of breath, cough, wheezing, and pleuritic chest pain, Abdomen/GI: Positive for abdominal pain, diarrhea, nonbloody diarrhea, positive for nausea vomiting. Negative for constipation, Back: Negative for injury and pain, : Negative for injury, bleeding, discharge, and swelling, MS/Extremity: Negative for injury and deformity, Skin: Negative for injury, rash, and discoloration, Neuro: Negative for headache, weakness, numbness, tingling, and seizure, Psych: Negative for depression, anxiety, Allergy/Immunology: Negative for hives, rash, and allergies Endocrine: Negative for neck swelling, polydipsia, polyuria, polyphagia, and weight changes Hematologic/Lymphatic: Negative for swollen nodes, abnormal bleeding, and unusual bruising Exam: 01:47 Constitutional: This is a well developed, well nourished patient who is awake, alert, sp4 and in no acute distress. Head/Face: Normocephalic, atraumatic. Eyes: Pupils equal round and reactive to light, extra-ocular motions intact. Lids and lashes normal. Conjunctiva and sclera are not injected. Cornea within normal limits. Periorbital areas with no swelling, redness, or edema. ENT: Nares patent. No nasal discharge, no septal abnormalities noted. Tympanic membranes are normal and external auditory canals are clear. Oropharynx with no redness, swelling, or masses, exudates, or evidence of obstruction, uvula midline. Mucous membranes moist. Neck: Trachea midline, no thyromegaly or masses palpated, and no cervical lymphadenopathy. Supple, full range of motion without nuchal rigidity, or vertebral point tenderness. Chest/axilla: Normal chest wall appearance and motion. Nontender with no deformity. No lesions are appreciated. Cardiovascular: Regular rate and rhythm with a normal S1 and S2. No gallops, murmurs, or rubs. Normal PMI, no JVD. No pulse deficits. Respiratory: Lungs have equal breath sounds bilaterally, clear to auscultation and percussion. No rales, rhonchi or wheezes noted. No increased work of breathing, no retractions or nasal flaring. Abdomen/GI: Soft, with normal bowel sounds. No distension or tympany. No guarding or rebound. Diffuse abdominal discomfort to palpation, rectal exam reveals no blood, no melena, no sign of bloody diarrhea, normal color stool. No fissure, no fistula. Back: No spinal tenderness. No costovertebral tenderness. Skin: Warm, dry with normal turgor. Normal color with no rashes, no lesions, and no evidence of cellulitis. MS/ Extremity: Pulses equal, no cyanosis. Neurovascular intact. Full, normal range of motion. Neuro: Awake and alert, GCS 15, oriented to person, place, time, and situation. Cranial nerves II-XII grossly intact. Motor strength 5/5 in all extremities. Sensory grossly intact. Psych: Awake, alert, with orientation to person, place and time. Behavior, mood, and affect are within normal limits Vital Signs: 08/09 22:03 BP 114 / 65; Pulse 74; Resp 18 S; Temp 96.8(TE); Pulse Ox 99% on R/A; as6 22:10 Weight 83.91 kg (R); Height 5 ft. 6 in. (R); Pain 0/10; as6 08/10 01:48 BP 135 / 59; Pulse 65; Resp 16; Pulse Ox 100% ; bp 02:28 BP 129 / 65; Pulse 64; Resp 16; Pulse Ox 99% ; bp 08/09 22:10 Body Mass Index 29.86 (83.91 kg, 167.64 cm) as6 22:10 Pain Scale: Adult as6 MDM: 08/09 22:11 Patient medically screened. sp4 08/10 01:06 ED course: CT abdomen - FINDINGS: Lung Bases: The visualized lung bases are clear. sp4 Bones: Mild degenerative endplate spondylosis and facet arthropathy. Disc height narrowing and L5/S1. Mild osteoarthritic change of the hips. Abdomen: Liver: The liver has normal size and density. Gallbladder: Prior cholecystectomy. Spleen, Pancreas, and Adrenal Glands: Mild fatty replacement of pancreas. The spleen and adrenal glands are unremarkable. Kidneys: The kidneys have normal size without evidence of hydronephrosis. No obstructing ureteral calculi. Vasculature: Aortoiliac atherosclerosis. IVC is unremarkable. Stomach: Large hiatal hernia. Other: No free intraperitoneal air. No free fluid or lymphadenopathy. Pelvis: Bladder: Wall thickening of the urinary bladder. Tiny focus of air in the urinary bladder may be related to recent catheterization. Bowel: No dilated loops of large or small bowel. Appendix: Normal appendix. Pelvis: Cystocele suggesting pelvic floor dysfunction. IMPRESSION: 1. Wall thickening of the urinary bladder. This could be seen with cystitis. 2. Large hiatal hernia. 3. Cystocele suggesting pelvic floor dysfunction. . 01:47 Differential Diagnosis altered mental status, sepsis, flu. Data reviewed: vital signs, sp4 nurses notes, lab test result(s), radiologic studies, CT scan. ED course: Patient nontoxic on arrival. Blood pressure was registered as normal. Repeated blood pressure 130/60. No sign of hypotension or septic shock. CT reveals no sign of significant colitis. Rectal exam reveals no bloody diarrhea. However since patient has history of recent clostridial colitis and history of hypotensive episode at work. Will request admission for monitoring overnight and also GI and infectious disease consult in the morning. . 01:54 Consideration of Admission/Observation Patient was admitted/placed on observation. sp4 Escalation of care including admission/observation considered. Management of patient was discussed with the following: Hospitalist: Consult team - Hospitalist team notified . ED course: Patient has history of clostridial colitis and at this time she possibly has early colitis based on her symptom description. Blood pressure stable. Will request admission for observation, blood pressure monitoring, IV fluids, IV Flagyl. Also potentially consultation with infectious disease and gastroenterology.. 08/09 22:10 Order name: CBC with Diff; Complete Time: 00:25 [facility] 08/09 22:10 Order name: CMP; Complete Time: 00:25 [facility] 08/09 22:10 Order name: Lipase; Complete Time: 00:25 [facility] 08/09 22:10 Order name: Urinalysis w/ reflexes; Complete Time: 01:42 [facility] 08/09 22:10 Order name: Lactate w/ 2H reflex if indic.; Complete Time: 00:25 [facility] 08/09 22:10 Order name: Blood Culture Adult (2) [facility] 08/09 22:10 Order name: Procalcitonin; Complete Time: 00:25 [facility] 08/09 22:10 Order name: CRP; Complete Time: 00:25 [facility] 08/09 22:14 Order name: Fecal Leukocyte Stain [facility] 08/09 22:14 Order name: Ova And Parasites [facility] 08/09 22:14 Order name: Stool Culture [facility] 08/10 01:39 Order name: Urine Culture [facility] 08/10 01:54 Order name: C.difficile la1 08/10 00:07 Order name: Abdomen [facility] 08/09 22:10 Order name: IV Saline Lock; Complete Time: 23:17 [facility] 08/09 22:10 Order name: Labs collected and sent; Complete Time: 23:17 sp4 Administered Medications: 08/09 23:11 Drug: NS 0.9% IV 1000 ml Route: IV; Rate: 1 bolus; Site: right antecubital; bp 08/10 02:35 Follow up: IV Status: Completed infusion; IV Intake: 1000ml bp 08/09 23:12 Drug: Ondansetron IVP 4 mg Route: IVP; Site: right antecubital; bp 08/10 02:35 Follow up: Response: No adverse reaction bp 08/09 23:17 Drug: NS 0.9% IV 1000 ml Route: IV; Rate: 125 ml/hr; Site: right antecubital; bp 08/10 02:34 Follow up: IV Status: Infusion continued upon admission bp 02:00 Drug: metroNIDAZOLE IVPB 500 mg Volume: 100 ml; Route: IVPB; Rate: 200 ml/hr; Infused bp Over: 30 mins; Site: right antecubital; 02:35 Follow up: IV Status: Completed infusion; IV Intake: 100ml bp Disposition Summary: 08/10/23 01:56 Hospitalization Ordered Hospitalization Status: Observation sp4 Provider: Sonu Ybarra sp4 Location: Telemetry/MedSurg (observation) sp4 Condition: Stable sp4 Problem: new sp4 Symptoms: are unchanged sp4 Bed/Room Type: Standard sp4 Room Assignment: [facility](08/10/23 02:29) Diagnosis - Enterocolitis due to Clostridium difficile sp4 - Acute diarrhea, nausea with vomiting, hypotensive episode, acute colitis sp4 Forms: - Medication Reconciliation Form sp4 - SBAR form sp4 - Leadership Thank You Letter sp4 Signatures: Dispatcher [employer] EDDC Debbie Lal RN RN mw Jere Milligan, KIT PLANNER-C KIT PLANNER-Cla1 Aguila Diaz RN RN bp Prashanth Gutierrez RN RN as6 Quinn Ramos MD MD sp4 Corrections: (The following items were deleted from the chart) 00:07 08/09 22:10 Abdomen Pelvis W Con+CT.RAD.BRZ ordered. EDDC EDMS 08/10 02:29 01:56 sp4 mw
[2023-08-10] MEDS ORDERED: METRONIDAZOLE 500mg IVPB 500 MG/100 ML BAG IV ONE (02:19)
--- NOTE | 2023-08-10 02:29 | P.HP ---
Certification for Inpatient Patient admitted to: Observation With expected LOS: <2 Midnights Patient will require the following post-hospital care: None Practitioner: I am a practitioner with admitting privileges, knowledge of patient current condition, hospital course, and medical plan of care. Services: Services provided to patient in accordance with Admission requirements found in Title 42 Section 412.3 of the Code of Federal Regulations <Jere Milligan - Last Filed: 08/10/23 02:24> Patient History Date of Service: 08/10/23 Reason for admission: STACY, hypotension, diarrhea History of Present Illness: 67-year-old woman with history of hypertension, chronic pain presents emergency department chief complaint hypotension, persistent diarrhea. She reports that she was admitted at [facility] from June 20 to for colitis given IV antibiotics. Subsequently after being discharged she reviewed her results that returned after her discharge and she was positive for C. difficile. She followed up with her GI doctor Dr. Mclain who prescribed her vancomycin which she took a 10-day course of, she thinks she took this starting on June 28. Since finishing her course of vancomycin she reports she has still been having persistent diarrhea usually 2-3 times a day, watery. She reports that on , August 04 she went to [facility] and was tested for C. difficile and that was negative, her GI doctor's office instructed her to take Imodium which she did and help for a day but the diarrhea returned. Today she was sitting on the toilet reportedly not having a bowel movement, straining or have any abdominal pain when she became dizzy and diaphoretic. She was unable to get up from the toilet, staff from her workplace came to evaluate her and checked her blood pressure and found her to be hypotensive with a systolic pressure of 69, EMS also came out and measured her pressure to be 70 systolic. She was brought into the ER by private vehicle and evaluated, her labs were significant for white blood cell 14.7 sodium 132 creatinine 1.9 GFR 28 glucose 116 stool studies ordered and pending CT abdomen pelvis without IV contrast was performed which revealed wall thickening of the urinary bladder, large hiatal hernia, cystocele suggesting pelvic floor dysfunction. No findings of colitis or other infectious sources identified. Patient be admitted under observation for STACY, hypotensionresolved and diarrhea. - Past Medical/Surgical History -: Hypertension -: Chronic pain -: Hysterectomy -: Cholecystectomy -: Gastric band with removal Psychosocial/ Personal History: Lives at home with family - Family History Mother -: Cancer Father -: Heart disease - Social History Alcohol use: No CD- Drugs: No Caffeine use: Yes Place of Residence: Home <Jere Milligan - Last Filed: 08/10/23 02:24> Date of Service: 08/10/23 <Sonu Ybarra - Last Filed: 08/10/23 21:15> Review of Systems 10-point ROS is otherwise unremarkable General: Weakness Gastrointestinal: Nausea, Vomiting, Diarrhea <Jere Milligan - Last Filed: 08/10/23 02:24> Physical Examination - Physical Exam General: Alert, In no apparent distress, Oriented x3, Obese HEENT: Atraumatic, PERRLA, Mucous membr. moist/pink, EOMI, Sclerae nonicteric Neck: Supple, 2+ carotid pulse no bruit, No LAD, Without JVD or thyroid abnormality Respiratory: Clear to auscultation bilaterally, Normal air movement Cardiovascular: Regular rate/rhythm, Normal S1 S2 Gastrointestinal: Normal bowel sounds, No tenderness Musculoskeletal: No tenderness Integumentary: No rashes Neurological: Normal speech, Normal strength at 5/5 x4 extr, Normal tone, Normal affect - Studies Laboratory Data (last 24 hrs) 08/09/23 08/09/23 23:15 23:15 WBC 14.70 H Hgb 12.3 Hct 37.4 Plt Count 380 Sodium 132 L Potassium 3.9 BUN 33 H Creatinine 1.90 H Glucose 116 H Total Bilirubin 0.2 AST 10 L ALT 16 Alkaline Phosphatase 126 H Lipase 75 <Jere Milligan - Last Filed: 08/10/23 02:24> - Studies Laboratory Data (last 24 hrs) 08/09/23 08/09/23 23:15 23:15 WBC 14.70 H Hgb 12.3 Hct 37.4 Plt Count 380 Sodium 132 L Potassium 3.9 BUN 33 H Creatinine 1.90 H Glucose 116 H Total Bilirubin 0.2 AST 10 L ALT 16 Alkaline Phosphatase 126 H Lipase 75 <Sonu Ybarra - Last Filed: 08/10/23 21:15> Assessment and Plan - Plan Assessment: Acute kidney injury Hypotensionresolved Persistent diarrhea-recent history of C. difficile infection Hypertension Chronic pain Plan: Acute kidney injury Unknown renal function baseline although patient has never been told she had issue with her kidneys in the past. Continue IV fluids, obtain renal ultrasound and nephrology consult. Suspect due to hypovolemia, dehydration. Hypotensionresolved Reports an episode of hypotension at work possibly vasovagal, did not lose consciousness denies any chest pain, palpitations or headache during episode. Happened while on toilet. Persistent diarrhea-recent history of C. difficile infection Stool studies ordered and pending. Hypertension Hold lisinopril given STACY, low blood pressure. Chronic pain Continue [place]. DVT PPX: Lovenox Code status: Full Discharge Plan: Home Plan to discharge in: 24 Hours - Advance Directives Does patient have a Living Will: No Does patient have a Durable POA for Healthcare: No - Code Status/Comfort Care Code Status Assessed: Yes (Full code) Critical Care: No Time Spent Managing Pts Care (In Minutes): 55 <Jere Milligan - Last Filed: 08/10/23 02:24> - Plan Patient seen and examined on rounds this morning no diarrhea since admission, feeling ok tolerating IVF ok, afebrile continue IVF, recheck labs stool studies ordered, pending collection <Sonu Ybarra - Last Filed: 08/10/23 21:15>
[2023-08-10] MEDS ORDERED: ONDANSETRON 4 MG/2 ML VIAL IV PRN (05:01)
[2023-08-10] MEDS ORDERED: HYDROCODONE/APAP 10/325 TAB PO PRN (05:01)
[2023-08-10 05:12] VITALS: BMI 29.8
[2023-08-10] MEDS: NA CHLORIDE 0.9% 1,000 ML IV SCH ×2 (06:16→15:50)
--- NOTE | 2023-08-10 07:13 | P.PN ---
Date of Service: 08/11/23 Subjective: ROS: 10 point ROS as noted above, otherwise negative Physical Exam: GEN: Alert, oriented, NAD HEENT: Normal conjunctiva, sclera anicteric CV: Regular rate and rhythm, no edema Pulm: Nonlabored respirations on room air ABD: Soft, nontender, nondistended MSK: No joint tenderness Integumentary: No rashes Neuro: Normal speech, normal affect vitals reviewed Problem List: STACY, unknown baseline Hypotension, resolved Persistent diarrhea, recent history of C. difficile Hypertension Chronic pain Plan: STACY, unknown baseline Unknown renal function baseline although patient has never been told she had issue with her kidneys in the past. Suspect due to hypovolemia, dehydration. renal u/s (08/10): pending Nephrology consulted Continue IVF Hypotensionresolved Reports an episode of hypotension at work possibly vasovagal, did not lose consciousness denies any chest pain, palpitations or headache during episode. Happened while on toilet. Persistent diarrhea-recent history of C. difficile Stool studies pending Hypertension. Hold home antihypertensives given STACY, low BP Chronic pain. PRN pain medication VTE: Code: Dispo:
[2023-08-10] MEDS ORDERED: PNEUMOCOCCAL VACCINE 0.5 ML IMVAC ONE (08:00)
--- NOTE | 2023-08-10 08:17 | RAD REPORT ---
EXAM DESCRIPTION: US - Renal Ultrasound-Complete - 08/10/2023 5:29 am CLINICAL HISTORY: Acute renal insufficiency COMPARISON: None FINDINGS: The right kidney measures 9 cm with a normal echotexture. The left kidney measures 9 cm with a normal echotexture. Hydronephrosis is not seen. Mild bladder wall thickening IMPRESSION: Unremarkable renal ultrasound. Mild bladder wall thickening may indicate a mild cystitis
[2023-08-10] MEDS: ENOXAPARIN 30 MG/0.3 ML SQ SCH (08:19)
[2023-08-10] MEDS: LACTOBACILLUS/ACIDOPHILUS TAB PO SCH ×2 (08:19→21:21)
[2023-08-10] MEDS ORDERED: HYDROMORPHONE HCL 1 MG/ML INJ ONE (08:26)
[2023-08-10] MEDS ORDERED: ONDANSETRON 4 MG/2 ML VIAL ONE (08:26)
--- NOTE | 2023-08-10 08:48 | P.CNS ---
Date of Consult: 08/10/23 Reason for Consult: STACY Requesting Physician: Sonu Ybarra Chief Complaint: STACY, hypotension, diarrhea History of Present Illness: 67-year-old woman with history of hypertension, chronic pain presents emergency department chief complaint hypotension, persistent diarrhea. She reports that she was admitted at [facility] from June 20 to for colitis given IV antibiotics. Subsequently after being discharged she reviewed her results that returned after her discharge and she was positive for C. difficile. She followed up with her GI doctor Dr. Mclain who prescribed her vancomycin which she took a 10-day course of, she thinks she took this starting on June 28. Since finishing her course of vancomycin she reports she has still been having persistent diarrhea usually 2-3 times a day, watery. She reports that on , August 04 she went to [facility] and was tested for C. difficile and that was negative, her GI doctor's office instructed her to take Imodium which she did and help for a day but the diarrhea returned. Today she was sitting on the toilet reportedly not having a bowel movement, straining or have any abdominal pain when she became dizzy and diaphoretic. She was unable to get up from the toilet, staff from her workplace came to evaluate her and checked her blood pressure and found her to be hypotensive with a systolic pressure of 69, EMS also came out and measured her pressure to be 70 systolic. She was brought into the ER by private vehicle and evaluated, her labs were significant for white blood cell 14.7 sodium 132 creatinine 1.9 GFR 28 glucose 116 stool studies ordered and pending CT abdomen pelvis without IV contrast was performed which revealed wall thickening of the urinary bladder, large hiatal hernia, cystocele suggesting pelvic floor dysfunction. No findings of colitis or other infectious sources identified. Patient be admitted under observation for STACY, hypotensionresolved and diarrhea. 22:01 This 67 yrs old Female presents to ER via Unassigned with complaints of Low sp4 BP. 08/10 01:44 67-year-old female with history of hypertension and chronic pain presents with report sp4 of nausea vomiting low blood pressure episode dizziness and diarrhea.. Today at work patient developed vomiting dizziness and her blood pressure was reportedly 60/40. Ambulance was called and they confirmed that patient was having low blood pressure. But patient decided to come here with private vehicle. Patient states that on June 20 she was admitted to [facility] with hypotension dizziness and diarrhea. She was diagnosed with clostridial colitis. After that she was referred to GI Dr. Mclain, who managed her with p.o. vancomycin 4 times a day for 10 days. Patient completed course of vancomycin last week. Today her primary concern is vomiting dizziness and hypotension. She denies NSAIDs. She denies difficulty with urination. She reports one week of dark urine. [facility] records reviewed. Serum creatinine 0.88 ~4 months ago. Allergies Unable to Assess Allergy (Unverified 08/10/23 05:01) Home medications list reviewed: Yes Home Medications: Hydrocodone/Acetaminophen [Hydrocodone-Acetamin 10-300 mg] 1 tab PO PRN 08/10/23 Lisinopril/Hydrochlorothiazide [Lisinopril-Hctz 20-12.5 mg Tab] 1 each PO DAILY 08/10/23 - Past Medical/Surgical History -: Hypertension -: Chronic pain -: Hysterectomy -: Cholecystectomy -: Gastric band with removal Psychosocial/ Personal History: Lives at home with family - Family History Mother Medical History: Cancer Father Medical History: Heart disease - Social History Alcohol use: No CD- Drugs: No Caffeine use: Yes Place of Residence: Home Review of Systems 10-point ROS is otherwise unremarkable General: Malaise Gastrointestinal: Diarrhea Physical Examination Temp Pulse Resp BP Pulse Ox 97.4 F 67 18 125/60 97 08/10/23 04:00 08/10/23 04:00 08/10/23 04:00 08/10/23 04:00 08/10/23 04:00 General: In no apparent distress, Oriented x3, Cooperative HEENT: Atraumatic Neck: Supple Respiratory: Clear to auscultation bilaterally Cardiovascular: No edema, Regular rate/rhythm Gastrointestinal: Soft and benign, Non-distended Musculoskeletal: No clubbing, No contractures Integumentary: No rashes, No cyanosis Neurological: Normal speech Laboratory Data (last 24 hrs) 08/09/23 08/09/23 23:15 23:15 WBC 14.70 H Hgb 12.3 Hct 37.4 Plt Count 380 Sodium 132 L Potassium 3.9 BUN 33 H Creatinine 1.90 H Glucose 116 H Total Bilirubin 0.2 AST 10 L ALT 16 Alkaline Phosphatase 126 H Lipase 75 Imagings Data: EXAM DESCRIPTION: US - Renal Ultrasound-Complete - 08/10/2023 5:29 am CLINICAL HISTORY: Acute renal insufficiency COMPARISON: None FINDINGS: The right kidney measures 9 cm with a normal echotexture. The left kidney measures 9 cm with a normal echotexture. Hydronephrosis is not seen. Mild bladder wall thickening IMPRESSION: Unremarkable renal ultrasound. Mild bladder wall thickening may indicate a mild cystitis Conclusions/Impression: Stag II STACY in the setting of hypotension/ hypovolemia -No NSAIDs -Continue IVF Hyponatremia in the setting of HCTZ -Hold HCTZ -Continue IVF with NS HTN -Restart antihypertensives as indicated Cystitis? Chronic bladder wall thickening -Follow up urine culture Hospitalist and ER notes reviewed Case reviewed with Dr. Ybarra Thank you kindly for the consultation
[2023-08-10] MEDS ORDERED: METRONIDAZOLE 500mg IVPB 500 MG/100 ML BAG IV SCH (09:00)
--- NOTE | 2023-08-10 09:53 | P.CNS ---
Date of Consult: 08/10/23 Reason for Consult: uti, recent c.diff Chief Complaint: STACY, hypotension, diarrhea History of Present Illness: Patient is a 67 yo female with a past medical history of hypertension and chronic pain who presented to the ED with complaints of persistent diarrhea. She was recently diagnosed with c.diff and completed a 10 day course of PO vancomycin starting on june 28. Allergies Unable to Assess Allergy (Unverified 08/10/23 05:01) Home medications list reviewed: Yes Home Medications: Hydrocodone/Acetaminophen [Hydrocodone-Acetamin 10-300 mg] 1 tab PO PRN 08/10/23 Lisinopril/Hydrochlorothiazide [Lisinopril-Hctz 20-12.5 mg Tab] 1 each PO DAILY 08/10/23 - Past Medical/Surgical History -: Hypertension -: Chronic pain -: Hysterectomy -: Cholecystectomy -: Gastric band with removal Psychosocial/ Personal History: Lives at home with family - Family History Mother Medical History: Cancer Father Medical History: Heart disease - Social History Alcohol use: No CD- Drugs: No Caffeine use: Yes Place of Residence: Home Review of Systems Unremarkable Physical Examination Temp Pulse Resp BP Pulse Ox 97.4 F 67 18 125/60 97 08/10/23 04:00 08/10/23 04:00 08/10/23 04:00 08/10/23 04:00 08/10/23 04:00 General: Alert, In no apparent distress, Oriented x3 HEENT: Atraumatic, Normocephalic Neck: Supple Respiratory: Clear to auscultation bilaterally, Normal air movement Cardiovascular: Regular rate/rhythm, Normal S1 S2 Gastrointestinal: Normal bowel sounds, Non-distended, No tenderness Musculoskeletal: No tenderness Integumentary: No rashes Neurological: Normal gait, Normal speech, Normal tone, Normal affect Laboratory Data 08/09/23 08/09/23 23:15 23:15 WBC 14.70 H Hgb 12.3 Hct 37.4 Plt Count 380 Sodium 132 L Potassium 3.9 BUN 33 H Creatinine 1.90 H Glucose 116 H Total Bilirubin 0.2 AST 10 L ALT 16 Alkaline Phosphatase 126 H Lipase 75 Microbiology Data - Reviewed Imagings Data: - Reviewed Conclusions/Impression: Problem List Diarrhea Hypertension Chronic pain Recent C.diff Diarrhea - Reported diarrhea 2-3 times per day prior to arrival. However no diarrhea reported since arrival. - C.diff Ag/Toxin 08/10: Pending - CT abdomen pelvis 08/09: "Wall thickening of the urinary bladder. This could be seen with cystitis. Large hiatal hernia. Cystocele suggesting pelvic floor dysfunction. " - Renal ultrasound 08/10: "Unremarkable renal ultrasound. Mild bladder wall thickening may indicate a mild cystitis" - Recent C.difficile infection treated with Vancomycin PO x 10 days, started around 06/28. - No leukocytosis. Afebrile. - Stool culture 08/09: Pending - Blood cultures 08/09: Pending - urine culture 08/10: pending Recommendations - Maintain adequate hydration - follow up with c.diff results - continue to monitor Case discussed with Hadley Noel
[2023-08-10 11:39] LABS: Absolute Lymphocytes (CBC) 2.4 K/uL (0.7-4.9); Hematocrit 31.5 % (36.0-45.0); Lymphocytes % 27.4 % (15.3-44.8); MCV 82.8 fL (80-100); MPV 8.8 fL (7.6-11.3); Platelets 309 thou/uL (152-406)
[2023-08-10 11:57] LABS: Albumin 2.9 g/dL (3.4-5.0); Bilirubin Total 0.3 mg/dL (0.2-1.0); Magnesium 1.6 mg/dL (1.6-2.4); Potassium 4.1 mEq/L (3.5-5.1); Protein, Total 6.5 g/dL (6.4-8.2)
[2023-08-10 12:05] LABS: Thyroid Stimulating Hormone 1.37 uIU/mL (0.358-3.740)
--- NOTE | 2023-08-10 13:41 | RAD REPORT ---
EXAM DESCRIPTION: CT - Abdomen Pelvis Wo Contrast - 08/10/2023 6:52 am CLINICAL HISTORY: ABD PAIN COMPARISON: None Available. TECHNIQUE: CT of the abdomen and pelvis without IV contrast. Evaluation of the solid organs and vasc ulature is suboptimal due to lack of IV contrast. This exam was performed according to our department al dose-optimization program, which includes automated exposure control, adjustment of the mA and/or kV according to patient size and/or use of iterative reconstruction technique. FINDINGS: Lung Bases: The visualized lung bases are clear. Bones: Mild degenerative endplate spondylosis and facet arthropathy. Disc height narrowing and L5/S1. Mild osteoarthritic change of the hips. Abdomen: Liver: The liver has normal size and density. Gallbladder: Prior cholecystectomy. Spleen, Pancreas, and Adrenal Glands: Mild fatty replacement of pancreas. The spleen and adrenal gl ands are unremarkable. Kidneys: The kidneys have normal size without evidence of hydronephrosis. No obstructing ureteral philip culi. Vasculature: Aortoiliac atherosclerosis. IVC is unremarkable. Stomach: Large hiatal hernia. Other: No free intraperitoneal air. No free fluid or lymphadenopathy. Pelvis: Bladder: Wall thickening of the urinary bladder. Tiny focus of air in the urinary bladder may be re lated to recent catheterization. Bowel: No dilated loops of large or small bowel. Appendix: Normal appendix. Pelvis: Cystocele suggesting pelvic floor dysfunction. IMPRESSION: 1. Wall thickening of the urinary bladder. This could be seen with cystitis. 2. Large hiatal hernia. 3. Cystocele suggesting pelvic floor dysfunction. Electronically signed by: Musa Russo 08/10/2023 12:49 AM CDT Due to temporary technical issues with the PACS/Fluency reporting system, reports are being signed by the in house radiologist without review as a courtesy to ensure prompt reporting. The interpreting r adiologist is fully responsible for the content of the report.
[2023-08-11] MEDS: NA CHLORIDE 0.9% 1,000 ML IV SCH ×2 (01:28→11:26)
[2023-08-11] MEDS ORDERED: FAMOTIDINE 20 MG/2 ML VIAL IV ONE (01:51)
[2023-08-11 03:23] LABS: Absolute Lymphocytes (CBC) 2.8 K/uL (0.7-4.9); Hematocrit 29.4 % (36.0-45.0); Lymphocytes % 44.1 % (15.3-44.8); Platelets 286 thou/uL (152-406); RBC Red Blood Cell Count 3.54 M/uL (3.86-4.86)
[2023-08-11 03:35] LABS: Magnesium 1.7 mg/dL (1.6-2.4); Potassium 3.8 mEq/L (3.5-5.1)
[2023-08-11] MEDS: LACTOBACILLUS/ACIDOPHILUS TAB PO SCH (08:26)
[2023-08-11] MEDS: ENOXAPARIN 30 MG/0.3 ML SQ SCH (08:26)
[2023-08-11 08:34] VITALS: O2SAT 99
--- NOTE | 2023-08-11 08:51 | P.PN ---
Date of Service: 08/11/23 Chief Complaint: STACY, hypotension, diarrhea Subjective: Patient seen and examined at bedside. Improving. No new or worsening complaints. Physical Examination Temp Pulse Resp BP Pulse Ox 97.7 F 70 17 114/55 L 99 08/11/23 04:00 08/11/23 04:00 08/11/23 04:00 08/11/23 04:00 08/11/23 04:00 General: Alert, In no apparent distress, Oriented x3 HEENT: Atraumatic, Normocephalic Neck: Supple Respiratory: Clear to auscultation bilaterally, Normal air movement Cardiovascular: Regular rate/rhythm, Normal S1 S2 Gastrointestinal: Normal bowel sounds, Non-distended, No tenderness Musculoskeletal: No tenderness Integumentary: No rashes Neurological: Normal gait, Normal speech, Normal tone, Normal affect Laboratory Data - Reviewed Microbiology Data - Reviewed Imagings Data: - Reviewed Assessment and Plan Problem List Diarrhea Hypertension Chronic pain Recent C.diff Diarrhea - Reported diarrhea 2-3 times per day prior to arrival. However no diarrhea reported since arrival. - CT abdomen pelvis 08/09: "Wall thickening of the urinary bladder. This could be seen with cystitis. Large hiatal hernia. Cystocele suggesting pelvic floor dysfunction. " - Renal ultrasound 08/10: "Unremarkable renal ultrasound. Mild bladder wall thickening may indicate a mild cystitis" - Recent C.difficile infection treated with Vancomycin PO x 10 days, started around 06/28. - No leukocytosis. Afebrile. - Stool culture 08/09: Pending - C.diff Ag/Toxin 08/10: Pending - Blood cultures 08/09: no growth to date - urine culture 08/10: no growth to date Recommendations - Maintain adequate hydration - continue to monitor for s/s of infection or persistent diarrhea - No indication for antibiotic treatment at this time. - Follow up with c.diff and stool culture results. - Follow up with PCP or GI as outpatient. Case discussed with Hadley Noel
[2023-08-11 11:51] VITALS: BP 133/61; TEMP 98.5
[2023-08-11] MEDS ORDERED: DRISDOL (VITAMIN D=ERGOCALCIFEROL) 50000 UNIT CAP PO SCH (12:00)
--- NOTE | 2023-08-11 13:44 | P.DS ---
Admission Date: 08/10/23 Discharge Date: 08/11/23 Disposition: ROUTINE DISCHARGE Discharge Condition: GOOD Reason for Admission: STACY, hypotension, diarrhea Consultations: Infectious disease - Dr. Montoya Nephrology - Dr. Mchugh Brief History of Present Illness: 67-yo F, PMH: hypertension, chronic pain Patient presents emergency department chief complaint hypotension, persistent diarrhea. She reports that she was admitted at [facility] from June 20 to for colitis given IV antibiotics. Subsequently after being discharged she reviewed her results that returned after her discharge and she was positive for C. difficile. She followed up with her GI doctor Dr. Mclain who prescribed her vancomycin which she took a 10-day course of, she thinks she took this starting on June 28. Since finishing her course of vancomycin she reports she has still been having persistent diarrhea usually 2-3 times a day, watery. She reports that on , August 04 she went to [facility] and was tested for C. difficile and that was negative, her GI doctor's office instructed her to take Imodium which she did and help for a day but the diarrhea returned. Today she was sitting on the toilet reportedly not having a bowel movement, straining or have any abdominal pain when she became dizzy and diaphoretic. She was unable to get up from the toilet, staff from her workplace came to evaluate her and checked her blood pressure and found her to be hypotensive with a systolic pressure of 69, EMS also came out and measured her pressure to be 70 systolic. She was brought into the ER by private vehicle and evaluated, her labs were significant for white blood cell 14.7 sodium 132 creatinine 1.9 GFR 28 glucose 116 stool studies ordered and pending CT abdomen pelvis without IV contrast was performed which revealed wall thickening of the urinary bladder, large hiatal hernia, cystocele suggesting pelvic floor dysfunction. No findings of colitis or other infectious sources identified. Patient be admitted under observation for STACY, hypotensionresolved and diarrhea. Hospital Course: Problem List: STACY, resolved Hypotension, resolved Persistent diarrhea, recent history of C. difficile Hypertension Chronic pain Patient presented with persistent diarrhea, hypotension. Patient was found to have an STACY secondary to dehydration / hypovolemia. Nephrology was consulted. Patients STACY resolved with IV fluids. Patient's diarrhea resolved without intervention. Stool studies were ordered, but not accepted for cdiff since it was more formed. She remained afebrile and was feeling well. She was deemed stable for discharge home. Recommend daily over the counter probiotic and imodium as needed Follow up with GI as scheduled Physical Exam: GEN: Alert, oriented, NAD HEENT: Normal conjunctiva, sclera anicteric CV: Regular rate and rhythm, no edema Pulm: Nonlabored respirations on room air ABD: Soft, nontender, nondistended MSK: No joint tenderness Integumentary: No rashes Neuro: Normal speech, normal affect Vital Signs/Physical Exam: Temp Pulse Resp BP Pulse Ox 98.5 F 79 18 133/61 98 08/11/23 11:51 08/11/23 11:51 08/11/23 11:51 08/11/23 11:51 08/11/23 11:51 Laboratory Data at Discharge: WBC 6.40 thou/uL (4.3-10.9) 08/11/23 02:17 Hgb 9.9 g/dL (12.0-15.0) L 08/11/23 02:17 Hct 29.4 % (36.0-45.0) L 08/11/23 02:17 Plt Count 286 thou/uL (152-406) 08/11/23 02:17 Sodium 138 mEq/L (136-145) 08/11/23 02:17 Potassium 3.8 mEq/L (3.5-5.1) 08/11/23 02:17 BUN 19 mg/dL (7-18) H 08/11/23 02:17 Creatinine 0.85 mg/dL (0.55-1.02) 08/11/23 02:17 Glucose 109 mg/dL (74-106) H 08/11/23 02:17 Magnesium 1.7 mg/dL (1.6-2.4) 08/11/23 02:17 Total Bilirubin 0.3 mg/dL (0.2-1.0) 08/10/23 11:18 AST 8 U/L (15-37) L 08/10/23 11:18 ALT 12 U/L (13-56) L 08/10/23 11:18 Alkaline Phosphatase 105 U/L (45-117) 08/10/23 11:18 Lipase 75 U/L (13-75) 08/09/23 23:15 Home Medications: Hydrocodone/Acetaminophen [Hydrocodone-Acetamin 10-300 mg] 1 tab PO PRN 08/10/23 Lisinopril/Hydrochlorothiazide [Lisinopril-Hctz 20-12.5 mg Tab] 1 each PO DAILY 08/10/23 Physician Discharge Instructions: Patient presented with persistent diarrhea, hypotension. Patient was found to have an STACY secondary to dehydration / hypovolemia. Nephrology was consulted. Patients STACY resolved with IV fluids. Patient's diarrhea resolved without intervention. Stool studies were ordered, but not accepted for cdiff since it was more formed. She remained afebrile and was feeling well. She was deemed stable for discharge home. Recommend daily over the counter probiotic and imodium as needed Follow up with GI as scheduled Followup: Rocael Chávez MD [Primary Care Provider] - Time spent managing pt's care (in minutes): 45
--- NOTE | 2023-08-11 20:56 | P.PN ---
Date of Service: 08/11/23 Vital Signs Temp Pulse Resp BP Pulse Ox 98.5 F 79 18 133/61 98 08/11/23 11:51 08/11/23 11:51 08/11/23 11:51 08/11/23 11:51 08/11/23 11:51 Lab Results (last 24 hrs) 08/10/23 01:54: C. difficile Ag & Toxin Cancelled Microbiology Results 08/10/23 00:45 Clean Catch Urine Hope Count - Final No growth. 08/10/23 00:45 Clean Catch Urine - Final No growth. 08/09/23 23:15 Blood - Blood Aerobic Blood Culture - Preliminary No growth in 24 hours. 08/09/23 23:15 Blood - Blood Anaerobic Blood Culture - Preliminary No growth in 24 hours. 08/09/23 23:00 Blood - Blood Aerobic Blood Culture - Preliminary No growth in 24 hours. 08/09/23 23:00 Blood - Blood Anaerobic Blood Culture - Preliminary No growth in 24 hours. Assessment/ Plan: Nephrology No dyspnea No chest pain No acute events overnight Vitals, medications, blood work and imaging reviewed in the chart. General: In no apparent distress, Oriented x3, Cooperative HEENT: Atraumatic Neck: Supple Respiratory: Clear to auscultation bilaterally Cardiovascular: No edema, Regular rate/rhythm Gastrointestinal: Soft and benign, Non-distended Musculoskeletal: No clubbing, No contractures Integumentary: No rashes, No cyanosis Neurological: Normal speech Laboratory Data (last 24 hrs) 08/09/23 08/09/23 23:15 23:15 WBC 14.70 H Hgb 12.3 Hct 37.4 Plt Count 380 Sodium 132 L Potassium 3.9 BUN 33 H Creatinine 1.90 H Glucose 116 H Total Bilirubin 0.2 AST 10 L ALT 16 Alkaline Phosphatase 126 H Lipase 75 Imagings Data: EXAM DESCRIPTION: US - Renal Ultrasound-Complete - 08/10/2023 5:29 am CLINICAL HISTORY: Acute renal insufficiency COMPARISON: None FINDINGS: The right kidney measures 9 cm with a normal echotexture. The left kidney measures 9 cm with a normal echotexture. Hydronephrosis is not seen. Mild bladder wall thickening IMPRESSION: Unremarkable renal ultrasound. Mild bladder wall thickening may indicate a mild cystitis Conclusions/Impression: Stag II STACY in the setting of hypotension/ hypovolemia -No NSAIDs -Continue IVF Hyponatremia in the setting of HCTZ -Hold HCTZ -Continue IVF with NS HTN -Hold antihypertensives at this time Cystitis? Chronic bladder wall thickening -Follow up with urology Hospitalist note reviewed Case reviewed with Dr. Ybarra
== END 2023-08-11 14:55 | disposition home or self-care (01) ==
LOC: ER 21:08 → ERHOLD 08-10 02:15 → 2ND 08-10 02:46
PROVIDERS: ADMIT Hospitalist; ATTEND Hospitalist
DX: N17.9 Acute kidney failure, unspecified (principal); I95.9 Hypotension, unspecified; R11.2 Nausea with vomiting, unspecified; R19.7 Diarrhea, unspecified; I10 Essential (primary) hypertension; G89.29 Other chronic pain; E87.1 Hypo-osmolality and hyponatremia; K44.9 Diaphragmatic hernia without obstruction or gangrene
CPT/HCPCS: 96365; 96361; 87040 ×2; 87088; 85025 ×3; 81001; 87086; 80048; 36415 ×2; 83735 ×2; 82550; 83605; 84443; 84439; 83690; 80053 ×2; 84145; 86140; 74176; 76770; 96375; 99285; J1650 ×2; J2405 ×2; J7030 ×5; G0378 ×3; J1170